=== PATIENT | male | born 1945 | race American Indian/Alaskan Native ===

== ENCOUNTER 2016-10-21 16:57 | Inpatient (IN) | payer MEDICARE, OTHER ==
--- NOTE | 2016-10-21 20:08 | Emergency Department Report ---
ED Psych HPI - General Chief Complaint: Medical Clearance Stated Complaint: AGITATION/PSYCHOSIS Time Seen by Provider: 10/21/16 20:06 Source: patient, EMS, RN notes reviewed Mode of arrival: Stretcher - History of Present Illness Initial Comments: pt sent from [place] pt acting psychotic. walking around naked. harrassing staff. verbally abusive. pt now calm cooperative. denies any co MD Complaint: other -: Gradual Associated Psychiatric Symptoms: none History of same: No Quality: constant Improves With: none Worsens With: none Associated Symptoms: denies other symptoms Treatments Prior to Arrival: none - Related Data Home Medications Medication Instructions Recorded Confirmed Last Taken Acyclovir [Zovirax Tab] 800 mg PO DAILY 10/21/16 10/21/16 Unknown Cephalexin [Keflex] 500 mg PO DAILY 10/21/16 10/21/16 Unknown Sertraline [Zoloft] 25 mg PO DAILY 10/21/16 10/21/16 Unknown oxyCODONE [Roxicodone TAB] 5 mg PO DAILY 10/21/16 10/21/16 Unknown Allopurinol [Zyloprim] 100 mg PO QDAY 10/22/16 10/22/16 Unknown Capsaicin 0.075% [Zostrix Hp 0.1 mg TP TID 10/22/16 10/22/16 Unknown 0.075%] Carvedilol [Coreg] 6.25 mg PO BID 10/22/16 10/22/16 Unknown Gabapentin [Neurontin] 600 mg PO BID 10/22/16 10/22/16 Unknown Hydroxyzine HCl 10 mg PO Q6H PRN 10/22/16 10/22/16 Unknown Insulin Regular, Human [HumuLIN R] 10 units SQ AC 10/22/16 10/22/16 Unknown LORazepam [Ativan] 1 mg PO TID 10/22/16 10/22/16 Unknown Quetiapine Fumarate [SEROquel] 50 mg PO QHS 10/22/16 10/22/16 Unknown amLODIPine [Norvasc] 5 mg PO DAILY 10/22/16 10/22/16 Unknown Allergies Allergy/AdvReac Type Severity Reaction Status Date / Time codeine Allergy Anaphylaxis Verified 10/21/16 17:29 lisinopril Allergy Angioedema Verified 10/21/16 17:29 metformin Allergy Unknown Verified 12/12/16 17:29 ED Review of Systems ROS: Stated complaint: AGITATION/PSYCHOSIS Other details as noted in HPI Comment: All other systems reviewed and negative Constitutional: denies: chills, fever Eyes: denies: eye pain, eye discharge, vision change ENT: denies: ear pain, throat pain Respiratory: denies: cough, shortness of breath, wheezing Cardiovascular: denies: chest pain, palpitations Endocrine: no symptoms reported Gastrointestinal: denies: abdominal pain, nausea, diarrhea Genitourinary: denies: urgency, dysuria Musculoskeletal: denies: back pain, joint swelling, arthralgia Skin: denies: rash, lesions Neurological: denies: headache, weakness, paresthesias Psychiatric: as per HPI, other. 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) Hx Headaches / Migraines: Yes Hx Kidney Stones: Yes (Chronic unspecified) Hx Psychiatric Treatment: Yes (Major Depressive Disorder) Hx Tuberculosis: Yes (contact and exposure) Hx Dementia: Yes Additional medical history: adverse effects to antiviral drugs; Hypothyroidism; gout; Muscle weakness; multiple falls - Surgical History Past Surgical History?: No Hx Coronary Stent: (dz listed on hx stent information not provided) - Social History Smoking Status: Unknown if ever smoked Substance Use Type: None - Medications Home Medications: Home Medications Medication Instructions Recorded Confirmed Last Taken Type Acyclovir [Zovirax Tab] 800 mg PO DAILY 10/21/16 10/21/16 Unknown History Cephalexin [Keflex] 500 mg PO DAILY 10/21/16 10/21/16 Unknown History Sertraline [Zoloft] 25 mg PO DAILY 10/21/16 10/21/16 Unknown History oxyCODONE [Roxicodone TAB] 5 mg PO DAILY 10/21/16 10/21/16 Unknown History Allopurinol [Zyloprim] 100 mg PO QDAY 10/22/16 10/22/16 Unknown History Capsaicin 0.075% [Zostrix Hp 0.1 mg TP TID 10/22/16 10/22/16 Unknown History 0.075%] Carvedilol [Coreg] 6.25 mg PO BID 10/22/16 10/22/16 Unknown History Gabapentin [Neurontin] 600 mg PO BID 10/22/16 10/22/16 Unknown History Hydroxyzine HCl 10 mg PO Q6H PRN 10/22/16 10/22/16 Unknown History Insulin Regular, Human [HumuLIN R] 10 units SQ AC 10/22/16 10/22/16 Unknown History LORazepam [Ativan] 1 mg PO TID 10/22/16 10/22/16 Unknown History Quetiapine Fumarate [SEROquel] 50 mg PO QHS 10/22/16 10/22/16 Unknown History amLODIPine [Norvasc] 5 mg PO DAILY 10/22/16 10/22/16 Unknown History ED Physical Exam - General Limitations: Altered Mental Status, Physical Limitation General appearance: alert, in no apparent distress - Head Head exam: Present: atraumatic, normocephalic - Eye Eye exam: Present: normal appearance - ENT ENT exam: Present: mucous membranes moist - Neck Neck exam: Present: normal inspection - Respiratory Respiratory exam: Present: normal lung sounds bilaterally. Absent: respiratory distress - Cardiovascular Cardiovascular Exam: Present: regular rate, normal rhythm. Absent: systolic murmur, diastolic murmur, rubs, gallop - GI/Abdominal GI/Abdominal exam: Present: soft, normal bowel sounds - Rectal Rectal exam: Present: deferred - Extremities Exam Extremities exam: Present: normal inspection - Back Exam Back exam: Present: normal inspection - Neurological Exam Neurological exam: Present: alert, oriented X3 - Psychiatric Psychiatric exam: Present: normal affect, normal mood - Skin Skin exam: Present: warm, dry, intact, normal color. Absent: rash ED Course Vital Signs 10/21/16 10/21/16 10/21/16 17:29 17:38 18:02 Temperature 98.5 F Pulse Rate 92 H Respiratory Rate Blood Pressure 120/52 120/52 Blood Pressure [Left] O2 Sat by Pulse 94 79 L 90 Oximetry 10/21/16 10/21/16 10/21/16 19:00 20:29 20:36 Temperature 98.6 F Pulse Rate 101 H Respiratory 18 18 Rate Blood Pressure 120/52 130/76 Blood Pressure 130/76 [Left] O2 Sat by Pulse 85 100 Oximetry 10/21/16 10/22/16 10/22/16 21:22 01:00 05:00 Temperature Pulse Rate 106 H 101 H Respiratory 18 16 Rate Blood Pressure 130/76 Blood Pressure 132/76 152/82 [Left] O2 Sat by Pulse 100 100 Oximetry 10/22/16 10/22/16 10/22/16 10:27 16:31 17:01 Temperature 98.1 F Pulse Rate 84 Respiratory 16 Rate Blood Pressure Blood Pressure 165/95 [Left] O2 Sat by Pulse 99 100 100 Oximetry 10/22/16 10/22/16 10/22/16 18:00 18:01 19:00 Temperature 98.1 F Pulse Rate 98 H 100 H Respiratory 16 20 Rate Blood Pressure 157/85 Blood Pressure 175/85 157/85 [Left] O2 Sat by Pulse 99 100 98 Oximetry 10/22/16 10/22/16 10/22/16 20:00 21:00 22:00 Temperature Pulse Rate 96 H 112 H 100 H Respiratory 20 18 Rate Blood Pressure 159/76 161/74 150/74 Blood Pressure 159/76 161/74 150/74 [Left] O2 Sat by Pulse 99 100 100 Oximetry 10/22/16 10/23/16 10/23/16 23:00 00:00 01:00 Temperature Pulse Rate 95 H 100 H 106 H Respiratory 20 20 16 Rate Blood Pressure 148/83 152/82 Blood Pressure 148/83 152/82 132/76 [Left] O2 Sat by Pulse 100 100 100 Oximetry 10/23/16 10/23/16 10/23/16 01:01 02:00 02:01 Temperature Pulse Rate 99 H Respiratory 18 Rate Blood Pressure 180/85 136/71 Blood Pressure 150/80 [Left] O2 Sat by Pulse 100 100 100 Oximetry 10/23/16 10/23/16 10/23/16 03:00 04:00 05:00 Temperature Pulse Rate 106 H 109 H 102 H Respiratory 18 16 21 Rate Blood Pressure 150/80 132/76 144/73 Blood Pressure 136/71 180/85 152/82 [Left] O2 Sat by Pulse 100 100 100 Oximetry 10/23/16 10/23/16 10/23/16 05:14 06:00 06:28 Temperature Pulse Rate 100 H 97 H Respiratory 22 16 Rate Blood Pressure 150/75 144/77 Blood Pressure 144/77 [Left] O2 Sat by Pulse 100 100 Oximetry 10/23/16 10/23/16 10/23/16 07:00 07:05 08:01 Temperature 99.2 F Pulse Rate 95 H 115 H 107 H Respiratory 20 20 22 Rate Blood Pressure 142/78 142/78 Blood Pressure 142/78 [Left] O2 Sat by Pulse 100 100 100 Oximetry 10/23/16 10/23/16 10/23/16 08:21 08:41 09:01 Temperature Pulse Rate 97 H 107 H 120 H Respiratory 17 16 19 Rate Blood Pressure 159/78 159/78 159/78 Blood Pressure [Left] O2 Sat by Pulse 99 100 100 Oximetry 10/23/16 10/23/16 10/23/16 09:29 09:30 09:31 Temperature Pulse Rate 103 H 105 H 105 H Respiratory 20 18 Rate Blood Pressure 159/78 159/78 159/78 Blood Pressure [Left] O2 Sat by Pulse 99 Oximetry 10/23/16 10/23/16 10/23/16 10:00 10:31 10:58 Temperature Pulse Rate 112 H Respiratory 18 22 Rate Blood Pressure 156/84 156/84 Blood Pressure [Left] O2 Sat by Pulse 100 Oximetry 10/23/16 10/23/16 10/23/16 11:00 11:01 11:09 Temperature Pulse Rate 108 H 108 H 107 H Respiratory 20 16 34 H Rate Blood Pressure 156/84 156/84 143/116 Blood Pressure [Left] O2 Sat by Pulse 100 Oximetry 10/23/16 10/23/16 12:01 13:00 Temperature Pulse Rate 106 H 92 H Respiratory 17 21 Rate Blood Pressure 143/116 136/71 Blood Pressure [Left] O2 Sat by Pulse 100 Oximetry ED Medical Decision Making - Lab Data Result diagrams: 10/21/16 20:30 10/21/16 20:30 - Medical Decision Making mr balderas arrived in no acute distress. he was medically cleared and placed on 1013. crisis consulted for dispo - Differential Diagnosis psychosis Critical care attestation.: If time is entered above; I have spent that time in minutes in the direct care of this critically ill patient, excluding procedure time. ED Disposition Clinical Impression: Psychosis Qualifiers: Psychosis type: unspecified psychosis type Qualified Code(s): F29 - Unspecified psychosis not due to a substance or known physiological condition Disposition: DC/TX PSY HOSP/PSY UNIT Is pt being admited?: No Does the pt Need Aspirin: No Condition: Stable Time of Disposition: 16:38 ( jose)
[2016-10-21 20:44] LABS: Urine Drugs of Abuse Note Disclamer
[2016-10-21 20:48] LABS: Basophils % (Auto) 1.1 % (0.0-1.8); Eosinophils % (Auto) 2.5 % (0.0-4.3); Hematocrit 29.2 % (35.5-45.6); Hemoglobin 9.6 gm/dl (11.8-15.2); Mean Corpuscular HGB Conc 33 % (32-34); Mean Corpuscular Hemoglobin 29 pg (28-32); Mean Corpuscular Volume 89 fl (84-94); Platelet Count 102 K/mm3 (140-440); Red Blood Count 3.27 M/mm3 (3.65-5.03); Red Cell Distribution Width 17.6 % (13.2-15.2); White Blood Count 6.5 K/mm3 (4.5-11.0)
[2016-10-21 21:07] LABS: Bilirubin,Urine NEG (Negative); Blood,Urine NEG (Negative); Ketones,Urine NEG (Negative); Leukocyte Esterase,Urine NEG (Negative); Mucus,Urine FEW /HPF; Nitrite,Urine NEG (Negative); RBC,Urine < 1.0 /HPF (0.0-6.0)
[2016-10-21 21:08] LABS: Blood Urea Nitrogen 21 mg/dL (9-20); Calcium 8.8 mg/dL (8.4-10.2); Carbon Dioxide 23 mmol/L (22-30); Chloride 105.7 mmol/L (98-107); Glucose 83 mg/dL (75-100); Potassium 4.1 mmol/L (3.6-5.0); Sodium 143 mmol/L (137-145)
[2016-10-21] MEDS ORDERED: BENADRYL ONE (21:17)
[2016-10-21] MEDS ORDERED: ATIVAN ONE (21:17)
[2016-10-21] MEDS ORDERED: BENADRYL IV ONE (21:24)
[2016-10-21] MEDS ORDERED: ATIVAN IV ONE (21:24)
[2016-10-21 21:29] LABS: Anion Gap 18 mmol/L
[2016-10-22] MEDS ORDERED: HYDROCORTISONE CR TP ONE (06:31)
[2016-10-22] MEDS ORDERED: BENADRYL ONE (06:32)
[2016-10-22] MEDS ORDERED: BENADRYL IV ONE (06:40)
[2016-10-22] MEDS ORDERED: ATIVAN ONE (08:43)
[2016-10-22] MEDS ORDERED: HALDOL IM PRN (08:45)
[2016-10-22] MEDS: ATIVAN IM PRN ×2 (09:04→14:59)
[2016-10-22] MEDS: BENADRYL IM PRN ×2 (09:04→14:59)
[2016-10-22] MEDS ORDERED: GEODON IM ONE ×2 (14:44→15:00)
[2016-10-22] MEDS ORDERED: WATER FOR INJ (PF) 10 ML ONE (14:44)
[2016-10-22] MEDS: COREG PO SCH (17:45)
[2016-10-22] MEDS: NEURONTIN PO SCH ×2 (17:45→22:00)
[2016-10-22] MEDS: NORVASC PO SCH (17:45)
[2016-10-22] MEDS: ROXICODONE PO SCH (17:46)
[2016-10-22] MEDS: ZOVIRAX PO SCH (17:46)
[2016-10-22] MEDS: ZYLOPRIM PO SCH (17:46)
[2016-10-22] MEDS: ZOSTRIX HP TP SCH ×2 (17:46→20:00)
[2016-10-22] MEDS: ZOLOFT PO SCH (18:36)
[2016-10-22] MEDS ORDERED: NON-FORMULARY (Gabapentin [Neurontin] 600 MG) PO SCH (22:00)
[2016-10-22] MEDS ORDERED: NON-FORMULARY (Quetiapine Fumarate [Seroquel] 50 MG) PO SCH (22:00)
[2016-10-23] MEDS: COREG PO SCH ×3 (05:14→22:18)
[2016-10-23] MEDS ORDERED: GEODON IM ONE ×2 (07:41→07:50)
[2016-10-23] MEDS: ZOSTRIX HP TP SCH ×3 (08:17→22:18)
[2016-10-23] MEDS ORDERED: ZOLOFT ONE (09:08)
[2016-10-23] MEDS: ROXICODONE PO SCH (09:31)
[2016-10-23] MEDS: NEURONTIN PO SCH ×2 (09:31→22:19)
[2016-10-23] MEDS: NORVASC PO SCH (09:31)
[2016-10-23] MEDS: ZOLOFT PO SCH (09:32)
[2016-10-23] MEDS: ZYLOPRIM PO SCH (09:32)
[2016-10-23] MEDS: ATARAX PO PRN (09:32)
[2016-10-23] MEDS: ZOVIRAX PO SCH (11:14)
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
[2016-10-23 13:37] LABS: Alanine Aminotransferase 18 units/L (7-56); Albumin 3.5 g/dL (3.9-5); Albumin/Globulin Ratio 0.8 %; Bilirubin,Direct < 0.2 mg/dL (0-0.2); Bilirubin,Total 0.8 mg/dL (0.1-1.2); Creatine Kinase 318 units/L (55-170); Total Protein 7.9 g/dL (6.3-8.2)
--- NOTE | 2016-10-23 14:20 | XRay Report ---
Single view chest: History: Cough, M.D. exposure. Findings: Cardiomegaly. Trachea is midline. There is confluence of vessels identified in the right lower lobe. Associated infiltrates if present cannot be excluded. Stable right venous catheter. Impression: Findings as detailed above. Clinical correlation advised.
[2016-10-23 14:45] LABS: INR 1.12 (0.87-1.13)
[2016-10-23 14:46] LABS: Partial Thromboplastin Time 30.6 Sec. (24.2-36.6)
[2016-10-23 15:10] LABS: Cholesterol 143 mg/dL (50-199); HDL Cholesterol 40 mg/dL (40-59); LDL Cholesterol,Direct 64 mg/dL (50-130); Triglycerides 199 mg/dL (2-149)
[2016-10-23 15:56] LABS: Alkaline Phosphatase 153 units/L (35-129)
[2016-10-24] MEDS ORDERED: NORMODYNE PO ONE (03:07)
[2016-10-24] MEDS ORDERED: GEODON IM ONE ×3 (03:16→03:29)
[2016-10-24] MEDS ORDERED: BENADRYL IV ONE ×2 (03:17→03:28)
[2016-10-24] MEDS ORDERED: BENADRYL IM ONE (03:19)
--- NOTE | 2016-10-24 03:24 | Emergency Department Report ---
Blank Doc - Documentation Documentation: Patient's blood pressures trending upward despite current meds. Nurse requested additional medications for elevated BP. I ordered labetalol 100 mg by mouth. However, patient is agitated and spitting it out. Nurse reports that the most of his shift that patient has been cooperative with by mouth intake and just became acutely agitated this evening. I reviewed clinical nurse specialist note from day shift. She recommended addition labs (done), several changes and the medication and head CT. Head CT has not been ordered and therefore was ordered at this time. I discontinued to Zofran, increase Seroquel to 50 mg twice a day, and resumed levothyroxine 75 g daily, MiraLAX daily, and Dulcolax daily as recommended. It is recommended that Geodon be started 10 mg IM every 8 hours and to decrease his Ativan use however, Geodon in combination with Seroquel can increase his QTC and cause arrhythmias therefore I did not write this as a standing order. This needs to be rediscussed with clinical nurse specialist prior to initiation. Standing Ativan when necessary orders will be continued at this time. Geodon and Benadryl IM ordered at this time since patient is acutely agitated, constant scratching his skin causing superficial skin breakdown. Once patient is calm will attempt to obtaining CT head and reassess blood pressure. If elevated we will start IV so that IV medications can administered when patient refuses po intake. Patient remains agitated in the ED requiring restraints. CT head shows no acute findings.
--- NOTE | 2016-10-24 05:34 | Cat Scan Report ---
FINAL REPORT PROCEDURE: CT HEAD WO CONTRAST TECHNIQUE: Computerized tomography of the head was performed without contrast material. HISTORY: PSYCHOSIS COMPARISON: 01/12/2009 FINDINGS: Skull and scalp: Normal. Paranasal sinuses: Normal. Ventricles and subarachnoid spaces: There is advanced central and cortical atrophy. There is no hydrocephalus or asymmetry.. Cerebrum: No evidence of hemorrhage, acute infarction or mass . Cerebellum and brainstem: No evidence of hemorrhage, acute infarction or mass. Vasculature: There is calcified plaque in the cavernous portions of the internal carotid arteries.. Comments: There is chronic deep white matter ischemic gliosis.. IMPRESSION: There are chronic involutional changes. There is no acute abnormality.
[2016-10-24] MEDS: ZOSTRIX HP TP SCH ×3 (08:00→21:00)
[2016-10-24] MEDS: SYNTHROID PO SCH (09:00)
[2016-10-24] MEDS: ZYLOPRIM PO SCH (10:30)
[2016-10-24] MEDS: MIRALAX 3350 PO SCH (10:50)
[2016-10-24] MEDS: ZOVIRAX PO SCH (10:50)
[2016-10-24] MEDS: COLACE PO SCH ×2 (11:25→22:11)
[2016-10-24] MEDS: COREG PO SCH ×2 (11:27→22:11)
[2016-10-24] MEDS: NEURONTIN PO SCH ×2 (11:28→22:12)
[2016-10-24] MEDS: NORVASC PO SCH (11:28)
[2016-10-24] MEDS: ROXICODONE PO SCH (11:28)
[2016-10-25] MEDS: SYNTHROID PO SCH (06:09)
[2016-10-25] MEDS: ZOSTRIX HP TP SCH ×2 (07:52→14:20)
[2016-10-25] MEDS: COREG PO SCH ×2 (10:30→21:55)
[2016-10-25] MEDS: NEURONTIN PO SCH ×2 (10:30→21:55)
[2016-10-25] MEDS: MIRALAX 3350 PO SCH (10:30)
[2016-10-25] MEDS: COLACE PO SCH ×2 (10:30→21:55)
[2016-10-25] MEDS: ZYLOPRIM PO SCH (10:30)
[2016-10-25] MEDS: ZOVIRAX PO SCH (10:30)
[2016-10-25] MEDS: NORVASC PO SCH (10:56)
[2016-10-25] MEDS: ROXICODONE PO SCH (10:59)
[2016-10-26] MEDS: SYNTHROID PO SCH (06:03)
[2016-10-26] MEDS: ZOSTRIX HP TP SCH ×3 (08:31→21:00)
[2016-10-26 10:33] LABS: Hematocrit 37.6 % (35.5-45.6); Mean Corpuscular HGB Conc 32 % (32-34); Mean Corpuscular Hemoglobin 29 pg (28-32); Mean Corpuscular Volume 92 fl (84-94); Platelet Count 168 K/mm3 (140-440); Red Cell Distribution Width 18.1 % (13.2-15.2); White Blood Count 6.4 K/mm3 (4.5-11.0)
[2016-10-26 10:38] LABS: BUN/Creatinine Ratio 25.78; Chloride 112.9 mmol/L (98-107); Potassium 4.5 mmol/L (3.6-5.0)
[2016-10-26] MEDS: COREG PO SCH ×2 (11:21→21:52)
[2016-10-26] MEDS: COLACE PO SCH ×2 (11:21→21:53)
[2016-10-26] MEDS: NORVASC PO SCH (11:23)
[2016-10-26] MEDS: MIRALAX 3350 PO SCH (11:23)
[2016-10-26] MEDS: NEURONTIN PO SCH ×2 (11:23→21:53)
[2016-10-26] MEDS: ROXICODONE PO SCH (11:24)
[2016-10-26] MEDS: ZOVIRAX PO SCH (11:25)
[2016-10-26] MEDS: ZYLOPRIM PO SCH (11:25)
[2016-10-26] MEDS ORDERED: NACL 0.9% 500 ML 500 ML IV ONE (11:35)
--- NOTE | 2016-10-26 11:45 | Progress Note ---
Subjective - Reason for Consult Consult date: 10/26/16 Reason for consult: AMS Requesting physician: MAKAYLA PATEL - Chief Complaint Chief complaint: non verbal Mental Status Exam - Vital signs Last Vital Signs Temp 96.9 F L 10/26/16 08:11 Pulse 92 H 10/26/16 11:23 Resp 26 H 10/26/16 09:56 BP 134/86 10/26/16 11:23 Pulse Ox 96 10/26/16 06:05 - Exam Narrative exam: alert, eyes open, not speaking in restraints not verbally responsive calm, not pulling against restraint Concentration: unable to pay attention Motor activity: lethargic Level of consciousness: sedated Interaction: apathetic Mini mental status exam(if necessary): 0-17 Assessment and Plan ASSESSMENT Delirium Dementia with increased agitation/aggression and possible sexually acting out Opioid Dependence, 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 Hx oxycodone 5mg QID daily for 15+ years (dependence) cancer, relapse hypothyroid DM-uncontrolled tb exposure hx skin irritation/itching-- very agitating to him, lesions from scratching rx keflex for 7 days starting 10/18 Called pharm for home med list Pharmacy [phone] [place] Hx filled 10/18/16: Vit d3 Q WEEK cream for skin lesions isosorbide dinitrate levothyroxine 75mcg seroquel 50 HS remeron 15 HS zoloft 12.5 day lantus 30 BID novolog 10 SQ AC oxycodone 5mg Q8 PRN miralax qday pravastatin hs 40 omeprazole 40 daily hydralazine 10 Q6 Gababpentin 300 (2) TID Acyclovir 400 TID keflex 500 tid x 7 10/18 allopurinol 100 daily carvedilol 6.25 BID amlodipine ativan 1mg q8 PO/IM PRN docusate - Patient Problems (1) Dementia Current Visit: Yes Status: Acute Plan to address problem: RECOMMEND 1. Continue 1013 HOLD-aggression 2. ammonia, thyroid panel, head ct, chest xray (discussed with [place]) 3. D/C Zoloft 4. Increase Seroquel to 50mg po BID 5. Geodon 10mg IM Q8 HRS PRN severe agitation/psychosis 6. Judicious Ativan use only--recommend against it 7. Resume Levothyroxine 75mcg daily 8. Resume miralax and docusate daily--manage constipation 9. Adequate pain management 10. Psych will follow
[2016-10-26] MEDS ORDERED: NACL 0.9% 1000 ML 1,000 ML ONE ×2 (11:47→11:49)
--- NOTE | 2016-10-26 12:28 | History and Physical Report ---
History of Present Illness Date of examination: 10/26/16 Date of admission: 10/26/16 Chief complaint: Acute psychotic behavior, walking around naked harassing and hitting the staff members and the resident's ,inappropriate sexual behavior and verbally abusive at the skilled nursing History of present illness: 70-year-old skilled nursing resident with significant past medical history of hypertension and congestive heart failure chronic kidney disease coronary artery disease status post PCI type 2 diabetes mellitus T-cell lymphoma in remission obstructive sleep apnea hypothyroidism count multiple falls in the past was sent to the emergency room with acute psychotic behavior walking around naked harassing and hitting the staff members and the resident's inappropriate sexual behavior and verbally abusive for the last 3-4 days Patient was sent to the emergency room on 10/21/2016 for psych evaluation and admission to inpatient psych facility, patient was placed on 1013 and was closely observed evaluated by psychiatrist nurse practitioner. Today ER physician noted the patient to be agitated, blood work is consistent with hypernatremia, acute renal failure with creatinine trended up from 1.4-1.9 the last few days, as well as uncontrolled blood sugars And I evaluated the patient patient was sleeping/sedated easily awakens, agitated and loud Past History Past Medical History: CAD, diabetes, heart failure, hypertension, hyperlipidemia , hypothyroidism, renal failure (chronic kidney disease), other (lymphoma/ dementia/depression) Past Surgical History: No surgical history (no known surgical history) Social history: other (next of kin Myesha Núñez [phone]/ resident of skilled nursing). denies: smoking, alcohol abuse, prescription drug abuse Family history: no significant family history (no known family history) Medications and Allergies Allergies Allergy/AdvReac Type Severity Reaction Status Date / Time codeine Allergy Anaphylaxis Verified 10/21/16 17:29 lisinopril Allergy Angioedema Verified 10/21/16 17:29 metformin Allergy Unknown Verified 10/21/16 17:29 Home Medications Medication Instructions Recorded Confirmed Last Taken Type RX: Acyclovir [Zovirax Tab] 800 mg PO DAILY 10/21/16 10/21/16 Unknown History RX: Cephalexin [Keflex] 500 mg PO DAILY 10/21/16 10/21/16 Unknown History RX: Sertraline [Zoloft] 25 mg PO DAILY 10/21/16 10/21/16 Unknown History RX: oxyCODONE [Roxicodone TAB] 5 mg PO DAILY 10/21/16 10/21/16 Unknown History Allopurinol [Zyloprim] 100 mg PO QDAY 10/22/16 10/22/16 Unknown History Carvedilol [Coreg] 6.25 mg PO BID 10/22/16 10/22/16 Unknown History Gabapentin [Neurontin] 600 mg PO BID 10/22/16 10/22/16 Unknown History Insulin Regular, Human [HumuLIN R] 10 units SQ AC 10/22/16 10/22/16 Unknown History LORazepam [Ativan] 1 mg PO TID 10/22/16 10/22/16 Unknown History Quetiapine Fumarate [SEROquel] 50 mg PO QHS 10/22/16 10/22/16 Unknown History RX: Capsaicin 0.075% [Zostrix Hp 0.1 mg TP TID 10/22/16 10/22/16 Unknown History 0.075%] RX: Hydroxyzine HCl 10 mg PO Q6H PRN 10/22/16 10/22/16 Unknown History amLODIPine [Norvasc] 5 mg PO DAILY 10/22/16 10/22/16 Unknown History Active Meds: Active Medications Acyclovir (Zovirax) 800 mg PO DAILY [facility] Last Admin: 10/26/16 11:25 Dose: 800 mg Allopurinol (Zyloprim) 100 mg PO QDAY [facility] Last Admin: 10/26/16 11:25 Dose: 100 mg Amlodipine Besylate (Norvasc) 5 mg PO DAILY [facility] Last Admin: 10/26/16 11:23 Dose: 5 mg Capsaicin (Zostrix Hp) 1 applic TP TID [facility] Last Admin: 10/26/16 08:31 Dose: 1 applic Carvedilol (Coreg) 6.25 mg PO BID [facility] Last Admin: 10/26/16 11:21 Dose: 6.25 mg Diphenhydramine HCl (Benadryl) 50 mg IM Q6H PRN PRN Reason: Agitation Last Admin: 10/22/16 14:59 Dose: 50 mg Docusate Sodium (Colace) 100 mg PO BID [facility] Last Admin: 10/26/16 11:21 Dose: 100 mg Gabapentin (Neurontin) 600 mg PO BID [facility] Last Admin: 10/26/16 11:23 Dose: 600 mg Hydroxyzine HCl (Atarax) 10 mg PO Q6H PRN PRN Reason: Itching Last Admin: 10/23/16 09:32 Dose: 10 mg Insulin Human Regular (Novolin R) 10 units SUB-Q AC [facility] Last Admin: 10/26/16 08:31 Dose: 10 units Levothyroxine Sodium (Synthroid) 75 mcg PO DAILY@0600 [facility] Last Admin: 10/26/16 06:03 Dose: 75 mcg Lorazepam (Ativan) 2 mg IM Q8H PRN PRN Reason: Agitation Last Admin: 10/22/16 14:59 Dose: 2 mg Oxycodone HCl (Roxicodone) 5 mg PO DAILY [facility] Last Admin: 10/26/16 11:24 Dose: Not Given Polyethylene Glycol (Miralax 3350) 17 gm PO QDAY [facility] Last Admin: 10/26/16 11:23 Dose: 17 gm Quetiapine Fumarate (Seroquel) 50 mg PO BID [facility] Last Admin: 10/26/16 11:24 Dose: 50 mg Review of Systems ROS unobtainable: due to mental status Exam - Constitutional Vitals: Temp Pulse Resp BP Pulse Ox 99.5 F 92 H 26 H 134/86 96 10/26/16 12:04 10/26/16 11:23 10/26/16 09:56 10/26/16 11:23 10/26/16 06:05 General appearance: Present: no acute distress, other (sedated/sleeping/easily awakens and irritated) - EENT Eyes: Present: PERRL, EOM intact - Neck Neck: Present: supple, normal ROM - Respiratory Respiratory effort: normal Respiratory: bilateral: diminished, negative: rales, rhonchi, wheezing - Cardiovascular Rhythm: regular Heart Sounds: Present: S1 & S2 - Extremities Extremities: no ischemia, pulses intact, pulses symmetrical - Abdominal General gastrointestinal: Present: soft, non-tender, non-distended, normal bowel sounds - Integumentary Integumentary: Present: clear, warm - Musculoskeletal Musculoskeletal: strength equal bilaterally, generalized weakness - Psychiatric Psychiatric: appropriate mood/affect, cooperative - Neurologic Neurologic: CNII-XII intact, moves all extremities Results - Labs CBC & Chem 7: 10/26/16 09:00 10/27/16 05:30 Labs: Abnormal lab results 10/23/16 10/23/16 10/25/16 Range/Units 22:59 22:59 12:14 RDW (13.2-15.2) % Sodium (137-145) mmol/L Chloride (98-107) mmol/L BUN (9-20) mg/dL Creatinine (0.8-1.5) mg/dL Glucose (75-100) mg/dL POC Glucose 283 H (70-105) T3 (NISHA) 56 L (76-181) ng/dL Free T3 Index 2.0 L (2.3-4.2) pg/mL 10/25/16 10/26/16 10/26/16 Range/Units 16:19 06:25 07:33 RDW (13.2-15.2) % Sodium (137-145) mmol/L Chloride (98-107) mmol/L BUN (9-20) mg/dL Creatinine (0.8-1.5) mg/dL Glucose (75-100) mg/dL POC Glucose 254 H 238 H 289 H (70-105) T3 (NISHA) (76-181) ng/dL Free T3 Index (2.3-4.2) pg/mL 10/26/16 10/26/16 Range/Units 09:00 09:00 RDW 18.1 H (13.2-15.2) % Sodium 152 H D (137-145) mmol/L Chloride 112.9 H (98-107) mmol/L BUN 49 H (9-20) mg/dL Creatinine 1.9 H (0.8-1.5) mg/dL Glucose 364 H (75-100) mg/dL POC Glucose (70-105) T3 (NISHA) (76-181) ng/dL Free T3 Index (2.3-4.2) pg/mL Assessment and Plan --Hypernatremia Probably secondary to poor oral intake secondary to acute psychotic behavior Encourage oral fluid, half-normal saline infusion Closely monitor electrolytes --Acute renal failure probably secondary to ATN IV hydration with half normal saline, closely monitor renal function Avoid nephrotoxic medications, consider nephrology evaluation if no improvement --Type 2 diabetes mellitus Uncontrolled, Accu-Chek sliding scale coverage and ADA diet Long-acting insulin start low-dose and increase as needed Check a hemoglobin A1c --Acute psychosis Psych following, continue current psych medications Patient may ultimately need inpatient psych facility admission and treatment --DVT prophylaxis With heparin renal dose --Full CODE STATUS --DC planning. Case management Possible discharge and transfer to inpatient psych facility when medically stable Plan of care discussed with the patient ,ER physician as well as the psych nurse 1013 status
--- NOTE | 2016-10-26 12:45 | Event Note ---
Date: 10/26/16 The patient is brought to my attention by the nurse for decreased oral intake and generalized weakness. I go to evaluate the patient, he is resting comfortably, will follow some commands. Indicates no pain. Chest x-ray unremarkable. Afebrile rectally. Laboratory studies indicate hypernatremia, acute on chronic renal insufficiency, review of all laboratory studies demonstrate multiple abnormalities, including hypoglycemia, hyperglycemia, elevated ammonia level, elevated troponin level. Patient has been in the ER for a prolonged period of time, and appears to be medically worsening. I don't believe he is suitable medically for psychiatric transfer at this time. Case discussed with the Hospital physician, Dr. Limon, who accepts the patient to her service. Psychiatry to follow. Repeat chest x-ray unremarkable. Vital Signs 10/21/16 10/21/16 10/21/16 17:29 17:38 18:02 Temperature 98.5 F Pulse Rate 92 H Respiratory Rate Blood Pressure 120/52 120/52 Blood Pressure [Left] O2 Sat by Pulse 94 79 L 90 Oximetry 10/21/16 10/21/16 10/21/16 19:00 20:29 20:36 Temperature 98.6 F Pulse Rate 101 H Respiratory 18 18 Rate Blood Pressure 120/52 130/76 Blood Pressure 130/76 [Left] O2 Sat by Pulse 85 100 Oximetry 10/21/16 10/22/16 10/22/16 21:22 01:00 05:00 Temperature Pulse Rate 106 H 101 H Respiratory 18 16 Rate Blood Pressure 130/76 Blood Pressure 132/76 152/82 [Left] O2 Sat by Pulse 100 100 Oximetry 10/22/16 10/22/16 10/22/16 10:27 16:31 17:01 Temperature 98.1 F Pulse Rate 84 Respiratory 16 Rate Blood Pressure Blood Pressure 165/95 [Left] O2 Sat by Pulse 99 100 100 Oximetry 10/22/16 10/22/16 10/22/16 18:00 18:01 19:00 Temperature 98.1 F Pulse Rate 98 H 100 H Respiratory 16 20 Rate Blood Pressure 157/85 Blood Pressure 175/85 157/85 [Left] O2 Sat by Pulse 99 100 98 Oximetry 10/22/16 10/22/16 10/22/16 20:00 21:00 22:00 Temperature Pulse Rate 96 H 112 H 100 H Respiratory 20 18 Rate Blood Pressure 159/76 161/74 150/74 Blood Pressure 159/76 161/74 150/74 [Left] O2 Sat by Pulse 99 100 100 Oximetry 10/22/16 10/23/16 10/23/16 23:00 00:00 01:00 Temperature Pulse Rate 95 H 100 H 106 H Respiratory 20 20 16 Rate Blood Pressure 148/83 152/82 Blood Pressure 148/83 152/82 132/76 [Left] O2 Sat by Pulse 100 100 100 Oximetry 10/23/16 10/23/16 10/23/16 01:01 02:00 02:01 Temperature Pulse Rate 99 H Respiratory 18 Rate Blood Pressure 180/85 136/71 Blood Pressure 150/80 [Left] O2 Sat by Pulse 100 100 100 Oximetry 10/23/16 10/23/16 10/23/16 03:00 04:00 05:00 Temperature Pulse Rate 106 H 109 H 102 H Respiratory 18 16 21 Rate Blood Pressure 150/80 132/76 144/73 Blood Pressure 136/71 180/85 152/82 [Left] O2 Sat by Pulse 100 100 100 Oximetry 10/23/16 10/23/16 10/23/16 05:14 06:00 06:28 Temperature Pulse Rate 100 H 97 H Respiratory 22 16 Rate Blood Pressure 150/75 144/77 Blood Pressure 144/77 [Left] O2 Sat by Pulse 100 100 Oximetry 10/23/16 10/23/16 10/23/16 07:00 07:05 08:01 Temperature 99.2 F Pulse Rate 95 H 115 H 107 H Respiratory 20 20 22 Rate Blood Pressure 142/78 142/78 Blood Pressure 142/78 [Left] O2 Sat by Pulse 100 100 100 Oximetry 10/23/16 10/23/16 10/23/16 08:21 08:41 09:01 Temperature Pulse Rate 97 H 107 H 120 H Respiratory 17 16 19 Rate Blood Pressure 159/78 159/78 159/78 Blood Pressure [Left] O2 Sat by Pulse 99 100 100 Oximetry 10/23/16 10/23/16 10/23/16 09:29 09:30 09:31 Temperature Pulse Rate 103 H 105 H 105 H Respiratory 20 18 Rate Blood Pressure 159/78 159/78 159/78 Blood Pressure [Left] O2 Sat by Pulse 99 Oximetry 10/23/16 10/23/16 10/23/16 10:00 10:31 10:58 Temperature Pulse Rate 112 H Respiratory 18 22 Rate Blood Pressure 156/84 156/84 Blood Pressure [Left] O2 Sat by Pulse 100 Oximetry 10/23/16 10/23/16 10/23/16 11:00 11:01 11:09 Temperature Pulse Rate 108 H 108 H 107 H Respiratory 20 16 34 H Rate Blood Pressure 156/84 156/84 143/116 Blood Pressure [Left] O2 Sat by Pulse 100 Oximetry 10/23/16 10/23/16 10/23/16 12:01 13:00 13:57 Temperature Pulse Rate 106 H 92 H 90 Respiratory 17 21 13 Rate Blood Pressure 143/116 136/71 136/71 Blood Pressure [Left] O2 Sat by Pulse 100 100 Oximetry 10/23/16 10/23/16 10/23/16 14:00 15:00 16:00 Temperature Pulse Rate 89 97 H 103 H Respiratory 18 25 H 12 Rate Blood Pressure 135/73 126/78 138/80 Blood Pressure [Left] O2 Sat by Pulse 100 88 100 Oximetry 10/23/16 10/23/16 10/23/16 17:01 18:01 18:31 Temperature Pulse Rate 100 H 106 H Respiratory 17 16 18 Rate Blood Pressure 157/82 157/82 Blood Pressure [Left] O2 Sat by Pulse 100 99 98 Oximetry 10/23/16 10/24/16 10/24/16 22:18 02:15 03:14 Temperature Pulse Rate 101 H 99 H 99 H Respiratory 22 Rate Blood Pressure 203/92 214/87 Blood Pressure 214/87 [Left] O2 Sat by Pulse 99 Oximetry 10/24/16 10/24/16 10/24/16 04:55 11:27 12:00 Temperature 979 F H Pulse Rate 94 H 100 H 100 H Respiratory 20 20 Rate Blood Pressure 154/79 Blood Pressure 155/70 154/79 [Left] O2 Sat by Pulse 96 Oximetry 10/24/16 10/24/16 10/24/16 19:14 19:55 22:11 Temperature 98.6 F Pulse Rate 96 H 84 88 Respiratory 18 18 Rate Blood Pressure 148/92 Blood Pressure 142/81 146/94 [Left] O2 Sat by Pulse 96 98 Oximetry 10/24/16 10/25/16 10/25/16 23:32 10:30 20:58 Temperature 97.8 F 98.4 F Pulse Rate 101 H 84 Respiratory 18 18 18 Rate Blood Pressure 166/95 Blood Pressure 166/95 157/90 [Left] O2 Sat by Pulse 96 99 Oximetry 10/25/16 10/26/16 10/26/16 21:55 01:35 06:05 Temperature Pulse Rate 86 88 68 Respiratory 20 18 Rate Blood Pressure 162/91 Blood Pressure 159/85 161/90 [Left] O2 Sat by Pulse 98 96 Oximetry 10/26/16 10/26/16 10/26/16 08:11 09:56 11:21 Temperature 96.9 F L Pulse Rate 94 H 92 H Respiratory 20 26 H Rate Blood Pressure 136/86 Blood Pressure 134/86 [Left] O2 Sat by Pulse Oximetry 10/26/16 10/26/16 10/26/16 11:23 12:04 12:05 Temperature 99.5 F 99.5 F Pulse Rate 92 H Respiratory Rate Blood Pressure 134/86 Blood Pressure [Left] O2 Sat by Pulse Oximetry Labs 10/21/16 10/21/16 10/21/16 20:30 20:30 20:30 WBC 6.5 RBC 3.27 L Hgb 9.6 L Hct 29.2 L MCV 89 MCH 29 MCHC 33 RDW 17.6 H Plt Count 102 L Lymph % (Auto) 10.7 L [place] % (Auto) 10.4 H Eos % (Auto) 2.5 Baso % (Auto) 1.1 Lymph # 0.7 L [place] # 0.7 Eos # 0.2 Baso # 0.1 Seg Neutrophils % 75.3 H Seg Neutrophils # 4.9 PT INR APTT Sodium 143 Potassium 4.1 Chloride 105.7 Carbon Dioxide 23 Anion Gap 18 BUN 21 H Creatinine 1.4 Estimated GFR > 60 BUN/Creatinine Ratio 15.00 Glucose 83 POC Glucose Lactic Acid Calcium 8.8 Total Bilirubin Direct Bilirubin AST ALT Alkaline Phosphatase Ammonia Total Creatine Kinase CK-MB (CK-2) CK-MB (CK-2) Rel Index Troponin T NT-Pro-B Natriuret Pep Total Protein Albumin Albumin/Globulin Ratio Triglycerides Cholesterol LDL Cholesterol Direct HDL Cholesterol Cholesterol/HDL Ratio TSH Free T4 Thyroxine (T4) T3 (NISHA) Free T3 Index Urine Color Urine Turbidity Urine pH Ur Specific [place] Urine Protein Urine Glucose (UA) Urine Ketones Urine Blood Urine Nitrite Urine Bilirubin Urine Urobilinogen Ur Leukocyte Esterase Urine WBC (Auto) Urine RBC (Auto) Urine Mucus Urine Opiates Screen Urine Methadone Screen Ur Barbiturates Screen Ur Phencyclidine Scrn Ur Amphetamines Screen U Benzodiazepines Scrn Urine Cocaine Screen U Marijuana (THC) Screen Drugs of Abuse Note Plasma/Serum Alcohol < 0.01 10/21/16 10/21/16 10/22/16 20:36 20:36 10:34 WBC RBC Hgb Hct MCV MCH MCHC RDW Plt Count Lymph % (Auto) [place] % (Auto) Eos % (Auto) Baso % (Auto) Lymph # [place] # Eos # Baso # Seg Neutrophils % Seg Neutrophils # PT INR APTT Sodium Potassium Chloride Carbon Dioxide Anion Gap BUN Creatinine Estimated GFR BUN/Creatinine Ratio Glucose POC Glucose 253 H Lactic Acid Calcium Total Bilirubin Direct Bilirubin AST ALT Alkaline Phosphatase Ammonia Total Creatine Kinase CK-MB (CK-2) CK-MB (CK-2) Rel Index Troponin T NT-Pro-B Natriuret Pep Total Protein Albumin Albumin/Globulin Ratio Triglycerides Cholesterol LDL Cholesterol Direct HDL Cholesterol Cholesterol/HDL Ratio TSH Free T4 Thyroxine (T4) T3 (NISHA) Free T3 Index Urine Color Yellow Urine Turbidity Clear Urine pH 7.0 Ur Specific [place] 1.011 Urine Protein 30 mg/dl Urine Glucose (UA) Neg Urine Ketones Neg Urine Blood Neg Urine Nitrite Neg Urine Bilirubin Neg Urine Urobilinogen 4.0 Ur Leukocyte Esterase Neg Urine WBC (Auto) 0.0 Urine RBC (Auto) < 1.0 Urine Mucus Few Urine Opiates Screen Presumptive negative Urine Methadone Screen Presumptive negative Ur Barbiturates Screen Presumptive negative Ur Phencyclidine Scrn Presumptive negative Ur Amphetamines Screen Presumptive negative U Benzodiazepines Scrn Presumptive negative Urine Cocaine Screen Presumptive negative U Marijuana (THC) Screen Presumptive negative Drugs of Abuse Note Disclamer Plasma/Serum Alcohol 10/23/16 10/23/16 10/23/16 08:05 11:30 12:53 WBC RBC Hgb Hct MCV MCH MCHC RDW Plt Count Lymph % (Auto) [place] % (Auto) Eos % (Auto) Baso % (Auto) Lymph # [place] # Eos # Baso # Seg Neutrophils % Seg Neutrophils # PT INR APTT Sodium Potassium Chloride Carbon Dioxide Anion Gap BUN Creatinine Estimated GFR BUN/Creatinine Ratio Glucose POC Glucose 245 H 253 H Lactic Acid 2.8 H* Calcium Total Bilirubin Direct Bilirubin AST ALT Alkaline Phosphatase Ammonia Total Creatine Kinase CK-MB (CK-2) CK-MB (CK-2) Rel Index Troponin T NT-Pro-B Natriuret Pep Total Protein Albumin Albumin/Globulin Ratio Triglycerides Cholesterol LDL Cholesterol Direct HDL Cholesterol Cholesterol/HDL Ratio TSH Free T4 Thyroxine (T4) T3 (NISHA) Free T3 Index Urine Color Urine Turbidity Urine pH Ur Specific [place] Urine Protein Urine Glucose (UA) Urine Ketones Urine Blood Urine Nitrite Urine Bilirubin Urine Urobilinogen Ur Leukocyte Esterase Urine WBC (Auto) Urine RBC (Auto) Urine Mucus Urine Opiates Screen Urine Methadone Screen Ur Barbiturates Screen Ur Phencyclidine Scrn Ur Amphetamines Screen U Benzodiazepines Scrn Urine Cocaine Screen U Marijuana (THC) Screen Drugs of Abuse Note Plasma/Serum Alcohol 10/23/16 10/23/16 10/23/16 12:53 12:53 12:53 WBC RBC Hgb Hct MCV MCH MCHC RDW Plt Count Lymph % (Auto) [place] % (Auto) Eos % (Auto) Baso % (Auto) Lymph # [place] # Eos # Baso # Seg Neutrophils % Seg Neutrophils # PT 14.3 INR 1.12 APTT 30.6 Sodium Potassium Chloride Carbon Dioxide Anion Gap BUN Creatinine Estimated GFR BUN/Creatinine Ratio Glucose POC Glucose Lactic Acid Calcium Total Bilirubin 0.8 Direct Bilirubin < 0.2 AST 26 ALT 18 Alkaline Phosphatase 153 H Ammonia 51.0 Total Creatine Kinase 318 H CK-MB (CK-2) 3.0 CK-MB (CK-2) Rel Index 0.9 Troponin T 0.032 H NT-Pro-B Natriuret Pep 532.6 Total Protein 7.9 Albumin 3.5 L Albumin/Globulin Ratio 0.8 Triglycerides 199 H Cholesterol 143 LDL Cholesterol Direct 64 HDL Cholesterol 40 Cholesterol/HDL Ratio 3.57 TSH Free T4 Thyroxine (T4) T3 (NISHA) Free T3 Index Urine Color Urine Turbidity Urine pH Ur Specific [place] Urine Protein Urine Glucose (UA) Urine Ketones Urine Blood Urine Nitrite Urine Bilirubin Urine Urobilinogen Ur Leukocyte Esterase Urine WBC (Auto) Urine RBC (Auto) Urine Mucus Urine Opiates Screen Urine Methadone Screen Ur Barbiturates Screen Ur Phencyclidine Scrn Ur Amphetamines Screen U Benzodiazepines Scrn Urine Cocaine Screen U Marijuana (THC) Screen Drugs of Abuse Note Plasma/Serum Alcohol 10/23/16 10/23/16 10/23/16 12:53 18:11 22:59 WBC RBC Hgb Hct MCV MCH MCHC RDW Plt Count Lymph % (Auto) [place] % (Auto) Eos % (Auto) Baso % (Auto) Lymph # [place] # Eos # Baso # Seg Neutrophils % Seg Neutrophils # PT INR APTT Sodium Potassium Chloride Carbon Dioxide Anion Gap BUN Creatinine Estimated GFR BUN/Creatinine Ratio Glucose POC Glucose 67 L Lactic Acid Calcium Total Bilirubin Direct Bilirubin AST ALT Alkaline Phosphatase Ammonia 63.0 H Total Creatine Kinase CK-MB (CK-2) CK-MB (CK-2) Rel Index Troponin T NT-Pro-B Natriuret Pep Total Protein Albumin Albumin/Globulin Ratio Triglycerides Cholesterol LDL Cholesterol Direct HDL Cholesterol Cholesterol/HDL Ratio TSH 1.040 Free T4 1.14 Thyroxine (T4) T3 (NISHA) Free T3 Index Urine Color Urine Turbidity Urine pH Ur Specific [place] Urine Protein Urine Glucose (UA) Urine Ketones Urine Blood Urine Nitrite Urine Bilirubin Urine Urobilinogen Ur Leukocyte Esterase Urine WBC (Auto) Urine RBC (Auto) Urine Mucus Urine Opiates Screen Urine Methadone Screen Ur Barbiturates Screen Ur Phencyclidine Scrn Ur Amphetamines Screen U Benzodiazepines Scrn Urine Cocaine Screen U Marijuana (THC) Screen Drugs of Abuse Note Plasma/Serum Alcohol 10/23/16 10/23/16 10/23/16 22:59 22:59 22:59 WBC RBC Hgb Hct MCV MCH MCHC RDW Plt Count Lymph % (Auto) [place] % (Auto) Eos % (Auto) Baso % (Auto) Lymph # [place] # Eos # Baso # Seg Neutrophils % Seg Neutrophils # PT INR APTT Sodium Potassium Chloride Carbon Dioxide Anion Gap BUN Creatinine Estimated GFR BUN/Creatinine Ratio Glucose POC Glucose Lactic Acid Calcium Total Bilirubin Direct Bilirubin AST ALT Alkaline Phosphatase Ammonia Total Creatine Kinase CK-MB (CK-2) CK-MB (CK-2) Rel Index Troponin T NT-Pro-B Natriuret Pep Total Protein Albumin Albumin/Globulin Ratio Triglycerides Cholesterol LDL Cholesterol Direct HDL Cholesterol Cholesterol/HDL Ratio TSH Free T4 1.13 Thyroxine (T4) 5.2 T3 (NISHA) Free T3 Index 2.0 L Urine Color Urine Turbidity Urine pH Ur Specific [place] Urine Protein Urine Glucose (UA) Urine Ketones Urine Blood Urine Nitrite Urine Bilirubin Urine Urobilinogen Ur Leukocyte Esterase Urine WBC (Auto) Urine RBC (Auto) Urine Mucus Urine Opiates Screen Urine Methadone Screen Ur Barbiturates Screen Ur Phencyclidine Scrn Ur Amphetamines Screen U Benzodiazepines Scrn Urine Cocaine Screen U Marijuana (THC) Screen Drugs of Abuse Note Plasma/Serum Alcohol 12/14/16 12/15/16 12/15/16 22:59 08:27 12:30 WBC RBC Hgb Hct MCV MCH MCHC RDW Plt Count Lymph % (Auto) [place] % (Auto) Eos % (Auto) Baso % (Auto) Lymph # [place] # Eos # Baso # Seg Neutrophils % Seg Neutrophils # PT INR APTT Sodium Potassium Chloride Carbon Dioxide Anion Gap BUN Creatinine Estimated GFR BUN/Creatinine Ratio Glucose POC Glucose 252 H 219 H Lactic Acid Calcium Total Bilirubin Direct Bilirubin AST ALT Alkaline Phosphatase Ammonia Total Creatine Kinase CK-MB (CK-2) CK-MB (CK-2) Rel Index Troponin T NT-Pro-B Natriuret Pep Total Protein Albumin Albumin/Globulin Ratio Triglycerides Cholesterol LDL Cholesterol Direct HDL Cholesterol Cholesterol/HDL Ratio TSH Free T4 Thyroxine (T4) T3 (NISHA) 56 L Free T3 Index Urine Color Urine Turbidity Urine pH Ur Specific [place] Urine Protein Urine Glucose (UA) Urine Ketones Urine Blood Urine Nitrite Urine Bilirubin Urine Urobilinogen Ur Leukocyte Esterase Urine WBC (Auto) Urine RBC (Auto) Urine Mucus Urine Opiates Screen Urine Methadone Screen Ur Barbiturates Screen Ur Phencyclidine Scrn Ur Amphetamines Screen U Benzodiazepines Scrn Urine Cocaine Screen U Marijuana (THC) Screen Drugs of Abuse Note Plasma/Serum Alcohol 10/24/16 10/25/16 10/25/16 16:36 07:42 12:14 WBC RBC Hgb Hct MCV MCH MCHC RDW Plt Count Lymph % (Auto) [place] % (Auto) Eos % (Auto) Baso % (Auto) Lymph # [place] # Eos # Baso # Seg Neutrophils % Seg Neutrophils # PT INR APTT Sodium Potassium Chloride Carbon Dioxide Anion Gap BUN Creatinine Estimated GFR BUN/Creatinine Ratio Glucose POC Glucose 240 H 290 H 283 H Lactic Acid Calcium Total Bilirubin Direct Bilirubin AST ALT Alkaline Phosphatase Ammonia Total Creatine Kinase CK-MB (CK-2) CK-MB (CK-2) Rel Index Troponin T NT-Pro-B Natriuret Pep Total Protein Albumin Albumin/Globulin Ratio Triglycerides Cholesterol LDL Cholesterol Direct HDL Cholesterol Cholesterol/HDL Ratio TSH Free T4 Thyroxine (T4) T3 (NISHA) Free T3 Index Urine Color Urine Turbidity Urine pH Ur Specific [place] Urine Protein Urine Glucose (UA) Urine Ketones Urine Blood Urine Nitrite Urine Bilirubin Urine Urobilinogen Ur Leukocyte Esterase Urine WBC (Auto) Urine RBC (Auto) Urine Mucus Urine Opiates Screen Urine Methadone Screen Ur Barbiturates Screen Ur Phencyclidine Scrn Ur Amphetamines Screen U Benzodiazepines Scrn Urine Cocaine Screen U Marijuana (THC) Screen Drugs of Abuse Note Plasma/Serum Alcohol 10/25/16 10/26/16 10/26/16 16:19 06:25 07:33 WBC RBC Hgb Hct MCV MCH MCHC RDW Plt Count Lymph % (Auto) [place] % (Auto) Eos % (Auto) Baso % (Auto) Lymph # [place] # Eos # Baso # Seg Neutrophils % Seg Neutrophils # PT INR APTT Sodium Potassium Chloride Carbon Dioxide Anion Gap BUN Creatinine Estimated GFR BUN/Creatinine Ratio Glucose POC Glucose 254 H 238 H 289 H Lactic Acid Calcium Total Bilirubin Direct Bilirubin AST ALT Alkaline Phosphatase Ammonia Total Creatine Kinase CK-MB (CK-2) CK-MB (CK-2) Rel Index Troponin T NT-Pro-B Natriuret Pep Total Protein Albumin Albumin/Globulin Ratio Triglycerides Cholesterol LDL Cholesterol Direct HDL Cholesterol Cholesterol/HDL Ratio TSH Free T4 Thyroxine (T4) T3 (NISHA) Free T3 Index Urine Color Urine Turbidity Urine pH Ur Specific [place] Urine Protein Urine Glucose (UA) Urine Ketones Urine Blood Urine Nitrite Urine Bilirubin Urine Urobilinogen Ur Leukocyte Esterase Urine WBC (Auto) Urine RBC (Auto) Urine Mucus Urine Opiates Screen Urine Methadone Screen Ur Barbiturates Screen Ur Phencyclidine Scrn Ur Amphetamines Screen U Benzodiazepines Scrn Urine Cocaine Screen U Marijuana (THC) Screen Drugs of Abuse Note Plasma/Serum Alcohol 10/26/16 10/26/16 10/26/16 09:00 09:00 09:00 WBC 6.4 RBC 4.10 Hgb 12.0 Hct 37.6 MCV 92 MCH 29 MCHC 32 RDW 18.1 H Plt Count 168 Lymph % (Auto) [place] % (Auto) Eos % (Auto) Baso % (Auto) Lymph # [place] # Eos # Baso # Seg Neutrophils % Seg Neutrophils # PT INR APTT Sodium 152 H D Potassium 4.5 Chloride 112.9 H Carbon Dioxide 23 Anion Gap 21 BUN 49 H Creatinine 1.9 H Estimated GFR 43 BUN/Creatinine Ratio 25.78 Glucose 364 H POC Glucose Lactic Acid Calcium 9.0 Total Bilirubin Direct Bilirubin AST ALT Alkaline Phosphatase Ammonia 30.0 Total Creatine Kinase CK-MB (CK-2) CK-MB (CK-2) Rel Index Troponin T NT-Pro-B Natriuret Pep Total Protein Albumin Albumin/Globulin Ratio Triglycerides Cholesterol LDL Cholesterol Direct HDL Cholesterol Cholesterol/HDL Ratio TSH Free T4 Thyroxine (T4) T3 (NISHA) Free T3 Index Urine Color Urine Turbidity Urine pH Ur Specific [place] Urine Protein Urine Glucose (UA) Urine Ketones Urine Blood Urine Nitrite Urine Bilirubin Urine Urobilinogen Ur Leukocyte Esterase Urine WBC (Auto) Urine RBC (Auto) Urine Mucus Urine Opiates Screen Urine Methadone Screen Ur Barbiturates Screen Ur Phencyclidine Scrn Ur Amphetamines Screen U Benzodiazepines Scrn Urine Cocaine Screen U Marijuana (THC) Screen Drugs of Abuse Note Plasma/Serum Alcohol
--- NOTE | 2016-10-26 12:48 | XRay Report ---
AP CHEST: HISTORY: Shortness of breath, evaluate for pneumonia AP view of the chest demonstrates a normal mediastinal and cardiac contour with clear lungs and normal bony and soft tissue structures. The right [id number] is unchanged in position since 10/23/16. IMPRESSION: Unremarkable AP chest.
[2016-10-26] MEDS: NACL 0.45% 1000 ML 1,000 ML IV SCH (19:43)
[2016-10-26] MEDS: BENADRYL IM PRN (21:51)
[2016-10-26] MEDS: HEPARIN SUB-Q SCH (22:06)
[2016-10-26] MEDS: NOVOLOG SUB-Q SCH ×2 (23:00→23:04)
[2016-10-27] MEDS: SYNTHROID PO SCH (05:57)
[2016-10-27 06:24] LABS: Albumin 3.2 g/dL (3.9-5); Albumin/Globulin Ratio 0.8 %; BUN/Creatinine Ratio 22.3; Bilirubin,Direct 0.3 mg/dL (0-0.2); Bilirubin,Indirect 0.6 mg/dL; Bilirubin,Total 0.9 mg/dL (0.1-1.2); Calcium 8.8 mg/dL (8.4-10.2); Chloride 117.6 mmol/L (98-107); Magnesium 2.4 mg/dL (1.7-2.3); Potassium 4.3 mmol/L (3.6-5.0); Total Protein 7.1 g/dL (6.3-8.2)
[2016-10-27] MEDS: NACL 0.45% 1000 ML 1,000 ML IV SCH ×2 (07:24→17:03)
[2016-10-27] MEDS: NOVOLOG SUB-Q SCH ×5 (08:52→23:39)
[2016-10-27] MEDS: ZOSTRIX HP TP SCH ×4 (08:55→21:00)
[2016-10-27] MEDS: MIRALAX 3350 PO SCH (09:00)
[2016-10-27] MEDS: NEURONTIN PO SCH ×2 (09:00→21:00)
[2016-10-27] MEDS: COLACE PO SCH ×2 (09:01→21:23)
[2016-10-27] MEDS: COREG PO SCH ×2 (09:27→20:59)
[2016-10-27] MEDS: HEPARIN SUB-Q SCH ×2 (10:00→21:18)
[2016-10-27] MEDS: NORVASC PO SCH (10:00)
[2016-10-27] MEDS: ZYLOPRIM PO SCH (10:03)
[2016-10-27] MEDS: BENADRYL IM PRN ×2 (10:03→17:02)
[2016-10-27] MEDS: ZOVIRAX PO SCH (10:03)
[2016-10-27] MEDS: ROXICODONE PO SCH (10:04)
--- NOTE | 2016-10-27 16:27 | Progress Note ---
Assessment and Plan Assessment and plan: --Hypernatremia Probably secondary to poor oral intake secondary to acute psychotic behavior Encourage oral fluid, half-normal saline infusion Closely monitor electrolytes --Acute renal failure probably secondary to ATN IV hydration with half normal saline, closely monitor renal function Avoid nephrotoxic medications, consider nephrology evaluation if no improvement --Type 2 diabetes mellitus Uncontrolled, Accu-Chek sliding scale coverage and ADA diet Long-acting insulin start low-dose and increase as needed Check a hemoglobin A1c --Acute psychosis Psych following, continue current psych medications Patient may ultimately need inpatient psych facility admission and treatment --DVT prophylaxis With heparin renal dose --Full CODE STATUS --DC planning. 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 Vital signs reviewed stable Hospitalist Physical - Constitutional Vitals: Temp Pulse Resp BP Pulse Ox 98.0 F 106 H 20 90/46 95 10/27/16 07:30 10/27/16 07:30 10/27/16 10:04 10/27/16 10:00 10/26/16 16:49 General appearance: Present: no acute distress, well-nourished, other (sedated/ sleeping/easily awakens and irritated) - EENT Eyes: Present: PERRL, EOM intact - Neck Neck: Present: supple, normal ROM - Respiratory Respiratory: bilateral: diminished, negative: rales, rhonchi, wheezing - Cardiovascular Rhythm: regular Heart Sounds: Present: S1 & S2 - Extremities Extremities: no ischemia, pulses intact, pulses symmetrical Peripheral Pulses: within normal limits - Abdominal General gastrointestinal: soft, non-tender, non-distended, normal bowel sounds - Integumentary Integumentary: Present: clear, warm - Psychiatric Psychiatric: appropriate mood/affect, cooperative - Neurologic Neurologic: CNII-XII intact, moves all extremities Results - Labs CBC & Chem 7: 10/26/16 09:00 10/27/16 05:30 Labs: Laboratory Last Values WBC 6.4 K/mm3 (4.5-11.0) 10/26/16 09:00 RBC 4.10 M/mm3 (3.65-5.03) 10/26/16 09:00 Hgb 12.0 gm/dl (11.8-15.2) 10/26/16 09:00 Hct 37.6 % (35.5-45.6) 10/26/16 09:00 MCV 92 fl (84-94) 10/26/16 09:00 MCH 29 pg (28-32) 10/26/16 09:00 MCHC 32 % (32-34) 10/26/16 09:00 RDW 18.1 % (13.2-15.2) H 10/26/16 09:00 Plt Count 168 K/mm3 (140-440) 10/26/16 09:00 Lymph % (Auto) 10.7 % (13.4-35.0) L 10/21/16 20:30 [place] % (Auto) 10.4 % (0.0-7.3) H 10/21/16 20:30 Eos % (Auto) 2.5 % (0.0-4.3) 10/21/16 20:30 Baso % (Auto) 1.1 % (0.0-1.8) 10/21/16 20:30 Lymph # 0.7 K/mm3 (1.2-5.4) L 10/21/16 20:30 [place] # 0.7 K/mm3 (0.0-0.8) 10/21/16 20:30 Eos # 0.2 K/mm3 (0.0-0.4) 10/21/16 20:30 Baso # 0.1 K/mm3 (0.0-0.1) 10/21/16 20:30 Seg Neutrophils % 75.3 % (40.0-70.0) H 10/21/16 20:30 Seg Neutrophils # 4.9 K/mm3 (1.8-7.7) 10/21/16 20:30 PT 14.3 Sec. (12.2-14.9) 10/23/16 12:53 INR 1.12 (0.87-1.13) 10/23/16 12:53 APTT 30.6 Sec. (24.2-36.6) 10/23/16 12:53 Sodium 156 mmol/L (137-145) H 10/27/16 05:30 Potassium 4.3 mmol/L (3.6-5.0) 10/27/16 05:30 Chloride 117.6 mmol/L (98-107) H 10/27/16 05:30 Carbon Dioxide 23 mmol/L (22-30) 10/27/16 05:30 Anion Gap 20 mmol/L 10/27/16 05:30 BUN 58 mg/dL (9-20) H 10/27/16 05:30 Creatinine 2.6 mg/dL (0.8-1.5) H 10/27/16 05:30 Estimated GFR 30 ml/min 10/27/16 05:30 BUN/Creatinine Ratio 22.30 % 10/27/16 05:30 Glucose 252 mg/dL (75-100) H 10/27/16 05:30 POC Glucose 153 (70-105) H 10/27/16 11:51 Hemoglobin A1c 7.2 % (4-6) H 10/27/16 05:30 Lactic Acid 2.8 mmol/L (0.7-2.0) H* 10/23/16 12:53 Calcium 8.8 mg/dL (8.4-10.2) 10/27/16 05:30 Magnesium 2.4 mg/dL (1.7-2.3) H 10/27/16 05:30 Total Bilirubin 0.9 mg/dL (0.1-1.2) 10/27/16 05:30 Direct Bilirubin 0.3 mg/dL (0-0.2) H 10/27/16 05:30 Indirect Bilirubin 0.6 mg/dL 10/27/16 05:30 AST 18 units/L (5-40) 10/27/16 05:30 ALT 13 units/L (7-56) 10/27/16 05:30 Alkaline Phosphatase 116 units/L (35-129) 10/27/16 05:30 Ammonia 30.0 umol/L (25-60) 10/26/16 09:00 Total Creatine Kinase 318 units/L (55-170) H 10/23/16 12:53 CK-MB (CK-2) 3.0 ng/mL (0.0-4.0) 10/23/16 12:53 CK-MB (CK-2) Rel Index 0.9 (0-4) 10/23/16 12:53 Troponin T 0.032 ng/mL (0.00-0.029) H 10/23/16 12:53 NT-Pro-B Natriuret Pep 532.6 pg/mL (0-900) 10/23/16 12:53 Total Protein 7.1 g/dL (6.3-8.2) 10/27/16 05:30 Albumin 3.2 g/dL (3.9-5) L 10/27/16 05:30 Albumin/Globulin Ratio 0.8 % 10/27/16 05:30 Triglycerides 199 mg/dL (2-149) H 10/23/16 12:53 Cholesterol 143 mg/dL (50-199) 10/23/16 12:53 LDL Cholesterol Direct 64 mg/dL (50-130) 10/23/16 12:53 HDL Cholesterol 40 mg/dL (40-59) 10/23/16 12:53 Cholesterol/HDL Ratio 3.57 % 10/23/16 12:53 TSH 1.040 mlU/mL (0.270-4.200) 10/23/16 12:53 Free T4 1.13 ng/dL (0.76-1.46) 10/23/16 22:59 Thyroxine (T4) 5.2 ug/dL (4.0-12.0) 10/23/16 22:59 T3 (NISHA) 56 ng/dL (76-181) L 10/23/16 22:59 Free T3 Index 2.0 pg/mL (2.3-4.2) L 10/23/16 22:59 Urine Color Yellow (Yellow) 10/21/16 20:36 Urine Turbidity Clear (Clear) 10/21/16 20:36 Urine pH 7.0 (5.0-7.0) 10/21/16 20:36 Ur Specific [place] 1.011 (1.003-1.030) 10/21/16 20:36 Urine Protein 30 mg/dl mg/dL (Negative) 10/21/16 20:36 Urine Glucose (UA) Neg mg/dL (Negative) 10/21/16 20:36 Urine Ketones Neg mg/dL (Negative) 10/21/16 20:36 Urine Blood Neg (Negative) 10/21/16 20:36 Urine Nitrite Neg (Negative) 10/21/16 20:36 Urine Bilirubin Neg (Negative) 10/21/16 20:36 Urine Urobilinogen 4.0 mg/dL (<2.0) 10/21/16 20:36 Ur Leukocyte Esterase Neg (Negative) 10/21/16 20:36 Urine WBC (Auto) 0.0 /HPF (0.0-6.0) 10/21/16 20:36 Urine RBC (Auto) < 1.0 /HPF (0.0-6.0) 10/21/16 20:36 Urine Mucus Few /HPF 10/21/16 20:36 Urine Opiates Screen Presumptive negative 10/21/16 20:36 Urine Methadone Screen Presumptive negative 10/21/16 20:36 Ur Barbiturates Screen Presumptive negative 10/21/16 20:36 Ur Phencyclidine Scrn Presumptive negative 10/21/16 20:36 Ur Amphetamines Screen Presumptive negative 10/21/16 20:36 U Benzodiazepines Scrn Presumptive negative 10/21/16 20:36 Urine Cocaine Screen Presumptive negative 10/21/16 20:36 U Marijuana (THC) Screen Presumptive negative 10/21/16 20:36 Drugs of Abuse Note Disclamer 10/21/16 20:36 Plasma/Serum Alcohol < 0.01 gm% (0-0.07) 10/21/16 20:30
[2016-10-27] MEDS: ATIVAN IM PRN (21:10)
[2016-10-28] MEDS: BENADRYL IM PRN (04:50)
[2016-10-28] MEDS: SYNTHROID PO SCH (05:01)
[2016-10-28 08:21] LABS: Basophils % (Auto) 1.3 % (0.0-1.8); Eosinophils % (Auto) 4.6 % (0.0-4.3); Hematocrit 31.4 % (35.5-45.6); Hemoglobin 10.1 gm/dl (11.8-15.2); Mean Corpuscular HGB Conc 32 % (32-34); Mean Corpuscular Hemoglobin 29 pg (28-32); Mean Corpuscular Volume 92 fl (84-94); Platelet Count 158 K/mm3 (140-440); Red Blood Count 3.42 M/mm3 (3.65-5.03); White Blood Count 6.5 K/mm3 (4.5-11.0)
[2016-10-28 08:31] LABS: BUN/Creatinine Ratio 20.45; Calcium 8.4 mg/dL (8.4-10.2); Chloride 110.8 mmol/L (98-107); Potassium 4.4 mmol/L (3.6-5.0)
[2016-10-28] MEDS: NOVOLOG SUB-Q SCH ×4 (09:14→22:18)
--- NOTE | 2016-10-28 09:14 | Progress Note ---
Assessment and Plan Assessment and plan: --Metabolic encephalopathy Secondary to acute psychosis, underlying electrolyte imbalance Patient is more alert today, still confused, continue supportive care --Hypernatremia Sodium levels trending down Encourage oral fluid, half-normal saline infusion Thank you for fluids --Acute renal failure probably secondary to ATN IV hydration with half normal saline, creatinine is trending down Avoid nephrotoxic medications, consider nephrology evaluation if no improvement --Type 2 diabetes mellitus Uncontrolled, Accu-Chek sliding scale coverage and ADA diet Long-acting insulin start low-dose and increase as needed Check a hemoglobin A1c --Acute psychosis No new episodes of psychosis Psych following, Seroquel dose adjusted When necessary Haldol added , psych following, Ativan discontinued --Dermatitis, Lac-Hydrin/hydrocortisone cream Supportive skincare --Full CODE STATUS --DC planning. Case management Possible discharge and transfer to inpatient psych facility when medically stable Plan of care discussed with the patient ,ER physician as well as the psych nurse 1013 status I discussed in detail with the at the bedside advised her to encourage increased free water intake in view of his hypernatremia And dehydration History Interval history: Patient seen and evaluated in his room this morning medical records reviewed Patient's is at the bedside, is more alert and awake responding to simple questions Tolerated part of his breakfast, reports that patient is drinking plenty of oral fluids No episodes of acute psychosis 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 Hospitalist Physical - Constitutional Vitals: Temp Pulse Resp BP Pulse Ox 98.1 F 88 18 137/67 96 10/28/16 08:48 10/28/16 08:48 10/28/16 08:48 10/28/16 08:48 10/28/16 08:48 General appearance: Present: no acute distress, well-nourished, other (sedated/ sleeping/easily awakens and irritated) - EENT Eyes: Present: PERRL, EOM intact - Neck Neck: Present: supple, normal ROM - Respiratory Respiratory effort: normal Respiratory: bilateral: diminished, negative: rales, rhonchi, wheezing - Cardiovascular Rhythm: regular Heart Sounds: Present: S1 & S2 - Extremities Extremities: no ischemia, pulses intact, pulses symmetrical - Abdominal General gastrointestinal: soft, non-tender, non-distended, normal bowel sounds - Integumentary Integumentary: Present: clear, warm - Psychiatric Psychiatric: appropriate mood/affect, other (confused at times) - Neurologic Neurologic: moves all extremities Results - Labs CBC & Chem 7: 10/28/16 07:54 10/28/16 07:54 Labs: Laboratory Last Values WBC 6.5 K/mm3 (4.5-11.0) 10/28/16 07:54 RBC 3.42 M/mm3 (3.65-5.03) L 10/28/16 07:54 Hgb 10.1 gm/dl (11.8-15.2) L 10/28/16 07:54 Hct 31.4 % (35.5-45.6) L D 10/28/16 07:54 MCV 92 fl (84-94) 10/28/16 07:54 MCH 29 pg (28-32) 10/28/16 07:54 MCHC 32 % (32-34) 10/28/16 07:54 RDW 18.0 % (13.2-15.2) H 10/28/16 07:54 Plt Count 158 K/mm3 (140-440) 10/28/16 07:54 Lymph % (Auto) 13.5 % (13.4-35.0) 10/28/16 07:54 [place] % (Auto) 9.8 % (0.0-7.3) H 10/28/16 07:54 Eos % (Auto) 4.6 % (0.0-4.3) H 10/28/16 07:54 Baso % (Auto) 1.3 % (0.0-1.8) 10/28/16 07:54 Lymph # 0.9 K/mm3 (1.2-5.4) L 10/28/16 07:54 [place] # 0.6 K/mm3 (0.0-0.8) 10/28/16 07:54 Eos # 0.3 K/mm3 (0.0-0.4) 10/28/16 07:54 Baso # 0.1 K/mm3 (0.0-0.1) 10/28/16 07:54 Seg Neutrophils % 70.8 % (40.0-70.0) H 10/28/16 07:54 Seg Neutrophils # 4.6 K/mm3 (1.8-7.7) 10/28/16 07:54 PT 14.3 Sec. (12.2-14.9) 10/23/16 12:53 INR 1.12 (0.87-1.13) 10/23/16 12:53 APTT 30.6 Sec. (24.2-36.6) 10/23/16 12:53 Sodium 144 mmol/L (137-145) D 10/28/16 07:54 Potassium 4.4 mmol/L (3.6-5.0) 10/28/16 07:54 Chloride 110.8 mmol/L (98-107) H 10/28/16 07:54 Carbon Dioxide 20 mmol/L (22-30) L 10/28/16 07:54 Anion Gap 18 mmol/L 10/28/16 07:54 BUN 45 mg/dL (9-20) H 10/28/16 07:54 Creatinine 2.2 mg/dL (0.8-1.5) H 10/28/16 07:54 Estimated GFR 36 ml/min 10/28/16 07:54 BUN/Creatinine Ratio 20.45 % 10/28/16 07:54 Glucose 135 mg/dL (75-100) H 10/28/16 07:54 POC Glucose 150 (70-105) H 10/28/16 05:19 Hemoglobin A1c 7.2 % (4-6) H 10/27/16 05:30 Lactic Acid 2.8 mmol/L (0.7-2.0) H* 10/23/16 12:53 Calcium 8.4 mg/dL (8.4-10.2) 10/28/16 07:54 Magnesium 2.0 mg/dL (1.7-2.3) 10/28/16 07:54 Total Bilirubin 0.9 mg/dL (0.1-1.2) 10/27/16 05:30 Direct Bilirubin 0.3 mg/dL (0-0.2) H 10/27/16 05:30 Indirect Bilirubin 0.6 mg/dL 10/27/16 05:30 AST 18 units/L (5-40) 10/27/16 05:30 ALT 13 units/L (7-56) 10/27/16 05:30 Alkaline Phosphatase 116 units/L (35-129) 10/27/16 05:30 Ammonia 30.0 umol/L (25-60) 10/26/16 09:00 Total Creatine Kinase 318 units/L (55-170) H 10/23/16 12:53 CK-MB (CK-2) 3.0 ng/mL (0.0-4.0) 10/23/16 12:53 CK-MB (CK-2) Rel Index 0.9 (0-4) 10/23/16 12:53 Troponin T 0.032 ng/mL (0.00-0.029) H 10/23/16 12:53 NT-Pro-B Natriuret Pep 532.6 pg/mL (0-900) 10/23/16 12:53 Total Protein 7.1 g/dL (6.3-8.2) 10/27/16 05:30 Albumin 3.2 g/dL (3.9-5) L 10/27/16 05:30 Albumin/Globulin Ratio 0.8 % 10/27/16 05:30 Triglycerides 199 mg/dL (2-149) H 10/23/16 12:53 Cholesterol 143 mg/dL (50-199) 10/23/16 12:53 LDL Cholesterol Direct 64 mg/dL (50-130) 10/23/16 12:53 HDL Cholesterol 40 mg/dL (40-59) 10/23/16 12:53 Cholesterol/HDL Ratio 3.57 % 10/23/16 12:53 TSH 1.040 mlU/mL (0.270-4.200) 10/23/16 12:53 Free T4 1.13 ng/dL (0.76-1.46) 10/23/16 22:59 Thyroxine (T4) 5.2 ug/dL (4.0-12.0) 10/23/16 22:59 T3 (NISHA) 56 ng/dL (76-181) L 10/23/16 22:59 Free T3 Index 2.0 pg/mL (2.3-4.2) L 10/23/16 22:59 Urine Color Yellow (Yellow) 10/21/16 20:36 Urine Turbidity Clear (Clear) 10/21/16 20:36 Urine pH 7.0 (5.0-7.0) 10/21/16 20:36 Ur Specific [place] 1.011 (1.003-1.030) 10/21/16 20:36 Urine Protein 30 mg/dl mg/dL (Negative) 10/21/16 20:36 Urine Glucose (UA) Neg mg/dL (Negative) 10/21/16 20:36 Urine Ketones Neg mg/dL (Negative) 10/21/16 20:36 Urine Blood Neg (Negative) 10/21/16 20:36 Urine Nitrite Neg (Negative) 10/21/16 20:36 Urine Bilirubin Neg (Negative) 10/21/16 20:36 Urine Urobilinogen 4.0 mg/dL (<2.0) 10/21/16 20:36 Ur Leukocyte Esterase Neg (Negative) 10/21/16 20:36 Urine WBC (Auto) 0.0 /HPF (0.0-6.0) 10/21/16 20:36 Urine RBC (Auto) < 1.0 /HPF (0.0-6.0) 10/21/16 20:36 Urine Mucus Few /HPF 10/21/16 20:36 Urine Opiates Screen Presumptive negative 10/21/16 20:36 Urine Methadone Screen Presumptive negative 10/21/16 20:36 Ur Barbiturates Screen Presumptive negative 10/21/16 20:36 Ur Phencyclidine Scrn Presumptive negative 10/21/16 20:36 Ur Amphetamines Screen Presumptive negative 10/21/16 20:36 U Benzodiazepines Scrn Presumptive negative 10/21/16 20:36 Urine Cocaine Screen Presumptive negative 10/21/16 20:36 U Marijuana (THC) Screen Presumptive negative 10/21/16 20:36 Drugs of Abuse Note Disclamer 10/21/16 20:36 Plasma/Serum Alcohol < 0.01 gm% (0-0.07) 10/21/16 20:30
[2016-10-28] MEDS: ZYLOPRIM PO SCH (09:48)
[2016-10-28] MEDS: NORVASC PO SCH (09:49)
[2016-10-28] MEDS: ROXICODONE PO SCH (09:50)
[2016-10-28] MEDS: NEURONTIN PO SCH ×2 (09:51→21:57)
[2016-10-28] MEDS: COREG PO SCH ×2 (09:51→21:57)
[2016-10-28] MEDS: MIRALAX 3350 PO SCH (09:52)
[2016-10-28] MEDS: COLACE PO SCH ×2 (09:52→21:57)
[2016-10-28] MEDS: ZOSTRIX HP TP SCH ×3 (10:05→22:12)
[2016-10-28] MEDS: HEPARIN SUB-Q SCH ×2 (10:07→21:58)
[2016-10-28] MEDS: ZOVIRAX PO SCH (10:16)
[2016-10-28] MEDS: NACL 0.45% 1000 ML 1,000 ML IV SCH ×2 (12:56→23:00)
--- NOTE | 2016-10-28 12:58 | Progress Note ---
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" in restraints accd to staff present patient was more alert earlier and able to converse with his and eat breakfast calm, not pulling against restraint no overt psychosis--not hallucinating, just confused/disoriented/sleepy impaired attention/focus, memory, insight and judgment Orientation: time (November (no)), place (no), person Mood: calm Thought content: other (disoriented) Thought Process: Disoriented Perceptions: none Speech: minimal response Concentration: unable to pay attention Motor activity: lethargic Level of consciousness: sedated Memory: Recent Impaired, Remote Impaired Sleep Symptoms: None Interaction: apathetic Mini mental status exam(if necessary): 0-17 Assessment and Plan ASSESSMENT Delirium -hypernatremia -dehydration -acute renal failure Dementia with increased agitation/aggression 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 Hx oxycodone 5mg QID daily for 15+ years (dependence) reported to have severe sleep apnea cancer, relapse hypothyroid DM-uncontrolled tb exposure hx skin irritation/itching-- very agitating to him, lesions from scratching was rx keflex for 7 days starting 10/18 - Patient Problems (1) Dementia Current Visit: Yes Status: Acute Plan to address problem: RECOMMEND 1. Reduce Seroquel 25mg po BID 2. Haldol 1-2mg IM Q8HRS PRN severe agitation/psychosis 3. D/C Ativan 4. Adequate pain management--opiate dependent 5. NH Placement 6. Psych will follow
[2016-10-28] MEDS: LAC-HYDRIN TP SCH (22:20)
[2016-10-29] MEDS: HALDOL IM PRN (00:24)
[2016-10-29] MEDS: SYNTHROID PO SCH (05:26)
[2016-10-29] MEDS: NOVOLOG SUB-Q SCH ×4 (07:30→22:14)
[2016-10-29 09:23] LABS: Basophils % (Auto) 1.1 % (0.0-1.8); Eosinophils % (Auto) 3.5 % (0.0-4.3); Hematocrit 31.2 % (35.5-45.6); Hemoglobin 10.1 gm/dl (11.8-15.2); Mean Corpuscular HGB Conc 32 % (32-34); Mean Corpuscular Hemoglobin 30 pg (28-32); Mean Corpuscular Volume 91 fl (84-94); Platelet Count 136 K/mm3 (140-440); Red Blood Count 3.42 M/mm3 (3.65-5.03); White Blood Count 4.8 K/mm3 (4.5-11.0)
[2016-10-29 09:34] LABS: Blood Urea Nitrogen 28 mg/dL (9-20); Calcium 8.5 mg/dL (8.4-10.2); Carbon Dioxide 20 mmol/L (22-30); Chloride 110.9 mmol/L (98-107); Glucose 119 mg/dL (75-100); Potassium 4.2 mmol/L (3.6-5.0); Sodium 144 mmol/L (137-145)
[2016-10-29 09:38] LABS: Anion Gap 17 mmol/L
[2016-10-29] MEDS: MIRALAX 3350 PO SCH (10:34)
[2016-10-29] MEDS: HYDROCORTISONE CR TP PRN (10:35)
[2016-10-29] MEDS: LAC-HYDRIN TP SCH ×2 (10:35→22:02)
[2016-10-29] MEDS: NEURONTIN PO SCH ×2 (10:36→22:01)
[2016-10-29] MEDS: COLACE PO SCH ×2 (10:37→22:01)
[2016-10-29] MEDS: COREG PO SCH ×2 (10:37→22:01)
[2016-10-29] MEDS: ROXICODONE PO SCH (10:38)
[2016-10-29] MEDS: ZYLOPRIM PO SCH (10:38)
[2016-10-29] MEDS: NORVASC PO SCH (10:38)
[2016-10-29] MEDS: ZOSTRIX HP TP SCH ×3 (10:39→20:38)
[2016-10-29] MEDS: HEPARIN SUB-Q SCH ×2 (10:58→22:03)
--- NOTE | 2016-10-29 11:57 | Progress Note ---
Assessment and Plan Assessment and plan: --Acute psychosis Mental health input appreciated, psych meds have been adjusted appropriately, patient will need placement --Hypernatremia Resolved --Acute renal failure probably secondary to ATN Has resolved with IV hydration --Type 2 diabetes mellitus Continue current management, glucose now better controlled --Dermatitis, Lac-Hydrin/hydrocortisone cream Supportive skincare Likely discharged to inpatient psych facility/detention in 1-2 days History Interval history: Patient has still been disoriented, showing acute psychosis. Hospitalist Physical - Physical exam Narrative exam: General: Patient appears well in no distress HEENT: MMM, EOMI cardiac: S1-S2 heard lungs: clear to auscultation, abdomen: soft, nontender, nondistended bowel sounds positive extremities: no edema clubbing or cyanosis Skin: no rash or lesion Neuro: no focal deficit Psych: Patient is obtunded and erratic. - Constitutional Vitals: Temp Pulse Resp BP Pulse Ox 99.1 F 89 20 168/68 100 10/29/16 08:15 10/29/16 10:37 10/29/16 08:15 10/29/16 10:37 10/29/16 08:15 General appearance: Present: no acute distress, well-nourished, other (sedated/ sleeping/easily awakens and irritated) Results - Labs CBC & Chem 7: 10/29/16 08:53 10/29/16 08:53 Labs: Laboratory Last Values WBC 4.8 K/mm3 (4.5-11.0) 10/29/16 08:53 RBC 3.42 M/mm3 (3.65-5.03) L 10/29/16 08:53 Hgb 10.1 gm/dl (11.8-15.2) L 10/29/16 08:53 Hct 31.2 % (35.5-45.6) L 10/29/16 08:53 MCV 91 fl (84-94) 10/29/16 08:53 MCH 30 pg (28-32) 10/29/16 08:53 MCHC 32 % (32-34) 10/29/16 08:53 RDW 18.0 % (13.2-15.2) H 10/29/16 08:53 Plt Count 136 K/mm3 (140-440) L 10/29/16 08:53 Lymph % (Auto) 9.7 % (13.4-35.0) L 10/29/16 08:53 [place] % (Auto) 10.9 % (0.0-7.3) H 10/29/16 08:53 Eos % (Auto) 3.5 % (0.0-4.3) 10/29/16 08:53 Baso % (Auto) 1.1 % (0.0-1.8) 10/29/16 08:53 Lymph # 0.5 K/mm3 (1.2-5.4) L 10/29/16 08:53 [place] # 0.5 K/mm3 (0.0-0.8) 10/29/16 08:53 Eos # 0.2 K/mm3 (0.0-0.4) 10/29/16 08:53 Baso # 0.1 K/mm3 (0.0-0.1) 10/29/16 08:53 Seg Neutrophils % 74.8 % (40.0-70.0) H 10/29/16 08:53 Seg Neutrophils # 3.6 K/mm3 (1.8-7.7) 10/29/16 08:53 PT 14.3 Sec. (12.2-14.9) 10/23/16 12:53 INR 1.12 (0.87-1.13) 10/23/16 12:53 APTT 30.6 Sec. (24.2-36.6) 10/23/16 12:53 Sodium 144 mmol/L (137-145) 10/29/16 08:53 Potassium 4.2 mmol/L (3.6-5.0) 10/29/16 08:53 Chloride 110.9 mmol/L (98-107) H 10/29/16 08:53 Carbon Dioxide 20 mmol/L (22-30) L 10/29/16 08:53 Anion Gap 17 mmol/L 10/29/16 08:53 BUN 28 mg/dL (9-20) H 10/29/16 08:53 Creatinine 1.4 mg/dL (0.8-1.5) 10/29/16 08:53 Estimated GFR > 60 ml/min 10/29/16 08:53 BUN/Creatinine Ratio 20.00 % 10/29/16 08:53 Glucose 119 mg/dL (75-100) H 10/29/16 08:53 POC Glucose 96 (70-105) 10/29/16 06:05 Hemoglobin A1c 7.2 % (4-6) H 10/27/16 05:30 Lactic Acid 2.8 mmol/L (0.7-2.0) H* 10/23/16 12:53 Calcium 8.5 mg/dL (8.4-10.2) 10/29/16 08:53 Magnesium 2.0 mg/dL (1.7-2.3) 10/29/16 08:53 Total Bilirubin 0.9 mg/dL (0.1-1.2) 10/27/16 05:30 Direct Bilirubin 0.3 mg/dL (0-0.2) H 10/27/16 05:30 Indirect Bilirubin 0.6 mg/dL 10/27/16 05:30 AST 18 units/L (5-40) 10/27/16 05:30 ALT 13 units/L (7-56) 10/27/16 05:30 Alkaline Phosphatase 116 units/L (35-129) 10/27/16 05:30 Ammonia 30.0 umol/L (25-60) 10/26/16 09:00 Total Creatine Kinase 318 units/L (55-170) H 10/23/16 12:53 CK-MB (CK-2) 3.0 ng/mL (0.0-4.0) 10/23/16 12:53 CK-MB (CK-2) Rel Index 0.9 (0-4) 10/23/16 12:53 Troponin T 0.032 ng/mL (0.00-0.029) H 10/23/16 12:53 NT-Pro-B Natriuret Pep 532.6 pg/mL (0-900) 10/23/16 12:53 Total Protein 7.1 g/dL (6.3-8.2) 10/27/16 05:30 Albumin 3.2 g/dL (3.9-5) L 10/27/16 05:30 Albumin/Globulin Ratio 0.8 % 10/27/16 05:30 Triglycerides 199 mg/dL (2-149) H 10/23/16 12:53 Cholesterol 143 mg/dL (50-199) 10/23/16 12:53 LDL Cholesterol Direct 64 mg/dL (50-130) 10/23/16 12:53 HDL Cholesterol 40 mg/dL (40-59) 10/23/16 12:53 Cholesterol/HDL Ratio 3.57 % 10/23/16 12:53 TSH 1.040 mlU/mL (0.270-4.200) 10/23/16 12:53 Free T4 1.13 ng/dL (0.76-1.46) 10/23/16 22:59 Thyroxine (T4) 5.2 ug/dL (4.0-12.0) 10/23/16 22:59 T3 (NISHA) 56 ng/dL (76-181) L 10/23/16 22:59 Free T3 Index 2.0 pg/mL (2.3-4.2) L 10/23/16 22:59 T3 Uptake See scanned report 10/23/16 22:59 Urine Color Yellow (Yellow) 10/21/16 20:36 Urine Turbidity Clear (Clear) 10/21/16 20:36 Urine pH 7.0 (5.0-7.0) 10/21/16 20:36 Ur Specific [place] 1.011 (1.003-1.030) 10/21/16 20:36 Urine Protein 30 mg/dl mg/dL (Negative) 10/21/16 20:36 Urine Glucose (UA) Neg mg/dL (Negative) 10/21/16 20:36 Urine Ketones Neg mg/dL (Negative) 10/21/16 20:36 Urine Blood Neg (Negative) 10/21/16 20:36 Urine Nitrite Neg (Negative) 10/21/16 20:36 Urine Bilirubin Neg (Negative) 10/21/16 20:36 Urine Urobilinogen 4.0 mg/dL (<2.0) 10/21/16 20:36 Ur Leukocyte Esterase Neg (Negative) 10/21/16 20:36 Urine WBC (Auto) 0.0 /HPF (0.0-6.0) 10/21/16 20:36 Urine RBC (Auto) < 1.0 /HPF (0.0-6.0) 10/21/16 20:36 Urine Mucus Few /HPF 10/21/16 20:36 Urine Opiates Screen Presumptive negative 10/21/16 20:36 Urine Methadone Screen Presumptive negative 10/21/16 20:36 Ur Barbiturates Screen Presumptive negative 10/21/16 20:36 Ur Phencyclidine Scrn Presumptive negative 10/21/16 20:36 Ur Amphetamines Screen Presumptive negative 10/21/16 20:36 U Benzodiazepines Scrn Presumptive negative 10/21/16 20:36 Urine Cocaine Screen Presumptive negative 10/21/16 20:36 U Marijuana (THC) Screen Presumptive negative 10/21/16 20:36 Drugs of Abuse Note Disclamer 10/21/16 20:36 Plasma/Serum Alcohol < 0.01 gm% (0-0.07) 10/21/16 20:30
[2016-10-29] MEDS: NACL 0.45% 1000 ML 1,000 ML IV SCH (14:34)
[2016-10-29] MEDS: BENADRYL IM PRN (22:03)
[2016-10-30] MEDS: NACL 0.45% 1000 ML 1,000 ML IV SCH ×2 (01:54→18:44)
[2016-10-30] MEDS: SYNTHROID PO SCH (06:20)
[2016-10-30] MEDS: NOVOLOG SUB-Q SCH ×4 (08:32→22:30)
--- NOTE | 2016-10-30 10:31 | Progress Note ---
Assessment and Plan Assessment and plan: --Acute psychosis Mental health input appreciated, psych meds have been adjusted appropriately, patient will need placement --Hypernatremia Resolved --Acute renal failure probably secondary to ATN Has resolved with IV hydration --Type 2 diabetes mellitus Continue current management, glucose now better controlled --Dermatitis, Lac-Hydrin/hydrocortisone cream Supportive skincare Likely discharged to inpatient psych facility/group home when medically ready and out of restraints History Interval history: patient still has bouts of confusion and aggression Hospitalist Physical - Physical exam Narrative exam: General: Patient appears well in no distress HEENT: MMM, EOMI cardiac: S1-S2 heard lungs: clear to auscultation, abdomen: soft, nontender, nondistended bowel sounds positive extremities: no edema clubbing or cyanosis Skin: no rash or lesion Neuro: no focal deficit Psych: Patient is obtunded and erratic. - Constitutional Vitals: Temp Pulse Resp BP Pulse Ox 97.2 F L 91 H 22 166/79 96 10/30/16 08:47 10/30/16 08:47 10/30/16 08:47 10/30/16 08:47 10/30/16 08:47 General appearance: Present: no acute distress, well-nourished, other (sedated/ sleeping/easily awakens and irritated) Results - Labs CBC & Chem 7: 10/31/16 12:35 10/31/16 12:35 Labs: Laboratory Last Values WBC 4.8 K/mm3 (4.5-11.0) 10/29/16 08:53 RBC 3.42 M/mm3 (3.65-5.03) L 10/29/16 08:53 Hgb 10.1 gm/dl (11.8-15.2) L 10/29/16 08:53 Hct 31.2 % (35.5-45.6) L 10/29/16 08:53 MCV 91 fl (84-94) 10/29/16 08:53 MCH 30 pg (28-32) 10/29/16 08:53 MCHC 32 % (32-34) 10/29/16 08:53 RDW 18.0 % (13.2-15.2) H 10/29/16 08:53 Plt Count 136 K/mm3 (140-440) L 10/29/16 08:53 Lymph % (Auto) 9.7 % (13.4-35.0) L 10/29/16 08:53 [place] % (Auto) 10.9 % (0.0-7.3) H 10/29/16 08:53 Eos % (Auto) 3.5 % (0.0-4.3) 10/29/16 08:53 Baso % (Auto) 1.1 % (0.0-1.8) 10/29/16 08:53 Lymph # 0.5 K/mm3 (1.2-5.4) L 10/29/16 08:53 [place] # 0.5 K/mm3 (0.0-0.8) 10/29/16 08:53 Eos # 0.2 K/mm3 (0.0-0.4) 10/29/16 08:53 Baso # 0.1 K/mm3 (0.0-0.1) 10/29/16 08:53 Seg Neutrophils % 74.8 % (40.0-70.0) H 10/29/16 08:53 Seg Neutrophils # 3.6 K/mm3 (1.8-7.7) 10/29/16 08:53 PT 14.3 Sec. (12.2-14.9) 10/23/16 12:53 INR 1.12 (0.87-1.13) 10/23/16 12:53 APTT 30.6 Sec. (24.2-36.6) 10/23/16 12:53 Sodium 144 mmol/L (137-145) 10/29/16 08:53 Potassium 4.2 mmol/L (3.6-5.0) 10/29/16 08:53 Chloride 110.9 mmol/L (98-107) H 10/29/16 08:53 Carbon Dioxide 20 mmol/L (22-30) L 10/29/16 08:53 Anion Gap 17 mmol/L 10/29/16 08:53 BUN 28 mg/dL (9-20) H 10/29/16 08:53 Creatinine 1.4 mg/dL (0.8-1.5) 10/29/16 08:53 Estimated GFR > 60 ml/min 10/29/16 08:53 BUN/Creatinine Ratio 20.00 % 10/29/16 08:53 Glucose 119 mg/dL (75-100) H 10/29/16 08:53 POC Glucose 276 (70-105) H 10/30/16 06:13 Hemoglobin A1c 7.2 % (4-6) H 10/27/16 05:30 Lactic Acid 2.8 mmol/L (0.7-2.0) H* 10/23/16 12:53 Calcium 8.5 mg/dL (8.4-10.2) 10/29/16 08:53 Magnesium 2.0 mg/dL (1.7-2.3) 10/29/16 08:53 Total Bilirubin 0.9 mg/dL (0.1-1.2) 10/27/16 05:30 Direct Bilirubin 0.3 mg/dL (0-0.2) H 10/27/16 05:30 Indirect Bilirubin 0.6 mg/dL 10/27/16 05:30 AST 18 units/L (5-40) 10/27/16 05:30 ALT 13 units/L (7-56) 10/27/16 05:30 Alkaline Phosphatase 116 units/L (35-129) 10/27/16 05:30 Ammonia 30.0 umol/L (25-60) 10/26/16 09:00 Total Creatine Kinase 318 units/L (55-170) H 10/23/16 12:53 CK-MB (CK-2) 3.0 ng/mL (0.0-4.0) 10/23/16 12:53 CK-MB (CK-2) Rel Index 0.9 (0-4) 10/23/16 12:53 Troponin T 0.032 ng/mL (0.00-0.029) H 10/23/16 12:53 NT-Pro-B Natriuret Pep 532.6 pg/mL (0-900) 10/23/16 12:53 Total Protein 7.1 g/dL (6.3-8.2) 10/27/16 05:30 Albumin 3.2 g/dL (3.9-5) L 10/27/16 05:30 Albumin/Globulin Ratio 0.8 % 10/27/16 05:30 Triglycerides 199 mg/dL (2-149) H 10/23/16 12:53 Cholesterol 143 mg/dL (50-199) 10/23/16 12:53 LDL Cholesterol Direct 64 mg/dL (50-130) 10/23/16 12:53 HDL Cholesterol 40 mg/dL (40-59) 10/23/16 12:53 Cholesterol/HDL Ratio 3.57 % 10/23/16 12:53 TSH 1.040 mlU/mL (0.270-4.200) 10/23/16 12:53 Free T4 1.13 ng/dL (0.76-1.46) 10/23/16 22:59 Thyroxine (T4) 5.2 ug/dL (4.0-12.0) 10/23/16 22:59 T3 (NISHA) 56 ng/dL (76-181) L 10/23/16 22:59 Free T3 Index 2.0 pg/mL (2.3-4.2) L 10/23/16 22:59 T3 Uptake See scanned report 10/23/16 22:59 Urine Color Yellow (Yellow) 10/21/16 20:36 Urine Turbidity Clear (Clear) 10/21/16 20:36 Urine pH 7.0 (5.0-7.0) 10/21/16 20:36 Ur Specific [place] 1.011 (1.003-1.030) 10/21/16 20:36 Urine Protein 30 mg/dl mg/dL (Negative) 10/21/16 20:36 Urine Glucose (UA) Neg mg/dL (Negative) 10/21/16 20:36 Urine Ketones Neg mg/dL (Negative) 10/21/16 20:36 Urine Blood Neg (Negative) 10/21/16 20:36 Urine Nitrite Neg (Negative) 10/21/16 20:36 Urine Bilirubin Neg (Negative) 10/21/16 20:36 Urine Urobilinogen 4.0 mg/dL (<2.0) 10/21/16 20:36 Ur Leukocyte Esterase Neg (Negative) 10/21/16 20:36 Urine WBC (Auto) 0.0 /HPF (0.0-6.0) 10/21/16 20:36 Urine RBC (Auto) < 1.0 /HPF (0.0-6.0) 10/21/16 20:36 Urine Mucus Few /HPF 10/21/16 20:36 Urine Opiates Screen Presumptive negative 10/21/16 20:36 Urine Methadone Screen Presumptive negative 10/21/16 20:36 Ur Barbiturates Screen Presumptive negative 10/21/16 20:36 Ur Phencyclidine Scrn Presumptive negative 10/21/16 20:36 Ur Amphetamines Screen Presumptive negative 10/21/16 20:36 U Benzodiazepines Scrn Presumptive negative 10/21/16 20:36 Urine Cocaine Screen Presumptive negative 10/21/16 20:36 U Marijuana (THC) Screen Presumptive negative 10/21/16 20:36 Drugs of Abuse Note Disclamer 10/21/16 20:36 Plasma/Serum Alcohol < 0.01 gm% (0-0.07) 10/21/16 20:30
--- NOTE | 2016-10-30 11:27 | Progress Note ---
Subjective - Reason for Consult Consult date: 10/30/16 Reason for consult: Agitation, combative behavior Requesting physician: YANELI IVY - Chief Complaint Chief complaint: "I want to get them off too (the restraints)." Mental Status Exam - Vital signs Last Vital Signs Temp 97.2 F L 10/30/16 08:47 Pulse 91 H 10/30/16 08:47 Resp 22 10/30/16 08:47 BP 166/79 10/30/16 08:47 Pulse Ox 96 10/30/16 08:47 - Exam Narrative exam: more alert, speaks back for first time this morning. makes some intermittent eye contact. oriented to self, hospital, his at bedside, his . speech is clear. mood is reported as not good, depressed. affect is constricted/pretty flat. raises his voice at times, gets easily irritable. thought process is delayed/blocked. at times he doesn't answer at all. says he wants the restraints off. that he'll follow his care plan. currently calm, not pulling against restraint, but required security and PRN Haldol last night. Poor appetite. Slept after Haldol. no overt psychosis--not hallucinating, just confused/disoriented continues to say it's Juhi impaired attention/focus, memory, insight and judgment Orientation: place (hospital), person Affect: flat Mood: calm (physically, with some irritability) Thought content: other (poverty, says he wants restraints off, otherwise, minimal content) Thought Process: Thought Blocking Perceptions: none Speech: minimal response Concentration: distractible Motor activity: restless (uncomfortable physically, wants to move more than he can with restraints) Level of consciousness: alert Memory: Recent Impaired, Remote Impaired Sleep Symptoms: Difficulty Falling Asleep Interaction: apathetic Mini mental status exam(if necessary): 0-17 Assessment and Plan ASSESSMENT Delirium -hypernatremia -dehydration -acute renal failure Dementia with increased agitation/aggression 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 Hx oxycodone 5mg QID daily for 15+ years (dependence) cancer, relapse hypothyroid DM-uncontrolled tb exposure hx skin irritation/itching-- very agitating to him, lesions from scratching Reported to have severe sleep apnea and supposed to wear BiPap at night 10/29/16 22:14 - Nurse Note by ROBLES OSPINA Acct Num: [id number] : 1945 Patient Age: 70 PATIENT COMBATIVE,SECURITY CALLED TO BEDSIDE,RESTRAINT APPLIED Haldol 2m IM at 00:24 (after Seroquel 25 BID) - Patient Problems (1) Dementia Current Visit: Yes Status: Acute Plan to address problem: RECOMMEND 1. D/C Seroquel, still combative at times 2. Risperdal 0.25mg po TID and titrate up until stable 3. Continue Haldol 2mg IM Q8HRS PRN for severe agitation 4. NH placement (preferred) once patient is out of restraints 5. Psych will follow.
[2016-10-30] MEDS: ZYLOPRIM PO SCH (12:47)
[2016-10-30] MEDS: NEURONTIN PO SCH ×2 (12:48→22:30)
[2016-10-30] MEDS: COREG PO SCH ×2 (12:49→22:30)
[2016-10-30] MEDS: COLACE PO SCH ×2 (12:49→22:30)
[2016-10-30] MEDS: NORVASC PO SCH (12:50)
[2016-10-30] MEDS: ROXICODONE PO SCH (12:51)
[2016-10-30] MEDS: HEPARIN SUB-Q SCH ×2 (12:52→22:30)
[2016-10-30] MEDS: MIRALAX 3350 PO SCH (13:03)
[2016-10-30] MEDS: ZOVIRAX PO SCH (18:41)
[2016-10-30] MEDS: LAC-HYDRIN TP SCH ×2 (18:42→22:30)
[2016-10-30] MEDS: ZOSTRIX HP TP SCH ×2 (18:46→20:30)
[2016-10-30] MEDS: RisperDAL PO SCH (20:30)
[2016-10-30] MEDS: HYDROCORTISONE CR TP PRN (22:30)
[2016-10-31] MEDS: SYNTHROID PO SCH (06:20)
[2016-10-31] MEDS: NACL 0.45% 1000 ML 1,000 ML IV SCH (06:25)
[2016-10-31] MEDS: HALDOL IM PRN ×2 (07:11→22:16)
[2016-10-31] MEDS: NOVOLOG SUB-Q SCH ×4 (08:50→22:18)
[2016-10-31] MEDS: RisperDAL PO SCH ×3 (08:50→20:10)
[2016-10-31] MEDS: HEPARIN SUB-Q SCH ×2 (10:07→22:17)
[2016-10-31] MEDS: NEURONTIN PO SCH ×3 (10:08→22:23)
[2016-10-31] MEDS: COLACE PO SCH ×2 (10:08→22:29)
[2016-10-31] MEDS: NORVASC PO SCH (10:09)
[2016-10-31] MEDS: ROXICODONE PO SCH (10:09)
[2016-10-31] MEDS: ZYLOPRIM PO SCH (10:10)
[2016-10-31] MEDS: COREG PO SCH ×2 (10:10→22:25)
[2016-10-31] MEDS: MIRALAX 3350 PO SCH (10:10)
[2016-10-31] MEDS: LAC-HYDRIN TP SCH ×2 (10:10→22:30)
[2016-10-31] MEDS: ZOSTRIX HP TP SCH ×3 (10:12→22:26)
--- NOTE | 2016-10-31 11:15 | Progress Note ---
Assessment and Plan Assessment and plan: --Acute psychosis Mental health input appreciated, psych meds have been adjusted appropriately, patient will need placement --Hypernatremia Resolved --Acute renal failure probably secondary to ATN Has resolved with IV hydration --Type 2 diabetes mellitus Continue current management, glucose now better controlled --Dermatitis, Lac-Hydrin/hydrocortisone cream Supportive skincare Likely discharged to inpatient psych facility/[facility] in when clinically improved History Interval history: The patient has been more calm, less aggressive, less disoriented. Has been pretty somnolent, his RN will like to try him off restraints today Hospitalist Physical - Physical exam Narrative exam: General: Patient appears well in no distress HEENT: MMM, EOMI cardiac: S1-S2 heard lungs: clear to auscultation, abdomen: soft, nontender, nondistended bowel sounds positive extremities: no edema clubbing or cyanosis Skin: no rash or lesion Neuro: no focal deficit Psych: Patient is obtunded and erratic. - Constitutional Vitals: Temp Pulse Resp BP Pulse Ox 98.5 F 95 H 18 163/88 100 10/31/16 08:22 10/31/16 08:22 10/31/16 10:09 10/31/16 10:10 10/31/16 08:22 General appearance: Present: no acute distress, well-nourished, other (sedated/ sleeping/easily awakens and irritated) Results - Labs CBC & Chem 7: 10/31/16 12:35 10/31/16 12:35 Labs: Laboratory Last Values WBC 4.8 K/mm3 (4.5-11.0) 10/29/16 08:53 RBC 3.42 M/mm3 (3.65-5.03) L 10/29/16 08:53 Hgb 10.1 gm/dl (11.8-15.2) L 10/29/16 08:53 Hct 31.2 % (35.5-45.6) L 10/29/16 08:53 MCV 91 fl (84-94) 10/29/16 08:53 MCH 30 pg (28-32) 10/29/16 08:53 MCHC 32 % (32-34) 10/29/16 08:53 RDW 18.0 % (13.2-15.2) H 10/29/16 08:53 Plt Count 136 K/mm3 (140-440) L 10/29/16 08:53 Lymph % (Auto) 9.7 % (13.4-35.0) L 10/29/16 08:53 [place] % (Auto) 10.9 % (0.0-7.3) H 10/29/16 08:53 Eos % (Auto) 3.5 % (0.0-4.3) 10/29/16 08:53 Baso % (Auto) 1.1 % (0.0-1.8) 10/29/16 08:53 Lymph # 0.5 K/mm3 (1.2-5.4) L 10/29/16 08:53 [place] # 0.5 K/mm3 (0.0-0.8) 10/29/16 08:53 Eos # 0.2 K/mm3 (0.0-0.4) 10/29/16 08:53 Baso # 0.1 K/mm3 (0.0-0.1) 10/29/16 08:53 Seg Neutrophils % 74.8 % (40.0-70.0) H 10/29/16 08:53 Seg Neutrophils # 3.6 K/mm3 (1.8-7.7) 10/29/16 08:53 PT 14.3 Sec. (12.2-14.9) 10/23/16 12:53 INR 1.12 (0.87-1.13) 10/23/16 12:53 APTT 30.6 Sec. (24.2-36.6) 10/23/16 12:53 Sodium 144 mmol/L (137-145) 10/29/16 08:53 Potassium 4.2 mmol/L (3.6-5.0) 10/29/16 08:53 Chloride 110.9 mmol/L (98-107) H 10/29/16 08:53 Carbon Dioxide 20 mmol/L (22-30) L 10/29/16 08:53 Anion Gap 17 mmol/L 10/29/16 08:53 BUN 28 mg/dL (9-20) H 10/29/16 08:53 Creatinine 1.4 mg/dL (0.8-1.5) 10/29/16 08:53 Estimated GFR > 60 ml/min 10/29/16 08:53 BUN/Creatinine Ratio 20.00 % 10/29/16 08:53 Glucose 119 mg/dL (75-100) H 10/29/16 08:53 POC Glucose 258 (70-105) H 10/31/16 06:09 Hemoglobin A1c 7.2 % (4-6) H 10/27/16 05:30 Lactic Acid 2.8 mmol/L (0.7-2.0) H* 10/23/16 12:53 Calcium 8.5 mg/dL (8.4-10.2) 10/29/16 08:53 Magnesium 2.0 mg/dL (1.7-2.3) 10/29/16 08:53 Total Bilirubin 0.9 mg/dL (0.1-1.2) 10/27/16 05:30 Direct Bilirubin 0.3 mg/dL (0-0.2) H 10/27/16 05:30 Indirect Bilirubin 0.6 mg/dL 10/27/16 05:30 AST 18 units/L (5-40) 10/27/16 05:30 ALT 13 units/L (7-56) 10/27/16 05:30 Alkaline Phosphatase 116 units/L (35-129) 10/27/16 05:30 Ammonia 30.0 umol/L (25-60) 10/26/16 09:00 Total Creatine Kinase 318 units/L (55-170) H 10/23/16 12:53 CK-MB (CK-2) 3.0 ng/mL (0.0-4.0) 10/23/16 12:53 CK-MB (CK-2) Rel Index 0.9 (0-4) 10/23/16 12:53 Troponin T 0.032 ng/mL (0.00-0.029) H 10/23/16 12:53 NT-Pro-B Natriuret Pep 532.6 pg/mL (0-900) 10/23/16 12:53 Total Protein 7.1 g/dL (6.3-8.2) 10/27/16 05:30 Albumin 3.2 g/dL (3.9-5) L 10/27/16 05:30 Albumin/Globulin Ratio 0.8 % 10/27/16 05:30 Triglycerides 199 mg/dL (2-149) H 10/23/16 12:53 Cholesterol 143 mg/dL (50-199) 10/23/16 12:53 LDL Cholesterol Direct 64 mg/dL (50-130) 10/23/16 12:53 HDL Cholesterol 40 mg/dL (40-59) 10/23/16 12:53 Cholesterol/HDL Ratio 3.57 % 10/23/16 12:53 TSH 1.040 mlU/mL (0.270-4.200) 10/23/16 12:53 Free T4 1.13 ng/dL (0.76-1.46) 10/23/16 22:59 Thyroxine (T4) 5.2 ug/dL (4.0-12.0) 10/23/16 22:59 T3 (NISHA) 56 ng/dL (76-181) L 10/23/16 22:59 Free T3 Index 2.0 pg/mL (2.3-4.2) L 10/23/16 22:59 T3 Uptake See scanned report 10/23/16 22:59 Urine Color Yellow (Yellow) 10/21/16 20:36 Urine Turbidity Clear (Clear) 10/21/16 20:36 Urine pH 7.0 (5.0-7.0) 10/21/16 20:36 Ur Specific [place] 1.011 (1.003-1.030) 10/21/16 20:36 Urine Protein 30 mg/dl mg/dL (Negative) 10/21/16 20:36 Urine Glucose (UA) Neg mg/dL (Negative) 10/21/16 20:36 Urine Ketones Neg mg/dL (Negative) 10/21/16 20:36 Urine Blood Neg (Negative) 10/21/16 20:36 Urine Nitrite Neg (Negative) 10/21/16 20:36 Urine Bilirubin Neg (Negative) 10/21/16 20:36 Urine Urobilinogen 4.0 mg/dL (<2.0) 10/21/16 20:36 Ur Leukocyte Esterase Neg (Negative) 10/21/16 20:36 Urine WBC (Auto) 0.0 /HPF (0.0-6.0) 10/21/16 20:36 Urine RBC (Auto) < 1.0 /HPF (0.0-6.0) 10/21/16 20:36 Urine Mucus Few /HPF 10/21/16 20:36 Urine Opiates Screen Presumptive negative 10/21/16 20:36 Urine Methadone Screen Presumptive negative 10/21/16 20:36 Ur Barbiturates Screen Presumptive negative 10/21/16 20:36 Ur Phencyclidine Scrn Presumptive negative 10/21/16 20:36 Ur Amphetamines Screen Presumptive negative 10/21/16 20:36 U Benzodiazepines Scrn Presumptive negative 10/21/16 20:36 Urine Cocaine Screen Presumptive negative 10/21/16 20:36 U Marijuana (THC) Screen Presumptive negative 10/21/16 20:36 Drugs of Abuse Note Disclamer 10/21/16 20:36 Plasma/Serum Alcohol < 0.01 gm% (0-0.07) 10/21/16 20:30
[2016-10-31] MEDS: HCTZ PO SCH (12:00)
[2016-10-31 12:48] LABS: Hematocrit 33.5 % (35.5-45.6); Hemoglobin 10.9 gm/dl (11.8-15.2); Mean Corpuscular HGB Conc 33 % (32-34); Mean Corpuscular Hemoglobin 30 pg (28-32); Mean Corpuscular Volume 91 fl (84-94); Platelet Count 127 K/mm3 (140-440); Red Blood Count 3.66 M/mm3 (3.65-5.03); Red Cell Distribution Width 18.6 % (13.2-15.2); White Blood Count 7.8 K/mm3 (4.5-11.0)
--- NOTE | 2016-10-31 13:09 | Progress Note ---
Subjective - Reason for Consult Consult date: 10/31/16 Reason for consult: Dementia/agitation Requesting physician: YANELI IVY - Chief Complaint Chief complaint: "Hospital." Mental Status Exam - Vital signs Last Vital Signs Temp 98.5 F 10/31/16 08:22 Pulse 95 H 10/31/16 08:22 Resp 18 10/31/16 10:09 BP 163/88 10/31/16 10:10 Pulse Ox 100 10/31/16 08:22 - Exam Narrative exam: Sleepy, minimal verbal responses. Tech states he's been awake all morning, makes some verbalizations, asks for water. Tech states he's been itching, constantly, aggressively. When attempted interview patient makes some intermittent eye contact. Remains oriented to self, hospital, and his 's name. Speech is clear. Mood is reported as not good, depressed. Affect is flat/ blunted. Raises his voice at times, gets easily irritable. Thought process is delayed/ blocked. Currently calm, unrestrained, just has mittens to prevent injury from the itching. Poor appetite. 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 Hx oxycodone 5mg QID daily for 15+ years (dependence) cancer, relapse hypothyroid DM-uncontrolled tb exposure hx skin irritation/itching-- very agitating to him, lesions from scratching Reported to have severe sleep apnea and supposed to wear BiPap at night 10/29/16 22:14 - Nurse Note by ROBLES OSPINA Acct Num: [id number] : 1945 Patient Age: 70 PATIENT COMBATIVE,SECURITY CALLED TO BEDSIDE,RESTRAINT APPLIED Haldol 2m IM at 00:24 (after Seroquel 25 BID) - Patient Problems (1) Dementia Current Visit: Yes Status: Acute Plan to address problem: RECOMMEND 1. Continue Risperdal 0.25mg po TID and titrate up until stable 2. Continue Haldol 2mg IM Q8HRS PRN for severe agitation 3. NH placement (preferred) once patient is out of restraints 4. Psych will follow. Started Risperdal last night. Uneventful evening. Was given PRN Hadol 0711 this morning prior to his AM Risperdal dose 8:50A. Would recommend giving the AM Risperdal early if needed, prior to using the PRN as possible.
[2016-10-31 13:16] LABS: BUN/Creatinine Ratio 15.45; Blood Urea Nitrogen 17 mg/dL (9-20); Calcium 8.2 mg/dL (8.4-10.2); Carbon Dioxide 20 mmol/L (22-30); Chloride 107.2 mmol/L (98-107); Glucose 249 mg/dL (75-100); Magnesium 1.9 mg/dL (1.7-2.3); Potassium 4.8 mmol/L (3.6-5.0); Sodium 141 mmol/L (137-145)
[2016-10-31 13:22] LABS: Anion Gap 19 mmol/L
[2016-10-31] MEDS: ZOVIRAX PO SCH (14:44)
[2016-10-31] MEDS: BENADRYL IM PRN (22:16)
[2016-10-31] MEDS: RISPERIDONE PO SCH (22:22)
[2016-10-31] MEDS: HYDROCORTISONE CR TP PRN (22:27)
[2016-11-01] MEDS: HALDOL IM PRN ×2 (06:14→23:12)
[2016-11-01] MEDS: SYNTHROID PO SCH (06:14)
[2016-11-01] MEDS: NOVOLOG SUB-Q SCH ×4 (08:04→23:32)
[2016-11-01] MEDS: RISPERIDONE PO SCH ×3 (08:25→22:56)
[2016-11-01] MEDS: ZOSTRIX HP TP SCH ×3 (08:28→23:36)
--- NOTE | 2016-11-01 10:00 | Progress Note ---
Subjective - Reason for Consult Consult date: 11/01/16 Reason for consult: Agitation/confusion Requesting physician: YANELI IVY - Chief Complaint Chief complaint: "I ate a little bit." Mental Status Exam - Vital signs Last Vital Signs Temp 98.2 F 11/01/16 09:31 Pulse 100 H 11/01/16 09:31 Resp 24 11/01/16 09:31 BP 100/60 11/01/16 09:31 Pulse Ox 100 11/01/16 09:31 - Exam Narrative exam: Alert and oriented to self, place. Can't recall name of hospital or the date. Nurse states he's been awake earlier this morning, makes some verbalizations, asks for water, told her he likes her hair. Speech is fairly clear. Mood is reported as not good, dysphoric. Affect is flat/blunted. Raises his voice at times, gets easily irritable. Thought process is delayed/ blocked. Sleepy, appears to fall asleep periodically during interview. Minimal verbal responses. Currently calm, unrestrained, just has mittens to prevent injury from the itching. Continues to have poor appetite. 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 - Patient Problems (1) Dementia Current Visit: Yes Status: Acute Plan to address problem: RECOMMEND 1. Continue LIQUID Risperdal 0.25mg po TID and titrate up until stable 2. Continue Haldol 2mg IM Q8HRS PRN for severe agitation 3. NH placement (preferred) once patient is out of restraints 4. Psych will follow.
[2016-11-01] MEDS: ZYLOPRIM PO SCH (10:01)
[2016-11-01] MEDS: ROXICODONE PO SCH (10:01)
[2016-11-01] MEDS: COREG PO SCH ×2 (10:01→22:57)
[2016-11-01] MEDS: COLACE PO SCH ×2 (10:02→22:57)
[2016-11-01] MEDS: ZOVIRAX PO SCH ×2 (10:02→10:03)
[2016-11-01] MEDS: HCTZ PO SCH (10:02)
[2016-11-01] MEDS: HEPARIN SUB-Q SCH ×2 (10:03→22:58)
[2016-11-01] MEDS: MIRALAX 3350 PO SCH (10:04)
[2016-11-01] MEDS: LAC-HYDRIN TP SCH ×2 (10:05→23:34)
[2016-11-01] MEDS: NEURONTIN PO SCH ×2 (11:03→22:57)
[2016-11-01] MEDS: PROCARDIA XL PO SCH (13:28)
[2016-11-01] MEDS: BENADRYL IM PRN (23:12)
[2016-11-01] MEDS: NACL 0.45% 1000 ML 1,000 ML IV SCH (23:31)
[2016-11-02] MEDS: SYNTHROID PO SCH (06:47)
[2016-11-02] MEDS: ROXICODONE PO SCH (10:22)
[2016-11-02] MEDS: NOVOLOG SUB-Q SCH ×4 (10:22→22:10)
[2016-11-02] MEDS: NEURONTIN PO SCH ×2 (10:23→21:12)
[2016-11-02] MEDS: PROCARDIA XL PO SCH (10:23)
[2016-11-02] MEDS: ZYLOPRIM PO SCH (10:23)
[2016-11-02] MEDS: COREG PO SCH ×2 (10:24→21:12)
[2016-11-02] MEDS: RISPERIDONE PO SCH ×2 (10:24→14:54)
[2016-11-02] MEDS: HCTZ PO SCH (10:24)
[2016-11-02] MEDS: HEPARIN SUB-Q SCH ×2 (10:26→22:09)
[2016-11-02] MEDS: MIRALAX 3350 PO SCH (11:24)
[2016-11-02] MEDS: ZOVIRAX PO SCH (11:24)
[2016-11-02] MEDS: ZOSTRIX HP TP SCH ×3 (11:24→21:11)
[2016-11-02] MEDS: COLACE PO SCH ×2 (11:24→21:12)
[2016-11-02] MEDS: LAC-HYDRIN TP SCH ×2 (11:25→21:13)
[2016-11-02] MEDS: NACL 0.45% 1000 ML 1,000 ML IV SCH (12:27)
--- NOTE | 2016-11-02 12:29 | Progress Note ---
Assessment and Plan Assessment and plan: --Acute psychosis Mental health input appreciated, psych meds have been adjusted appropriately, patient will need placement --Hypernatremia Resolved --Acute renal failure probably secondary to ATN Has resolved with IV hydration --Type 2 diabetes mellitus Continue current management, glucose now better controlled --Dermatitis, Lac-Hydrin/hydrocortisone cream Supportive skincare Likely discharged to inpatient psych facility/[facility] in when clinically improved History Interval history: The patient has been more calm, less aggressive, less disoriented. Has been pretty somnolent, but aggravated at night Hospitalist Physical - Physical exam Narrative exam: General: Patient appears well in no distress HEENT: MMM, EOMI cardiac: S1-S2 heard lungs: clear to auscultation, abdomen: soft, nontender, nondistended bowel sounds positive extremities: no edema clubbing or cyanosis Skin: no rash or lesion Neuro: no focal deficit Psych: Patient is obtunded and erratic. - Constitutional Vitals: Temp Pulse Resp BP Pulse Ox 100.2 F H 99 H 18 112/66 98 11/02/16 07:35 11/02/16 07:35 11/02/16 07:35 11/02/16 10:24 11/02/16 07:35 General appearance: Present: no acute distress, well-nourished, other (sedated/ sleeping/easily awakens and irritated) Results - Labs CBC & Chem 7: 10/31/16 12:35 10/31/16 12:35 Labs: Laboratory Last Values WBC 7.8 K/mm3 (4.5-11.0) 10/31/16 12:35 RBC 3.66 M/mm3 (3.65-5.03) 10/31/16 12:35 Hgb 10.9 gm/dl (11.8-15.2) L 10/31/16 12:35 Hct 33.5 % (35.5-45.6) L 10/31/16 12:35 MCV 91 fl (84-94) 10/31/16 12:35 MCH 30 pg (28-32) 10/31/16 12:35 MCHC 33 % (32-34) 10/31/16 12:35 RDW 18.6 % (13.2-15.2) H 10/31/16 12:35 Plt Count 127 K/mm3 (140-440) L 10/31/16 12:35 Lymph % (Auto) 9.7 % (13.4-35.0) L 10/29/16 08:53 [place] % (Auto) 10.9 % (0.0-7.3) H 10/29/16 08:53 Eos % (Auto) 3.5 % (0.0-4.3) 10/29/16 08:53 Baso % (Auto) 1.1 % (0.0-1.8) 10/29/16 08:53 Lymph # 0.5 K/mm3 (1.2-5.4) L 10/29/16 08:53 [place] # 0.5 K/mm3 (0.0-0.8) 10/29/16 08:53 Eos # 0.2 K/mm3 (0.0-0.4) 10/29/16 08:53 Baso # 0.1 K/mm3 (0.0-0.1) 10/29/16 08:53 Seg Neutrophils % 74.8 % (40.0-70.0) H 10/29/16 08:53 Seg Neutrophils # 3.6 K/mm3 (1.8-7.7) 10/29/16 08:53 PT 14.3 Sec. (12.2-14.9) 10/23/16 12:53 INR 1.12 (0.87-1.13) 10/23/16 12:53 APTT 30.6 Sec. (24.2-36.6) 10/23/16 12:53 Sodium 141 mmol/L (137-145) 10/31/16 12:35 Potassium 4.8 mmol/L (3.6-5.0) 10/31/16 12:35 Chloride 107.2 mmol/L (98-107) H 10/31/16 12:35 Carbon Dioxide 20 mmol/L (22-30) L 10/31/16 12:35 Anion Gap 19 mmol/L 10/31/16 12:35 BUN 17 mg/dL (9-20) 10/31/16 12:35 Creatinine 1.1 mg/dL (0.8-1.5) 10/31/16 12:35 Estimated GFR > 60 ml/min 10/31/16 12:35 BUN/Creatinine Ratio 15.45 % 10/31/16 12:35 Glucose 249 mg/dL (75-100) H 10/31/16 12:35 POC Glucose 267 (70-105) H 11/02/16 11:57 Hemoglobin A1c 7.2 % (4-6) H 10/27/16 05:30 Lactic Acid 2.8 mmol/L (0.7-2.0) H* 10/23/16 12:53 Calcium 8.2 mg/dL (8.4-10.2) L 10/31/16 12:35 Magnesium 1.9 mg/dL (1.7-2.3) 10/31/16 12:35 Total Bilirubin 0.9 mg/dL (0.1-1.2) 10/27/16 05:30 Direct Bilirubin 0.3 mg/dL (0-0.2) H 10/27/16 05:30 Indirect Bilirubin 0.6 mg/dL 10/27/16 05:30 AST 18 units/L (5-40) 10/27/16 05:30 ALT 13 units/L (7-56) 10/27/16 05:30 Alkaline Phosphatase 116 units/L (35-129) 10/27/16 05:30 Ammonia 30.0 umol/L (25-60) 10/26/16 09:00 Total Creatine Kinase 318 units/L (55-170) H 10/23/16 12:53 CK-MB (CK-2) 3.0 ng/mL (0.0-4.0) 10/23/16 12:53 CK-MB (CK-2) Rel Index 0.9 (0-4) 10/23/16 12:53 Troponin T 0.032 ng/mL (0.00-0.029) H 10/23/16 12:53 NT-Pro-B Natriuret Pep 532.6 pg/mL (0-900) 10/23/16 12:53 Total Protein 7.1 g/dL (6.3-8.2) 10/27/16 05:30 Albumin 3.2 g/dL (3.9-5) L 10/27/16 05:30 Albumin/Globulin Ratio 0.8 % 10/27/16 05:30 Triglycerides 199 mg/dL (2-149) H 10/23/16 12:53 Cholesterol 143 mg/dL (50-199) 10/23/16 12:53 LDL Cholesterol Direct 64 mg/dL (50-130) 10/23/16 12:53 HDL Cholesterol 40 mg/dL (40-59) 10/23/16 12:53 Cholesterol/HDL Ratio 3.57 % 10/23/16 12:53 TSH 1.040 mlU/mL (0.270-4.200) 10/23/16 12:53 Free T4 1.13 ng/dL (0.76-1.46) 10/23/16 22:59 Thyroxine (T4) 5.2 ug/dL (4.0-12.0) 10/23/16 22:59 T3 (NISHA) 56 ng/dL (76-181) L 10/23/16 22:59 Free T3 Index 2.0 pg/mL (2.3-4.2) L 10/23/16 22:59 T3 Uptake See scanned report 10/23/16 22:59 Urine Color Yellow (Yellow) 10/21/16 20:36 Urine Turbidity Clear (Clear) 10/21/16 20:36 Urine pH 7.0 (5.0-7.0) 10/21/16 20:36 Ur Specific [place] 1.011 (1.003-1.030) 10/21/16 20:36 Urine Protein 30 mg/dl mg/dL (Negative) 10/21/16 20:36 Urine Glucose (UA) Neg mg/dL (Negative) 10/21/16 20:36 Urine Ketones Neg mg/dL (Negative) 10/21/16 20:36 Urine Blood Neg (Negative) 10/21/16 20:36 Urine Nitrite Neg (Negative) 10/21/16 20:36 Urine Bilirubin Neg (Negative) 10/21/16 20:36 Urine Urobilinogen 4.0 mg/dL (<2.0) 10/21/16 20:36 Ur Leukocyte Esterase Neg (Negative) 10/21/16 20:36 Urine WBC (Auto) 0.0 /HPF (0.0-6.0) 10/21/16 20:36 Urine RBC (Auto) < 1.0 /HPF (0.0-6.0) 10/21/16 20:36 Urine Mucus Few /HPF 10/21/16 20:36 Urine Opiates Screen Presumptive negative 10/21/16 20:36 Urine Methadone Screen Presumptive negative 10/21/16 20:36 Ur Barbiturates Screen Presumptive negative 10/21/16 20:36 Ur Phencyclidine Scrn Presumptive negative 10/21/16 20:36 Ur Amphetamines Screen Presumptive negative 10/21/16 20:36 U Benzodiazepines Scrn Presumptive negative 10/21/16 20:36 Urine Cocaine Screen Presumptive negative 10/21/16 20:36 U Marijuana (THC) Screen Presumptive negative 10/21/16 20:36 Drugs of Abuse Note Disclamer 10/21/16 20:36 Plasma/Serum Alcohol < 0.01 gm% (0-0.07) 10/21/16 20:30
[2016-11-02] MEDS: TYLENOL PO PRN (16:49)
--- NOTE | 2016-11-02 17:00 | Event Note ---
Date: 11/02/16 Code med called 1559 because unresponsive. vss stable, bg over 200. received risperdal 1454, then lethargy started. He is more sleep than anything. pulse ox , vs reviewed, febrile. i ordered tylenol pr. stat labs ordered gen: sleeping, occassion nonproductive cough, responded when i pressed on his belly pupils small but reactive rrr lungs good air entry without retractions. skin: diffuse plaques arms, thorax, inner thighs, bilateral shins: board ddx including, lichen planus, psorasis, vasculitis, lupus, auto-immune, IBD skin manifestions, hep. c skin manifestion a/p: acute encephalopathy, drug induced, hold around the clock risperdal, cover with prn haldol. hold benadryl. also consider fever. CCT 31
[2016-11-02 17:29] LABS: Hemoglobin 9.3 gm/dl (11.8-15.2); Mean Corpuscular HGB Conc 32 % (32-34); Mean Corpuscular Hemoglobin 30 pg (28-32); Mean Corpuscular Volume 92 fl (84-94); Platelet Count 131 K/mm3 (140-440); Red Blood Count 3.17 M/mm3 (3.65-5.03); White Blood Count 6.7 K/mm3 (4.5-11.0)
[2016-11-02 17:51] LABS: BUN/Creatinine Ratio 13.12; Calcium 7.8 mg/dL (8.4-10.2); Chloride 103.1 mmol/L (98-107); Potassium 4.4 mmol/L (3.6-5.0)
--- NOTE | 2016-11-02 18:07 | XRay Report ---
FINAL REPORT EXAM: XR CHEST 1V AP HISTORY: fever TECHNIQUE: One view examination of the chest PRIORS: None FINDINGS: Oblique patient position limits the examination. Limited examination due to prominent soft tissue attenuation. A right venous catheter is in place with distal tip near the cavoatrial junction region. No pneumothorax or pleural effusion. Normal cardiac silhouette size. Prominent vascular and/or interstitial markings may reflect mild vascular congestion or interstitial pneumonitis. Nonspecific opacity appears slightly consolidated in the left retrocardiac region. This may be a small infiltrate IMPRESSION: Left retrocardiac opacity may be a small infiltrate or atelectasis Prominent interstitial and/or vascular markings may reflect interstitial pneumonitis and/or vascular congestion
--- NOTE | 2016-11-02 18:11 | Progress Note ---
Subjective - Reason for Consult Consult date: 11/02/16 Reason for consult: Agitation/AMS Requesting physician: ROBBY COPELAND - Chief Complaint Chief complaint: sedated Mental Status Exam - Vital signs Last Vital Signs Temp 101.6 F H 11/02/16 15:48 Pulse 94 H 11/02/16 15:48 Resp 24 11/02/16 15:48 BP 128/59 11/02/16 15:48 Pulse Ox 98 11/02/16 07:35 - Exam Narrative exam: Patient receiving Risperdal 0.25mg for several doses without incident. (Prior to this he also received Geodon IM in the ED and Seroquel 50 BID for a few days when he initially got to the floor, and additional daily Haldol injections for breakthrough agitation. He tolerated all these without excessive somnolence). Today after his Risperdal 0.25mg 2pm dose he was lethargic. Also developing fever 101.6. 6pm, still lethargic. Unable to interview. Risperdal has been discontinued. Thought content: other ( tells him to say thank you and he says 'thank you') Concentration: unable to pay attention Motor activity: lethargic Level of consciousness: sedated Sleep Symptoms: Hypersomnia Interaction: apathetic Mini mental status exam(if necessary): 0-17 Assessment and Plan ASSESSMENT R/O NMS Delirium Dementia with increased agitation/aggression Opioid Dependence, retirement use - Patient Problems (1) Dementia Current Visit: Yes Status: Acute Plan to address problem: RECOMMEND 1. Continue Haldol 2mg IM Q8HRS PRN--- BUT for severe agitation only 2. CPK 3. NH placement (preferred) once patient is out of restraints 4. Psych will follow. staffed with Dr. Shaffer, supervising psychiatrist
[2016-11-02] MEDS: TYLENOL PR PRN (18:22)
[2016-11-03] MEDS: SYNTHROID PO SCH (05:52)
[2016-11-03 08:15] LABS: Bacteria,Urine 2+ /HPF (Negative); Bilirubin,Urine NEG (Negative); Blood,Urine NEG (Negative); Ketones,Urine NEG (Negative); Leukocyte Esterase,Urine TR (Negative); Mucus,Urine FEW /HPF; Nitrite,Urine POS (Negative); Protein,Urine <15 mg/dL mg/dL (Negative)
[2016-11-03] MEDS: NOVOLOG SUB-Q SCH ×4 (08:38→23:01)
[2016-11-03] MEDS: ZOSTRIX HP TP SCH ×3 (08:42→23:03)
[2016-11-03] MEDS: BENADRYL IM PRN (12:08)
[2016-11-03] MEDS: ZYLOPRIM PO SCH (12:12)
[2016-11-03] MEDS: ROXICODONE PO SCH ×2 (12:12→17:10)
[2016-11-03] MEDS: COREG PO SCH ×3 (12:12→23:00)
[2016-11-03] MEDS: HCTZ PO SCH ×2 (12:12→17:11)
[2016-11-03] MEDS: HEPARIN SUB-Q SCH ×2 (12:13→22:59)
[2016-11-03] MEDS: NEURONTIN PO SCH ×2 (12:13→23:00)
--- NOTE | 2016-11-03 12:31 | Progress Note ---
Assessment and Plan Assessment and plan: Labs reviewed UA negative for pyuria Blood cx negative till date --Acute psychosis Mental health input appreciated, psych meds have been adjusted appropriately, patient will need placement -Fever UA neg, fup blood cx, CPK wnl, CXR shows pNA -PNA- hospital acquired/sepsis begin levaquin x 7 days --Hypernatremia Resolved --Acute renal failure probably to vasomotor nephropathy from poor PO intake restart IV fluids --Type 2 diabetes mellitus Continue current management, glucose now better controlled --Dermatitis, Lac-Hydrin/hydrocortisone cream Supportive skincare Likely discharged to inpatient psych facility/skilled nursing in when clinically improved History Interval history: He was somnolent yesterday and spiked a fever, since stopping risperdal, he has been more arousable Hospitalist Physical - Physical exam Narrative exam: General: Patient appears well in no distress HEENT: MMM, EOMI cardiac: S1-S2 heard lungs: clear to auscultation, abdomen: soft, nontender, nondistended bowel sounds positive extremities: no edema clubbing or cyanosis Skin: no rash or lesion Neuro: no focal deficit Psych: Patient is obtunded and erratic. - Constitutional Vitals: Temp Pulse Resp BP Pulse Ox 98.4 F 90 14 130/62 99 11/03/16 08:20 11/03/16 08:20 11/03/16 08:20 11/03/16 12:12 11/03/16 08:20 General appearance: Present: no acute distress, well-nourished, other (sedated/ sleeping/easily awakens and irritated) Results - Labs CBC & Chem 7: 11/02/16 17:15 11/02/16 17:15 Labs: Laboratory Last Values WBC 6.7 K/mm3 (4.5-11.0) 11/02/16 17:15 RBC 3.17 M/mm3 (3.65-5.03) L 11/02/16 17:15 Hgb 9.3 gm/dl (11.8-15.2) L 11/02/16 17:15 Hct 29.0 % (35.5-45.6) L 11/02/16 17:15 MCV 92 fl (84-94) 11/02/16 17:15 MCH 30 pg (28-32) 11/02/16 17:15 MCHC 32 % (32-34) 11/02/16 17:15 RDW 19.0 % (13.2-15.2) H 11/02/16 17:15 Plt Count 131 K/mm3 (140-440) L 11/02/16 17:15 Lymph % (Auto) 9.7 % (13.4-35.0) L 10/29/16 08:53 [place] % (Auto) 10.9 % (0.0-7.3) H 10/29/16 08:53 Eos % (Auto) 3.5 % (0.0-4.3) 10/29/16 08:53 Baso % (Auto) 1.1 % (0.0-1.8) 10/29/16 08:53 Lymph # 0.5 K/mm3 (1.2-5.4) L 10/29/16 08:53 [place] # 0.5 K/mm3 (0.0-0.8) 10/29/16 08:53 Eos # 0.2 K/mm3 (0.0-0.4) 10/29/16 08:53 Baso # 0.1 K/mm3 (0.0-0.1) 10/29/16 08:53 Seg Neutrophils % 74.8 % (40.0-70.0) H 10/29/16 08:53 Seg Neutrophils # 3.6 K/mm3 (1.8-7.7) 10/29/16 08:53 PT 14.3 Sec. (12.2-14.9) 10/23/16 12:53 INR 1.12 (0.87-1.13) 10/23/16 12:53 APTT 30.6 Sec. (24.2-36.6) 10/23/16 12:53 Sodium 138 mmol/L (137-145) 11/02/16 17:15 Potassium 4.4 mmol/L (3.6-5.0) 11/02/16 17:15 Chloride 103.1 mmol/L (98-107) 11/02/16 17:15 Carbon Dioxide 21 mmol/L (22-30) L 11/02/16 17:15 Anion Gap 18 mmol/L 11/02/16 17:15 BUN 21 mg/dL (9-20) H 11/02/16 17:15 Creatinine 1.6 mg/dL (0.8-1.5) H 11/02/16 17:15 Estimated GFR 52 ml/min 11/02/16 17:15 BUN/Creatinine Ratio 13.12 % 11/02/16 17:15 Glucose 297 mg/dL (75-100) H 11/02/16 17:15 POC Glucose 227 (70-105) H 11/03/16 12:05 Hemoglobin A1c 7.2 % (4-6) H 10/27/16 05:30 Lactic Acid 2.8 mmol/L (0.7-2.0) H* 10/23/16 12:53 Calcium 7.8 mg/dL (8.4-10.2) L 11/02/16 17:15 Magnesium 1.9 mg/dL (1.7-2.3) 10/31/16 12:35 Total Bilirubin 0.9 mg/dL (0.1-1.2) 10/27/16 05:30 Direct Bilirubin 0.3 mg/dL (0-0.2) H 10/27/16 05:30 Indirect Bilirubin 0.6 mg/dL 10/27/16 05:30 AST 18 units/L (5-40) 10/27/16 05:30 ALT 13 units/L (7-56) 10/27/16 05:30 Alkaline Phosphatase 116 units/L (35-129) 10/27/16 05:30 Ammonia 30.0 umol/L (25-60) 10/26/16 09:00 Total Creatine Kinase 72 units/L (55-170) 11/02/16 18:37 CK-MB (CK-2) 3.0 ng/mL (0.0-4.0) 10/23/16 12:53 CK-MB (CK-2) Rel Index 0.9 (0-4) 10/23/16 12:53 Troponin T 0.032 ng/mL (0.00-0.029) H 10/23/16 12:53 NT-Pro-B Natriuret Pep 532.6 pg/mL (0-900) 10/23/16 12:53 Total Protein 7.1 g/dL (6.3-8.2) 10/27/16 05:30 Albumin 3.2 g/dL (3.9-5) L 10/27/16 05:30 Albumin/Globulin Ratio 0.8 % 10/27/16 05:30 Triglycerides 199 mg/dL (2-149) H 10/23/16 12:53 Cholesterol 143 mg/dL (50-199) 10/23/16 12:53 LDL Cholesterol Direct 64 mg/dL (50-130) 10/23/16 12:53 HDL Cholesterol 40 mg/dL (40-59) 10/23/16 12:53 Cholesterol/HDL Ratio 3.57 % 10/23/16 12:53 TSH 1.040 mlU/mL (0.270-4.200) 10/23/16 12:53 Free T4 1.13 ng/dL (0.76-1.46) 10/23/16 22:59 Thyroxine (T4) 5.2 ug/dL (4.0-12.0) 10/23/16 22:59 T3 (NISHA) 56 ng/dL (76-181) L 10/23/16 22:59 Free T3 Index 2.0 pg/mL (2.3-4.2) L 10/23/16 22:59 T3 Uptake See scanned report 10/23/16 22:59 Urine Color Yellow (Yellow) 11/03/16 07:47 Urine Turbidity Clear (Clear) 11/03/16 07:47 Urine pH 5.0 (5.0-7.0) 11/03/16 07:47 Ur Specific [place] 1.012 (1.003-1.030) 11/03/16 07:47 Urine Protein <15 mg/dl mg/dL (Negative) 11/03/16 07:47 Urine Glucose (UA) Neg mg/dL (Negative) 11/03/16 07:47 Urine Ketones Neg mg/dL (Negative) 11/03/16 07:47 Urine Blood Neg (Negative) 11/03/16 07:47 Urine Nitrite Pos (Negative) 11/03/16 07:47 Urine Bilirubin Neg (Negative) 11/03/16 07:47 Urine Urobilinogen 4.0 mg/dL (<2.0) 11/03/16 07:47 Ur Leukocyte Esterase Tr (Negative) 11/03/16 07:47 Urine WBC (Auto) 1.0 /HPF (0.0-6.0) 11/03/16 07:47 Urine RBC (Auto) 5.0 /HPF (0.0-6.0) 11/03/16 07:47 U Epithel Cells (Auto) < 1.0 /HPF (0-13.0) 11/03/16 07:47 Urine Bacteria (Auto) 2+ /HPF (Negative) 11/03/16 07:47 Urine Mucus Few /HPF 11/03/16 07:47 Urine Opiates Screen Presumptive negative 10/21/16 20:36 Urine Methadone Screen Presumptive negative 10/21/16 20:36 Ur Barbiturates Screen Presumptive negative 10/21/16 20:36 Ur Phencyclidine Scrn Presumptive negative 10/21/16 20:36 Ur Amphetamines Screen Presumptive negative 10/21/16 20:36 U Benzodiazepines Scrn Presumptive negative 10/21/16 20:36 Urine Cocaine Screen Presumptive negative 10/21/16 20:36 U Marijuana (THC) Screen Presumptive negative 10/21/16 20:36 Drugs of Abuse Note Disclamer 10/21/16 20:36 Plasma/Serum Alcohol < 0.01 gm% (0-0.07) 10/21/16 20:30 - Imaging and Cardiology Chest x-ray: image reviewed (left retrocardiac infiltrate)
[2016-11-03] MEDS: COLACE PO SCH ×2 (12:59→23:00)
[2016-11-03] MEDS: ZOVIRAX PO SCH (12:59)
[2016-11-03] MEDS: MIRALAX 3350 PO SCH (12:59)
[2016-11-03] MEDS: PROCARDIA XL PO SCH (12:59)
[2016-11-03] MEDS: LAC-HYDRIN TP SCH ×2 (13:00→23:04)
[2016-11-03] MEDS ORDERED: LEVAQUIN 750MG/150ML 150 ML IV SCH (14:00)
[2016-11-03] MEDS: NACL 0.45% 1000 ML 1,000 ML IV SCH (14:17)
[2016-11-03 15:48] LABS: Anion Gap 18 mmol/L; BUN/Creatinine Ratio 16.42; Blood Urea Nitrogen 23 mg/dL (9-20); Calcium 7.7 mg/dL (8.4-10.2); Carbon Dioxide 22 mmol/L (22-30); Chloride 101.4 mmol/L (98-107); Glucose 235 mg/dL (75-100); Sodium 137 mmol/L (137-145)
--- NOTE | 2016-11-03 16:40 | Progress Note ---
Subjective - Reason for Consult Consult date: 11/03/16 Reason for consult: AMS/agitation - Chief Complaint Chief complaint: sedated Mental Status Exam - Vital signs Last Vital Signs Temp 98.4 F 11/03/16 08:20 Pulse 94 H 11/03/16 10:00 Resp 20 11/03/16 10:00 BP 130/62 11/03/16 12:12 Pulse Ox 94 11/03/16 10:00 Assessment and Plan ASSESSMENT Delirium Dementia with increased agitation/aggression Opioid Dependence, buttermaker use - Patient Problems (1) Dementia Current Visit: Yes Status: Acute Plan to address problem: RECOMMEND 1. Continue Haldol 2mg IM Q8HRS PRN--- BUT for severe agitation only 2. NH placement (preferred) once patient is out of restraints This is the last allotted Psych visit for this patient. If any further input is required from out team, please call the office at [phone]. Our Psych Team has completed the allotted 8 visits for this patient. If any further input is required please contact our office at [phone].
--- NOTE | 2016-11-03 16:49 | Progress Note ---
Subjective - Reason for Consult Consult date: 11/03/16 Reason for consult: AMS/agitation Requesting physician: YANELI VIY - Chief Complaint Chief complaint: sleepy Mental Status Exam - Vital signs Last Vital Signs Temp 101.0 F H 11/03/16 16:41 Pulse 92 H 11/03/16 16:41 Resp 18 11/03/16 16:41 BP 138/70 11/03/16 16:41 Pulse Ox 98 11/03/16 16:41 - Exam Narrative exam: Patient resting calmly since 12:08pm dose of Benadryl for severe itching. Sleepy and unable to participate in interview. at bedside and RN report patient has been alert today. He was able to state today is [place]. He was able to tell time on the clock in his room. He spoke briefly to his sister and daughter on the phone. Otherwise, he's been pretty irritable, a lot of scratching. Still requiring mittens and restraint to keep him from opening his skin scratching. Slept well through the night. No Haldol required. Appetite is still very poor. Orientation: time ([place]), place, person Mood: calm (currently calm, not agitated, not itching) Thought content: other (asks for water then doesn't drink it) Thought Process: Intact (sleepy, unable to interview) Perceptions: none Speech: minimal response Concentration: distractible Motor activity: other (sleepy) Level of consciousness: other (sleepy) Sleep Symptoms: None Interaction: apathetic Assessment and Plan ASSESSMENT Delirium Dementia with increased agitation/aggression Opioid Dependence, half-way use CPK 72-WNL - Patient Problems (1) Dementia Current Visit: Yes Status: Acute Plan to address problem: RECOMMEND 1. Continue Haldol 2mg IM Q8HRS PRN--- BUT for severe agitation only 2. NH placement Our Psych team has completed the allotted 8 visits for this patient. If any further input is required from our team, please call the office at .
[2016-11-04] MEDS: BENADRYL IM PRN (04:40)
[2016-11-04] MEDS: NACL 0.45% 1000 ML 1,000 ML IV SCH ×3 (04:42→18:28)
[2016-11-04] MEDS: SYNTHROID PO SCH (05:48)
[2016-11-04] MEDS: COLACE PO SCH ×2 (10:31→23:39)
[2016-11-04] MEDS: HCTZ PO SCH (10:31)
[2016-11-04] MEDS: ZOSTRIX HP TP SCH ×3 (10:32→23:46)
[2016-11-04] MEDS: NOVOLOG SUB-Q SCH ×3 (10:32→17:53)
[2016-11-04] MEDS: COREG PO SCH ×2 (10:33→23:44)
[2016-11-04] MEDS: ROXICODONE PO SCH (10:33)
[2016-11-04] MEDS: ZYLOPRIM PO SCH (10:35)
[2016-11-04] MEDS: NEURONTIN PO SCH (10:35)
[2016-11-04] MEDS: MIRALAX 3350 PO SCH (10:36)
[2016-11-04] MEDS: LAC-HYDRIN TP SCH ×2 (10:37→23:45)
[2016-11-04] MEDS: HEPARIN SUB-Q SCH ×2 (10:38→23:40)
--- NOTE | 2016-11-04 10:57 | Progress Note ---
Assessment and Plan Assessment and plan: --Acute psychosis Mental health input appreciated, psych meds have been adjusted appropriately, patient will need placement -Fever UA neg, fup blood cx, CPK wnl, CXR shows PNA -PNA- hospital acquired/sepsis begin levaquin x 7 days --Hypernatremia Resolved --Acute renal failure probably to vasomotor nephropathy from poor PO intake cw IVF --Type 2 diabetes mellitus Continue current management, glucose now better controlled --Dermatitis, continue Lac-Hydrin/hydrocortisone cream continue atarax prn Supportive skincare Likely discharged to inpatient psych facility/correction in when clinically improved, will have to optimize his meds and have him off restraints History Interval history: He is now more arousable, but has swung at nursing staff when he was off restraints, fever has resolved Hospitalist Physical - Physical exam Narrative exam: General: Patient appears well in no distress HEENT: MMM, EOMI cardiac: S1-S2 heard lungs: clear to auscultation, abdomen: soft, nontender, nondistended bowel sounds positive extremities: no edema clubbing or cyanosis Skin: no rash or lesion Neuro: no focal deficit Psych: Patient is awake, confused and erratic. - Constitutional Vitals: Temp Pulse Resp BP Pulse Ox 100.0 F H 93 H 22 141/67 96 11/04/16 00:00 11/04/16 10:33 11/04/16 00:00 11/04/16 10:33 11/04/16 00:00 General appearance: Present: no acute distress, well-nourished, other (sedated/ sleeping/easily awakens and irritated) Results - Labs CBC & Chem 7: 11/02/16 17:15 11/03/16 14:44 Labs: Laboratory Last Values WBC 6.7 K/mm3 (4.5-11.0) 11/02/16 17:15 RBC 3.17 M/mm3 (3.65-5.03) L 11/02/16 17:15 Hgb 9.3 gm/dl (11.8-15.2) L 11/02/16 17:15 Hct 29.0 % (35.5-45.6) L 11/02/16 17:15 MCV 92 fl (84-94) 11/02/16 17:15 MCH 30 pg (28-32) 11/02/16 17:15 MCHC 32 % (32-34) 11/02/16 17:15 RDW 19.0 % (13.2-15.2) H 11/02/16 17:15 Plt Count 131 K/mm3 (140-440) L 11/02/16 17:15 Lymph % (Auto) 9.7 % (13.4-35.0) L 10/29/16 08:53 [place] % (Auto) 10.9 % (0.0-7.3) H 10/29/16 08:53 Eos % (Auto) 3.5 % (0.0-4.3) 10/29/16 08:53 Baso % (Auto) 1.1 % (0.0-1.8) 10/29/16 08:53 Lymph # 0.5 K/mm3 (1.2-5.4) L 10/29/16 08:53 [place] # 0.5 K/mm3 (0.0-0.8) 10/29/16 08:53 Eos # 0.2 K/mm3 (0.0-0.4) 10/29/16 08:53 Baso # 0.1 K/mm3 (0.0-0.1) 10/29/16 08:53 Seg Neutrophils % 74.8 % (40.0-70.0) H 10/29/16 08:53 Seg Neutrophils # 3.6 K/mm3 (1.8-7.7) 10/29/16 08:53 PT 14.3 Sec. (12.2-14.9) 10/23/16 12:53 INR 1.12 (0.87-1.13) 10/23/16 12:53 APTT 30.6 Sec. (24.2-36.6) 10/23/16 12:53 Sodium 137 mmol/L (137-145) 11/03/16 14:44 Potassium 4.0 mmol/L (3.6-5.0) 11/03/16 14:44 Chloride 101.4 mmol/L (98-107) 11/03/16 14:44 Carbon Dioxide 22 mmol/L (22-30) 11/03/16 14:44 Anion Gap 18 mmol/L 11/03/16 14:44 BUN 23 mg/dL (9-20) H 11/03/16 14:44 Creatinine 1.4 mg/dL (0.8-1.5) 11/03/16 14:44 Estimated GFR > 60 ml/min 11/03/16 14:44 BUN/Creatinine Ratio 16.42 % 11/03/16 14:44 Glucose 235 mg/dL (75-100) H 11/03/16 14:44 POC Glucose 117 (70-105) H 11/04/16 06:46 Hemoglobin A1c 7.2 % (4-6) H 10/27/16 05:30 Lactic Acid 2.8 mmol/L (0.7-2.0) H* 10/23/16 12:53 Calcium 7.7 mg/dL (8.4-10.2) L 11/03/16 14:44 Magnesium 1.9 mg/dL (1.7-2.3) 10/31/16 12:35 Total Bilirubin 0.9 mg/dL (0.1-1.2) 10/27/16 05:30 Direct Bilirubin 0.3 mg/dL (0-0.2) H 10/27/16 05:30 Indirect Bilirubin 0.6 mg/dL 10/27/16 05:30 AST 18 units/L (5-40) 10/27/16 05:30 ALT 13 units/L (7-56) 10/27/16 05:30 Alkaline Phosphatase 116 units/L (35-129) 10/27/16 05:30 Ammonia 30.0 umol/L (25-60) 10/26/16 09:00 Total Creatine Kinase 72 units/L (55-170) 11/02/16 18:37 CK-MB (CK-2) 3.0 ng/mL (0.0-4.0) 10/23/16 12:53 CK-MB (CK-2) Rel Index 0.9 (0-4) 10/23/16 12:53 Troponin T 0.032 ng/mL (0.00-0.029) H 10/23/16 12:53 NT-Pro-B Natriuret Pep 532.6 pg/mL (0-900) 10/23/16 12:53 Total Protein 7.1 g/dL (6.3-8.2) 10/27/16 05:30 Albumin 3.2 g/dL (3.9-5) L 10/27/16 05:30 Albumin/Globulin Ratio 0.8 % 10/27/16 05:30 Triglycerides 199 mg/dL (2-149) H 10/23/16 12:53 Cholesterol 143 mg/dL (50-199) 10/23/16 12:53 LDL Cholesterol Direct 64 mg/dL (50-130) 10/23/16 12:53 HDL Cholesterol 40 mg/dL (40-59) 10/23/16 12:53 Cholesterol/HDL Ratio 3.57 % 10/23/16 12:53 TSH 1.040 mlU/mL (0.270-4.200) 10/23/16 12:53 Free T4 1.13 ng/dL (0.76-1.46) 10/23/16 22:59 Thyroxine (T4) 5.2 ug/dL (4.0-12.0) 10/23/16 22:59 T3 (NISHA) 56 ng/dL (76-181) L 10/23/16 22:59 Free T3 Index 2.0 pg/mL (2.3-4.2) L 10/23/16 22:59 T3 Uptake See scanned report 10/23/16 22:59 Urine Color Yellow (Yellow) 11/03/16 07:47 Urine Turbidity Clear (Clear) 11/03/16 07:47 Urine pH 5.0 (5.0-7.0) 11/03/16 07:47 Ur Specific [place] 1.012 (1.003-1.030) 11/03/16 07:47 Urine Protein <15 mg/dl mg/dL (Negative) 11/03/16 07:47 Urine Glucose (UA) Neg mg/dL (Negative) 11/03/16 07:47 Urine Ketones Neg mg/dL (Negative) 11/03/16 07:47 Urine Blood Neg (Negative) 11/03/16 07:47 Urine Nitrite Pos (Negative) 11/03/16 07:47 Urine Bilirubin Neg (Negative) 11/03/16 07:47 Urine Urobilinogen 4.0 mg/dL (<2.0) 11/03/16 07:47 Ur Leukocyte Esterase Tr (Negative) 11/03/16 07:47 Urine WBC (Auto) 1.0 /HPF (0.0-6.0) 11/03/16 07:47 Urine RBC (Auto) 5.0 /HPF (0.0-6.0) 11/03/16 07:47 U Epithel Cells (Auto) < 1.0 /HPF (0-13.0) 11/03/16 07:47 Urine Bacteria (Auto) 2+ /HPF (Negative) 11/03/16 07:47 Urine Mucus Few /HPF 11/03/16 07:47 Urine Opiates Screen Presumptive negative 10/21/16 20:36 Urine Methadone Screen Presumptive negative 10/21/16 20:36 Ur Barbiturates Screen Presumptive negative 10/21/16 20:36 Ur Phencyclidine Scrn Presumptive negative 10/21/16 20:36 Ur Amphetamines Screen Presumptive negative 10/21/16 20:36 U Benzodiazepines Scrn Presumptive negative 10/21/16 20:36 Urine Cocaine Screen Presumptive negative 10/21/16 20:36 U Marijuana (THC) Screen Presumptive negative 10/21/16 20:36 Drugs of Abuse Note Disclamer 10/21/16 20:36 Plasma/Serum Alcohol < 0.01 gm% (0-0.07) 10/21/16 20:30
[2016-11-04] MEDS: PROCARDIA XL PO SCH (11:01)
[2016-11-04] MEDS: ZOVIRAX PO SCH (12:55)
[2016-11-04] MEDS: HALDOL PO SCH ×2 (16:27→23:39)
[2016-11-04] MEDS: HYDROCORTISONE CR TP PRN (23:47)
[2016-11-05] MEDS: ATARAX PO PRN (00:13)
[2016-11-05] MEDS: NEURONTIN PO SCH ×3 (01:09→23:24)
[2016-11-05] MEDS: NOVOLOG SUB-Q SCH ×5 (01:16→23:24)
[2016-11-05] MEDS: NACL 0.45% 1000 ML 1,000 ML IV SCH ×2 (01:16→08:17)
[2016-11-05] MEDS: HALDOL IM PRN ×4 (03:06→14:42)
[2016-11-05] MEDS: SYNTHROID PO SCH (06:27)
--- NOTE | 2016-11-05 10:22 | Progress Note ---
Assessment and Plan Assessment and plan: --Acute psychosis Mental health input appreciated, psych meds have been adjusted appropriately, patient will need placement -PNA- hospital acquired/sepsis Continue levaquin x 7 days --Hypernatremia Resolved with IV hydration --Acute renal failure probably to vasomotor nephropathy from poor PO intake cw IVF --Type 2 diabetes mellitus Continue current management, glucose now better controlled --Dermatitis, continue Lac-Hydrin/hydrocortisone cream continue atarax prn Supportive skincare Likely discharged to inpatient psych facility/shelter in when clinically improved, will have to optimize his meds and have him off restraints History Interval history: He is now more arousable, he has been calm during the day, however he was agitated at night Hospitalist Physical - Physical exam Narrative exam: General: Patient appears well in no distress HEENT: MMM, EOMI cardiac: S1-S2 heard lungs: clear to auscultation, abdomen: soft, nontender, nondistended bowel sounds positive extremities: no edema clubbing or cyanosis Skin: no rash or lesion Neuro: no focal deficit Psych: Patient is awake, confused and erratic. - Constitutional Vitals: Temp Pulse Resp BP Pulse Ox 98.5 F 81 18 141/69 93 11/05/16 07:37 11/05/16 07:37 11/05/16 07:37 11/05/16 07:37 11/05/16 07:37 General appearance: Present: no acute distress, well-nourished, other (sedated/ sleeping/easily awakens and irritated) Results - Labs CBC & Chem 7: 11/02/16 17:15 11/03/16 14:44 Labs: Laboratory Last Values WBC 6.7 K/mm3 (4.5-11.0) 11/02/16 17:15 RBC 3.17 M/mm3 (3.65-5.03) L 11/02/16 17:15 Hgb 9.3 gm/dl (11.8-15.2) L 11/02/16 17:15 Hct 29.0 % (35.5-45.6) L 11/02/16 17:15 MCV 92 fl (84-94) 11/02/16 17:15 MCH 30 pg (28-32) 11/02/16 17:15 MCHC 32 % (32-34) 11/02/16 17:15 RDW 19.0 % (13.2-15.2) H 11/02/16 17:15 Plt Count 131 K/mm3 (140-440) L 11/02/16 17:15 Lymph % (Auto) 9.7 % (13.4-35.0) L 10/29/16 08:53 [place] % (Auto) 10.9 % (0.0-7.3) H 10/29/16 08:53 Eos % (Auto) 3.5 % (0.0-4.3) 10/29/16 08:53 Baso % (Auto) 1.1 % (0.0-1.8) 10/29/16 08:53 Lymph # 0.5 K/mm3 (1.2-5.4) L 10/29/16 08:53 [place] # 0.5 K/mm3 (0.0-0.8) 10/29/16 08:53 Eos # 0.2 K/mm3 (0.0-0.4) 10/29/16 08:53 Baso # 0.1 K/mm3 (0.0-0.1) 10/29/16 08:53 Seg Neutrophils % 74.8 % (40.0-70.0) H 10/29/16 08:53 Seg Neutrophils # 3.6 K/mm3 (1.8-7.7) 10/29/16 08:53 PT 14.3 Sec. (12.2-14.9) 10/23/16 12:53 INR 1.12 (0.87-1.13) 10/23/16 12:53 APTT 30.6 Sec. (24.2-36.6) 10/23/16 12:53 Sodium 137 mmol/L (137-145) 11/03/16 14:44 Potassium 4.0 mmol/L (3.6-5.0) 11/03/16 14:44 Chloride 101.4 mmol/L (98-107) 11/03/16 14:44 Carbon Dioxide 22 mmol/L (22-30) 11/03/16 14:44 Anion Gap 18 mmol/L 11/03/16 14:44 BUN 23 mg/dL (9-20) H 11/03/16 14:44 Creatinine 1.4 mg/dL (0.8-1.5) 11/03/16 14:44 Estimated GFR > 60 ml/min 11/03/16 14:44 BUN/Creatinine Ratio 16.42 % 11/03/16 14:44 Glucose 235 mg/dL (75-100) H 11/03/16 14:44 POC Glucose 103 (70-105) 11/05/16 06:01 Hemoglobin A1c 7.2 % (4-6) H 10/27/16 05:30 Lactic Acid 2.8 mmol/L (0.7-2.0) H* 10/23/16 12:53 Calcium 7.7 mg/dL (8.4-10.2) L 11/03/16 14:44 Magnesium 1.9 mg/dL (1.7-2.3) 10/31/16 12:35 Total Bilirubin 0.9 mg/dL (0.1-1.2) 10/27/16 05:30 Direct Bilirubin 0.3 mg/dL (0-0.2) H 10/27/16 05:30 Indirect Bilirubin 0.6 mg/dL 10/27/16 05:30 AST 18 units/L (5-40) 10/27/16 05:30 ALT 13 units/L (7-56) 10/27/16 05:30 Alkaline Phosphatase 116 units/L (35-129) 10/27/16 05:30 Ammonia 30.0 umol/L (25-60) 10/26/16 09:00 Total Creatine Kinase 72 units/L (55-170) 11/02/16 18:37 CK-MB (CK-2) 3.0 ng/mL (0.0-4.0) 10/23/16 12:53 CK-MB (CK-2) Rel Index 0.9 (0-4) 10/23/16 12:53 Troponin T 0.032 ng/mL (0.00-0.029) H 10/23/16 12:53 NT-Pro-B Natriuret Pep 532.6 pg/mL (0-900) 10/23/16 12:53 Total Protein 7.1 g/dL (6.3-8.2) 10/27/16 05:30 Albumin 3.2 g/dL (3.9-5) L 10/27/16 05:30 Albumin/Globulin Ratio 0.8 % 10/27/16 05:30 Triglycerides 199 mg/dL (2-149) H 10/23/16 12:53 Cholesterol 143 mg/dL (50-199) 10/23/16 12:53 LDL Cholesterol Direct 64 mg/dL (50-130) 10/23/16 12:53 HDL Cholesterol 40 mg/dL (40-59) 10/23/16 12:53 Cholesterol/HDL Ratio 3.57 % 10/23/16 12:53 TSH 1.040 mlU/mL (0.270-4.200) 10/23/16 12:53 Free T4 1.13 ng/dL (0.76-1.46) 10/23/16 22:59 Thyroxine (T4) 5.2 ug/dL (4.0-12.0) 10/23/16 22:59 T3 (NISHA) 56 ng/dL (76-181) L 10/23/16 22:59 Free T3 Index 2.0 pg/mL (2.3-4.2) L 10/23/16 22:59 T3 Uptake See scanned report 10/23/16 22:59 Urine Color Yellow (Yellow) 11/03/16 07:47 Urine Turbidity Clear (Clear) 11/03/16 07:47 Urine pH 5.0 (5.0-7.0) 11/03/16 07:47 Ur Specific [place] 1.012 (1.003-1.030) 11/03/16 07:47 Urine Protein <15 mg/dl mg/dL (Negative) 11/03/16 07:47 Urine Glucose (UA) Neg mg/dL (Negative) 11/03/16 07:47 Urine Ketones Neg mg/dL (Negative) 11/03/16 07:47 Urine Blood Neg (Negative) 11/03/16 07:47 Urine Nitrite Pos (Negative) 11/03/16 07:47 Urine Bilirubin Neg (Negative) 11/03/16 07:47 Urine Urobilinogen 4.0 mg/dL (<2.0) 11/03/16 07:47 Ur Leukocyte Esterase Tr (Negative) 11/03/16 07:47 Urine WBC (Auto) 1.0 /HPF (0.0-6.0) 11/03/16 07:47 Urine RBC (Auto) 5.0 /HPF (0.0-6.0) 11/03/16 07:47 U Epithel Cells (Auto) < 1.0 /HPF (0-13.0) 11/03/16 07:47 Urine Bacteria (Auto) 2+ /HPF (Negative) 11/03/16 07:47 Urine Mucus Few /HPF 11/03/16 07:47 Urine Opiates Screen Presumptive negative 10/21/16 20:36 Urine Methadone Screen Presumptive negative 10/21/16 20:36 Ur Barbiturates Screen Presumptive negative 10/21/16 20:36 Ur Phencyclidine Scrn Presumptive negative 10/21/16 20:36 Ur Amphetamines Screen Presumptive negative 10/21/16 20:36 U Benzodiazepines Scrn Presumptive negative 10/21/16 20:36 Urine Cocaine Screen Presumptive negative 10/21/16 20:36 U Marijuana (THC) Screen Presumptive negative 10/21/16 20:36 Drugs of Abuse Note Disclamer 10/21/16 20:36 Plasma/Serum Alcohol < 0.01 gm% (0-0.07) 10/21/16 20:30
[2016-11-05] MEDS: MIRALAX 3350 PO SCH (12:16)
[2016-11-05] MEDS: HCTZ PO SCH (12:17)
[2016-11-05] MEDS: ROXICODONE PO SCH (12:17)
[2016-11-05] MEDS: COLACE PO SCH ×2 (12:17→23:18)
[2016-11-05] MEDS: COREG PO SCH ×2 (12:17→23:18)
[2016-11-05] MEDS: PROCARDIA XL PO SCH (12:17)
[2016-11-05] MEDS: ZYLOPRIM PO SCH (12:18)
[2016-11-05] MEDS: LEVAQUIN 750MG/150ML 150 ML IV SCH (12:19)
[2016-11-05] MEDS: HEPARIN SUB-Q SCH ×2 (12:20→23:17)
[2016-11-05] MEDS: ZOSTRIX HP TP SCH ×3 (12:24→23:24)
[2016-11-05] MEDS: LAC-HYDRIN TP SCH ×2 (14:47→23:23)
[2016-11-05] MEDS: ZOVIRAX PO SCH (15:52)
[2016-11-05] MEDS: HALDOL PO SCH ×2 (15:54→23:19)
[2016-11-05] MEDS: TYLENOL PO PRN (23:16)
[2016-11-05] MEDS: HYDROCORTISONE CR TP PRN (23:19)
[2016-11-05] MEDS: TYLENOL PR PRN (23:33)
[2016-11-06] MEDS: HALDOL PO SCH ×2 (00:01→21:23)
[2016-11-06] MEDS: NACL 0.45% 1000 ML 1,000 ML IV SCH (06:36)
[2016-11-06] MEDS: SYNTHROID PO SCH (06:36)
--- NOTE | 2016-11-06 08:35 | Progress Note ---
Assessment and Plan Assessment and plan: --Acute psychosis Mental health input appreciated, psych meds are being adjusted, patient will need placement -PNA- hospital acquired/sepsis Continue levaquin x 7 days --Hypernatremia Resolved with IV hydration --Acute renal failure probably to vasomotor nephropathy from poor PO intake cw IVF --Type 2 diabetes mellitus Continue current management, glucose now better controlled --Dermatitis continue Lac-Hydrin/hydrocortisone cream continue atarax prn Supportive skincare Likely discharged to inpatient psych facility/usp in when clinically improved, will have to optimize his meds and have him off restraints History Interval history: He is now more arousable, he has been calm during the day, less agitated per Nursing staff Hospitalist Physical - Physical exam Narrative exam: General: Patient appears well in no distress HEENT: MMM, EOMI cardiac: S1-S2 heard lungs: clear to auscultation, abdomen: soft, nontender, nondistended bowel sounds positive extremities: no edema clubbing or cyanosis Skin: no rash or lesion Neuro: no focal deficit Psych: Patient is awake, confused - Constitutional Vitals: Temp Pulse Resp BP Pulse Ox 97.5 F L 58 L 18 150/70 97 11/06/16 07:30 11/06/16 07:30 11/06/16 07:30 11/06/16 07:30 11/06/16 07:30 General appearance: Present: no acute distress, well-nourished, other (sedated/ sleeping/easily awakens and irritated) Results - Labs CBC & Chem 7: 11/02/16 17:15 11/03/16 14:44 Labs: Laboratory Last Values WBC 6.7 K/mm3 (4.5-11.0) 11/02/16 17:15 RBC 3.17 M/mm3 (3.65-5.03) L 11/02/16 17:15 Hgb 9.3 gm/dl (11.8-15.2) L 11/02/16 17:15 Hct 29.0 % (35.5-45.6) L 11/02/16 17:15 MCV 92 fl (84-94) 11/02/16 17:15 MCH 30 pg (28-32) 11/02/16 17:15 MCHC 32 % (32-34) 11/02/16 17:15 RDW 19.0 % (13.2-15.2) H 11/02/16 17:15 Plt Count 131 K/mm3 (140-440) L 11/02/16 17:15 Lymph % (Auto) 9.7 % (13.4-35.0) L 10/29/16 08:53 [place] % (Auto) 10.9 % (0.0-7.3) H 10/29/16 08:53 Eos % (Auto) 3.5 % (0.0-4.3) 10/29/16 08:53 Baso % (Auto) 1.1 % (0.0-1.8) 10/29/16 08:53 Lymph # 0.5 K/mm3 (1.2-5.4) L 10/29/16 08:53 [place] # 0.5 K/mm3 (0.0-0.8) 10/29/16 08:53 Eos # 0.2 K/mm3 (0.0-0.4) 10/29/16 08:53 Baso # 0.1 K/mm3 (0.0-0.1) 10/29/16 08:53 Seg Neutrophils % 74.8 % (40.0-70.0) H 10/29/16 08:53 Seg Neutrophils # 3.6 K/mm3 (1.8-7.7) 10/29/16 08:53 PT 14.3 Sec. (12.2-14.9) 10/23/16 12:53 INR 1.12 (0.87-1.13) 10/23/16 12:53 APTT 30.6 Sec. (24.2-36.6) 10/23/16 12:53 Sodium 137 mmol/L (137-145) 11/03/16 14:44 Potassium 4.0 mmol/L (3.6-5.0) 11/03/16 14:44 Chloride 101.4 mmol/L (98-107) 11/03/16 14:44 Carbon Dioxide 22 mmol/L (22-30) 11/03/16 14:44 Anion Gap 18 mmol/L 11/03/16 14:44 BUN 23 mg/dL (9-20) H 11/03/16 14:44 Creatinine 1.4 mg/dL (0.8-1.5) 11/03/16 14:44 Estimated GFR > 60 ml/min 11/03/16 14:44 BUN/Creatinine Ratio 16.42 % 11/03/16 14:44 Glucose 235 mg/dL (75-100) H 11/03/16 14:44 POC Glucose 124 (70-105) H 11/06/16 06:43 Hemoglobin A1c 7.2 % (4-6) H 10/27/16 05:30 Lactic Acid 2.8 mmol/L (0.7-2.0) H* 10/23/16 12:53 Calcium 7.7 mg/dL (8.4-10.2) L 11/03/16 14:44 Magnesium 1.9 mg/dL (1.7-2.3) 10/31/16 12:35 Total Bilirubin 0.9 mg/dL (0.1-1.2) 10/27/16 05:30 Direct Bilirubin 0.3 mg/dL (0-0.2) H 10/27/16 05:30 Indirect Bilirubin 0.6 mg/dL 10/27/16 05:30 AST 18 units/L (5-40) 10/27/16 05:30 ALT 13 units/L (7-56) 10/27/16 05:30 Alkaline Phosphatase 116 units/L (35-129) 10/27/16 05:30 Ammonia 30.0 umol/L (25-60) 10/26/16 09:00 Total Creatine Kinase 72 units/L (55-170) 11/02/16 18:37 CK-MB (CK-2) 3.0 ng/mL (0.0-4.0) 10/23/16 12:53 CK-MB (CK-2) Rel Index 0.9 (0-4) 10/23/16 12:53 Troponin T 0.032 ng/mL (0.00-0.029) H 10/23/16 12:53 NT-Pro-B Natriuret Pep 532.6 pg/mL (0-900) 10/23/16 12:53 Total Protein 7.1 g/dL (6.3-8.2) 10/27/16 05:30 Albumin 3.2 g/dL (3.9-5) L 10/27/16 05:30 Albumin/Globulin Ratio 0.8 % 10/27/16 05:30 Triglycerides 199 mg/dL (2-149) H 10/23/16 12:53 Cholesterol 143 mg/dL (50-199) 10/23/16 12:53 LDL Cholesterol Direct 64 mg/dL (50-130) 10/23/16 12:53 HDL Cholesterol 40 mg/dL (40-59) 10/23/16 12:53 Cholesterol/HDL Ratio 3.57 % 10/23/16 12:53 TSH 1.040 mlU/mL (0.270-4.200) 10/23/16 12:53 Free T4 1.13 ng/dL (0.76-1.46) 10/23/16 22:59 Thyroxine (T4) 5.2 ug/dL (4.0-12.0) 10/23/16 22:59 T3 (NISHA) 56 ng/dL (76-181) L 10/23/16 22:59 Free T3 Index 2.0 pg/mL (2.3-4.2) L 10/23/16 22:59 T3 Uptake See scanned report 10/23/16 22:59 Urine Color Yellow (Yellow) 11/03/16 07:47 Urine Turbidity Clear (Clear) 11/03/16 07:47 Urine pH 5.0 (5.0-7.0) 11/03/16 07:47 Ur Specific [place] 1.012 (1.003-1.030) 11/03/16 07:47 Urine Protein <15 mg/dl mg/dL (Negative) 11/03/16 07:47 Urine Glucose (UA) Neg mg/dL (Negative) 11/03/16 07:47 Urine Ketones Neg mg/dL (Negative) 11/03/16 07:47 Urine Blood Neg (Negative) 11/03/16 07:47 Urine Nitrite Pos (Negative) 11/03/16 07:47 Urine Bilirubin Neg (Negative) 11/03/16 07:47 Urine Urobilinogen 4.0 mg/dL (<2.0) 11/03/16 07:47 Ur Leukocyte Esterase Tr (Negative) 11/03/16 07:47 Urine WBC (Auto) 1.0 /HPF (0.0-6.0) 11/03/16 07:47 Urine RBC (Auto) 5.0 /HPF (0.0-6.0) 11/03/16 07:47 U Epithel Cells (Auto) < 1.0 /HPF (0-13.0) 11/03/16 07:47 Urine Bacteria (Auto) 2+ /HPF (Negative) 11/03/16 07:47 Urine Mucus Few /HPF 11/03/16 07:47 Urine Opiates Screen Presumptive negative 10/21/16 20:36 Urine Methadone Screen Presumptive negative 10/21/16 20:36 Ur Barbiturates Screen Presumptive negative 10/21/16 20:36 Ur Phencyclidine Scrn Presumptive negative 10/21/16 20:36 Ur Amphetamines Screen Presumptive negative 10/21/16 20:36 U Benzodiazepines Scrn Presumptive negative 10/21/16 20:36 Urine Cocaine Screen Presumptive negative 10/21/16 20:36 U Marijuana (THC) Screen Presumptive negative 10/21/16 20:36 Drugs of Abuse Note Disclamer 10/21/16 20:36 Plasma/Serum Alcohol < 0.01 gm% (0-0.07) 10/21/16 20:30
[2016-11-06] MEDS: NOVOLOG SUB-Q SCH ×4 (09:18→22:16)
[2016-11-06] MEDS ORDERED: HALDOL PO SCH ×2 (10:00→22:00)
[2016-11-06] MEDS: LEVAQUIN 750MG/150ML 150 ML IV SCH (11:26)
[2016-11-06] MEDS: HCTZ PO SCH (11:27)
[2016-11-06] MEDS: ZYLOPRIM PO SCH (11:27)
[2016-11-06] MEDS: MIRALAX 3350 PO SCH (11:28)
[2016-11-06] MEDS: COLACE PO SCH ×2 (11:28→21:23)
[2016-11-06] MEDS: ROXICODONE PO SCH (11:28)
[2016-11-06] MEDS: PROCARDIA XL PO SCH (11:28)
[2016-11-06] MEDS: COREG PO SCH ×2 (11:28→21:23)
[2016-11-06] MEDS: NEURONTIN PO SCH ×2 (11:29→21:24)
[2016-11-06] MEDS: ZOSTRIX HP TP SCH ×3 (11:29→21:00)
[2016-11-06] MEDS: LAC-HYDRIN TP SCH ×2 (11:29→22:30)
[2016-11-06] MEDS: BENADRYL IM PRN (11:39)
[2016-11-06] MEDS: HALDOL IM PRN (13:23)
[2016-11-06] MEDS ORDERED: HALDOL PO ONE (15:00)
[2016-11-06] MEDS: ZOVIRAX PO SCH (16:28)
[2016-11-06] MEDS: HEPARIN SUB-Q SCH ×2 (18:40→21:28)
[2016-11-07] MEDS: SYNTHROID PO SCH (06:53)
[2016-11-07] MEDS: NOVOLOG SUB-Q SCH ×4 (08:44→22:01)
[2016-11-07] MEDS: MIRALAX 3350 PO SCH (10:58)
[2016-11-07] MEDS: LEVAQUIN 750MG/150ML 150 ML IV SCH (10:58)
[2016-11-07] MEDS: COREG PO SCH ×2 (10:59→21:51)
[2016-11-07] MEDS: NEURONTIN PO SCH ×2 (10:59→21:51)
[2016-11-07] MEDS: HCTZ PO SCH (11:10)
[2016-11-07] MEDS: COLACE PO SCH ×2 (11:10→21:51)
[2016-11-07] MEDS: ROXICODONE PO SCH (11:11)
[2016-11-07] MEDS: PROCARDIA XL PO SCH (11:11)
[2016-11-07] MEDS: ZYLOPRIM PO SCH (11:11)
[2016-11-07] MEDS: ATARAX PO PRN (11:15)
[2016-11-07] MEDS: HEPARIN SUB-Q SCH ×2 (11:16→21:53)
[2016-11-07] MEDS: ZOSTRIX HP TP SCH ×3 (11:22→21:00)
[2016-11-07] MEDS: LAC-HYDRIN TP SCH ×2 (11:23→22:02)
[2016-11-07] MEDS: HALDOL PO SCH ×2 (11:39→21:51)
--- NOTE | 2016-11-07 11:48 | Progress Note ---
Assessment and Plan Assessment and plan: --Acute psychosis Mental health input appreciated, psych meds are being adjusted, patient will need placement -PNA- hospital acquired/sepsis Continue levaquin x 7 days --Hypernatremia Resolved with IV hydration --Acute renal failure probably to vasomotor nephropathy from poor PO intake cw IVF --Type 2 diabetes mellitus Continue current management, glucose now better controlled --Dermatitis continue Lac-Hydrin/hydrocortisone cream continue atarax prn Supportive skincare Right second finger paronychia/Abscess continue levaquin, already draining, continue wound care -orthopedics consult Likely discharged to inpatient psych facility/jail in when clinically improved, will have to optimize his meds and have him off restraints History Interval history: He is now more arousable, he has been calm during the day, less agitated per Nursing staff Hospitalist Physical - Physical exam Narrative exam: General: Patient appears well in no distress HEENT: MMM, EOMI cardiac: S1-S2 heard lungs: clear to auscultation, abdomen: soft, nontender, nondistended bowel sounds positive extremities: right 2nd finger swelling, paronychia, tenderness, purulent drainage around nail bed Skin: no rash or lesion Neuro: no focal deficit Psych: Patient is awake, confused - Constitutional Vitals: Temp Pulse Resp BP Pulse Ox 98.4 F 84 16 124/54 100 11/07/16 08:01 11/07/16 08:01 11/07/16 08:01 11/07/16 08:01 11/07/16 10:25 General appearance: Present: no acute distress, well-nourished, other (sedated/ sleeping/easily awakens and irritated) Results - Labs CBC & Chem 7: 11/02/16 17:15 11/03/16 14:44 Labs: Laboratory Last Values WBC 6.7 K/mm3 (4.5-11.0) 11/02/16 17:15 RBC 3.17 M/mm3 (3.65-5.03) L 11/02/16 17:15 Hgb 9.3 gm/dl (11.8-15.2) L 11/02/16 17:15 Hct 29.0 % (35.5-45.6) L 11/02/16 17:15 MCV 92 fl (84-94) 11/02/16 17:15 MCH 30 pg (28-32) 11/02/16 17:15 MCHC 32 % (32-34) 11/02/16 17:15 RDW 19.0 % (13.2-15.2) H 11/02/16 17:15 Plt Count 131 K/mm3 (140-440) L 11/02/16 17:15 Lymph % (Auto) 9.7 % (13.4-35.0) L 10/29/16 08:53 [place] % (Auto) 10.9 % (0.0-7.3) H 10/29/16 08:53 Eos % (Auto) 3.5 % (0.0-4.3) 10/29/16 08:53 Baso % (Auto) 1.1 % (0.0-1.8) 10/29/16 08:53 Lymph # 0.5 K/mm3 (1.2-5.4) L 10/29/16 08:53 [place] # 0.5 K/mm3 (0.0-0.8) 10/29/16 08:53 Eos # 0.2 K/mm3 (0.0-0.4) 10/29/16 08:53 Baso # 0.1 K/mm3 (0.0-0.1) 10/29/16 08:53 Seg Neutrophils % 74.8 % (40.0-70.0) H 10/29/16 08:53 Seg Neutrophils # 3.6 K/mm3 (1.8-7.7) 10/29/16 08:53 PT 14.3 Sec. (12.2-14.9) 10/23/16 12:53 INR 1.12 (0.87-1.13) 10/23/16 12:53 APTT 30.6 Sec. (24.2-36.6) 10/23/16 12:53 Sodium 137 mmol/L (137-145) 11/03/16 14:44 Potassium 4.0 mmol/L (3.6-5.0) 11/03/16 14:44 Chloride 101.4 mmol/L (98-107) 11/03/16 14:44 Carbon Dioxide 22 mmol/L (22-30) 11/03/16 14:44 Anion Gap 18 mmol/L 11/03/16 14:44 BUN 23 mg/dL (9-20) H 11/03/16 14:44 Creatinine 1.4 mg/dL (0.8-1.5) 11/03/16 14:44 Estimated GFR > 60 ml/min 11/03/16 14:44 BUN/Creatinine Ratio 16.42 % 11/03/16 14:44 Glucose 235 mg/dL (75-100) H 11/03/16 14:44 POC Glucose 80 (70-105) 11/07/16 06:15 Hemoglobin A1c 7.2 % (4-6) H 10/27/16 05:30 Lactic Acid 2.8 mmol/L (0.7-2.0) H* 10/23/16 12:53 Calcium 7.7 mg/dL (8.4-10.2) L 11/03/16 14:44 Magnesium 1.9 mg/dL (1.7-2.3) 10/31/16 12:35 Total Bilirubin 0.9 mg/dL (0.1-1.2) 10/27/16 05:30 Direct Bilirubin 0.3 mg/dL (0-0.2) H 10/27/16 05:30 Indirect Bilirubin 0.6 mg/dL 10/27/16 05:30 AST 18 units/L (5-40) 10/27/16 05:30 ALT 13 units/L (7-56) 10/27/16 05:30 Alkaline Phosphatase 116 units/L (35-129) 10/27/16 05:30 Ammonia 30.0 umol/L (25-60) 10/26/16 09:00 Total Creatine Kinase 72 units/L (55-170) 11/02/16 18:37 CK-MB (CK-2) 3.0 ng/mL (0.0-4.0) 10/23/16 12:53 CK-MB (CK-2) Rel Index 0.9 (0-4) 10/23/16 12:53 Troponin T 0.032 ng/mL (0.00-0.029) H 10/23/16 12:53 NT-Pro-B Natriuret Pep 532.6 pg/mL (0-900) 10/23/16 12:53 Total Protein 7.1 g/dL (6.3-8.2) 10/27/16 05:30 Albumin 3.2 g/dL (3.9-5) L 10/27/16 05:30 Albumin/Globulin Ratio 0.8 % 10/27/16 05:30 Triglycerides 199 mg/dL (2-149) H 10/23/16 12:53 Cholesterol 143 mg/dL (50-199) 10/23/16 12:53 LDL Cholesterol Direct 64 mg/dL (50-130) 10/23/16 12:53 HDL Cholesterol 40 mg/dL (40-59) 10/23/16 12:53 Cholesterol/HDL Ratio 3.57 % 10/23/16 12:53 TSH 1.040 mlU/mL (0.270-4.200) 10/23/16 12:53 Free T4 1.13 ng/dL (0.76-1.46) 10/23/16 22:59 Thyroxine (T4) 5.2 ug/dL (4.0-12.0) 10/23/16 22:59 T3 (NISHA) 56 ng/dL (76-181) L 10/23/16 22:59 Free T3 Index 2.0 pg/mL (2.3-4.2) L 10/23/16 22:59 T3 Uptake See scanned report 10/23/16 22:59 Urine Color Yellow (Yellow) 11/03/16 07:47 Urine Turbidity Clear (Clear) 11/03/16 07:47 Urine pH 5.0 (5.0-7.0) 11/03/16 07:47 Ur Specific [place] 1.012 (1.003-1.030) 11/03/16 07:47 Urine Protein <15 mg/dl mg/dL (Negative) 11/03/16 07:47 Urine Glucose (UA) Neg mg/dL (Negative) 11/03/16 07:47 Urine Ketones Neg mg/dL (Negative) 11/03/16 07:47 Urine Blood Neg (Negative) 11/03/16 07:47 Urine Nitrite Pos (Negative) 11/03/16 07:47 Urine Bilirubin Neg (Negative) 11/03/16 07:47 Urine Urobilinogen 4.0 mg/dL (<2.0) 11/03/16 07:47 Ur Leukocyte Esterase Tr (Negative) 11/03/16 07:47 Urine WBC (Auto) 1.0 /HPF (0.0-6.0) 11/03/16 07:47 Urine RBC (Auto) 5.0 /HPF (0.0-6.0) 11/03/16 07:47 U Epithel Cells (Auto) < 1.0 /HPF (0-13.0) 11/03/16 07:47 Urine Bacteria (Auto) 2+ /HPF (Negative) 11/03/16 07:47 Urine Mucus Few /HPF 11/03/16 07:47 Urine Opiates Screen Presumptive negative 10/21/16 20:36 Urine Methadone Screen Presumptive negative 10/21/16 20:36 Ur Barbiturates Screen Presumptive negative 10/21/16 20:36 Ur Phencyclidine Scrn Presumptive negative 10/21/16 20:36 Ur Amphetamines Screen Presumptive negative 10/21/16 20:36 U Benzodiazepines Scrn Presumptive negative 10/21/16 20:36 Urine Cocaine Screen Presumptive negative 10/21/16 20:36 U Marijuana (THC) Screen Presumptive negative 10/21/16 20:36 Drugs of Abuse Note Disclamer 10/21/16 20:36 Plasma/Serum Alcohol < 0.01 gm% (0-0.07) 10/21/16 20:30
[2016-11-07] MEDS: ZOVIRAX PO SCH (17:33)
[2016-11-07] MEDS: DESYREL PO SCH (21:50)
[2016-11-08] MEDS: SYNTHROID PO SCH (05:56)
[2016-11-08] MEDS: NOVOLOG SUB-Q SCH ×4 (09:00→22:14)
[2016-11-08] MEDS: ZOSTRIX HP TP SCH ×3 (09:06→22:04)
--- NOTE | 2016-11-08 10:20 | Progress Note ---
Assessment and Plan Assessment and plan: --Acute psychosis Mental health input appreciated, psych meds are being adjusted, patient will need placement -PNA- hospital acquired/sepsis Continue levaquin x 7 days --Hypernatremia Resolved with IV hydration --Acute renal failure probably to vasomotor nephropathy from poor PO intake cw IVF --Type 2 diabetes mellitus Continue current management, glucose now better controlled --Dermatitis continue Lac-Hydrin/hydrocortisone cream continue atarax prn Supportive skincare Right second finger paronychia/Abscess continue levaquin, already draining, continue wound care -orthopedics consult Likely discharged to inpatient psych facility/group home in when clinically improved, will have to optimize his meds and have him off restraints History Interval history: He is now more arousable, he has been calm during the day, less agitated per Nursing staff Hospitalist Physical - Physical exam Narrative exam: General: Patient appears well in no distress HEENT: MMM, EOMI cardiac: S1-S2 heard lungs: clear to auscultation, abdomen: soft, nontender, nondistended bowel sounds positive extremities: right 2nd finger swelling, paronychia, tenderness, purulent drainage around nail bed Skin: no rash or lesion Neuro: no focal deficit Psych: Patient is awake, confused - Constitutional Vitals: Temp Pulse Resp BP Pulse Ox 98.6 F 73 16 141/74 99 11/08/16 07:29 11/08/16 07:29 11/08/16 07:29 11/08/16 07:29 11/08/16 07:29 General appearance: Present: no acute distress, well-nourished, other (sedated/ sleeping/easily awakens and irritated) Results - Labs CBC & Chem 7: 11/02/16 17:15 11/03/16 14:44 Labs: Laboratory Last Values WBC 6.7 K/mm3 (4.5-11.0) 11/02/16 17:15 RBC 3.17 M/mm3 (3.65-5.03) L 11/02/16 17:15 Hgb 9.3 gm/dl (11.8-15.2) L 11/02/16 17:15 Hct 29.0 % (35.5-45.6) L 11/02/16 17:15 MCV 92 fl (84-94) 11/02/16 17:15 MCH 30 pg (28-32) 11/02/16 17:15 MCHC 32 % (32-34) 11/02/16 17:15 RDW 19.0 % (13.2-15.2) H 11/02/16 17:15 Plt Count 131 K/mm3 (140-440) L 11/02/16 17:15 Lymph % (Auto) 9.7 % (13.4-35.0) L 10/29/16 08:53 [place] % (Auto) 10.9 % (0.0-7.3) H 10/29/16 08:53 Eos % (Auto) 3.5 % (0.0-4.3) 10/29/16 08:53 Baso % (Auto) 1.1 % (0.0-1.8) 10/29/16 08:53 Lymph # 0.5 K/mm3 (1.2-5.4) L 10/29/16 08:53 [place] # 0.5 K/mm3 (0.0-0.8) 10/29/16 08:53 Eos # 0.2 K/mm3 (0.0-0.4) 10/29/16 08:53 Baso # 0.1 K/mm3 (0.0-0.1) 10/29/16 08:53 Seg Neutrophils % 74.8 % (40.0-70.0) H 10/29/16 08:53 Seg Neutrophils # 3.6 K/mm3 (1.8-7.7) 10/29/16 08:53 PT 14.3 Sec. (12.2-14.9) 10/23/16 12:53 INR 1.12 (0.87-1.13) 10/23/16 12:53 APTT 30.6 Sec. (24.2-36.6) 10/23/16 12:53 Sodium 137 mmol/L (137-145) 11/03/16 14:44 Potassium 4.0 mmol/L (3.6-5.0) 11/03/16 14:44 Chloride 101.4 mmol/L (98-107) 11/03/16 14:44 Carbon Dioxide 22 mmol/L (22-30) 11/03/16 14:44 Anion Gap 18 mmol/L 11/03/16 14:44 BUN 23 mg/dL (9-20) H 11/03/16 14:44 Creatinine 1.4 mg/dL (0.8-1.5) 11/03/16 14:44 Estimated GFR > 60 ml/min 11/03/16 14:44 BUN/Creatinine Ratio 16.42 % 11/03/16 14:44 Glucose 235 mg/dL (75-100) H 11/03/16 14:44 POC Glucose 327 (70-105) H 11/07/16 20:44 Hemoglobin A1c 7.2 % (4-6) H 10/27/16 05:30 Lactic Acid 2.8 mmol/L (0.7-2.0) H* 10/23/16 12:53 Calcium 7.7 mg/dL (8.4-10.2) L 11/03/16 14:44 Magnesium 1.9 mg/dL (1.7-2.3) 10/31/16 12:35 Total Bilirubin 0.9 mg/dL (0.1-1.2) 10/27/16 05:30 Direct Bilirubin 0.3 mg/dL (0-0.2) H 10/27/16 05:30 Indirect Bilirubin 0.6 mg/dL 10/27/16 05:30 AST 18 units/L (5-40) 10/27/16 05:30 ALT 13 units/L (7-56) 10/27/16 05:30 Alkaline Phosphatase 116 units/L (35-129) 10/27/16 05:30 Ammonia 30.0 umol/L (25-60) 10/26/16 09:00 Total Creatine Kinase 72 units/L (55-170) 11/02/16 18:37 CK-MB (CK-2) 3.0 ng/mL (0.0-4.0) 10/23/16 12:53 CK-MB (CK-2) Rel Index 0.9 (0-4) 10/23/16 12:53 Troponin T 0.032 ng/mL (0.00-0.029) H 10/23/16 12:53 NT-Pro-B Natriuret Pep 532.6 pg/mL (0-900) 10/23/16 12:53 Total Protein 7.1 g/dL (6.3-8.2) 10/27/16 05:30 Albumin 3.2 g/dL (3.9-5) L 10/27/16 05:30 Albumin/Globulin Ratio 0.8 % 10/27/16 05:30 Triglycerides 199 mg/dL (2-149) H 10/23/16 12:53 Cholesterol 143 mg/dL (50-199) 10/23/16 12:53 LDL Cholesterol Direct 64 mg/dL (50-130) 10/23/16 12:53 HDL Cholesterol 40 mg/dL (40-59) 10/23/16 12:53 Cholesterol/HDL Ratio 3.57 % 10/23/16 12:53 TSH 1.040 mlU/mL (0.270-4.200) 10/23/16 12:53 Free T4 1.13 ng/dL (0.76-1.46) 10/23/16 22:59 Thyroxine (T4) 5.2 ug/dL (4.0-12.0) 10/23/16 22:59 T3 (NISHA) 56 ng/dL (76-181) L 10/23/16 22:59 Free T3 Index 2.0 pg/mL (2.3-4.2) L 10/23/16 22:59 T3 Uptake See scanned report 10/23/16 22:59 Urine Color Yellow (Yellow) 11/03/16 07:47 Urine Turbidity Clear (Clear) 11/03/16 07:47 Urine pH 5.0 (5.0-7.0) 11/03/16 07:47 Ur Specific [place] 1.012 (1.003-1.030) 11/03/16 07:47 Urine Protein <15 mg/dl mg/dL (Negative) 11/03/16 07:47 Urine Glucose (UA) Neg mg/dL (Negative) 11/03/16 07:47 Urine Ketones Neg mg/dL (Negative) 11/03/16 07:47 Urine Blood Neg (Negative) 11/03/16 07:47 Urine Nitrite Pos (Negative) 11/03/16 07:47 Urine Bilirubin Neg (Negative) 11/03/16 07:47 Urine Urobilinogen 4.0 mg/dL (<2.0) 11/03/16 07:47 Ur Leukocyte Esterase Tr (Negative) 11/03/16 07:47 Urine WBC (Auto) 1.0 /HPF (0.0-6.0) 11/03/16 07:47 Urine RBC (Auto) 5.0 /HPF (0.0-6.0) 11/03/16 07:47 U Epithel Cells (Auto) < 1.0 /HPF (0-13.0) 11/03/16 07:47 Urine Bacteria (Auto) 2+ /HPF (Negative) 11/03/16 07:47 Urine Mucus Few /HPF 11/03/16 07:47 Urine Opiates Screen Presumptive negative 10/21/16 20:36 Urine Methadone Screen Presumptive negative 10/21/16 20:36 Ur Barbiturates Screen Presumptive negative 10/21/16 20:36 Ur Phencyclidine Scrn Presumptive negative 10/21/16 20:36 Ur Amphetamines Screen Presumptive negative 10/21/16 20:36 U Benzodiazepines Scrn Presumptive negative 10/21/16 20:36 Urine Cocaine Screen Presumptive negative 10/21/16 20:36 U Marijuana (THC) Screen Presumptive negative 10/21/16 20:36 Drugs of Abuse Note Disclamer 10/21/16 20:36 Plasma/Serum Alcohol < 0.01 gm% (0-0.07) 10/21/16 20:30
[2016-11-08] MEDS: MIRALAX 3350 PO SCH (11:24)
[2016-11-08] MEDS: LEVAQUIN 750MG/150ML 150 ML IV SCH (11:24)
[2016-11-08] MEDS: HCTZ PO SCH (11:25)
[2016-11-08] MEDS: NEURONTIN PO SCH ×2 (11:25→23:15)
[2016-11-08] MEDS: COLACE PO SCH ×2 (11:26→22:02)
[2016-11-08] MEDS: ROXICODONE PO SCH (11:26)
[2016-11-08] MEDS: HALDOL PO SCH ×2 (11:26→22:05)
[2016-11-08] MEDS: PROCARDIA XL PO SCH (11:27)
[2016-11-08] MEDS: LAC-HYDRIN TP SCH ×2 (11:27→22:15)
[2016-11-08] MEDS: COREG PO SCH ×2 (11:29→23:15)
[2016-11-08] MEDS: ZYLOPRIM PO SCH (11:29)
[2016-11-08] MEDS: HEPARIN SUB-Q SCH ×2 (11:32→22:04)
[2016-11-08] MEDS ORDERED: XYLOCAINE 1% MPF 5 mL INFILTRATI ONE (14:12)
[2016-11-08] MEDS ORDERED: XYLOCAINE 1% 20 mL INFILTRATI ONE (14:15)
--- NOTE | 2016-11-08 14:45 | Event Note ---
[id number]. There is swelling involving the middle, distal phalanx, patient expresses pain on movement. Under local anesthesia using 1% Xylocaine plain digital block the distal phalanx of the index was opened, the pulp tissue appears necrotic. Wound open and packed, cultures were made. Prognosis guarded due to the fingertip necrosis. Continue with antibiotics pending cultures, suggest a vascular surgery consultation for evaluation.
[2016-11-08] MEDS: ZOVIRAX PO SCH (17:10)
[2016-11-08] MEDS: DESYREL PO SCH (22:01)
[2016-11-08] MEDS: BACTRIM DS PO SCH (22:01)
[2016-11-09] MEDS: SYNTHROID PO SCH (06:55)
[2016-11-09] MEDS: NEURONTIN PO SCH ×2 (11:20→21:32)
[2016-11-09] MEDS: BACTRIM DS PO SCH (11:21)
[2016-11-09] MEDS: HCTZ PO SCH (11:21)
[2016-11-09] MEDS: PROCARDIA XL PO SCH (11:22)
[2016-11-09] MEDS: ZYLOPRIM PO SCH (11:22)
[2016-11-09] MEDS: ROXICODONE PO SCH (11:22)
[2016-11-09] MEDS: HALDOL PO SCH ×2 (11:23→21:32)
[2016-11-09] MEDS: MIRALAX 3350 PO SCH (11:23)
[2016-11-09] MEDS: COREG PO SCH ×2 (11:24→21:33)
[2016-11-09] MEDS: COLACE PO SCH ×3 (11:24→21:35)
[2016-11-09] MEDS: TYLENOL PO PRN (11:25)
[2016-11-09] MEDS: ZOSTRIX HP TP SCH ×3 (11:27→21:34)
--- NOTE | 2016-11-09 11:33 | Progress Note ---
Assessment and Plan Assessment and plan: --Acute psychosis Mental health input appreciated, psych meds are being adjusted, patient will need placement -PNA- hospital acquired/sepsis has completed abx for this --Hypernatremia Resolved with IV hydration --Acute renal failure probably to vasomotor nephropathy from poor PO intake cw IVF --Type 2 diabetes mellitus Continue current management, glucose now better controlled --Dermatitis continue Lac-Hydrin/hydrocortisone cream continue atarax prn Supportive skincare Right second finger paronychia/Abscess/sepsis Orthopedic input appreciated, status post I&D. There is no necrosis to hold tissue. Therefore prognosis is guarded for this finger. We'll obtain a CT of right upper extremity with contrast, we'll also involve infectious disease. Expand antibiotics to Zosyn, follow Intra-Op cultures Likely discharged to inpatient psych facility/custodial in when clinically improved, will have to optimize his meds and have him off restraints History Interval history: He is now more arousable, he has been calm during the day, less agitated per Nursing staff, patient spiked fever overnight. Hospitalist Physical - Physical exam Narrative exam: General: Patient appears well in no distress HEENT: MMM, EOMI cardiac: S1-S2 heard lungs: clear to auscultation, abdomen: soft, nontender, nondistended bowel sounds positive extremities: right index finger post surgical changes, packed and dressed, finger is still swollen and tender Skin: no rash or lesion Neuro: no focal deficit Psych: Patient is awake, confused - Constitutional Vitals: Temp Pulse Resp BP Pulse Ox 101.1 F H 84 17 124/62 97 11/09/16 08:00 11/09/16 11:24 11/09/16 11:25 11/09/16 11:24 11/09/16 08:00 General appearance: Present: no acute distress, well-nourished, other (sedated/ sleeping/easily awakens and irritated) Results - Labs CBC & Chem 7: 11/02/16 17:15 11/03/16 14:44 Labs: Laboratory Last Values WBC 6.7 K/mm3 (4.5-11.0) 11/02/16 17:15 RBC 3.17 M/mm3 (3.65-5.03) L 11/02/16 17:15 Hgb 9.3 gm/dl (11.8-15.2) L 11/02/16 17:15 Hct 29.0 % (35.5-45.6) L 11/02/16 17:15 MCV 92 fl (84-94) 11/02/16 17:15 MCH 30 pg (28-32) 11/02/16 17:15 MCHC 32 % (32-34) 11/02/16 17:15 RDW 19.0 % (13.2-15.2) H 11/02/16 17:15 Plt Count 131 K/mm3 (140-440) L 11/02/16 17:15 Lymph % (Auto) 9.7 % (13.4-35.0) L 10/29/16 08:53 [place] % (Auto) 10.9 % (0.0-7.3) H 10/29/16 08:53 Eos % (Auto) 3.5 % (0.0-4.3) 10/29/16 08:53 Baso % (Auto) 1.1 % (0.0-1.8) 10/29/16 08:53 Lymph # 0.5 K/mm3 (1.2-5.4) L 10/29/16 08:53 [place] # 0.5 K/mm3 (0.0-0.8) 10/29/16 08:53 Eos # 0.2 K/mm3 (0.0-0.4) 10/29/16 08:53 Baso # 0.1 K/mm3 (0.0-0.1) 10/29/16 08:53 Seg Neutrophils % 74.8 % (40.0-70.0) H 10/29/16 08:53 Seg Neutrophils # 3.6 K/mm3 (1.8-7.7) 10/29/16 08:53 PT 14.3 Sec. (12.2-14.9) 10/23/16 12:53 INR 1.12 (0.87-1.13) 10/23/16 12:53 APTT 30.6 Sec. (24.2-36.6) 10/23/16 12:53 Sodium 137 mmol/L (137-145) 11/03/16 14:44 Potassium 4.0 mmol/L (3.6-5.0) 11/03/16 14:44 Chloride 101.4 mmol/L (98-107) 11/03/16 14:44 Carbon Dioxide 22 mmol/L (22-30) 11/03/16 14:44 Anion Gap 18 mmol/L 11/03/16 14:44 BUN 23 mg/dL (9-20) H 11/03/16 14:44 Creatinine 1.4 mg/dL (0.8-1.5) 11/03/16 14:44 Estimated GFR > 60 ml/min 11/03/16 14:44 BUN/Creatinine Ratio 16.42 % 11/03/16 14:44 Glucose 235 mg/dL (75-100) H 11/03/16 14:44 POC Glucose 133 (70-105) H 11/08/16 21:37 Hemoglobin A1c 7.2 % (4-6) H 10/27/16 05:30 Lactic Acid 2.8 mmol/L (0.7-2.0) H* 10/23/16 12:53 Calcium 7.7 mg/dL (8.4-10.2) L 11/03/16 14:44 Magnesium 1.9 mg/dL (1.7-2.3) 10/31/16 12:35 Total Bilirubin 0.9 mg/dL (0.1-1.2) 10/27/16 05:30 Direct Bilirubin 0.3 mg/dL (0-0.2) H 10/27/16 05:30 Indirect Bilirubin 0.6 mg/dL 10/27/16 05:30 AST 18 units/L (5-40) 10/27/16 05:30 ALT 13 units/L (7-56) 10/27/16 05:30 Alkaline Phosphatase 116 units/L (35-129) 10/27/16 05:30 Ammonia 30.0 umol/L (25-60) 10/26/16 09:00 Total Creatine Kinase 72 units/L (55-170) 11/02/16 18:37 CK-MB (CK-2) 3.0 ng/mL (0.0-4.0) 10/23/16 12:53 CK-MB (CK-2) Rel Index 0.9 (0-4) 10/23/16 12:53 Troponin T 0.032 ng/mL (0.00-0.029) H 10/23/16 12:53 NT-Pro-B Natriuret Pep 532.6 pg/mL (0-900) 10/23/16 12:53 Total Protein 7.1 g/dL (6.3-8.2) 10/27/16 05:30 Albumin 3.2 g/dL (3.9-5) L 10/27/16 05:30 Albumin/Globulin Ratio 0.8 % 10/27/16 05:30 Triglycerides 199 mg/dL (2-149) H 10/23/16 12:53 Cholesterol 143 mg/dL (50-199) 10/23/16 12:53 LDL Cholesterol Direct 64 mg/dL (50-130) 10/23/16 12:53 HDL Cholesterol 40 mg/dL (40-59) 10/23/16 12:53 Cholesterol/HDL Ratio 3.57 % 10/23/16 12:53 TSH 1.040 mlU/mL (0.270-4.200) 10/23/16 12:53 Free T4 1.13 ng/dL (0.76-1.46) 10/23/16 22:59 Thyroxine (T4) 5.2 ug/dL (4.0-12.0) 10/23/16 22:59 T3 (NISHA) 56 ng/dL (76-181) L 10/23/16 22:59 Free T3 Index 2.0 pg/mL (2.3-4.2) L 10/23/16 22:59 T3 Uptake See scanned report 10/23/16 22:59 Urine Color Yellow (Yellow) 11/03/16 07:47 Urine Turbidity Clear (Clear) 11/03/16 07:47 Urine pH 5.0 (5.0-7.0) 11/03/16 07:47 Ur Specific [place] 1.012 (1.003-1.030) 11/03/16 07:47 Urine Protein <15 mg/dl mg/dL (Negative) 11/03/16 07:47 Urine Glucose (UA) Neg mg/dL (Negative) 11/03/16 07:47 Urine Ketones Neg mg/dL (Negative) 11/03/16 07:47 Urine Blood Neg (Negative) 11/03/16 07:47 Urine Nitrite Pos (Negative) 11/03/16 07:47 Urine Bilirubin Neg (Negative) 11/03/16 07:47 Urine Urobilinogen 4.0 mg/dL (<2.0) 11/03/16 07:47 Ur Leukocyte Esterase Tr (Negative) 11/03/16 07:47 Urine WBC (Auto) 1.0 /HPF (0.0-6.0) 11/03/16 07:47 Urine RBC (Auto) 5.0 /HPF (0.0-6.0) 11/03/16 07:47 U Epithel Cells (Auto) < 1.0 /HPF (0-13.0) 11/03/16 07:47 Urine Bacteria (Auto) 2+ /HPF (Negative) 11/03/16 07:47 Urine Mucus Few /HPF 11/03/16 07:47 Urine Opiates Screen Presumptive negative 10/21/16 20:36 Urine Methadone Screen Presumptive negative 10/21/16 20:36 Ur Barbiturates Screen Presumptive negative 10/21/16 20:36 Ur Phencyclidine Scrn Presumptive negative 10/21/16 20:36 Ur Amphetamines Screen Presumptive negative 10/21/16 20:36 U Benzodiazepines Scrn Presumptive negative 10/21/16 20:36 Urine Cocaine Screen Presumptive negative 10/21/16 20:36 U Marijuana (THC) Screen Presumptive negative 10/21/16 20:36 Drugs of Abuse Note Disclamer 10/21/16 20:36 Plasma/Serum Alcohol < 0.01 gm% (0-0.07) 10/21/16 20:30
[2016-11-09] MEDS: NOVOLOG SUB-Q SCH ×3 (12:30→23:23)
[2016-11-09] MEDS: LAC-HYDRIN TP SCH ×2 (13:08→21:35)
[2016-11-09] MEDS ORDERED: NACL ONE (13:31)
[2016-11-09] MEDS: ZOVIRAX PO SCH (14:00)
[2016-11-09] MEDS: ZOSYN/NS 4.5GM/100ML 100 ML IV SCH ×2 (14:01→21:31)
--- NOTE | 2016-11-09 14:55 | Consultation ---
History of Present Illness - Reason for Consult Consult date: 11/09/16 right index finger infection - History of Present Illness Mr Núñez is a 70 y/o AA male with a known history of dementia, T-cell lymphoma, CKD, DM2, CESIA, hypothyroidism, CAD, anemia, and gout. [facility] with "acting out behavior" where by he was belligerent to staff and residents. The patient was to be admitted to [facility] but is now hospitalized at for medical clearance. He is seen now for a infection of his distal right index finger. Causation is unknown. Orthopedic intervention by Dr. Marks reveals a necrotic distal fingertip with cultures pending. History is only available as per chart notes. The patient has been given Haldol and is now barely responsive. Details concerning the etiology of his finger infection is unknown. He has been on acyclovir 800 mg daily so the question is raised about possible herpetic je. The patient has been maintained now on recent IV Zosyn and oral Bactrim. He is as well status post 3 days of Levaquin 750 mg daily. Review of available notes otherwise indicates that this patient was "treated for TB" in the past. No other details were given. He is now seen for further ID follow. Past History Past Medical History: CAD, diabetes, heart failure, hypertension, hyperlipidemia , hypothyroidism, renal failure (chronic kidney disease), other (lymphoma/ dementia/depression) Past Surgical History: No surgical history (no known surgical history) Social history: other (next of kin Myesha Núñez [phone]/ resident of [facility]). denies: smoking, alcohol abuse, prescription drug abuse Family history: no significant family history (no known family history) Medications and Allergies Allergies Allergy/AdvReac Type Severity Reaction Status Date / Time codeine Allergy Anaphylaxis Verified 10/21/16 17:29 lisinopril Allergy Angioedema Verified 10/21/16 17:29 metformin Allergy Unknown Verified 10/21/16 17:29 Home Medications Medication Instructions Recorded Confirmed Last Taken Type Acyclovir [Zovirax Tab] 800 mg PO DAILY 10/21/16 10/21/16 Unknown History Cephalexin [Keflex] 500 mg PO DAILY 10/21/16 10/21/16 Unknown History Sertraline [Zoloft] 25 mg PO DAILY 10/21/16 10/21/16 Unknown History oxyCODONE [Roxicodone TAB] 5 mg PO DAILY 10/21/16 10/21/16 Unknown History Allopurinol [Zyloprim] 100 mg PO QDAY 10/22/16 10/22/16 Unknown History Capsaicin 0.075% [Zostrix Hp 0.1 mg TP TID 10/22/16 10/22/16 Unknown History 0.075%] Carvedilol [Coreg] 6.25 mg PO BID 10/22/16 10/22/16 Unknown History Gabapentin [Neurontin] 600 mg PO BID 10/22/16 10/22/16 Unknown History Hydroxyzine HCl 10 mg PO Q6H PRN 10/22/16 10/22/16 Unknown History Insulin Regular, Human [HumuLIN R] 10 units SQ AC 10/22/16 10/22/16 Unknown History LORazepam [Ativan] 1 mg PO TID 10/22/16 10/22/16 Unknown History Quetiapine Fumarate [SEROquel] 50 mg PO QHS 10/22/16 10/22/16 Unknown History amLODIPine [Norvasc] 5 mg PO DAILY 10/22/16 10/22/16 Unknown History Active Meds: Active Medications Acetaminophen (Tylenol) 650 mg PO Q4H PRN PRN Reason: Pain, Mild (1-3) Last Admin: 11/09/16 11:25 Dose: 650 mg Acetaminophen (Tylenol) 650 mg RI Q6H PRN PRN Reason: Pain, Mild (1-3) Last Admin: 11/05/16 23:33 Dose: 650 mg Acyclovir (Zovirax) 800 mg PO DAILY [facility] Allopurinol (Zyloprim) 100 mg PO QDAY [facility] Last Admin: 11/09/16 11:22 Dose: 100 mg Capsaicin (Zostrix Hp) 1 applic TP TID [facility] Last Admin: 11/09/16 11:27 Dose: 1 applic Carvedilol (Coreg) 6.25 mg PO BID [facility] Last Admin: 11/09/16 11:24 Dose: 6.25 mg Diphenhydramine HCl (Benadryl) 50 mg IM Q6H PRN PRN Reason: Agitation Last Admin: 11/06/16 11:39 Dose: 50 mg Docusate Sodium (Colace) 100 mg PO BID [facility] Last Admin: 11/09/16 11:24 Dose: 100 mg Gabapentin (Neurontin) 600 mg PO BID [facility] Last Admin: 11/09/16 11:20 Dose: 600 mg Haloperidol (Haldol) 2 mg PO DAILY [facility] Last Admin: 11/09/16 11:23 Dose: 2 mg Haloperidol (Haldol) 4 mg PO HS [facility] Last Admin: 11/08/16 22:05 Dose: 4 mg Haloperidol Lactate (Haldol) 2 mg IM Q8H PRN PRN Reason: Agitation Last Admin: 11/06/16 13:23 Dose: 2 mg Heparin Sodium (Porcine) (Heparin) 5,000 unit SUB-Q Q12HR [facility] Last Admin: 11/08/16 22:04 Dose: 5,000 unit Hydrochlorothiazide (Hctz) 25 mg PO QDAY [facility] Last Admin: 11/09/16 11:21 Dose: 25 mg Hydrocortisone Acetate (Hydrocortisone Cr) 1 applic TP Q8H PRN PRN Reason: Skin Irritation Last Admin: 11/05/16 23:19 Dose: 1 applic Hydroxyzine HCl (Atarax) 10 mg PO Q6H PRN PRN Reason: Itching Last Admin: 11/07/16 11:15 Dose: 10 mg Piperacillin Sod/Tazobactam Sod (Zosyn/Ns 4.5gm/100ml) 100 mls @ 200 mls/hr IV Q8HR [facility] PRN Reason: Protocol Last Admin: 11/09/16 14:01 Dose: 200 mls/hr Insulin Aspart (Novolog) 0 units SUB-Q ACHS [facility] PRN Reason: Protocol Last Admin: 11/09/16 12:30 Dose: 4 units Insulin Human Isoph/Insulin Regular (Novolin 70/30) 10 unit SUB-Q BIDDIAB [facility] Last Admin: 11/09/16 11:20 Dose: 10 unit Lactic Acid (Lac-Hydrin) 2 applic TP BID [facility] Last Admin: 11/09/16 13:08 Dose: 2 applic Levothyroxine Sodium (Synthroid) 75 mcg PO DAILY@0600 [facility] Last Admin: 11/09/16 06:55 Dose: Not Given Nifedipine (Procardia Xl) 60 mg PO QDAY [facility] Last Admin: 11/09/16 11:22 Dose: 60 mg Oxycodone HCl (Roxicodone) 5 mg PO DAILY [facility] Last Admin: 11/09/16 11:22 Dose: 5 mg Polyethylene Glycol (Miralax 3350) 17 gm PO QDAY [facility] Last Admin: 11/09/16 11:23 Dose: 17 gm Trazodone HCl (Desyrel) 25 mg PO QHS [facility] Last Admin: 11/08/16 22:01 Dose: 25 mg Trimethoprim/Sulfamethoxazole (Bactrim Ds) 1 each PO Q12HR [facility] Last Admin: 11/09/16 11:21 Dose: 1 each Review of Systems ROS unobtainable: due to mental status Physical Examination - Physical Exam Narrative exam: Sedated. HEENT: Pupils are equal reactive to light and accommodation. Conjunctiva clear. Oropharynx is not well seen. NECK: Supple. No enlargement of the thyroid gland. No significant cervical lymphadenopathy. No jugular venous distention at 30. LUNGS: Grossly clear. HEART: Regular rate. S1 and S2 are normal. There are no murmurs, gallops, clicks or rubs heard. ABDOMEN: Soft and nontender. Liver and spleen are not palpably enlarged or tender. No palpable masses. Bowel sounds are normoactive. EXTREMITIES: Patches of dry scaly rash over lower extremities greater than upper extremities. Surgical wraps over right index fingernot removed. SKIN: As per extremity findings. NEUROLOGIC: Minimally arousable status post Haldol Rx. - Constitutional Vitals: Vital Signs Temp Pulse Resp BP Pulse Ox 101.1 F H 84 17 124/62 97 11/09/16 08:00 11/09/16 11:24 11/09/16 11:25 11/09/16 11:24 11/09/16 08:00 Temperature -Last 24 Hours Temperature 101.1 F Temperature 98.3 F Results - Labs CBC & Chem 7: 11/02/16 17:15 11/03/16 14:44 Labs: Abnormal lab results 11/08/16 11/08/16 11/08/16 Range/Units 08:39 11:42 16:11 POC Glucose 213 H 206 H 195 H (70-105) 11/08/16 11/09/16 11/09/16 Range/Units 21:37 11:13 12:20 POC Glucose 133 H 293 H 298 H (70-105) Assessment and Plan Assessment: Mr Núñez is a 70 y/o AA male with a known history of dementia, T-cell lymphoma, CKD, DM2, CESIA, hypothyroidism, CAD, anemia, and gout. [facility] with "[facility] out behavior" whereby he was belligerent to staff and residents. The patient was to be admitted to [facility] but is now hospitalized at for medical clearance. He is seen now for a infection of his distal right index finger. Causation is unknown. Orthopedic intervention by Dr. Marks reveals a necrotic distal fingertip with cultures pending. Antibiotics/ anti-viral: Zosyn 4.5 g IV every 8 hour (11/09 Bactrim one DS by mouth twice a day (11/08 Levaquin 750 mg daily (11/05 - 11/08) Acyclovir 800 mg by mouth daily Outpatient Anti-infectives: Keflex by mouth Acyclovir 800 mg daily Conclusions: 1. Right index finger abscess/R/O underlying osteomyelitis - Unclear etiology ( ? Trauma vs herpes vs possible lymphoma) - s/p orthopedic I&D 11/09 ( cultures pending) 2. History of TB - ? Details 3. Dementia/ ? Psychosis 4. Hx of ? Herpes - Acyclovir therapy ( suppressive dosing) 5. Hx of T-cell lymphoma 6. [place]/ R/O CKD 7. DM2 8. Hx of gout 9. CAD, hypothyroidism, CESIA, Anemia Recommendations: - Await surgical cultures performed today - Continue IV Zosyn. Bactrim is stopped. - Will try to find out further details regarding "TB diagnosis" - Patient continues otherwise on chronic suppressive acyclovir therapy - Medical therapies as per Hospitalist Thank you for this consult. Further recommendations to follow.
[2016-11-09] MEDS: DESYREL PO SCH ×2 (21:33→22:00)
[2016-11-09] MEDS: HEPARIN SUB-Q SCH (21:35)
[2016-11-10] MEDS: ZOSYN/NS 4.5GM/100ML 100 ML IV SCH ×2 (06:15→14:33)
[2016-11-10] MEDS: SYNTHROID PO SCH (06:15)
[2016-11-10] MEDS: NOVOLOG SUB-Q SCH ×6 (08:30→23:19)
--- NOTE | 2016-11-10 10:05 | Progress Note ---
Assessment and Plan Assessment and plan: --Acute psychosis Mental health input appreciated, psych meds are being adjusted, patient will need placement -PNA- hospital acquired/sepsis Patient has completed abx --Hypernatremia Resolved with IV hydration --Acute renal failure probably to vasomotor nephropathy from poor PO intake cw IVF --Type 2 diabetes mellitus Continue current management, glucose now better controlled --Dermatitis continue Lac-Hydrin/hydrocortisone cream continue atarax prn Supportive skincare --Right second finger paronychia/Abscess/sepsis Orthopedic input appreciated, status post I&D. Await surgical cultures. Continue IV Zosyn. Bactrim was stopped. CT scan of the right upper extremity pending. ID following. --? History TB Follow-up Old records. --Disposition Likely discharge to inpatient psych facility/half-way when clinically improved. We will have to optimize his meds and have him off restraints History Interval history: No new issues overnight. Hospitalist Physical - Constitutional Vitals: Temp Pulse Resp BP Pulse Ox 98.6 F 76 16 126/64 97 11/10/16 07:52 11/10/16 07:52 11/10/16 07:52 11/10/16 07:52 11/10/16 07:52 General appearance: Present: no acute distress, well-nourished, other (sedated/ sleeping/easily awakens and irritated) - EENT Eyes: Present: PERRL, EOM intact ENT: hearing intact, clear oral mucosa, dentition normal - Neck Neck: Present: supple, normal ROM - Respiratory Respiratory effort: normal Respiratory: bilateral: CTA - Cardiovascular Rhythm: regular Heart Sounds: Present: S1 & S2. Absent: gallop, rub - Extremities Extremities: no ischemia Extremity abnormal: other (Patches of dry scaly rash over lower extremities greater than upper extremities. Surgical wraps over right index fingernot removed.) - Abdominal General gastrointestinal: soft, non-tender, non-distended, normal bowel sounds - Integumentary Integumentary: Present: clear, warm, dry - Neurologic Neurologic: CNII-XII intact, moves all extremities Results - Labs CBC & Chem 7: 11/02/16 17:15 11/03/16 14:44 Labs: Laboratory Last Values WBC 6.7 K/mm3 (4.5-11.0) 11/02/16 17:15 RBC 3.17 M/mm3 (3.65-5.03) L 11/02/16 17:15 Hgb 9.3 gm/dl (11.8-15.2) L 11/02/16 17:15 Hct 29.0 % (35.5-45.6) L 11/02/16 17:15 MCV 92 fl (84-94) 11/02/16 17:15 MCH 30 pg (28-32) 11/02/16 17:15 MCHC 32 % (32-34) 11/02/16 17:15 RDW 19.0 % (13.2-15.2) H 11/02/16 17:15 Plt Count 131 K/mm3 (140-440) L 11/02/16 17:15 Lymph % (Auto) 9.7 % (13.4-35.0) L 10/29/16 08:53 [place] % (Auto) 10.9 % (0.0-7.3) H 10/29/16 08:53 Eos % (Auto) 3.5 % (0.0-4.3) 10/29/16 08:53 Baso % (Auto) 1.1 % (0.0-1.8) 10/29/16 08:53 Lymph # 0.5 K/mm3 (1.2-5.4) L 10/29/16 08:53 [place] # 0.5 K/mm3 (0.0-0.8) 10/29/16 08:53 Eos # 0.2 K/mm3 (0.0-0.4) 10/29/16 08:53 Baso # 0.1 K/mm3 (0.0-0.1) 10/29/16 08:53 Seg Neutrophils % 74.8 % (40.0-70.0) H 10/29/16 08:53 Seg Neutrophils # 3.6 K/mm3 (1.8-7.7) 10/29/16 08:53 PT 14.3 Sec. (12.2-14.9) 10/23/16 12:53 INR 1.12 (0.87-1.13) 10/23/16 12:53 APTT 30.6 Sec. (24.2-36.6) 10/23/16 12:53 Sodium 137 mmol/L (137-145) 11/03/16 14:44 Potassium 4.0 mmol/L (3.6-5.0) 11/03/16 14:44 Chloride 101.4 mmol/L (98-107) 11/03/16 14:44 Carbon Dioxide 22 mmol/L (22-30) 11/03/16 14:44 Anion Gap 18 mmol/L 11/03/16 14:44 BUN 23 mg/dL (9-20) H 11/03/16 14:44 Creatinine 1.4 mg/dL (0.8-1.5) 11/03/16 14:44 Estimated GFR > 60 ml/min 11/03/16 14:44 BUN/Creatinine Ratio 16.42 % 11/03/16 14:44 Glucose 235 mg/dL (75-100) H 11/03/16 14:44 POC Glucose 241 (70-105) H 11/10/16 05:20 Hemoglobin A1c 7.2 % (4-6) H 10/27/16 05:30 Lactic Acid 2.8 mmol/L (0.7-2.0) H* 10/23/16 12:53 Calcium 7.7 mg/dL (8.4-10.2) L 11/03/16 14:44 Magnesium 1.9 mg/dL (1.7-2.3) 10/31/16 12:35 Total Bilirubin 0.9 mg/dL (0.1-1.2) 10/27/16 05:30 Direct Bilirubin 0.3 mg/dL (0-0.2) H 10/27/16 05:30 Indirect Bilirubin 0.6 mg/dL 10/27/16 05:30 AST 18 units/L (5-40) 10/27/16 05:30 ALT 13 units/L (7-56) 10/27/16 05:30 Alkaline Phosphatase 116 units/L (35-129) 10/27/16 05:30 Ammonia 30.0 umol/L (25-60) 10/26/16 09:00 Total Creatine Kinase 72 units/L (55-170) 11/02/16 18:37 CK-MB (CK-2) 3.0 ng/mL (0.0-4.0) 10/23/16 12:53 CK-MB (CK-2) Rel Index 0.9 (0-4) 10/23/16 12:53 Troponin T 0.032 ng/mL (0.00-0.029) H 10/23/16 12:53 NT-Pro-B Natriuret Pep 532.6 pg/mL (0-900) 10/23/16 12:53 Total Protein 7.1 g/dL (6.3-8.2) 10/27/16 05:30 Albumin 3.2 g/dL (3.9-5) L 10/27/16 05:30 Albumin/Globulin Ratio 0.8 % 10/27/16 05:30 Triglycerides 199 mg/dL (2-149) H 10/23/16 12:53 Cholesterol 143 mg/dL (50-199) 10/23/16 12:53 LDL Cholesterol Direct 64 mg/dL (50-130) 10/23/16 12:53 HDL Cholesterol 40 mg/dL (40-59) 10/23/16 12:53 Cholesterol/HDL Ratio 3.57 % 10/23/16 12:53 TSH 1.040 mlU/mL (0.270-4.200) 10/23/16 12:53 Free T4 1.13 ng/dL (0.76-1.46) 10/23/16 22:59 Thyroxine (T4) 5.2 ug/dL (4.0-12.0) 10/23/16 22:59 T3 (NISHA) 56 ng/dL (76-181) L 10/23/16 22:59 Free T3 Index 2.0 pg/mL (2.3-4.2) L 10/23/16 22:59 T3 Uptake See scanned report 10/23/16 22:59 Urine Color Yellow (Yellow) 11/03/16 07:47 Urine Turbidity Clear (Clear) 11/03/16 07:47 Urine pH 5.0 (5.0-7.0) 11/03/16 07:47 Ur Specific [place] 1.012 (1.003-1.030) 11/03/16 07:47 Urine Protein <15 mg/dl mg/dL (Negative) 11/03/16 07:47 Urine Glucose (UA) Neg mg/dL (Negative) 11/03/16 07:47 Urine Ketones Neg mg/dL (Negative) 11/03/16 07:47 Urine Blood Neg (Negative) 11/03/16 07:47 Urine Nitrite Pos (Negative) 11/03/16 07:47 Urine Bilirubin Neg (Negative) 11/03/16 07:47 Urine Urobilinogen 4.0 mg/dL (<2.0) 11/03/16 07:47 Ur Leukocyte Esterase Tr (Negative) 11/03/16 07:47 Urine WBC (Auto) 1.0 /HPF (0.0-6.0) 11/03/16 07:47 Urine RBC (Auto) 5.0 /HPF (0.0-6.0) 11/03/16 07:47 U Epithel Cells (Auto) < 1.0 /HPF (0-13.0) 11/03/16 07:47 Urine Bacteria (Auto) 2+ /HPF (Negative) 11/03/16 07:47 Urine Mucus Few /HPF 11/03/16 07:47 Urine Opiates Screen Presumptive negative 10/21/16 20:36 Urine Methadone Screen Presumptive negative 10/21/16 20:36 Ur Barbiturates Screen Presumptive negative 10/21/16 20:36 Ur Phencyclidine Scrn Presumptive negative 10/21/16 20:36 Ur Amphetamines Screen Presumptive negative 10/21/16 20:36 U Benzodiazepines Scrn Presumptive negative 10/21/16 20:36 Urine Cocaine Screen Presumptive negative 10/21/16 20:36 U Marijuana (THC) Screen Presumptive negative 10/21/16 20:36 Drugs of Abuse Note Disclamer 10/21/16 20:36 Plasma/Serum Alcohol < 0.01 gm% (0-0.07) 10/21/16 20:30
[2016-11-10] MEDS: HEPARIN SUB-Q SCH ×3 (11:30→23:21)
[2016-11-10] MEDS: NEURONTIN PO SCH ×4 (12:00→23:17)
[2016-11-10] MEDS: COREG PO SCH ×3 (12:03→23:17)
[2016-11-10] MEDS: COLACE PO SCH ×2 (12:03→23:16)
[2016-11-10] MEDS: ZOVIRAX PO SCH (12:11)
[2016-11-10] MEDS: HALDOL PO SCH ×3 (12:20→23:17)
[2016-11-10] MEDS: ROXICODONE PO SCH (12:21)
[2016-11-10] MEDS: HCTZ PO SCH (12:21)
[2016-11-10] MEDS: ZYLOPRIM PO SCH (12:22)
[2016-11-10] MEDS: ZOSTRIX HP TP SCH ×3 (12:40→20:00)
[2016-11-10] MEDS: LAC-HYDRIN TP SCH ×2 (12:45→22:00)
[2016-11-10] MEDS: MIRALAX 3350 PO SCH (12:45)
--- NOTE | 2016-11-10 12:51 | Cat Scan Report ---
CT RIGHT HAND WITH CONTRAST: 11/09/16 11:29:00 CLINICAL: Right index finger infection. TECHNIQUE: Volumetric acquisition and 1.25 mm axial scan reconstructions after the uneventful and venous injection of 100 cc Omnipaque-300. FINDINGS: Soft tissue laceration or ulceration at the tip of the index finger with deformity and erosion of the distal phalanx and terminal tuft of the index finger. The rest of the bones are normal. There is soft tissue air associated with the distal index finger. No abscess and no foreign body identified. IMPRESSION: Changes in the distal phalanx of the index finger are suggestive of but not specific for osteomyelitis. For instance, this could be a posttraumatic fracture deformity of the bone and soft tissues rather than osteomyelitis if there has been recent trauma.
[2016-11-10] MEDS: PROCARDIA XL PO SCH (13:20)
--- NOTE | 2016-11-10 14:26 | Progress Note ---
Assessment and Plan Assessment: Mr Núñez is a 70 y/o AA male with a known history of dementia, T-cell lymphoma, CKD, DM2, CESIA, hypothyroidism, CAD, anemia, and gout. [facility] the [facility] with "acting out behavior" whereby he was belligerent to staff and residents. The patient was to be admitted to [facility] but is now hospitalized at for medical clearance. He is seen now for a infection of his distal right index finger. Causation is unknown. Orthopedic intervention by Dr. Marks reveals a necrotic distal fingertip with cultures pending. Antibiotics/ anti-viral: Zosyn 4.5 g IV every 8 hour (11/09 Bactrim one DS by mouth twice a day (11/08 Levaquin 750 mg daily (11/05 - 11/08) Acyclovir 800 mg by mouth daily Outpatient Anti-infectives: Keflex by mouth Acyclovir 800 mg daily Conclusions: 1. Right index finger abscess/R/O underlying osteomyelitis - Unclear etiology ( ? Trauma vs herpes vs possible lymphoma) - s/p orthopedic I&D 11/09 - Culture with group G strep. 2. History of TB - ? Details 3. Dementia/ ? Psychosis 4. Hx of ? Herpes - Acyclovir therapy ( suppressive dosing) 5. Hx of T-cell lymphoma 6. HARSHA/ R/O CKD 7. DM2 8. Hx of gout 9. CAD, hypothyroidism, CESIA, Anemia Recommendations: - Suggest antibiotic change now to IV Rocephin 2 g daily - Quantiferon TB assay ordered. - Await further surgical opinion of infected distal right index finger. - Medical therapies as per Hospitalist Subjective Date of service: 11/10/16 Interval history: Patient is awake and calm. Discussed situation with the patient's . She is unaware of Mr. Núñez ever being in a psychiatric facility. She also is unaware of any history of tuberculosis. Apparently he has had infections of his fingertips in the past. He is also on chemotherapy for lymphoma with his last course approximately 2-3 weeks ago. Objective - Exam Narrative Exam: Sedated. HEENT: Pupils are equal reactive to light and accommodation. Conjunctiva clear. Oropharynx is not well seen. NECK: Supple. No enlargement of the thyroid gland. No significant cervical lymphadenopathy. No jugular venous distention at 30. LUNGS: Grossly clear. HEART: Regular rate. S1 and S2 are normal. There are no murmurs, gallops, clicks or rubs heard. ABDOMEN: Soft and nontender. Liver and spleen are not palpably enlarged or tender. No palpable masses. Bowel sounds are normoactive. EXTREMITIES: Patches of dry scaly rash over lower extremities greater than upper extremities. Surgical wraps over right index fingernot removed. SKIN: As per extremity findings. NEUROLOGIC: Awake and alert. Responds to questions somewhat slowly. - Constitutional Vitals: Vital Signs Temp Pulse Resp BP Pulse Ox 98.6 F 78 16 126/70 97 11/10/16 07:52 11/10/16 12:03 11/10/16 07:52 11/10/16 12:46 11/10/16 07:52 Temperature -Last 24 Hours Temperature 98.6 F Temperature 99.6 F Temperature 100.4 F Temperature 100.5 F Temperature 99.2 F - Labs CBC & Chem 7: 11/02/16 17:15 11/03/16 14:44 Labs: Abnormal lab results 11/09/16 11/09/16 11/10/16 Range/Units 16:13 22:31 05:20 POC Glucose 295 H 318 H 241 H (70-105)
[2016-11-10] MEDS: ROCEPHIN/NS 2 GM/100 ML 100 ML IV SCH (18:12)
[2016-11-10] MEDS: DESYREL PO SCH (23:17)
[2016-11-11] MEDS: TYLENOL PR PRN (01:31)
[2016-11-11] MEDS: SYNTHROID PO SCH (06:00)
[2016-11-11] MEDS: NOVOLOG SUB-Q SCH ×3 (07:29→17:34)
[2016-11-11] MEDS: ROCEPHIN/NS 2 GM/100 ML 100 ML IV SCH (10:05)
[2016-11-11] MEDS: HEPARIN SUB-Q SCH ×3 (10:14→21:32)
[2016-11-11] MEDS: ZOSTRIX HP TP SCH ×3 (10:18→21:28)
[2016-11-11] MEDS: COLACE PO SCH ×3 (10:19→21:29)
[2016-11-11] MEDS: COREG PO SCH ×3 (10:19→21:30)
[2016-11-11] MEDS: HALDOL PO SCH ×3 (10:19→21:30)
[2016-11-11] MEDS: HCTZ PO SCH ×2 (10:19→11:00)
[2016-11-11] MEDS: ROXICODONE PO SCH ×2 (10:21→11:00)
[2016-11-11] MEDS: NEURONTIN PO SCH ×3 (10:21→21:29)
[2016-11-11] MEDS: MIRALAX 3350 PO SCH (10:21)
[2016-11-11] MEDS: LAC-HYDRIN TP SCH (10:21)
[2016-11-11] MEDS: PROCARDIA XL PO SCH ×2 (10:21→11:00)
[2016-11-11] MEDS: ZOVIRAX PO SCH ×2 (10:22→11:00)
[2016-11-11] MEDS: ZYLOPRIM PO SCH (10:22)
--- NOTE | 2016-11-11 12:41 | Progress Note ---
Assessment and Plan Assessment and plan: --Acute psychosis Mental health input appreciated, psych meds are being adjusted, patient will need placement -PNA- hospital acquired/sepsis Patient has completed abx --Hypernatremia Resolved with IV hydration --Acute renal failure probably to vasomotor nephropathy from poor PO intake cw IVF. Follow-up BMP --Type 2 diabetes mellitus Continue current management, glucose now better controlled --Dermatitis continue Lac-Hydrin/hydrocortisone cream continue atarax prn Supportive skincare --Right second finger paronychia/Abscess/sepsis Orthopedic input appreciated, status post I&D. Await final surgical cultures. Culture with group G strep. Antibiotics have been changed to Rocephin per ID ID following. --? History TB Follow-up Old records. Quantiferon TB assay ordered. --Hx of T-cell lymphoma --Hx of ? Herpes Acyclovir therapy ( suppressive dosing) --hypothyroidism TSH normal -- Hx of gout --Disposition Likely discharge to inpatient psych facility/[facility] when clinically improved. We will have to optimize his meds and have him off restraints History Interval history: No new issues overnight. Hospitalist Physical - Constitutional Vitals: Temp Pulse Resp BP Pulse Ox 99.3 F 100 H 18 138/66 97 11/11/16 08:00 11/11/16 08:00 11/11/16 08:00 11/11/16 04:50 11/11/16 08:00 General appearance: Present: no acute distress, well-nourished, other (sedated/ sleeping/easily awakens and irritated) - EENT Eyes: Present: PERRL, EOM intact ENT: hearing intact, clear oral mucosa, dentition normal - Neck Neck: Present: supple, normal ROM - Respiratory Respiratory effort: normal Respiratory: bilateral: CTA - Cardiovascular Rhythm: regular Heart Sounds: Present: S1 & S2. Absent: gallop, rub - Extremities Extremities: no ischemia, No edema, Full ROM - Abdominal General gastrointestinal: soft, non-tender, non-distended, normal bowel sounds - Integumentary Integumentary: Present: clear, warm, dry - Neurologic Neurologic: CNII-XII intact, moves all extremities Results - Labs CBC & Chem 7: 11/02/16 17:15 11/03/16 14:44 Labs: Laboratory Last Values WBC 6.7 K/mm3 (4.5-11.0) 11/02/16 17:15 RBC 3.17 M/mm3 (3.65-5.03) L 11/02/16 17:15 Hgb 9.3 gm/dl (11.8-15.2) L 11/02/16 17:15 Hct 29.0 % (35.5-45.6) L 11/02/16 17:15 MCV 92 fl (84-94) 11/02/16 17:15 MCH 30 pg (28-32) 11/02/16 17:15 MCHC 32 % (32-34) 11/02/16 17:15 RDW 19.0 % (13.2-15.2) H 11/02/16 17:15 Plt Count 131 K/mm3 (140-440) L 11/02/16 17:15 Lymph % (Auto) 9.7 % (13.4-35.0) L 10/29/16 08:53 [place] % (Auto) 10.9 % (0.0-7.3) H 10/29/16 08:53 Eos % (Auto) 3.5 % (0.0-4.3) 10/29/16 08:53 Baso % (Auto) 1.1 % (0.0-1.8) 10/29/16 08:53 Lymph # 0.5 K/mm3 (1.2-5.4) L 10/29/16 08:53 [place] # 0.5 K/mm3 (0.0-0.8) 10/29/16 08:53 Eos # 0.2 K/mm3 (0.0-0.4) 10/29/16 08:53 Baso # 0.1 K/mm3 (0.0-0.1) 10/29/16 08:53 Seg Neutrophils % 74.8 % (40.0-70.0) H 10/29/16 08:53 Seg Neutrophils # 3.6 K/mm3 (1.8-7.7) 10/29/16 08:53 PT 14.3 Sec. (12.2-14.9) 10/23/16 12:53 INR 1.12 (0.87-1.13) 10/23/16 12:53 APTT 30.6 Sec. (24.2-36.6) 10/23/16 12:53 Sodium 137 mmol/L (137-145) 11/03/16 14:44 Potassium 4.0 mmol/L (3.6-5.0) 11/03/16 14:44 Chloride 101.4 mmol/L (98-107) 11/03/16 14:44 Carbon Dioxide 22 mmol/L (22-30) 11/03/16 14:44 Anion Gap 18 mmol/L 11/03/16 14:44 BUN 23 mg/dL (9-20) H 11/03/16 14:44 Creatinine 1.4 mg/dL (0.8-1.5) 11/03/16 14:44 Estimated GFR > 60 ml/min 11/03/16 14:44 BUN/Creatinine Ratio 16.42 % 11/03/16 14:44 Glucose 235 mg/dL (75-100) H 11/03/16 14:44 POC Glucose 260 (70-105) H 11/11/16 11:11 Hemoglobin A1c 7.2 % (4-6) H 10/27/16 05:30 Lactic Acid 2.8 mmol/L (0.7-2.0) H* 10/23/16 12:53 Calcium 7.7 mg/dL (8.4-10.2) L 11/03/16 14:44 Magnesium 1.9 mg/dL (1.7-2.3) 10/31/16 12:35 Total Bilirubin 0.9 mg/dL (0.1-1.2) 10/27/16 05:30 Direct Bilirubin 0.3 mg/dL (0-0.2) H 10/27/16 05:30 Indirect Bilirubin 0.6 mg/dL 10/27/16 05:30 AST 18 units/L (5-40) 10/27/16 05:30 ALT 13 units/L (7-56) 10/27/16 05:30 Alkaline Phosphatase 116 units/L (35-129) 10/27/16 05:30 Ammonia 30.0 umol/L (25-60) 10/26/16 09:00 Total Creatine Kinase 72 units/L (55-170) 11/02/16 18:37 CK-MB (CK-2) 3.0 ng/mL (0.0-4.0) 10/23/16 12:53 CK-MB (CK-2) Rel Index 0.9 (0-4) 10/23/16 12:53 Troponin T 0.032 ng/mL (0.00-0.029) H 10/23/16 12:53 NT-Pro-B Natriuret Pep 532.6 pg/mL (0-900) 10/23/16 12:53 Total Protein 7.1 g/dL (6.3-8.2) 10/27/16 05:30 Albumin 3.2 g/dL (3.9-5) L 10/27/16 05:30 Albumin/Globulin Ratio 0.8 % 10/27/16 05:30 Triglycerides 199 mg/dL (2-149) H 10/23/16 12:53 Cholesterol 143 mg/dL (50-199) 10/23/16 12:53 LDL Cholesterol Direct 64 mg/dL (50-130) 10/23/16 12:53 HDL Cholesterol 40 mg/dL (40-59) 10/23/16 12:53 Cholesterol/HDL Ratio 3.57 % 10/23/16 12:53 TSH 1.040 mlU/mL (0.270-4.200) 10/23/16 12:53 Free T4 1.13 ng/dL (0.76-1.46) 10/23/16 22:59 Thyroxine (T4) 5.2 ug/dL (4.0-12.0) 10/23/16 22:59 T3 (NISHA) 56 ng/dL (76-181) L 10/23/16 22:59 Free T3 Index 2.0 pg/mL (2.3-4.2) L 10/23/16 22:59 T3 Uptake See scanned report 10/23/16 22:59 Urine Color Yellow (Yellow) 11/03/16 07:47 Urine Turbidity Clear (Clear) 11/03/16 07:47 Urine pH 5.0 (5.0-7.0) 11/03/16 07:47 Ur Specific [place] 1.012 (1.003-1.030) 11/03/16 07:47 Urine Protein <15 mg/dl mg/dL (Negative) 11/03/16 07:47 Urine Glucose (UA) Neg mg/dL (Negative) 11/03/16 07:47 Urine Ketones Neg mg/dL (Negative) 11/03/16 07:47 Urine Blood Neg (Negative) 11/03/16 07:47 Urine Nitrite Pos (Negative) 11/03/16 07:47 Urine Bilirubin Neg (Negative) 11/03/16 07:47 Urine Urobilinogen 4.0 mg/dL (<2.0) 11/03/16 07:47 Ur Leukocyte Esterase Tr (Negative) 11/03/16 07:47 Urine WBC (Auto) 1.0 /HPF (0.0-6.0) 11/03/16 07:47 Urine RBC (Auto) 5.0 /HPF (0.0-6.0) 11/03/16 07:47 U Epithel Cells (Auto) < 1.0 /HPF (0-13.0) 11/03/16 07:47 Urine Bacteria (Auto) 2+ /HPF (Negative) 11/03/16 07:47 Urine Mucus Few /HPF 11/03/16 07:47 Urine Opiates Screen Presumptive negative 10/21/16 20:36 Urine Methadone Screen Presumptive negative 10/21/16 20:36 Ur Barbiturates Screen Presumptive negative 10/21/16 20:36 Ur Phencyclidine Scrn Presumptive negative 10/21/16 20:36 Ur Amphetamines Screen Presumptive negative 10/21/16 20:36 U Benzodiazepines Scrn Presumptive negative 10/21/16 20:36 Urine Cocaine Screen Presumptive negative 10/21/16 20:36 U Marijuana (THC) Screen Presumptive negative 10/21/16 20:36 Drugs of Abuse Note Disclamer 10/21/16 20:36 Plasma/Serum Alcohol < 0.01 gm% (0-0.07) 10/21/16 20:30
--- NOTE | 2016-11-11 12:52 | Progress Note ---
Assessment and Plan Assessment: Mr Núñez is a 70 y/o AA male with a known history of dementia, T-cell lymphoma, CKD, DM2, CESIA, hypothyroidism, CAD, anemia, and gout. [facility] with "[facility] out behavior" whereby he was belligerent to staff and residents. The patient was to be admitted to [facility] [facility] facility but is now hospitalized at for medical clearance. He is seen now for a infection of his distal right index finger. Causation is unknown. Orthopedic intervention by Dr. Marks reveals a necrotic distal fingertip with cultures pending. Antibiotics/ anti-viral: Ceftriaxone 2gm iv Q24H (11/10/16 Acyclovir 800 mg by mouth daily Previous Antibiotics Zosyn 4.5 g IV every 8 hour (11/09-11/10 Bactrim one DS by mouth twice a day (11/08-11/10 Levaquin 750 mg daily (11/05 - 11/08) Outpatient Anti-infectives: Keflex by mouth Acyclovir 800 mg daily Conclusions: 1. Right index finger abscess/R/O underlying osteomyelitis - Unclear etiology ( ? Trauma vs herpes vs possible lymphoma) - s/p orthopedic I&D 11/09 - Culture with group G strep. 2. History of TB - ? Details 3. Dementia/ ? Psychosis -patient would not wake up for me 4. Hx of ? Herpes - Acyclovir therapy ( suppressive dosing) 5. Hx of T-cell lymphoma 6. HARSHA/ R/O CKD 7. DM2 8. Hx of gout 9. CAD, hypothyroidism, CESIA, Anemia Recommendations: - continue Ceftriaxone 2 g daily - Quantiferon TB assay ordered. - Await further surgical suggestions - Medical therapies as per Hospitalist Subjective Date of service: 11/11/16 Principal diagnosis: right index finger infection Interval history: Patient seen in bed resting comfortable, he did not wake up and his in the room reports that he has been sleeping most of the morning Objective - Constitutional Vitals: Selected Entries 11/11/16 11/11/16 04:50 08:00 Temperature 99.3 F Pulse Rate [ 100 H Right Radial] Respiratory 18 Rate O2 Sat by Pulse 97 Oximetry Blood Pressure 138/66 [Right Arm] Blood Pressure 90 Mean [Right Arm ] General appearance: Present: no acute distress, well-nourished - Breasts Breasts: deferred - Cardiovascular Rhythm: regular Heart Sounds: Present: S1 & S2 Extremities: abnormal (right hand index finger wound dressings in place) - Labs CBC & Chem 7: 11/02/16 17:15 11/03/16 14:44 Labs: Microbiology 11/08/16 Unknown Finger - Right Index Wound Culture - Final Beta Hemoltyic Strep Group G 11/11/16 05:32 Peripheral/Venous Blood Culture - Preliminary Culture in Progress 11/11/16 05:32 Peripheral/Venous Blood Culture - Preliminary Culture in Progress Laboratory Tests 11/02/16 11/02/16 11/03/16 17:15 17:15 14:44 WBC 6.7 Plt Count 131 L Creatinine 1.6 H 1.4
--- NOTE | 2016-11-11 15:49 | Progress Note ---
Assessment and Plan continue with local wound care, antibiotics, open wound management. Prognosis is guarded due to fingertip necrosis. Subjective Date of service: 11/11/16 Principal diagnosis: right index finger infection Interval history: finger tip necrosis, and cultures are reviewed. Objective Vital signs: Vital Signs - 12hr 11/11/16 11/11/16 04:50 08:00 Temperature 99.0 F 99.3 F Pulse Rate [ 91 H 100 H Right Radial] Respiratory 20 18 Rate Blood Pressure 138/66 [Right Arm] O2 Sat by Pulse 95 97 Oximetry - Labs CBC & BMP: 11/02/16 17:15 11/03/16 14:44 Labs: Abnormal lab results 11/10/16 11/10/16 11/10/16 Range/Units 12:09 16:53 22:21 POC Glucose 274 H 280 H 293 H (70-105) 11/11/16 11/11/16 11/11/16 Range/Units 02:35 06:17 11:11 POC Glucose 232 H 180 H 260 H (70-105)
[2016-11-11] MEDS: DESYREL PO SCH (21:29)
[2016-11-12] MEDS: NOVOLOG SUB-Q SCH ×4 (02:32→18:44)
[2016-11-12] MEDS: LAC-HYDRIN TP SCH ×3 (02:34→22:33)
[2016-11-12] MEDS ORDERED: D50W (25GM) IV ONE ×2 (06:05→07:01)
[2016-11-12] MEDS: SYNTHROID PO SCH (06:25)
[2016-11-12 08:06] LABS: Basophils % (Auto) 0.6 % (0.0-1.8); Eosinophils % (Auto) 1.7 % (0.0-4.3); Hematocrit 28.6 % (35.5-45.6); Hemoglobin 9.1 gm/dl (11.8-15.2); Mean Corpuscular HGB Conc 32 % (32-34); Mean Corpuscular Hemoglobin 28 pg (28-32); Mean Corpuscular Volume 89 fl (84-94); Platelet Count 259 K/mm3 (140-440); Red Blood Count 3.22 M/mm3 (3.65-5.03); Red Cell Distribution Width 18.4 % (13.2-15.2); White Blood Count 12.3 K/mm3 (4.5-11.0)
[2016-11-12 08:16] LABS: Anion Gap 18 mmol/L; Blood Urea Nitrogen 21 mg/dL (9-20); Calcium 8.6 mg/dL (8.4-10.2); Carbon Dioxide 26 mmol/L (22-30); Chloride 101.8 mmol/L (98-107); Glucose 99 mg/dL (75-100); Potassium 3.5 mmol/L (3.6-5.0); Sodium 142 mmol/L (137-145)
[2016-11-12] MEDS: ROCEPHIN/NS 2 GM/100 ML 100 ML IV SCH (09:59)
[2016-11-12] MEDS: ZOVIRAX PO SCH (10:01)
[2016-11-12] MEDS: HCTZ PO SCH (10:04)
[2016-11-12] MEDS: MIRALAX 3350 PO SCH (10:05)
[2016-11-12] MEDS: COLACE PO SCH ×2 (10:05→22:33)
[2016-11-12] MEDS: HALDOL PO SCH ×2 (10:07→22:34)
[2016-11-12] MEDS: ROXICODONE PO SCH (10:07)
[2016-11-12] MEDS: ZYLOPRIM PO SCH (10:08)
[2016-11-12] MEDS: COREG PO SCH ×2 (10:09→22:34)
[2016-11-12] MEDS: PROCARDIA XL PO SCH (10:09)
[2016-11-12] MEDS: HEPARIN SUB-Q SCH ×2 (10:11→22:34)
[2016-11-12] MEDS: ZOSTRIX HP TP SCH ×3 (10:19→22:50)
--- NOTE | 2016-11-12 10:54 | Progress Note ---
Assessment and Plan Assessment and plan: 1.Right index finger paronychia/necrosis causing sepsis - increased white count today, continue current antibiotics with IV ceftriaxone, follow-up with orthopedics appreciated. Continue wound care. Follow-up with ID. 2. Acute psychosis- due to dementia, continue current medications, try to remove restraints as tolerated patient will need placement 3. Type 2 diabetes mellitus- Continue current management, glucose now better controlled 4.-Dermatitis-continue Lac-Hydrin/hydrocortisone cream; continue atarax prn; Supportive skincare 5. ? History TB- Follow-up Old records. Quantiferon TB assay ordered. F/U ID 6. Hx of T-cell lymphoma- no acute issues 7. Hx of ? Herpes- cotn Acyclovir therapy ( suppressive dosing) 8. hypothyroidism TSH normal; continue Synthroid 9. gout-able, no acute issues Patient will need placement however will have to get him off restraints. We'll reconsult psych for follow-up History Interval history: f/u right finger abscess, psychosis, acute renal failure Patient seen on the bedside, he remains in restraints. No family is present Hospitalist Physical - Constitutional Vitals: Temp Pulse Resp BP Pulse Ox 98.9 F 98 H 20 130/60 96 11/12/16 07:30 11/12/16 10:09 11/12/16 07:30 11/12/16 10:09 11/12/16 07:30 General appearance: Present: no acute distress, well-nourished, other ( restraints) - EENT Eyes: Present: PERRL, EOM intact. Absent: scleral icterus, conjunctival injection ENT: hearing intact - Neck Neck: Present: supple, normal ROM. Absent: enlarged thyroid, masses or JVD - Respiratory Respiratory effort: normal Respiratory: bilateral: diminished (bases), negative: rales, rhonchi, wheezing - Cardiovascular Rhythm: regular Heart Sounds: Present: S1 & S2. Absent: gallop - Extremities Extremities: no ischemia, pulses intact, abnormal (dressing to the right finger) Peripheral Pulses: within normal limits - Abdominal General gastrointestinal: soft, non-tender, non-distended - Integumentary Integumentary: Absent: clear (extensive hyperpigmentation and lichenification of the skin from chronic dermatitis) - Psychiatric Psychiatric: other (strains) - Neurologic Neurologic: moves all extremities Results - Labs CBC & Chem 7: 11/12/16 07:44 11/12/16 07:44 Labs: Laboratory Last Values WBC 12.3 K/mm3 (4.5-11.0) H 11/12/16 07:44 RBC 3.22 M/mm3 (3.65-5.03) L 11/12/16 07:44 Hgb 9.1 gm/dl (11.8-15.2) L 11/12/16 07:44 Hct 28.6 % (35.5-45.6) L 11/12/16 07:44 MCV 89 fl (84-94) 11/12/16 07:44 MCH 28 pg (28-32) 11/12/16 07:44 MCHC 32 % (32-34) 11/12/16 07:44 RDW 18.4 % (13.2-15.2) H 11/12/16 07:44 Plt Count 259 K/mm3 (140-440) 11/12/16 07:44 Lymph % (Auto) 4.2 % (13.4-35.0) L 11/12/16 07:44 [place] % (Auto) 4.3 % (0.0-7.3) 11/12/16 07:44 Eos % (Auto) 1.7 % (0.0-4.3) 11/12/16 07:44 Baso % (Auto) 0.6 % (0.0-1.8) 11/12/16 07:44 Lymph # 0.5 K/mm3 (1.2-5.4) L 11/12/16 07:44 [place] # 0.5 K/mm3 (0.0-0.8) 11/12/16 07:44 Eos # 0.2 K/mm3 (0.0-0.4) 11/12/16 07:44 Baso # 0.1 K/mm3 (0.0-0.1) 11/12/16 07:44 Seg Neutrophils % 89.2 % (40.0-70.0) H 11/12/16 07:44 Seg Neutrophils # 11.0 K/mm3 (1.8-7.7) H 11/12/16 07:44 PT 14.3 Sec. (12.2-14.9) 10/23/16 12:53 INR 1.12 (0.87-1.13) 10/23/16 12:53 APTT 30.6 Sec. (24.2-36.6) 10/23/16 12:53 Sodium 137 mmol/L (137-145) 11/03/16 14:44 Potassium 4.0 mmol/L (3.6-5.0) 11/03/16 14:44 Chloride 101.4 mmol/L (98-107) 11/03/16 14:44 Carbon Dioxide 26 mmol/L (22-30) 11/12/16 07:44 Anion Gap 18 mmol/L 11/03/16 14:44 BUN 21 mg/dL (9-20) H 11/12/16 07:44 Creatinine 1.4 mg/dL (0.8-1.5) 11/12/16 07:44 Estimated GFR > 60 ml/min 11/12/16 07:44 BUN/Creatinine Ratio 15.00 % 11/12/16 07:44 Glucose 99 mg/dL (75-100) 11/12/16 07:44 POC Glucose 68 (70-105) L 11/12/16 05:55 Hemoglobin A1c 7.2 % (4-6) H 10/27/16 05:30 Lactic Acid 2.8 mmol/L (0.7-2.0) H* 10/23/16 12:53 Calcium 8.6 mg/dL (8.4-10.2) 11/12/16 07:44 Magnesium 1.9 mg/dL (1.7-2.3) 10/31/16 12:35 Total Bilirubin 0.9 mg/dL (0.1-1.2) 10/27/16 05:30 Direct Bilirubin 0.3 mg/dL (0-0.2) H 10/27/16 05:30 Indirect Bilirubin 0.6 mg/dL 10/27/16 05:30 AST 18 units/L (5-40) 10/27/16 05:30 ALT 13 units/L (7-56) 10/27/16 05:30 Alkaline Phosphatase 116 units/L (35-129) 10/27/16 05:30 Ammonia 30.0 umol/L (25-60) 10/26/16 09:00 Total Creatine Kinase 72 units/L (55-170) 11/02/16 18:37 CK-MB (CK-2) 3.0 ng/mL (0.0-4.0) 10/23/16 12:53 CK-MB (CK-2) Rel Index 0.9 (0-4) 10/23/16 12:53 Troponin T 0.032 ng/mL (0.00-0.029) H 10/23/16 12:53 NT-Pro-B Natriuret Pep 532.6 pg/mL (0-900) 10/23/16 12:53 Total Protein 7.1 g/dL (6.3-8.2) 10/27/16 05:30 Albumin 3.2 g/dL (3.9-5) L 10/27/16 05:30 Albumin/Globulin Ratio 0.8 % 10/27/16 05:30 Triglycerides 199 mg/dL (2-149) H 10/23/16 12:53 Cholesterol 143 mg/dL (50-199) 10/23/16 12:53 LDL Cholesterol Direct 64 mg/dL (50-130) 10/23/16 12:53 HDL Cholesterol 40 mg/dL (40-59) 10/23/16 12:53 Cholesterol/HDL Ratio 3.57 % 10/23/16 12:53 TSH 1.040 mlU/mL (0.270-4.200) 10/23/16 12:53 Free T4 1.13 ng/dL (0.76-1.46) 10/23/16 22:59 Thyroxine (T4) 5.2 ug/dL (4.0-12.0) 10/23/16 22:59 T3 (NISHA) 56 ng/dL (76-181) L 10/23/16 22:59 Free T3 Index 2.0 pg/mL (2.3-4.2) L 10/23/16 22:59 T3 Uptake See scanned report 10/23/16 22:59 Urine Color Yellow (Yellow) 11/03/16 07:47 Urine Turbidity Clear (Clear) 11/03/16 07:47 Urine pH 5.0 (5.0-7.0) 11/03/16 07:47 Ur Specific [place] 1.012 (1.003-1.030) 11/03/16 07:47 Urine Protein <15 mg/dl mg/dL (Negative) 11/03/16 07:47 Urine Glucose (UA) Neg mg/dL (Negative) 11/03/16 07:47 Urine Ketones Neg mg/dL (Negative) 11/03/16 07:47 Urine Blood Neg (Negative) 11/03/16 07:47 Urine Nitrite Pos (Negative) 11/03/16 07:47 Urine Bilirubin Neg (Negative) 11/03/16 07:47 Urine Urobilinogen 4.0 mg/dL (<2.0) 11/03/16 07:47 Ur Leukocyte Esterase Tr (Negative) 11/03/16 07:47 Urine WBC (Auto) 1.0 /HPF (0.0-6.0) 11/03/16 07:47 Urine RBC (Auto) 5.0 /HPF (0.0-6.0) 11/03/16 07:47 U Epithel Cells (Auto) < 1.0 /HPF (0-13.0) 11/03/16 07:47 Urine Bacteria (Auto) 2+ /HPF (Negative) 11/03/16 07:47 Urine Mucus Few /HPF 11/03/16 07:47 Urine Opiates Screen Presumptive negative 10/21/16 20:36 Urine Methadone Screen Presumptive negative 10/21/16 20:36 Ur Barbiturates Screen Presumptive negative 10/21/16 20:36 Ur Phencyclidine Scrn Presumptive negative 10/21/16 20:36 Ur Amphetamines Screen Presumptive negative 10/21/16 20:36 U Benzodiazepines Scrn Presumptive negative 10/21/16 20:36 Urine Cocaine Screen Presumptive negative 10/21/16 20:36 U Marijuana (THC) Screen Presumptive negative 10/21/16 20:36 Drugs of Abuse Note Disclamer 10/21/16 20:36 Plasma/Serum Alcohol < 0.01 gm% (0-0.07) 10/21/16 20:30 Microbiology 11/08/16 15:35 Drainage Anaerobic Culture - Final 11/11/16 05:32 Peripheral/Venous Blood Culture - Preliminary 11/11/16 05:32 Peripheral/Venous Blood Culture - Preliminary NO GROWTH AFTER 24 HOURS 11/08/16 Unknown Finger - Right Index Wound Culture - Final Beta Hemoltyic Strep Group G 11/02/16 17:15 Peripheral/Venous Blood Culture - Final NO GROWTH AFTER 5 DAYS 11/02/16 17:15 Peripheral/Venous Blood Culture - Final NO GROWTH AFTER 5 DAYS 11/02/16 Unknown Urine,Clean Catch Urine Culture - Final CT scan of the right index finger-tissue laceration or ulceration of the tip with deformity and erosion of the distal phalanx and terminal tuft of the index finger. Soft tissue air associated to the distal index finger. No abscess and no foreign body identified
--- NOTE | 2016-11-12 12:18 | Progress Note ---
Assessment and Plan Current antibiotics: Ceftriaxone 2gm IV q24h 11/10 --> Acyclovir 800 mg po daily Previous Antibiotics: Zosyn 4.5 g IV every 8 hours 11/09-11/10 Bactrim one DS by mouth twice a day 11/08-11/10 Levaquin 750 mg daily 11/05-11/08 Outpatient antibiotics: po Keflex Acyclovir 800 mg daily ASSESSMENT: Mahesh úNñez is a 70 y/o male with dementia, T-cell lymphoma, CKD, DM2, CESIA, hypothyroidism, CAD, anemia, and gout who was admitted to [facility] after being [facility] from his [facility] for [facility] for admission to [place] to the [facility] ED on 10/26/16 with "acting out behavior" whereby he was belligerent to staff and residents. He is seen now for a infection of his distal right index finger. Problem list: 1. Right index finger abscess/R/O underlying osteomyelitis - Unclear etiology ( ? Trauma vs herpes vs possible lymphoma) - s/p orthopedic I&D 11/09 - Culture with group G strep. 2. History of TB - ? Details 3. Dementia/ ? Psychosis -Lethargic but not agitated today 4. Hx of ? HSV infection - On chronic, suppressive acyclovir therapy 5. Hx of T-cell lymphoma -Details unclear 6. HARSHA -Improving 7. Type 2 DM 8. Hx of gouty arthritis 9. CAD 10. Hypothyroidism 11. Anemia PLAN: 1. Continue Ceftriaxone 2 g daily 2. Quantiferon TB assay pending. 3. Local wound care and continued observation 4. Glycemic control as per Hospitalist team Bharat Fields MD [facility] Office: [phone] Subjective Date of service: 11/12/16 Principal diagnosis: Right index finger infection Objective - Exam Narrative Exam: GENERAL: Well-developed, chronically ill-appearing male who is somewhat lethargic but in no acute distress. HEENT: Pupils are equal reactive to light and accommodation. Conjunctiva clear. Oropharynx is not well seen. Bilateral arcus senilis. NECK: Supple. No enlargement of the thyroid gland. No significant cervical lymphadenopathy. No jugular venous distention at 30 LUNGS: Clear with no audible adventitious sounds. HEART: Regular rate. S1 and S2 are normal. There are no murmurs, gallops, clicks or rubs heard. ABDOMEN: Soft and nontender. Liver and spleen are not palpably enlarged or tender. No palpable masses. Bowel sounds are normoactive. EXTREMITIES: Patches of dry scaly rash over lower extremities greater than upper extremities. Surgical wraps over right index finger not removed. No evidence of ascending infection or ischemia. SKIN: As per extremity findings. No other rash seen. NEUROLOGIC: Awake and alert. Responds to questions somewhat slowly. No focal findings. - Constitutional Vitals: Vital Signs Temp Pulse Resp BP Pulse Ox 98.9 F 98 H 20 130/60 96 11/12/16 07:30 11/12/16 10:09 11/12/16 07:30 11/12/16 10:09 11/12/16 07:30 Temperature -Last 24 Hours Temperature 98.9 F Temperature 98.2 F Temperature 99.1 F - Labs CBC & Chem 7: 11/12/16 07:44 11/12/16 07:44 Labs: Abnormal lab results Microbiology 11/11/16 05:32 Peripheral/Venous Blood Culture - Preliminary 11/11/16 05:32 Peripheral/Venous Blood Culture - Preliminary NO GROWTH AFTER 24 HOURS 11/08/16 Unknown Finger - Right Index Wound Culture - Final Beta Hemoltyic Strep Group G 11/08/16 15:35 Drainage Anaerobic Culture - No anaerobic growth 11/02/16 17:15 Peripheral/Venous Blood Culture - Final NO GROWTH AFTER 5 DAYS 11/02/16 17:15 Peripheral/Venous Blood Culture - Final NO GROWTH AFTER 5 DAYS
[2016-11-12] MEDS: NEURONTIN PO SCH ×2 (14:14→22:35)
[2016-11-12 22:13] LABS: Hemoglobin 8.3 gm/dl (11.8-15.2); Mean Corpuscular HGB Conc 32 % (32-34); Mean Corpuscular Hemoglobin 29 pg (28-32); Mean Corpuscular Volume 89 fl (84-94); Platelet Count 248 K/mm3 (140-440); Red Blood Count 2.91 M/mm3 (3.65-5.03); Red Cell Distribution Width 18.8 % (13.2-15.2); White Blood Count 13.2 K/mm3 (4.5-11.0)
[2016-11-12 22:22] LABS: Blood Urea Nitrogen 21 mg/dL (9-20); Calcium 8.1 mg/dL (8.4-10.2); Carbon Dioxide 26 mmol/L (22-30); Chloride 99.4 mmol/L (98-107); Glucose 288 mg/dL (75-100); Potassium 3.7 mmol/L (3.6-5.0); Sodium 137 mmol/L (137-145)
[2016-11-12 22:26] LABS: Anion Gap 15 mmol/L
[2016-11-12] MEDS: DESYREL PO SCH (22:34)
[2016-11-12 22:47] LABS: ISTAT Base Excess 3; ISTAT PCO2 32.8 (35-45); ISTAT PH 7.507 (7.35-7.45); ISTAT PO2 78 (80-105); ISTAT SO2 97; ISTAT TCO2 27
[2016-11-13] MEDS: TYLENOL PO PRN (00:13)
[2016-11-13] MEDS: NOVOLOG SUB-Q SCH ×5 (00:53→22:46)
[2016-11-13] MEDS: SYNTHROID PO SCH (07:25)
[2016-11-13 07:49] LABS: Basophils % (Auto) 0.6 % (0.0-1.8); Eosinophils % (Auto) 1.9 % (0.0-4.3); Hematocrit 26.7 % (35.5-45.6); Hemoglobin 8.5 gm/dl (11.8-15.2); Mean Corpuscular HGB Conc 32 % (32-34); Mean Corpuscular Hemoglobin 29 pg (28-32); Mean Corpuscular Volume 90 fl (84-94); Platelet Count 248 K/mm3 (140-440); Red Blood Count 2.96 M/mm3 (3.65-5.03); White Blood Count 11.5 K/mm3 (4.5-11.0)
[2016-11-13] MEDS: ZOSTRIX HP TP SCH ×3 (08:00→22:40)
[2016-11-13] MEDS: LAC-HYDRIN TP SCH ×2 (10:00→22:40)
--- NOTE | 2016-11-13 10:45 | Progress Note ---
Assessment and Plan Current antibiotics: Ceftriaxone 2gm IV q24h 11/10 --> Acyclovir 800 mg po daily Previous Antibiotics: Zosyn 4.5 g IV every 8 hours 11/09-11/10 Bactrim one DS by mouth twice a day 11/08-11/10 Levaquin 750 mg daily 11/05-11/08 Outpatient antibiotics: po Keflex Acyclovir 800 mg daily ASSESSMENT: Mahesh Núñez is a 70 y/o male with dementia, T-cell lymphoma, CKD, DM2, CESIA, hypothyroidism, CAD, anemia, and gout who was admitted to [facility] after being sent from his shelter for medical clearance for admission to [place] to the [facility] ED on 10/26/16 with "acting out behavior" whereby he was belligerent to staff and residents. He is seen now for a infection of his distal right index finger. Problem list: 1. Right index finger abscess/R/O underlying osteomyelitis - Unclear etiology ( ? Trauma vs herpes vs possible lymphoma) - s/p orthopedic I&D 11/09 - Culture with group G strep. 2. Positive blood culture -11/11/16: 1/2 sets with coag-negative Staphylococcus. Very likely represents contaminated bottles. 3. History of TB - ? Details 4. Dementia/ ? Psychosis -Lethargic but not agitated today 5. Hx of ? HSV infection - On chronic, suppressive acyclovir therapy 6. Hx of T-cell lymphoma -Details unclear 7. HARSHA -Improving 8. Type 2 DM 9. Hx of gouty arthritis 10. CAD 11. Hypothyroidism 12. Anemia PLAN: 1. Continue Ceftriaxone 2 g daily 2. Quantiferon TB assay pending. 3. Local wound care and continued observation 4. Ortho follow up to see if further amputation will be necessary 4. Glycemic control as per Hospitalist team Bharat Fields MD [facility] Office: [phone] Subjective Date of service: 11/13/16 Principal diagnosis: Right index finger infection Interval history: No specific complaints. Not very verbal. Objective - Exam Narrative Exam: GENERAL: Well-developed, chronically ill-appearing male who is somewhat lethargic but in no acute distress. HEENT: Pupils are equal reactive to light and accommodation. Conjunctiva clear. Oropharynx is not well seen. Bilateral arcus senilis. NECK: Supple. No enlargement of the thyroid gland. No significant cervical lymphadenopathy. No jugular venous distention at 30 LUNGS: Clear with no audible adventitious sounds. HEART: Regular rate. S1 and S2 are normal. There are no murmurs, gallops, clicks or rubs heard. ABDOMEN: Soft and nontender. Liver and spleen are not palpably enlarged or tender. No palpable masses. Bowel sounds are normoactive. EXTREMITIES: Patches of dry scaly rash over lower extremities greater than upper extremities. Surgical wraps over right index finger not removed. No evidence of ascending infection or ischemia. SKIN: As per extremity findings. No other rash seen. NEUROLOGIC: Awake and alert. Responds to questions somewhat slowly. No focal findings. - Constitutional Vitals: Vital Signs Temp Pulse Resp BP Pulse Ox 98.4 F 84 22 155/70 98 11/13/16 07:50 11/13/16 07:50 11/13/16 07:50 11/13/16 07:50 11/13/16 01:15 Temperature -Last 24 Hours Temperature 98.4 F Temperature 98.8 F Temperature 101.6 F Temperature 98.5 F - Labs CBC & Chem 7: 11/13/16 07:29 11/12/16 22:04 Labs: Abnormal lab results Microbiology 11/11/16 05:32 Peripheral/Venous Blood Culture - Preliminary Coag Negative Staphylococcus in both bottles 11/11/16 05:32 Peripheral/Venous Blood Culture - Preliminary NO GROWTH AFTER 48 HOURS 11/08/16 15:35 Drainage Anaerobic Culture - Final 11/08/16 Unknown Finger - Right Index Wound Culture - Final Beta Hemoltyic Strep Group G 11/02/16 17:15 Peripheral/Venous Blood Culture - Final NO GROWTH AFTER 5 DAYS 11/02/16 17:15 Peripheral/Venous Blood Culture - Final NO GROWTH AFTER 5 DAYS 11/02/16 Unknown Urine,Clean Catch Urine Culture - Final
--- NOTE | 2016-11-13 10:54 | Cat Scan Report ---
FINAL REPORT EXAM: CT HEAD/BRAIN WO CON HISTORY: r/o stroke TECHNIQUE: Standard unenhanced CT of the head at 5.0 millimeter axial increments PRIORS: CT head 10/24/2016 FINDINGS: The ventricular system is normal in size and configuration. There is moderate cerebral atrophy. Mild cerebellar atrophy is noted. There is no evidence for mass lesion, mass effect, midline shift, acute intracranial hemorrhage, or acute ischemia/ infarction. Visualized paranasal sinuses are clear. IMPRESSION: No acute intracranial process noted. No change.
[2016-11-13] MEDS: MIRALAX 3350 PO SCH (11:26)
[2016-11-13] MEDS: HALDOL PO SCH ×2 (11:26→22:41)
[2016-11-13] MEDS: PROCARDIA XL PO SCH (11:26)
[2016-11-13] MEDS: ROXICODONE PO SCH (11:26)
[2016-11-13] MEDS: HCTZ PO SCH (11:27)
[2016-11-13] MEDS: ZOVIRAX PO SCH (11:27)
[2016-11-13] MEDS: COREG PO SCH ×2 (11:28→22:42)
[2016-11-13] MEDS: COLACE PO SCH ×2 (11:28→22:41)
[2016-11-13] MEDS: ZYLOPRIM PO SCH (11:28)
[2016-11-13] MEDS: HEPARIN SUB-Q SCH ×2 (11:29→22:41)
[2016-11-13] MEDS: ROCEPHIN/NS 2 GM/100 ML 100 ML IV SCH (13:01)
--- NOTE | 2016-11-13 13:21 | Progress Note ---
Assessment and Plan Assessment and plan: 1.Right index finger paronychia/necrosis causing sepsis - temp spike; wbc decreasing; continue current antibiotics with IV ceftriaxone, follow-up with orthopedics for further recommendations; Continue wound care. Follow-up with ID. 2. Acute psychosis- due to dementia, continue current medications, try to remove restraints as tolerated patient will need placement 3. Type 2 diabetes mellitus- Continue current management, glucose now better controlled 4.-Dermatitis-continue Lac-Hydrin/hydrocortisone cream; continue atarax prn; Supportive skincare 5. ? History TB- Follow-up Old records. Quantiferon TB assay ordered. F/U ID 6. Hx of T-cell lymphoma- no acute issues 7. Hx of ? Herpes- cotn Acyclovir therapy ( suppressive dosing) 8. hypothyroidism TSH normal; continue Synthroid 9. gout-able, no acute issues Patient will need placement however will have to get him off restraints. We'll reconsult psych for follow-up History Interval history: f/u right finger abscess, psychosis, acute renal failure Patient seen on the bedside, no family present Hospitalist Physical - Constitutional Vitals: Temp Pulse Resp BP Pulse Ox 98.4 F 84 22 155/70 98 11/13/16 07:50 11/13/16 07:50 11/13/16 07:50 11/13/16 07:50 11/13/16 01:15 General appearance: Present: no acute distress, well-nourished, other ( restraints) - EENT Eyes: Present: PERRL, EOM intact. Absent: scleral icterus, conjunctival injection ENT: hearing intact, clear oral mucosa, no oropharyngeal erythema, no poor dentition - Neck Neck: Present: supple - Respiratory Respiratory: bilateral: diminished, negative: rales, rhonchi, wheezing - Cardiovascular Rhythm: regular Heart Sounds: Present: S1 & S2. Absent: gallop - Extremities Extremities: no ischemia, pulses intact, pulses symmetrical, No edema, abnormal (LT hand- thumb- necrotic distal phalanx with redness and swelling extending over the thenar eminence ) Peripheral Pulses: within normal limits - Abdominal General gastrointestinal: soft, non-tender, non-distended - Integumentary Integumentary: Present: clear - Psychiatric Psychiatric: appropriate mood/affect, intact judgment & insight - Neurologic Neurologic: CNII-XII intact, moves all extremities Results - Labs CBC & Chem 7: 11/13/16 07:29 11/12/16 22:04 Labs: Laboratory Last Values WBC 11.5 K/mm3 (4.5-11.0) H 11/13/16 07: RBC 2.96 M/mm3 (3.65-5.03) L 11/13/16 07:29 Hgb 8.5 gm/dl (11.8-15.2) L 11/13/16 07: Hct 26.7 % (35.5-45.6) L 11/13/16 07: MCV 90 fl (84-94) 11/13/16 07: MCH 29 pg (28-32) 11/13/16 07: MCHC 32 % (32-34) 11/13/16 07: RDW 19.0 % (13.2-15.2) H 11/13/16 07: Plt Count 248 K/mm3 (140-440) 11/13/16 07:29 Lymph % (Auto) 5.7 % (13.4-35.0) L 11/13/16 07: [place] % (Auto) 5.0 % (0.0-7.3) 11/13/16 07: Eos % (Auto) 1.9 % (0.0-4.3) 11/13/16 07: Baso % (Auto) 0.6 % (0.0-1.8) 11/13/16 07: Lymph # 0.7 K/mm3 (1.2-5.4) L 11/13/16 07: [place] # 0.6 K/mm3 (0.0-0.8) 11/13/16 07: Eos # 0.2 K/mm3 (0.0-0.4) 11/13/16 07: Baso # 0.1 K/mm3 (0.0-0.1) 11/13/16 07: Seg Neutrophils % 86.8 % (40.0-70.0) H 11/13/16 07: Seg Neutrophils # 10.0 K/mm3 (1.8-7.7) H 11/13/16 07: PT 14.3 Sec. (12.2-14.9) 10/23/16 12:53 INR 1.12 (0.87-1.13) 10/23/16 12:53 APTT 30.6 Sec. (24.2-36.6) 10/23/16 12:53 POC ABG pH 7.507 (7.35-7.45) H 11/12/16 21:51 POC ABG pCO2 32.8 (35-45) L 11/12/16 21:51 POC ABG pO2 78 (80-105) L 11/12/16 21:51 POC ABG HCO3 26.0 11/12/16 21:51 POC ABG Total CO2 27 11/12/16 21:51 POC ABG O2 Sat 97 11/12/16 21:51 POC ABG Base Excess 3 11/12/16 21:51 FiO2 28 % 11/12/16 21:51 Sodium 137 mmol/L (137-145) 11/12/16 22:04 Potassium 3.7 mmol/L (3.6-5.0) 11/12/16 22:04 Chloride 99.4 mmol/L (98-107) 11/12/16 22:04 Carbon Dioxide 26 mmol/L (22-30) 11/12/16 22:04 Anion Gap 15 mmol/L 11/12/16 22:04 BUN 21 mg/dL (9-20) H 11/12/16 22:04 Creatinine 1.2 mg/dL (0.8-1.5) 11/12/16 22:04 Estimated GFR > 60 ml/min 11/12/16 22:04 BUN/Creatinine Ratio 17.50 % 11/12/16 22:04 Glucose 288 mg/dL (75-100) H 11/12/16 22:04 POC Glucose 179 (70-105) H 11/13/16 11:40 Hemoglobin A1c 7.2 % (4-6) H 10/27/16 05:30 Lactic Acid 2.8 mmol/L (0.7-2.0) H* 10/23/16 12:53 Calcium 8.1 mg/dL (8.4-10.2) L 11/12/16 22:04 Magnesium 1.9 mg/dL (1.7-2.3) 10/31/16 12:35 Total Bilirubin 0.9 mg/dL (0.1-1.2) 10/27/16 05:30 Direct Bilirubin 0.3 mg/dL (0-0.2) H 10/27/16 05:30 Indirect Bilirubin 0.6 mg/dL 10/27/16 05:30 AST 18 units/L (5-40) 10/27/16 05:30 ALT 13 units/L (7-56) 10/27/16 05:30 Alkaline Phosphatase 116 units/L (35-129) 10/27/16 05:30 Ammonia 30.0 umol/L (25-60) 10/26/16 09:00 Total Creatine Kinase 72 units/L (55-170) 11/02/16 18:37 CK-MB (CK-2) 3.0 ng/mL (0.0-4.0) 10/23/16 12:53 CK-MB (CK-2) Rel Index 0.9 (0-4) 10/23/16 12:53 Troponin T 0.032 ng/mL (0.00-0.029) H 10/23/16 12:53 NT-Pro-B Natriuret Pep 532.6 pg/mL (0-900) 10/23/16 12:53 Total Protein 7.1 g/dL (6.3-8.2) 10/27/16 05:30 Albumin 3.2 g/dL (3.9-5) L 10/27/16 05:30 Albumin/Globulin Ratio 0.8 % 10/27/16 05:30 Triglycerides 199 mg/dL (2-149) H 10/23/16 12:53 Cholesterol 143 mg/dL (50-199) 10/23/16 12:53 LDL Cholesterol Direct 64 mg/dL (50-130) 10/23/16 12:53 HDL Cholesterol 40 mg/dL (40-59) 10/23/16 12:53 Cholesterol/HDL Ratio 3.57 % 10/23/16 12:53 TSH 1.040 mlU/mL (0.270-4.200) 10/23/16 12:53 Free T4 1.13 ng/dL (0.76-1.46) 10/23/16 22:59 Thyroxine (T4) 5.2 ug/dL (4.0-12.0) 10/23/16 22:59 T3 (NISHA) 56 ng/dL (76-181) L 10/23/16 22:59 Free T3 Index 2.0 pg/mL (2.3-4.2) L 10/23/16 22:59 T3 Uptake See scanned report 10/23/16 22:59 Urine Color Yellow (Yellow) 11/03/16 07:47 Urine Turbidity Clear (Clear) 11/03/16 07:47 Urine pH 5.0 (5.0-7.0) 11/03/16 07:47 Ur Specific [place] 1.012 (1.003-1.030) 11/03/16 07:47 Urine Protein <15 mg/dl mg/dL (Negative) 11/03/16 07:47 Urine Glucose (UA) Neg mg/dL (Negative) 11/03/16 07:47 Urine Ketones Neg mg/dL (Negative) 11/03/16 07:47 Urine Blood Neg (Negative) 11/03/16 07:47 Urine Nitrite Pos (Negative) 11/03/16 07:47 Urine Bilirubin Neg (Negative) 11/03/16 07:47 Urine Urobilinogen 4.0 mg/dL (<2.0) 11/03/16 07:47 Ur Leukocyte Esterase Tr (Negative) 11/03/16 07:47 Urine WBC (Auto) 1.0 /HPF (0.0-6.0) 11/03/16 07:47 Urine RBC (Auto) 5.0 /HPF (0.0-6.0) 11/03/16 07:47 U Epithel Cells (Auto) < 1.0 /HPF (0-13.0) 11/03/16 07:47 Urine Bacteria (Auto) 2+ /HPF (Negative) 11/03/16 07:47 Urine Mucus Few /HPF 11/03/16 07:47 Urine Opiates Screen Presumptive negative 10/21/16 20:36 Urine Methadone Screen Presumptive negative 10/21/16 20:36 Ur Barbiturates Screen Presumptive negative 10/21/16 20:36 Ur Phencyclidine Scrn Presumptive negative 10/21/16 20:36 Ur Amphetamines Screen Presumptive negative 10/21/16 20:36 U Benzodiazepines Scrn Presumptive negative 10/21/16 20:36 Urine Cocaine Screen Presumptive negative 10/21/16 20:36 U Marijuana (THC) Screen Presumptive negative 10/21/16 20:36 Drugs of Abuse Note Disclamer 10/21/16 20:36 Plasma/Serum Alcohol < 0.01 gm% (0-0.07) 10/21/16 20:30 Microbiology 11/11/16 05:32 Peripheral/Venous Blood Culture - Preliminary Coag Negative Staphylococcus 11/11/16 05:32 Peripheral/Venous Blood Culture - Preliminary NO GROWTH AFTER 48 HOURS 11/08/16 15:35 Drainage Anaerobic Culture - Final 11/08/16 Unknown Finger - Right Index Wound Culture - Final Beta Hemoltyic Strep Group G 11/02/16 17:15 Peripheral/Venous Blood Culture - Final NO GROWTH AFTER 5 DAYS 11/02/16 17:15 Peripheral/Venous Blood Culture - Final NO GROWTH AFTER 5 DAYS 11/02/16 Unknown Urine,Clean Catch Urine Culture - Final
[2016-11-13] MEDS: BENADRYL IM PRN (15:03)
[2016-11-13] MEDS: HALDOL IM PRN (15:23)
[2016-11-13] MEDS ORDERED: NACL 0.9% 1000 ML 1,000 ML IV ONE (17:00)
[2016-11-13] MEDS: NEURONTIN PO SCH ×2 (17:56→22:40)
[2016-11-13] MEDS: DESYREL PO SCH (22:43)
[2016-11-14] MEDS: BENADRYL IM PRN ×2 (01:16→21:05)
[2016-11-14] MEDS: SYNTHROID PO SCH (06:04)
[2016-11-14 07:40] LABS: Basophils % (Auto) 0.5 % (0.0-1.8); Eosinophils % (Auto) 2.1 % (0.0-4.3); Hematocrit 26.3 % (35.5-45.6); Hemoglobin 8.5 gm/dl (11.8-15.2); Mean Corpuscular HGB Conc 32 % (32-34); Mean Corpuscular Hemoglobin 29 pg (28-32); Mean Corpuscular Volume 90 fl (84-94); Platelet Count 263 K/mm3 (140-440); Red Blood Count 2.91 M/mm3 (3.65-5.03); Red Cell Distribution Width 18.7 % (13.2-15.2); White Blood Count 11.2 K/mm3 (4.5-11.0)
[2016-11-14 07:55] LABS: Blood Urea Nitrogen 18 mg/dL (9-20); Calcium 8.4 mg/dL (8.4-10.2); Carbon Dioxide 26 mmol/L (22-30); Chloride 101.6 mmol/L (98-107); Glucose 288 mg/dL (75-100); Potassium 3.9 mmol/L (3.6-5.0); Sodium 140 mmol/L (137-145)
[2016-11-14 07:59] LABS: Anion Gap 16 mmol/L
[2016-11-14] MEDS: NOVOLOG SUB-Q SCH ×4 (09:19→21:19)
[2016-11-14] MEDS: TYLENOL PO PRN ×2 (09:23→21:03)
--- NOTE | 2016-11-14 10:48 | Progress Note ---
Assessment and Plan Assessment and plan: 1.Right index finger paronychia/necrosis causing sepsis with staph epidermidis bacteremia -will defer antibiotic recommendations to ID- sensitive to vancomycin and resistant to ceftriaxone; /fri case with Dr. Marks this morning via phone- the options are amputation or allow demarcation to occur and cont wound care which he reported that he has discussed with the family and o definitive decision has been made; I called contact number in the patient's EMR and message left on voicemail for family to contact us 2. Acute psychosis- due to dementia, continue current medications, try to remove restraints as tolerated patient will need placement 3. Type 2 diabetes mellitus- Continue current management, glucose now better controlled 4.-Dermatitis-continue Lac-Hydrin/hydrocortisone cream; continue atarax prn; Supportive skincare 5. ? History TB- Follow-up Old records. Quantiferon TB assay ordered. F/U ID 6. Hx of T-cell lymphoma- no acute issues 7. Hx of ? Herpes- cotn Acyclovir therapy ( suppressive dosing) 8. hypothyroidism TSH normal; continue Synthroid 9. gout-able, no acute issues History Interval history: f/u right finger abscess, psychosis, acute renal failure Patient seen on the bedside, no family present; patient remains in restraints and confused Hospitalist Physical - Constitutional Vitals: Temp Pulse Resp BP Pulse Ox 97.6 F 89 18 134/67 98 11/14/16 08:55 11/14/16 08:55 11/14/16 08:55 11/14/16 08:55 11/14/16 08:55 General appearance: Present: no acute distress, well-nourished, other ( restraints) - EENT Eyes: Present: PERRL, EOM intact. Absent: scleral icterus, conjunctival injection ENT: hearing intact, clear oral mucosa - Neck Neck: Present: supple, normal ROM. Absent: enlarged thyroid, masses or JVD - Respiratory Respiratory effort: normal Respiratory: bilateral: diminished, negative: rales, rhonchi, wheezing - Cardiovascular Rhythm: regular Heart Sounds: Present: S1 & S2. Absent: gallop - Extremities Extremities: abnormal (RT index finger gangene with swelling and redness of the thenar eminence ) Peripheral Pulses: within normal limits - Abdominal General gastrointestinal: soft, non-tender, non-distended - Integumentary Integumentary: Absent: clear (dry lichenified hyperpigmented patches generally) - Psychiatric Psychiatric: other (in restraints; confused) - Neurologic Neurologic: moves all extremities Results - Labs CBC & Chem 7: 11/14/16 06:44 11/14/16 06:44 Labs: Laboratory Last Values WBC 11.2 K/mm3 (4.5-11.0) H 11/14/16 06:44 RBC 2.91 M/mm3 (3.65-5.03) L 11/14/16 06:44 Hgb 8.5 gm/dl (11.8-15.2) L 11/14/16 06:44 Hct 26.3 % (35.5-45.6) L 11/14/16 06:44 MCV 90 fl (84-94) 11/14/16 06:44 MCH 29 pg (28-32) 11/14/16 06:44 MCHC 32 % (32-34) 11/14/16 06:44 RDW 18.7 % (13.2-15.2) H 11/14/16 06:44 Plt Count 263 K/mm3 (140-440) 11/14/16 06:44 Lymph % (Auto) 3.4 % (13.4-35.0) L 11/14/16 06:44 [place] % (Auto) 5.1 % (0.0-7.3) 11/14/16 06:44 Eos % (Auto) 2.1 % (0.0-4.3) 11/14/16 06:44 Baso % (Auto) 0.5 % (0.0-1.8) 11/14/16 06:44 Lymph # 0.4 K/mm3 (1.2-5.4) L 11/14/16 06:44 [place] # 0.6 K/mm3 (0.0-0.8) 11/14/16 06:44 Eos # 0.2 K/mm3 (0.0-0.4) 11/14/16 06:44 Baso # 0.1 K/mm3 (0.0-0.1) 11/14/16 06:44 Seg Neutrophils % 88.9 % (40.0-70.0) H 11/14/16 06:44 Seg Neutrophils # 9.9 K/mm3 (1.8-7.7) H 11/14/16 06:44 PT 14.3 Sec. (12.2-14.9) 10/23/16 12:53 INR 1.12 (0.87-1.13) 10/23/16 12:53 APTT 30.6 Sec. (24.2-36.6) 10/23/16 12:53 POC ABG pH 7.507 (7.35-7.45) H 11/12/16 21:51 POC ABG pCO2 32.8 (35-45) L 11/12/16 21:51 POC ABG pO2 78 (80-105) L 11/12/16 21:51 POC ABG HCO3 26.0 11/12/16 21:51 POC ABG Total CO2 27 11/12/16 21:51 POC ABG O2 Sat 97 11/12/16 21:51 POC ABG Base Excess 3 11/12/16 21:51 FiO2 28 % 11/12/16 21:51 Sodium 140 mmol/L (137-145) 11/14/16 06:44 Potassium 3.9 mmol/L (3.6-5.0) 11/14/16 06:44 Chloride 101.6 mmol/L (98-107) 11/14/16 06:44 Carbon Dioxide 26 mmol/L (22-30) 11/14/16 06:44 Anion Gap 16 mmol/L 11/14/16 06:44 BUN 18 mg/dL (9-20) 11/14/16 06:44 Creatinine 1.0 mg/dL (0.8-1.5) 11/14/16 06:44 Estimated GFR > 60 ml/min 11/14/16 06:44 BUN/Creatinine Ratio 18.00 % 11/14/16 06:44 Glucose 288 mg/dL (75-100) H 11/14/16 06:44 POC Glucose 246 (70-105) H 11/14/16 05:59 Hemoglobin A1c 7.2 % (4-6) H 10/27/16 05:30 Lactic Acid 2.8 mmol/L (0.7-2.0) H* 10/23/16 12:53 Calcium 8.4 mg/dL (8.4-10.2) 11/14/16 06:44 Magnesium 1.9 mg/dL (1.7-2.3) 10/31/16 12:35 Total Bilirubin 0.9 mg/dL (0.1-1.2) 10/27/16 05:30 Direct Bilirubin 0.3 mg/dL (0-0.2) H 10/27/16 05:30 Indirect Bilirubin 0.6 mg/dL 10/27/16 05:30 AST 18 units/L (5-40) 10/27/16 05:30 ALT 13 units/L (7-56) 10/27/16 05:30 Alkaline Phosphatase 116 units/L (35-129) 10/27/16 05:30 Ammonia 30.0 umol/L (25-60) 10/26/16 09:00 Total Creatine Kinase 72 units/L (55-170) 11/02/16 18:37 CK-MB (CK-2) 3.0 ng/mL (0.0-4.0) 10/23/16 12:53 CK-MB (CK-2) Rel Index 0.9 (0-4) 10/23/16 12:53 Troponin T 0.032 ng/mL (0.00-0.029) H 10/23/16 12:53 NT-Pro-B Natriuret Pep 532.6 pg/mL (0-900) 10/23/16 12:53 Total Protein 7.1 g/dL (6.3-8.2) 10/27/16 05:30 Albumin 3.2 g/dL (3.9-5) L 10/27/16 05:30 Albumin/Globulin Ratio 0.8 % 10/27/16 05:30 Triglycerides 199 mg/dL (2-149) H 10/23/16 12:53 Cholesterol 143 mg/dL (50-199) 10/23/16 12:53 LDL Cholesterol Direct 64 mg/dL (50-130) 10/23/16 12:53 HDL Cholesterol 40 mg/dL (40-59) 10/23/16 12:53 Cholesterol/HDL Ratio 3.57 % 10/23/16 12:53 TSH 1.040 mlU/mL (0.270-4.200) 10/23/16 12:53 Free T4 1.13 ng/dL (0.76-1.46) 10/23/16 22:59 Thyroxine (T4) 5.2 ug/dL (4.0-12.0) 10/23/16 22:59 T3 (NISHA) 56 ng/dL (76-181) L 10/23/16 22:59 Free T3 Index 2.0 pg/mL (2.3-4.2) L 10/23/16 22:59 T3 Uptake See scanned report 10/23/16 22:59 Urine Color Yellow (Yellow) 11/03/16 07:47 Urine Turbidity Clear (Clear) 11/03/16 07:47 Urine pH 5.0 (5.0-7.0) 11/03/16 07:47 Ur Specific [place] 1.012 (1.003-1.030) 11/03/16 07:47 Urine Protein <15 mg/dl mg/dL (Negative) 11/03/16 07:47 Urine Glucose (UA) Neg mg/dL (Negative) 11/03/16 07:47 Urine Ketones Neg mg/dL (Negative) 11/03/16 07:47 Urine Blood Neg (Negative) 11/03/16 07:47 Urine Nitrite Pos (Negative) 11/03/16 07:47 Urine Bilirubin Neg (Negative) 11/03/16 07:47 Urine Urobilinogen 4.0 mg/dL (<2.0) 11/03/16 07:47 Ur Leukocyte Esterase Tr (Negative) 11/03/16 07:47 Urine WBC (Auto) 1.0 /HPF (0.0-6.0) 11/03/16 07:47 Urine RBC (Auto) 5.0 /HPF (0.0-6.0) 11/03/16 07:47 U Epithel Cells (Auto) < 1.0 /HPF (0-13.0) 11/03/16 07:47 Urine Bacteria (Auto) 2+ /HPF (Negative) 11/03/16 07:47 Urine Mucus Few /HPF 11/03/16 07:47 Urine Opiates Screen Presumptive negative 10/21/16 20:36 Urine Methadone Screen Presumptive negative 10/21/16 20:36 Ur Barbiturates Screen Presumptive negative 10/21/16 20:36 Ur Phencyclidine Scrn Presumptive negative 10/21/16 20:36 Ur Amphetamines Screen Presumptive negative 10/21/16 20:36 U Benzodiazepines Scrn Presumptive negative 10/21/16 20:36 Urine Cocaine Screen Presumptive negative 10/21/16 20:36 U Marijuana (THC) Screen Presumptive negative 10/21/16 20:36 Drugs of Abuse Note Disclamer 10/21/16 20:36 Plasma/Serum Alcohol < 0.01 gm% (0-0.07) 10/21/16 20:30 Microbiology 11/11/16 05:32 Peripheral/Venous Blood Culture - Final Staphylococcus Epidermidis 11/11/16 05:32 Peripheral/Venous Blood Culture - Preliminary NO GROWTH AFTER 72 HOURS 11/08/16 15:35 Drainage Anaerobic Culture - Final 11/08/16 Unknown Finger - Right Index Wound Culture - Final Beta Hemoltyic Strep Group G 11/02/16 17:15 Peripheral/Venous Blood Culture - Final NO GROWTH AFTER 5 DAYS 11/02/16 17:15 Peripheral/Venous Blood Culture - Final NO GROWTH AFTER 5 DAYS 11/02/16 Unknown Urine,Clean Catch Urine Culture - Final
--- NOTE | 2016-11-14 11:15 | Progress Note ---
Assessment and Plan Current antibiotics: Ceftriaxone 2gm IV q24h 11/10 --> Acyclovir 800 mg po daily Previous Antibiotics: Zosyn 4.5 g IV every 8 hours 11/09-11/10 Bactrim one DS by mouth twice a day 11/08-11/10 Levaquin 750 mg daily 11/05-11/08 Outpatient antibiotics: po Keflex Acyclovir 800 mg daily ASSESSMENT: Mahesh Núñez is a 70 y/o male with dementia, T-cell lymphoma, CKD, DM2, CESIA, hypothyroidism, CAD, anemia, and gout who was admitted to [facility] after being sent from his long-term for medical clearance for admission to [facility] to the [facility] ED on 10/26/16 with "acting out behavior" whereby he was belligerent to staff and residents. He is seen now for a infection of his distal right index finger. Problem list: 1. Right index finger abscess/R/O underlying osteomyelitis - Unclear etiology ( ? Trauma vs herpes vs possible lymphoma) - s/p orthopedic I&D 11/09 - Culture with group G strep. 2. Positive blood culture -11/11/16: 1/2 sets with coag-negative Staphylococcus. Very likely represents contaminated bottles. 3. History of TB - ? Details 4. Dementia/ ? Psychosis -Lethargic but not agitated today 5. Hx of ? HSV infection - On chronic, suppressive acyclovir therapy 6. Hx of T-cell lymphoma -Details unclear 7. HARSHA -Improving 8. Type 2 DM 9. Hx of gouty arthritis 10. CAD 11. Hypothyroidism 12. Anemia PLAN: 1. Continue Ceftriaxone 2 g daily 2. Quantiferon TB assay still pending. 3. Local wound care and continued observation 4. Ortho follow up to see if further amputation will be necessary 4. Glycemic control as per Hospitalist team Bharat Fields MD [facility] Office: [phone] Subjective Date of service: 11/14/16 Principal diagnosis: Right index finger infection Interval history: No specific complaints. Not very verbal. Objective - Exam Narrative Exam: GENERAL: Well-developed, chronically ill-appearing male who is somewhat lethargic but in no acute distress. HEENT: Pupils are equal reactive to light and accommodation. Conjunctiva clear. Oropharynx is not well seen. Bilateral arcus senilis. NECK: Supple. No enlargement of the thyroid gland. No significant cervical lymphadenopathy. No jugular venous distention at 30 LUNGS: Clear with no audible adventitious sounds. HEART: Regular rate. S1 and S2 are normal. There are no murmurs, gallops, clicks or rubs heard. ABDOMEN: Soft and nontender. Liver and spleen are not palpably enlarged or tender. No palpable masses. Bowel sounds are normoactive. EXTREMITIES: Patches of dry scaly rash over lower extremities greater than upper extremities. Surgical wraps over right index finger not removed. No evidence of ascending infection or ischemia. SKIN: As per extremity findings. No other rash seen. NEUROLOGIC: Awake and alert. Responds to questions somewhat slowly. No focal findings. - Constitutional Vitals: Vital Signs Temp Pulse Resp BP Pulse Ox 97.6 F 89 18 134/67 98 11/14/16 08:55 11/14/16 08:55 11/14/16 08:55 11/14/16 08:55 11/14/16 08:55 Temperature -Last 24 Hours Temperature 97.6 F Temperature 99.0 F Temperature 98.4 F Temperature 98.4 F - Labs CBC & Chem 7: 11/14/16 06:44 11/14/16 06:44 Labs: Abnormal lab results Microbiology 11/11/16 05:32 Peripheral/Venous Blood Culture - Preliminary Coag Negative Staphylococcus in both bottles 11/11/16 05:32 Peripheral/Venous Blood Culture - Preliminary NO GROWTH AFTER 48 HOURS 11/08/16 15:35 Drainage Anaerobic Culture - Final 11/08/16 Unknown Finger - Right Index Wound Culture - Final Beta Hemoltyic Strep Group G 11/02/16 17:15 Peripheral/Venous Blood Culture - Final NO GROWTH AFTER 5 DAYS 11/02/16 17:15 Peripheral/Venous Blood Culture - Final NO GROWTH AFTER 5 DAYS 11/02/16 Unknown Urine,Clean Catch Urine Culture - Final
[2016-11-14] MEDS: ZOVIRAX PO SCH (12:17)
[2016-11-14] MEDS: ROCEPHIN/NS 2 GM/100 ML 100 ML IV SCH (12:17)
[2016-11-14] MEDS: MIRALAX 3350 PO SCH (12:17)
[2016-11-14] MEDS: HEPARIN SUB-Q SCH ×2 (12:18→21:05)
[2016-11-14] MEDS: NEURONTIN PO SCH (12:18)
[2016-11-14] MEDS: HALDOL PO SCH ×2 (12:19→22:00)
[2016-11-14] MEDS: COLACE PO SCH ×2 (12:20→21:05)
[2016-11-14] MEDS: COREG PO SCH ×2 (12:20→21:16)
[2016-11-14] MEDS: ZOSTRIX HP TP SCH ×2 (12:20→13:44)
[2016-11-14] MEDS: ZYLOPRIM PO SCH (12:21)
[2016-11-14] MEDS: ROXICODONE PO SCH (12:21)
[2016-11-14] MEDS: PROCARDIA XL PO SCH (12:21)
[2016-11-14] MEDS: LAC-HYDRIN TP SCH ×2 (12:22→22:00)
[2016-11-14] MEDS: HCTZ PO SCH (12:31)
--- NOTE | 2016-11-14 13:15 | Progress Note ---
Assessment and Plan 70 year old with multiple medical issues. There is dry gangrene of the right finger tip to PIP joint Discussed with family will require amputation Subjective Date of service: 11/14/16 Principal diagnosis: Right index finger infection Objective Vital signs: Vital Signs - 12hr 11/14/16 11/14/16 11/14/16 08:55 10:00 12:20 Temperature 97.6 F Pulse Rate 89 Pulse Rate [ 89 Right Radial] Respiratory 18 Rate Blood Pressure 134/67 Blood Pressure 134/67 [Right Arm] O2 Sat by Pulse 98 100 Oximetry - Labs CBC & BMP: 11/14/16 06:44 11/14/16 06:44 Labs: Abnormal lab results 11/13/16 11/13/16 11/14/16 Range/Units 16:55 21:55 05:59 WBC (4.5-11.0) K/mm3 RBC (3.65-5.03) M/mm3 Hgb (11.8-15.2) gm/dl Hct (35.5-45.6) % RDW (13.2-15.2) % Lymph % (Auto) (13.4-35.0) % Lymph # (1.2-5.4) K/mm3 Seg Neutrophils % (40.0-70.0) % Seg Neutrophils # (1.8-7.7) K/mm3 Glucose (75-100) mg/dL POC Glucose 225 H 342 H 246 H (70-105) 11/14/16 11/14/16 11/14/16 Range/Units 06:44 06:44 12:30 WBC 11.2 H (4.5-11.0) K/mm3 RBC 2.91 L (3.65-5.03) M/mm3 Hgb 8.5 L (11.8-15.2) gm/dl Hct 26.3 L (35.5-45.6) % RDW 18.7 H (13.2-15.2) % Lymph % (Auto) 3.4 L (13.4-35.0) % Lymph # 0.4 L (1.2-5.4) K/mm3 Seg Neutrophils % 88.9 H (40.0-70.0) % Seg Neutrophils # 9.9 H (1.8-7.7) K/mm3 Glucose 288 H (75-100) mg/dL POC Glucose 293 H (70-105)
[2016-11-14] MEDS: DESYREL PO SCH (21:04)
[2016-11-15] MEDS: ZOSTRIX HP TP SCH ×4 (00:23→23:38)
[2016-11-15] MEDS: NEURONTIN PO SCH ×3 (01:22→23:36)
[2016-11-15] MEDS: SYNTHROID PO SCH (06:15)
[2016-11-15] MEDS ORDERED: CATHFLO IV ONE (06:19)
[2016-11-15 06:59] LABS: Hematocrit 29.8 % (35.5-45.6); Hemoglobin 9.5 gm/dl (11.8-15.2); Mean Corpuscular HGB Conc 32 % (32-34); Mean Corpuscular Hemoglobin 29 pg (28-32); Mean Corpuscular Volume 90 fl (84-94); Platelet Count 243 K/mm3 (140-440); Red Blood Count 3.31 M/mm3 (3.65-5.03); Red Cell Distribution Width 18.5 % (13.2-15.2); White Blood Count 9.4 K/mm3 (4.5-11.0)
[2016-11-15] MEDS ORDERED: WATER FOR INJ (PF) IV ONE (08:00)
[2016-11-15] MEDS: NOVOLOG SUB-Q SCH ×4 (08:32→23:38)
[2016-11-15] MEDS: COLACE PO SCH ×2 (10:33→23:26)
[2016-11-15] MEDS: HEPARIN SUB-Q SCH ×2 (10:34→23:26)
[2016-11-15] MEDS: HALDOL PO SCH ×2 (10:34→23:37)
[2016-11-15] MEDS: MIRALAX 3350 PO SCH (10:34)
[2016-11-15] MEDS: ROCEPHIN/NS 2 GM/100 ML 100 ML IV SCH (10:35)
[2016-11-15] MEDS: D5/0.45NS 1,000 ML IV SCH (10:36)
--- NOTE | 2016-11-15 11:13 | Progress Note ---
Assessment and Plan Current antibiotics: Ceftriaxone 2gm IV q24h 11/10 --> Acyclovir 800 mg po daily Previous Antibiotics: Zosyn 4.5 g IV every 8 hours 11/09-11/10 Bactrim one DS by mouth twice a day 11/08-11/10 Levaquin 750 mg daily 11/05-11/08 Outpatient antibiotics: po Keflex Acyclovir 800 mg daily ASSESSMENT: Mahesh Núñez is a 70 y/o male with dementia, T-cell lymphoma, CKD, DM2, CESIA, hypothyroidism, CAD, anemia, and gout who was admitted to [facility] after being sent from his senior living for medical clearance for admission to [place] to the [facility] ED on 10/26/16 with "acting out behavior" whereby he was belligerent to staff and residents. He is seen now for a infection of his distal right index finger. Problem list: 1. Right index finger abscess/R/O underlying osteomyelitis - Unclear etiology ( ? Trauma vs herpes vs possible lymphoma) - s/p orthopedic I&D 11/09 - Culture with group G strep. 2. Positive blood culture -11/11/16: 1/2 sets with coag-negative Staphylococcus. Very likely represents contaminated bottles. 3. History of TB ? - QuantiFERON TB assay negative 4. Dementia/ ? Psychosis 5. Hx of ? HSV infection - On acyclovir therapy 6. Hx of T-cell lymphoma -Details unclear 7. HARSHA -Improving 8. Type 2 DM 9. Hx of gouty arthritis 10. CAD 11. Hypothyroidism 12. Anemia PLAN: 1. Continue Ceftriaxone 2 g daily 2. Can stop acyclovir at this point. 3. Awaits right index finger amputation. Will need to determine necessary duration of antibiotics thereafter. 4. Glycemic control as per Hospitalist team Subjective Date of service: 11/15/16 Principal diagnosis: Right index finger infection Interval history: Patient awakes easily. No new problems overnight. Now to go for surgery for digital amputation. Objective - Exam Narrative Exam: HEENT: Pupils are equal reactive to light and accommodation. Conjunctiva clear. Oropharynx is not well seen. NECK: Supple. No enlargement of the thyroid gland. No significant cervical lymphadenopathy. No jugular venous distention at 30. LUNGS: Grossly clear. HEART: Regular rate. S1 and S2 are normal. There are no murmurs, gallops, clicks or rubs heard. ABDOMEN: Soft and nontender. Liver and spleen are not palpably enlarged or tender. No palpable masses. Bowel sounds are normoactive. EXTREMITIES: Patches of dry scaly rash over lower extremities greater than upper extremities. Surgical wraps over right index finger not removed. SKIN: As per extremity findings. NEUROLOGIC: Awake and alert. - Constitutional Vitals: Vital Signs Temp Pulse Resp BP Pulse Ox 97.3 F L 82 20 127/63 95 11/15/16 08:11 11/15/16 08:11 11/15/16 08:11 11/15/16 08:11 11/15/16 08:11 Temperature -Last 24 Hours Temperature 97.3 F Temperature 98.6 F Temperature 99.0 F Temperature 99.3 F Temperature 97.4 F Temperature 98.2 F - Labs CBC & Chem 7: 11/15/16 06:47 11/14/16 06:44 Labs: Abnormal lab results 11/14/16 11/14/16 11/14/16 Range/Units 12:30 15:59 21:18 RBC (3.65-5.03) M/mm3 Hgb (11.8-15.2) gm/dl Hct (35.5-45.6) % RDW (13.2-15.2) % POC Glucose 293 H 286 H 131 H (70-105) 11/15/16 Range/Units 06:47 RBC 3.31 L (3.65-5.03) M/mm3 Hgb 9.5 L (11.8-15.2) gm/dl Hct 29.8 L (35.5-45.6) % RDW 18.5 H (13.2-15.2) % POC Glucose (70-105)
[2016-11-15] MEDS: HCTZ PO SCH (13:18)
[2016-11-15] MEDS: COREG PO SCH ×2 (13:18→23:36)
[2016-11-15] MEDS: PROCARDIA XL PO SCH (13:19)
[2016-11-15] MEDS: ZOVIRAX PO SCH (13:19)
[2016-11-15] MEDS: ROXICODONE PO SCH ×2 (13:19→17:11)
[2016-11-15] MEDS ORDERED: DIPRIVAN 10 MG/ML IV ONE (13:20)
[2016-11-15] MEDS ORDERED: SUBLIMAZE ONE (13:20)
[2016-11-15] MEDS: ZYLOPRIM PO SCH (13:20)
[2016-11-15] MEDS ORDERED: XYLOCAINE MPF 2% ONE (13:20)
[2016-11-15] MEDS: LAC-HYDRIN TP SCH ×2 (13:24→23:37)
--- NOTE | 2016-11-15 13:40 | Anesthesia Consultation ---
Anesthesia Consult and Med Hx Date of service: 11/15/16 - Airway Anesthetic Teeth Evaluation: Dentures ROM Head & Neck: Adequate Mental/Hyoid Distance: Adequate Mallampati Class: Class III Intubation Access Assessment: Probably Good - Pulmonary Exam CTA: Yes - Cardiac Exam Cardiac Exam: RRR - Pre-Operative Health Status ASA Pre-Surgery Classification: ASA3 Proposed Anesthetic Plan: General - Cardiovascular System Hx Hypertension: Yes - Central Nervous System Hx Psychiatric Problems: Yes - Endocrine Hx Renal Disease: Yes Hx Hypothyroidism: Yes - Additional Comments Anesthesia Medical History Comments: CAD. DM. HTN. Hyperlipidemia. Hypothyroidism. Chronic Kidney Disease. ARF. Lymphoma. CHF. Half-Way Resident. Psychotic Behavior. (11/15) H/H 9.5/29.8. (11/14) K 3.9, Na 140, Bun 18 /Cre 1.0
--- NOTE | 2016-11-15 13:46 | Anesthesia Day of Surgery ---
Anesthesia Day of Surgery - Day of Surgery Patient Examined: Yes Patient H&P Reviewed: Yes Patient is NPO: Yes Beta Blockers: No (BP 123/64 Preop)
[2016-11-15] MEDS ORDERED: NACL 0.9% 1000 ML 1,000 ML ONE (13:52)
--- NOTE | 2016-11-15 14:27 | Progress Note ---
Assessment and Plan Assessment and plan: 1.Right index finger paronychia/necrosis causing sepsis with staph epidermidis bacteremia -cotn antibiotics; for amputation today 2. Acute psychosis- due to dementia, continue current medications, try to remove restraints as tolerated patient will need placement 3. Type 2 diabetes mellitus- Continue current management, glucose now better controlled 4.-Dermatitis-continue Lac-Hydrin/hydrocortisone cream; continue atarax prn; Supportive skincare 5. ? History TB- Follow-up Old records. Quantiferon TB assay ordered. F/U ID 6. Hx of T-cell lymphoma- no acute issues 7. Hx of ? Herpes- cotn Acyclovir therapy ( suppressive dosing) 8. hypothyroidism TSH normal; continue Synthroid 9. gout-able, no acute issues History Interval history: f/u right finger abscess, psychosis, acute renal failure Patient seen on the bedside, no family present; for amputation today Hospitalist Physical - Constitutional Vitals: Temp Pulse Resp BP Pulse Ox 98.2 F 102 H 20 123/64 94 11/15/16 13:45 11/15/16 13:45 11/15/16 13:45 11/15/16 13:45 11/15/16 13:45 General appearance: Present: no acute distress, well-nourished, other ( restraints) - EENT Eyes: Present: PERRL, EOM intact. Absent: scleral icterus, conjunctival injection ENT: hearing intact, clear oral mucosa, no oropharyngeal erythema, no poor dentition - Neck Neck: Present: supple, normal ROM. Absent: enlarged thyroid, masses or JVD - Respiratory Respiratory effort: normal Respiratory: negative: diminished, rales, rhonchi, wheezing - Cardiovascular Rhythm: regular Heart Sounds: Present: S1 & S2. Absent: gallop - Extremities Extremities: no ischemia, pulses intact, pulses symmetrical, No edema Peripheral Pulses: within normal limits - Abdominal General gastrointestinal: soft, non-tender, non-distended - Integumentary Integumentary: Present: clear - Psychiatric Psychiatric: appropriate mood/affect, intact judgment & insight - Neurologic Neurologic: CNII-XII intact, moves all extremities Results - Labs CBC & Chem 7: 11/15/16 06:47 11/14/16 06:44 Labs: Laboratory Last Values WBC 9.4 K/mm3 (4.5-11.0) 11/15/16 06:47 RBC 3.31 M/mm3 (3.65-5.03) L 11/15/16 06:47 Hgb 9.5 gm/dl (11.8-15.2) L 11/15/16 06:47 Hct 29.8 % (35.5-45.6) L 11/15/16 06:47 MCV 90 fl (84-94) 11/15/16 06:47 MCH 29 pg (28-32) 11/15/16 06:47 MCHC 32 % (32-34) 11/15/16 06:47 RDW 18.5 % (13.2-15.2) H 11/15/16 06:47 Plt Count 243 K/mm3 (140-440) 11/15/16 06:47 Lymph % (Auto) 3.4 % (13.4-35.0) L 11/14/16 06:44 [place] % (Auto) 5.1 % (0.0-7.3) 11/14/16 06:44 Eos % (Auto) 2.1 % (0.0-4.3) 11/14/16 06:44 Baso % (Auto) 0.5 % (0.0-1.8) 11/14/16 06:44 Lymph # 0.4 K/mm3 (1.2-5.4) L 11/14/16 06:44 Major # 0.6 K/mm3 (0.0-0.8) 11/14/16 06:44 Eos # 0.2 K/mm3 (0.0-0.4) 11/14/16 06:44 Baso # 0.1 K/mm3 (0.0-0.1) 11/14/16 06:44 Seg Neutrophils % 88.9 % (40.0-70.0) H 11/14/16 06:44 Seg Neutrophils # 9.9 K/mm3 (1.8-7.7) H 11/14/16 06:44 PT 14.3 Sec. (12.2-14.9) 10/23/16 12:53 INR 1.12 (0.87-1.13) 10/23/16 12:53 APTT 30.6 Sec. (24.2-36.6) 10/23/16 12:53 POC ABG pH 7.507 (7.35-7.45) H 11/12/16 21:51 POC ABG pCO2 32.8 (35-45) L 11/12/16 21:51 POC ABG pO2 78 (80-105) L 11/12/16 21:51 POC ABG HCO3 26.0 11/12/16 21:51 POC ABG Total CO2 27 11/12/16 21:51 POC ABG O2 Sat 97 11/12/16 21:51 POC ABG Base Excess 3 11/12/16 21:51 FiO2 28 % 11/12/16 21:51 Sodium 140 mmol/L (137-145) 11/14/16 06:44 Potassium 3.9 mmol/L (3.6-5.0) 11/14/16 06:44 Chloride 101.6 mmol/L (98-107) 11/14/16 06:44 Carbon Dioxide 26 mmol/L (22-30) 11/14/16 06:44 Anion Gap 16 mmol/L 11/14/16 06:44 BUN 18 mg/dL (9-20) 11/14/16 06:44 Creatinine 1.0 mg/dL (0.8-1.5) 11/14/16 06:44 Estimated GFR > 60 ml/min 11/14/16 06:44 BUN/Creatinine Ratio 18.00 % 11/14/16 06:44 Glucose 288 mg/dL (75-100) H 11/14/16 06:44 POC Glucose 155 (70-105) H 11/15/16 12:35 Hemoglobin A1c 7.2 % (4-6) H 10/27/16 05:30 Lactic Acid 2.8 mmol/L (0.7-2.0) H* 10/23/16 12:53 Calcium 8.4 mg/dL (8.4-10.2) 11/14/16 06:44 Magnesium 1.9 mg/dL (1.7-2.3) 10/31/16 12:35 Total Bilirubin 0.9 mg/dL (0.1-1.2) 10/27/16 05:30 Direct Bilirubin 0.3 mg/dL (0-0.2) H 10/27/16 05:30 Indirect Bilirubin 0.6 mg/dL 10/27/16 05:30 AST 18 units/L (5-40) 10/27/16 05:30 ALT 13 units/L (7-56) 10/27/16 05:30 Alkaline Phosphatase 116 units/L (35-129) 10/27/16 05:30 Ammonia 30.0 umol/L (25-60) 10/26/16 09:00 Total Creatine Kinase 72 units/L (55-170) 11/02/16 18:37 CK-MB (CK-2) 3.0 ng/mL (0.0-4.0) 10/23/16 12:53 CK-MB (CK-2) Rel Index 0.9 (0-4) 10/23/16 12:53 Troponin T 0.032 ng/mL (0.00-0.029) H 10/23/16 12:53 NT-Pro-B Natriuret Pep 532.6 pg/mL (0-900) 10/23/16 12:53 Total Protein 7.1 g/dL (6.3-8.2) 10/27/16 05:30 Albumin 3.2 g/dL (3.9-5) L 10/27/16 05:30 Albumin/Globulin Ratio 0.8 % 10/27/16 05:30 Triglycerides 199 mg/dL (2-149) H 10/23/16 12:53 Cholesterol 143 mg/dL (50-199) 10/23/16 12:53 LDL Cholesterol Direct 64 mg/dL (50-130) 10/23/16 12:53 HDL Cholesterol 40 mg/dL (40-59) 10/23/16 12:53 Cholesterol/HDL Ratio 3.57 % 10/23/16 12:53 TSH 1.040 mlU/mL (0.270-4.200) 10/23/16 12:53 Free T4 1.13 ng/dL (0.76-1.46) 10/23/16 22:59 Thyroxine (T4) 5.2 ug/dL (4.0-12.0) 10/23/16 22:59 T3 (NISHA) 56 ng/dL (76-181) L 10/23/16 22:59 Free T3 Index 2.0 pg/mL (2.3-4.2) L 10/23/16 22:59 T3 Uptake See scanned report 10/23/16 22:59 Urine Color Yellow (Yellow) 11/03/16 07:47 Urine Turbidity Clear (Clear) 11/03/16 07:47 Urine pH 5.0 (5.0-7.0) 11/03/16 07:47 Ur Specific [place] 1.012 (1.003-1.030) 11/03/16 07:47 Urine Protein <15 mg/dl mg/dL (Negative) 11/03/16 07:47 Urine Glucose (UA) Neg mg/dL (Negative) 11/03/16 07:47 Urine Ketones Neg mg/dL (Negative) 11/03/16 07:47 Urine Blood Neg (Negative) 11/03/16 07:47 Urine Nitrite Pos (Negative) 11/03/16 07:47 Urine Bilirubin Neg (Negative) 11/03/16 07:47 Urine Urobilinogen 4.0 mg/dL (<2.0) 11/03/16 07:47 Ur Leukocyte Esterase Tr (Negative) 11/03/16 07:47 Urine WBC (Auto) 1.0 /HPF (0.0-6.0) 11/03/16 07:47 Urine RBC (Auto) 5.0 /HPF (0.0-6.0) 11/03/16 07:47 U Epithel Cells (Auto) < 1.0 /HPF (0-13.0) 11/03/16 07:47 Urine Bacteria (Auto) 2+ /HPF (Negative) 11/03/16 07:47 Urine Mucus Few /HPF 11/03/16 07:47 Urine Opiates Screen Presumptive negative 10/21/16 20:36 Urine Methadone Screen Presumptive negative 10/21/16 20:36 Ur Barbiturates Screen Presumptive negative 10/21/16 20:36 Ur Phencyclidine Scrn Presumptive negative 10/21/16 20:36 Ur Amphetamines Screen Presumptive negative 10/21/16 20:36 U Benzodiazepines Scrn Presumptive negative 10/21/16 20:36 Urine Cocaine Screen Presumptive negative 10/21/16 20:36 U Marijuana (THC) Screen Presumptive negative 10/21/16 20:36 Drugs of Abuse Note Disclamer 10/21/16 20:36 Plasma/Serum Alcohol < 0.01 gm% (0-0.07) 10/21/16 20:30 TB (QFT) Gold In Tube Negative (Negative) 11/10/16 00:08 TB Test (QFT) Nil 0.00 IU/mL (()) 11/10/16 00:08 TB Test Mitogen - Nil 1.22 IU/mL (()) 11/10/16 00:08 TB Test Antigen - Nil 0.01 IU/mL (()) 11/10/16 00:08 Microbiology 11/11/16 05:32 Peripheral/Venous Blood Culture - Preliminary NO GROWTH AFTER 4 DAYS 11/11/16 05:32 Peripheral/Venous Blood Culture - Final Staphylococcus Epidermidis 11/08/16 15:35 Drainage Anaerobic Culture - Final 11/08/16 Unknown Finger - Right Index Wound Culture - Final Beta Hemoltyic Strep Group G 11/02/16 17:15 Peripheral/Venous Blood Culture - Final NO GROWTH AFTER 5 DAYS 11/02/16 17:15 Peripheral/Venous Blood Culture - Final NO GROWTH AFTER 5 DAYS 11/02/16 Unknown Urine,Clean Catch Urine Culture - Final
[2016-11-15] MEDS ORDERED: ZOFRAN ONE (14:42)
[2016-11-15] MEDS ORDERED: NACL 0.9% IR ONE (14:46)
--- NOTE | 2016-11-15 15:11 | Procedure Note ---
Date of procedure: 11/15/16 Pre-op diagnosis: gangrene right index/ abscess Post-op diagnosis: same Procedure: Amputation right index through MCP joint Anesthesia: ELIA Surgeon: JACKSON MACDONALD Estimated blood loss: minimal Pathology: list (cultures ( two sets), tissue biopsy) Specimen disposition: to lab Condition: stable Disposition: PACU
--- NOTE | 2016-11-15 16:17 | Post Anesthesia Evaluation ---
- Post Anesthesia Evaluation Patient Participated: Yes Airway Patent: Yes Stable Respiratory Function: Yes Temp > 96.8F: Yes Pain Manageable: Yes Adequeate Hydration: Yes Anesthesia Complications: No Block Receding Appropriately: Not Applicable
[2016-11-15] MEDS: DILAUDID IV PRN (20:38)
[2016-11-15] MEDS: DESYREL PO SCH (23:36)
[2016-11-15] MEDS: BENADRYL IM PRN (23:48)
[2016-11-16] MEDS: NACL 0.9% 1000 ML 1,000 ML IV SCH ×2 (02:24→13:43)
[2016-11-16] MEDS: DILAUDID IV PRN ×3 (02:24→23:00)
[2016-11-16] MEDS: SYNTHROID PO SCH (06:20)
[2016-11-16] MEDS: NOVOLOG SUB-Q SCH ×4 (09:10→22:56)
[2016-11-16] MEDS: HCTZ PO SCH (09:56)
[2016-11-16] MEDS: ZOVIRAX PO SCH (09:56)
[2016-11-16] MEDS: PROCARDIA XL PO SCH (09:56)
[2016-11-16] MEDS: ZYLOPRIM PO SCH (09:57)
[2016-11-16] MEDS: COLACE PO SCH ×2 (09:57→23:20)
[2016-11-16] MEDS: HALDOL PO SCH ×3 (09:58→23:22)
[2016-11-16] MEDS: COREG PO SCH ×2 (09:58→23:23)
[2016-11-16] MEDS: HEPARIN SUB-Q SCH ×2 (10:01→22:02)
[2016-11-16] MEDS: NEURONTIN PO SCH ×3 (10:01→23:20)
[2016-11-16] MEDS: ROXICODONE PO SCH ×2 (10:01→11:57)
[2016-11-16] MEDS: ROCEPHIN/NS 2 GM/100 ML 100 ML IV SCH (10:06)
[2016-11-16] MEDS: MIRALAX 3350 PO SCH (10:06)
[2016-11-16 10:37] LABS: Basophils % (Auto) 1.1 % (0.0-1.8); Eosinophils % (Auto) 3.7 % (0.0-4.3); Hematocrit 23.7 % (35.5-45.6); Hemoglobin 7.6 gm/dl (11.8-15.2); Mean Corpuscular HGB Conc 32 % (32-34); Mean Corpuscular Hemoglobin 29 pg (28-32); Mean Corpuscular Volume 91 fl (84-94); Platelet Count 230 K/mm3 (140-440); Red Blood Count 2.61 M/mm3 (3.65-5.03); White Blood Count 6.4 K/mm3 (4.5-11.0)
[2016-11-16 11:02] LABS: Anion Gap 15 mmol/L; Blood Urea Nitrogen 15 mg/dL (9-20); Calcium 7.7 mg/dL (8.4-10.2); Carbon Dioxide 27 mmol/L (22-30); Chloride 104.2 mmol/L (98-107); Glucose 240 mg/dL (75-100); Potassium 4.1 mmol/L (3.6-5.0); Sodium 142 mmol/L (137-145)
[2016-11-16] MEDS: BENADRYL IM PRN ×2 (12:06→23:00)
--- NOTE | 2016-11-16 12:28 | Progress Note ---
Assessment and Plan Assessment and plan: 1.Right index finger paronychia/necrosis causing sepsis with staph epidermidis bacteremia -cotn antibiotics; post amputation of digit 11/15/16; f/u ortho for further recommendation 2. Acute psychosis- due to dementia, continue current medications, try to remove restraints as tolerated patient will need placement 3. Type 2 diabetes mellitus- Continue current management, glucose now better controlled 4.-Dermatitis-continue Lac-Hydrin/hydrocortisone cream; continue atarax prn; Supportive skincare 5. ? History TB- Follow-up Old records. Quantiferon TB assay ordered. F/U ID 6. Hx of T-cell lymphoma- no acute issues 7. Hx of ? Herpes- cotn Acyclovir therapy ( suppressive dosing) 8. hypothyroidism TSH normal; continue Synthroid 9. gout-able, no acute issues History Interval history: f/u right finger abscess, psychosis, acute renal failure Patient seen on the bedside, no family present; had amputation of finger yesterday Hospitalist Physical - Constitutional Vitals: Temp Pulse Resp BP Pulse Ox 98.5 F 78 14 133/63 98 11/16/16 07:58 11/16/16 09:58 11/16/16 07:58 11/16/16 09:58 11/16/16 07:58 General appearance: Present: no acute distress, well-nourished, other ( restraints) - EENT Eyes: Present: PERRL, EOM intact. Absent: scleral icterus, conjunctival injection, exopthalmos ENT: hearing intact, clear oral mucosa, no oropharyngeal erythema, no poor dentition - Neck Neck: Present: supple, normal ROM. Absent: enlarged thyroid, masses or JVD - Respiratory Respiratory effort: normal Respiratory: negative: diminished, rales, rhonchi, wheezing - Cardiovascular Rhythm: regular Heart Sounds: Present: S1 & S2 - Extremities Extremities: no ischemia, pulses intact, pulses symmetrical, No edema Extremity abnormal: other (dressing to RT hand ) Peripheral Pulses: within normal limits - Abdominal General gastrointestinal: soft, non-tender, non-distended - Integumentary Integumentary: Present: clear - Psychiatric Psychiatric: other (drowsy but arousable) - Neurologic Neurologic: CNII-XII intact, moves all extremities Results - Labs CBC & Chem 7: 11/16/16 10:32 11/16/16 10:32 Labs: Laboratory Last Values WBC 6.4 K/mm3 (4.5-11.0) 11/16/16 10:32 RBC 2.61 M/mm3 (3.65-5.03) L 11/16/16 10:32 Hgb 7.6 gm/dl (11.8-15.2) L 11/16/16 10:32 Hct 23.7 % (35.5-45.6) L D 11/16/16 10:32 MCV 91 fl (84-94) 11/16/16 10:32 MCH 29 pg (28-32) 11/16/16 10:32 MCHC 32 % (32-34) 11/16/16 10:32 RDW 19.0 % (13.2-15.2) H 11/16/16 10:32 Plt Count 230 K/mm3 (140-440) 11/16/16 10:32 Lymph % (Auto) 8.1 % (13.4-35.0) L 11/16/16 10:32 [place] % (Auto) 5.6 % (0.0-7.3) 11/16/16 10:32 Eos % (Auto) 3.7 % (0.0-4.3) 11/16/16 10:32 Baso % (Auto) 1.1 % (0.0-1.8) 11/16/16 10:32 Lymph # 0.5 K/mm3 (1.2-5.4) L 11/16/16 10:32 [place] # 0.4 K/mm3 (0.0-0.8) 11/16/16 10:32 Eos # 0.2 K/mm3 (0.0-0.4) 11/16/16 10:32 Baso # 0.1 K/mm3 (0.0-0.1) 11/16/16 10:32 Seg Neutrophils % 81.5 % (40.0-70.0) H 11/16/16 10:32 Seg Neutrophils # 5.2 K/mm3 (1.8-7.7) 11/16/16 10:32 PT 14.3 Sec. (12.2-14.9) 10/23/16 12:53 INR 1.12 (0.87-1.13) 10/23/16 12:53 APTT 30.6 Sec. (24.2-36.6) 10/23/16 12:53 POC ABG pH 7.507 (7.35-7.45) H 11/12/16 21:51 POC ABG pCO2 32.8 (35-45) L 11/12/16 21:51 POC ABG pO2 78 (80-105) L 11/12/16 21:51 POC ABG HCO3 26.0 11/12/16 21:51 POC ABG Total CO2 27 11/12/16 21:51 POC ABG O2 Sat 97 11/12/16 21:51 POC ABG Base Excess 3 11/12/16 21:51 FiO2 28 % 11/12/16 21:51 Sodium 142 mmol/L (137-145) 11/16/16 10:32 Potassium 4.1 mmol/L (3.6-5.0) 11/16/16 10:32 Chloride 104.2 mmol/L (98-107) 11/16/16 10:32 Carbon Dioxide 27 mmol/L (22-30) 11/16/16 10:32 Anion Gap 15 mmol/L 11/16/16 10:32 BUN 15 mg/dL (9-20) 11/16/16 10:32 Creatinine 1.0 mg/dL (0.8-1.5) 11/16/16 10:32 Estimated GFR > 60 ml/min 11/16/16 10:32 BUN/Creatinine Ratio 15.00 % 11/16/16 10:32 Glucose 240 mg/dL (75-100) H 11/16/16 10:32 POC Glucose 260 (70-105) H 11/16/16 11:34 Hemoglobin A1c 7.2 % (4-6) H 10/27/16 05:30 Lactic Acid 2.8 mmol/L (0.7-2.0) H* 10/23/16 12:53 Calcium 7.7 mg/dL (8.4-10.2) L 11/16/16 10:32 Magnesium 1.9 mg/dL (1.7-2.3) 10/31/16 12:35 Total Bilirubin 0.9 mg/dL (0.1-1.2) 10/27/16 05:30 Direct Bilirubin 0.3 mg/dL (0-0.2) H 10/27/16 05:30 Indirect Bilirubin 0.6 mg/dL 10/27/16 05:30 AST 18 units/L (5-40) 10/27/16 05:30 ALT 13 units/L (7-56) 10/27/16 05:30 Alkaline Phosphatase 116 units/L (35-129) 10/27/16 05:30 Ammonia 30.0 umol/L (25-60) 10/26/16 09:00 Total Creatine Kinase 72 units/L (55-170) 11/02/16 18:37 CK-MB (CK-2) 3.0 ng/mL (0.0-4.0) 10/23/16 12:53 CK-MB (CK-2) Rel Index 0.9 (0-4) 10/23/16 12:53 Troponin T 0.032 ng/mL (0.00-0.029) H 10/23/16 12:53 NT-Pro-B Natriuret Pep 532.6 pg/mL (0-900) 10/23/16 12:53 Total Protein 7.1 g/dL (6.3-8.2) 10/27/16 05:30 Albumin 3.2 g/dL (3.9-5) L 10/27/16 05:30 Albumin/Globulin Ratio 0.8 % 10/27/16 05:30 Triglycerides 199 mg/dL (2-149) H 10/23/16 12:53 Cholesterol 143 mg/dL (50-199) 10/23/16 12:53 LDL Cholesterol Direct 64 mg/dL (50-130) 10/23/16 12:53 HDL Cholesterol 40 mg/dL (40-59) 10/23/16 12:53 Cholesterol/HDL Ratio 3.57 % 10/23/16 12:53 TSH 1.040 mlU/mL (0.270-4.200) 10/23/16 12:53 Free T4 1.13 ng/dL (0.76-1.46) 10/23/16 22:59 Thyroxine (T4) 5.2 ug/dL (4.0-12.0) 10/23/16 22:59 T3 (NISHA) 56 ng/dL (76-181) L 10/23/16 22:59 Free T3 Index 2.0 pg/mL (2.3-4.2) L 10/23/16 22:59 T3 Uptake See scanned report 10/23/16 22:59 Urine Color Yellow (Yellow) 11/03/16 07:47 Urine Turbidity Clear (Clear) 11/03/16 07:47 Urine pH 5.0 (5.0-7.0) 11/03/16 07:47 Ur Specific [place] 1.012 (1.003-1.030) 11/03/16 07:47 Urine Protein <15 mg/dl mg/dL (Negative) 11/03/16 07:47 Urine Glucose (UA) Neg mg/dL (Negative) 11/03/16 07:47 Urine Ketones Neg mg/dL (Negative) 11/03/16 07:47 Urine Blood Neg (Negative) 11/03/16 07:47 Urine Nitrite Pos (Negative) 11/03/16 07:47 Urine Bilirubin Neg (Negative) 11/03/16 07:47 Urine Urobilinogen 4.0 mg/dL (<2.0) 11/03/16 07:47 Ur Leukocyte Esterase Tr (Negative) 11/03/16 07:47 Urine WBC (Auto) 1.0 /HPF (0.0-6.0) 11/03/16 07:47 Urine RBC (Auto) 5.0 /HPF (0.0-6.0) 11/03/16 07:47 U Epithel Cells (Auto) < 1.0 /HPF (0-13.0) 11/03/16 07:47 Urine Bacteria (Auto) 2+ /HPF (Negative) 11/03/16 07:47 Urine Mucus Few /HPF 11/03/16 07:47 Urine Opiates Screen Presumptive negative 10/21/16 20:36 Urine Methadone Screen Presumptive negative 10/21/16 20:36 Ur Barbiturates Screen Presumptive negative 10/21/16 20:36 Ur Phencyclidine Scrn Presumptive negative 10/21/16 20:36 Ur Amphetamines Screen Presumptive negative 10/21/16 20:36 U Benzodiazepines Scrn Presumptive negative 10/21/16 20:36 Urine Cocaine Screen Presumptive negative 10/21/16 20:36 U Marijuana (THC) Screen Presumptive negative 10/21/16 20:36 Drugs of Abuse Note Disclamer 10/21/16 20:36 Plasma/Serum Alcohol < 0.01 gm% (0-0.07) 10/21/16 20:30 TB (QFT) Gold In Tube Negative (Negative) 11/10/16 00:08 TB Test (QFT) Nil 0.00 IU/mL (()) 11/10/16 00:08 TB Test Mitogen - Nil 1.22 IU/mL (()) 11/10/16 00:08 TB Test Antigen - Nil 0.01 IU/mL (()) 11/10/16 00:08 Microbiology 11/11/16 05:32 Peripheral/Venous Blood Culture - Final NO GROWTH AFTER 5 DAYS 11/15/16 Unknown Finger - Right Index Surgical Culture - Preliminary 11/15/16 Unknown Finger - Right Index Surgical Culture - Preliminary 11/11/16 05:32 Peripheral/Venous Blood Culture - Final Staphylococcus Epidermidis 11/08/16 15:35 Drainage Anaerobic Culture - Final 11/08/16 Unknown Finger - Right Index Wound Culture - Final Beta Hemoltyic Strep Group G 11/02/16 17:15 Peripheral/Venous Blood Culture - Final NO GROWTH AFTER 5 DAYS 11/02/16 17:15 Peripheral/Venous Blood Culture - Final NO GROWTH AFTER 5 DAYS 11/02/16 Unknown Urine,Clean Catch Urine Culture - Final
[2016-11-16] MEDS: LAC-HYDRIN TP SCH ×2 (13:15→23:21)
--- NOTE | 2016-11-16 13:17 | Progress Note ---
Assessment and Plan Current antibiotics: Ceftriaxone 2gm IV q24h 11/10 --> Previous Antibiotics: Acyclovir 800 mg po daily Zosyn 4.5 g IV every 8 hours 11/09-11/10 Bactrim one DS by mouth twice a day 11/08-11/10 Levaquin 750 mg daily 11/05-11/08 Outpatient antibiotics: po Keflex Acyclovir 800 mg daily ASSESSMENT: Mahesh Núñez is a 70 y/o male with dementia, T-cell lymphoma, CKD, DM2, CESIA, hypothyroidism, CAD, anemia, and gout who was [facility] after being sent from his [place] [facility] for medical clearance for admission to [place] to the [facility] ED on 10/26/16 with "acting out behavior" whereby he was belligerent to staff and residents. He is seen now for a infection of his distal right index finger. Problem list: 1. Right index finger abscess/R/O underlying osteomyelitis - Unclear etiology ( ? Trauma vs herpes vs possible lymphoma) - s/p orthopedic I&D 11/09 - Culture with group G strep. 2. Positive blood culture -11/11/16: 1/2 sets with coag-negative Staphylococcus. Very likely represents contaminated bottles. 3. History of TB - ? Details 4. Dementia/ ? Psychosis -Lethargic but not agitated today 5. Hx of ? HSV infection - On chronic, suppressive acyclovir therapy 6. Hx of T-cell lymphoma -Details unclear 7. HARSHA -Improving 8. Type 2 DM 9. Hx of gouty arthritis 10. CAD 11. Hypothyroidism 12. Anemia PLAN: 1. Continue Ceftriaxone 2 g daily 2. Quantiferon TB assay negative 3. Local wound care and continued observation 4. Ortho follow up to see if further amputation will be necessary. Will need to determine necessary duration of antibiotics thereafter. 5. Glycemic control as per Hospitalist team Bharat Fields MD [facility] Office: [phone] Subjective Date of service: 11/16/16 Principal diagnosis: Right index finger infection Interval history: Patient's is at the bedside. Patient is very disheveled and looking about. Patient with multiple lesions noted of the lower extremities. is concerned about "black heels" patient is nonverbal Review of systems: Patient is nonverbal but looking about Objective - Exam Narrative Exam: GENERAL: Well-developed, chronically ill-appearing male who is somewhat active at times but falls asleep easily but is in no acute distress. HEENT: Pupils are equal reactive to light and accommodation. Conjunctiva clear. Oropharynx is not well seen. Bilateral arcus senilis. NECK: Supple. No enlargement of the thyroid gland. No significant cervical lymphadenopathy. No jugular venous distention at 30 LUNGS: Clear with no audible adventitious sounds. HEART: Regular rate. S1 and S2 are normal. There are no murmurs, gallops, clicks or rubs heard. ABDOMEN: Soft and nontender. Liver and spleen are not palpably enlarged or tender. No palpable masses. Bowel sounds are normoactive. EXTREMITIES: Patches of dry scaly rash over lower extremities greater than upper extremities. Surgical wraps over right index finger not removed. These are however bloody. No evidence of ascending infection or ischemia. Multiple areas of local abrasions noted to the bilateral hips area around the diaper. There is bleeding and blood noted on the bed linen. Patient's heels are noted to have discolored areas noted the pressure areas. Restraints are noted to the extremities. SKIN: As per extremity findings. No other rash seen. Please refer to nurse's notes for accurate description of all patients skin changes NEUROLOGIC: Awake . Not answering questions this morning. - Constitutional Vitals: Vital Signs Temp Pulse Resp BP Pulse Ox 98.5 F 78 14 133/63 98 11/16/16 07:58 11/16/16 09:58 11/16/16 07:58 11/16/16 09:58 11/16/16 07:58 Temperature -Last 24 Hours Temperature 98.5 F Temperature 99.6 F Temperature 97.7 F Temperature 97.8 F Temperature 98.2 F - Labs CBC & Chem 7: 11/16/16 10:32 11/16/16 10:32 Labs: Abnormal lab results
[2016-11-16] MEDS: DESYREL PO SCH (23:20)
[2016-11-17] MEDS: SYNTHROID PO SCH (06:09)
[2016-11-17] MEDS: DILAUDID IV PRN ×2 (06:10→23:09)
[2016-11-17] MEDS: NOVOLOG SUB-Q SCH ×4 (07:30→22:25)
[2016-11-17] MEDS: PROCARDIA XL PO SCH (11:00)
[2016-11-17] MEDS: COREG PO SCH ×2 (11:00→21:25)
[2016-11-17] MEDS: ROXICODONE PO SCH (11:00)
[2016-11-17] MEDS: HCTZ PO SCH (11:00)
[2016-11-17] MEDS: COLACE PO SCH ×2 (11:00→21:21)
[2016-11-17] MEDS: ZOVIRAX PO SCH (11:00)
[2016-11-17] MEDS: ZYLOPRIM PO SCH (11:00)
[2016-11-17] MEDS: LAC-HYDRIN TP SCH ×2 (11:00→21:24)
[2016-11-17] MEDS: ROCEPHIN/NS 2 GM/100 ML 100 ML IV SCH (11:00)
--- NOTE | 2016-11-17 11:08 | Progress Note ---
Assessment and Plan - Patient Problems (1) Finger amputation, no complication Current Visit: Yes Status: Acute Qualifiers: Encounter type: initial encounter Qualified Code(s): S68.119A - Complete traumatic metacarpophalangeal amputation of unspecified finger, initial encounter Plan to address problem: The Aung drain is removed today, the wound need to be kept covered with sterile dressings,. Discussed with nursing personnel.Continue with antibiotics , local wound care. Subjective Date of service: 11/17/16 Principal diagnosis: Right index finger infection Interval history: Post index amputation right hand, cultures reviewed. Patient is a restrained, the hand dressings are missing, theTLC drain(which is secured with sutures) are also missing. The Aung drain in place, mild swelling, wound is dry, flaps are viable. Objective Vital signs: Vital Signs - 12hr 11/16/16 11/17/16 11/17/16 23:23 00:00 08:11 Temperature 98.4 F 98.0 F Pulse Rate 78 Pulse Rate [ 80 76 Right Radial] Respiratory 20 20 Rate Blood Pressure 134/66 Blood Pressure 130/81 146/73 [Right Arm] O2 Sat by Pulse 97 100 Oximetry 11/17/16 10:00 Temperature Pulse Rate Pulse Rate [ Right Radial] Respiratory Rate Blood Pressure Blood Pressure [Right Arm] O2 Sat by Pulse 98 Oximetry - Labs CBC & BMP: 11/16/16 10:32 11/16/16 10:32 Labs: Abnormal lab results 11/16/16 11/16/16 11/16/16 Range/Units 09:45 11:34 17:17 POC Glucose 219 H 260 H 213 H (70-105) 11/16/16 11/17/16 Range/Units 21:26 06:03 POC Glucose 116 H 125 H (70-105)
[2016-11-17] MEDS: HEPARIN SUB-Q SCH ×2 (11:45→21:22)
--- NOTE | 2016-11-17 14:25 | Progress Note ---
Assessment and Plan Assessment and plan: 1.Right index finger paronychia/necrosis causing sepsis with staph epidermidis bacteremia -cotn antibiotics; post amputation of digit 11/15/16; f/u ortho for further recommendation 2. Acute psychosis- due to dementia, continue current medications, try to remove restraints as tolerated patient will need placement 3. Type 2 diabetes mellitus- Continue current management, glucose now better controlled 4.-Dermatitis-continue Lac-Hydrin/hydrocortisone cream; continue atarax prn; Supportive skincare 5. ? History TB- Follow-up Old records. Quantiferon TB assay ordered. F/U ID 6. Hx of T-cell lymphoma- no acute issues 7. Hx of ? Herpes- cotn Acyclovir therapy ( suppressive dosing) 8. hypothyroidism TSH normal; continue Synthroid 9. gout-able, no acute issues History Interval history: f/u right finger abscess-Complete traumatic metacarpophalangeal amputation , psychosis, acute renal failure; Patient seen on the bedside, no family present; Hospitalist Physical - Constitutional Vitals: Temp Pulse Resp BP Pulse Ox 98.0 F 76 20 146/73 98 11/17/16 08:11 11/17/16 08:11 11/17/16 08:11 11/17/16 08:11 11/17/16 10:00 General appearance: Present: no acute distress, well-nourished, other ( restraints) - EENT Eyes: Present: PERRL, EOM intact. Absent: scleral icterus, conjunctival injection ENT: hearing intact, clear oral mucosa, no oropharyngeal erythema, no poor dentition - Neck Neck: Present: supple, normal ROM. Absent: enlarged thyroid - Respiratory Respiratory effort: normal Respiratory: negative: diminished, rales, rhonchi, wheezing - Cardiovascular Rhythm: regular Heart Sounds: Present: S1 & S2. Absent: gallop - Extremities Extremities: no ischemia, pulses intact, pulses symmetrical, No edema, abnormal (dressing in place rt hand ) Peripheral Pulses: within normal limits - Abdominal General gastrointestinal: soft, non-tender, non-distended, normal bowel sounds - Integumentary Integumentary: Present: clear - Psychiatric Psychiatric: appropriate mood/affect, intact judgment & insight, cooperative - Neurologic Neurologic: CNII-XII intact Results - Labs CBC & Chem 7: 11/16/16 10:32 11/16/16 10:32 Labs: Laboratory Last Values WBC 6.4 K/mm3 (4.5-11.0) 11/16/16 10:32 RBC 2.61 M/mm3 (3.65-5.03) L 11/16/16 10:32 Hgb 7.6 gm/dl (11.8-15.2) L 11/16/16 10:32 Hct 23.7 % (35.5-45.6) L D 11/16/16 10:32 MCV 91 fl (84-94) 11/16/16 10:32 MCH 29 pg (28-32) 11/16/16 10:32 MCHC 32 % (32-34) 11/16/16 10:32 RDW 19.0 % (13.2-15.2) H 11/16/16 10:32 Plt Count 230 K/mm3 (140-440) 11/16/16 10:32 Lymph % (Auto) 8.1 % (13.4-35.0) L 11/16/16 10:32 [place] % (Auto) 5.6 % (0.0-7.3) 11/16/16 10:32 Eos % (Auto) 3.7 % (0.0-4.3) 11/16/16 10:32 Baso % (Auto) 1.1 % (0.0-1.8) 11/16/16 10:32 Lymph # 0.5 K/mm3 (1.2-5.4) L 11/16/16 10:32 [place] # 0.4 K/mm3 (0.0-0.8) 11/16/16 10:32 Eos # 0.2 K/mm3 (0.0-0.4) 11/16/16 10:32 Baso # 0.1 K/mm3 (0.0-0.1) 11/16/16 10:32 Seg Neutrophils % 81.5 % (40.0-70.0) H 11/16/16 10:32 Seg Neutrophils # 5.2 K/mm3 (1.8-7.7) 11/16/16 10:32 PT 14.3 Sec. (12.2-14.9) 10/23/16 12:53 INR 1.12 (0.87-1.13) 10/23/16 12:53 APTT 30.6 Sec. (24.2-36.6) 10/23/16 12:53 POC ABG pH 7.507 (7.35-7.45) H 11/12/16 21:51 POC ABG pCO2 32.8 (35-45) L 11/12/16 21:51 POC ABG pO2 78 (80-105) L 11/12/16 21:51 POC ABG HCO3 26.0 11/12/16 21:51 POC ABG Total CO2 27 11/12/16 21:51 POC ABG O2 Sat 97 11/12/16 21:51 POC ABG Base Excess 3 11/12/16 21:51 FiO2 28 % 11/12/16 21:51 Sodium 142 mmol/L (137-145) 11/16/16 10:32 Potassium 4.1 mmol/L (3.6-5.0) 11/16/16 10:32 Chloride 104.2 mmol/L (98-107) 11/16/16 10:32 Carbon Dioxide 27 mmol/L (22-30) 11/16/16 10:32 Anion Gap 15 mmol/L 11/16/16 10:32 BUN 15 mg/dL (9-20) 11/16/16 10:32 Creatinine 1.0 mg/dL (0.8-1.5) 11/16/16 10:32 Estimated GFR > 60 ml/min 11/16/16 10:32 BUN/Creatinine Ratio 15.00 % 11/16/16 10:32 Glucose 240 mg/dL (75-100) H 11/16/16 10:32 POC Glucose 125 (70-105) H 11/17/16 06:03 Hemoglobin A1c 7.2 % (4-6) H 10/27/16 05:30 Lactic Acid 2.8 mmol/L (0.7-2.0) H* 10/23/16 12:53 Calcium 7.7 mg/dL (8.4-10.2) L 11/16/16 10:32 Magnesium 1.9 mg/dL (1.7-2.3) 10/31/16 12:35 Total Bilirubin 0.9 mg/dL (0.1-1.2) 10/27/16 05:30 Direct Bilirubin 0.3 mg/dL (0-0.2) H 10/27/16 05:30 Indirect Bilirubin 0.6 mg/dL 10/27/16 05:30 AST 18 units/L (5-40) 10/27/16 05:30 ALT 13 units/L (7-56) 10/27/16 05:30 Alkaline Phosphatase 116 units/L (35-129) 10/27/16 05:30 Ammonia 30.0 umol/L (25-60) 10/26/16 09:00 Total Creatine Kinase 72 units/L (55-170) 11/02/16 18:37 CK-MB (CK-2) 3.0 ng/mL (0.0-4.0) 10/23/16 12:53 CK-MB (CK-2) Rel Index 0.9 (0-4) 10/23/16 12:53 Troponin T 0.032 ng/mL (0.00-0.029) H 10/23/16 12:53 NT-Pro-B Natriuret Pep 532.6 pg/mL (0-900) 10/23/16 12:53 Total Protein 7.1 g/dL (6.3-8.2) 10/27/16 05:30 Albumin 3.2 g/dL (3.9-5) L 10/27/16 05:30 Albumin/Globulin Ratio 0.8 % 10/27/16 05:30 Triglycerides 199 mg/dL (2-149) H 10/23/16 12:53 Cholesterol 143 mg/dL (50-199) 10/23/16 12:53 LDL Cholesterol Direct 64 mg/dL (50-130) 10/23/16 12:53 HDL Cholesterol 40 mg/dL (40-59) 10/23/16 12:53 Cholesterol/HDL Ratio 3.57 % 10/23/16 12:53 TSH 1.040 mlU/mL (0.270-4.200) 10/23/16 12:53 Free T4 1.13 ng/dL (0.76-1.46) 10/23/16 22:59 Thyroxine (T4) 5.2 ug/dL (4.0-12.0) 10/23/16 22:59 T3 (NISHA) 56 ng/dL (76-181) L 10/23/16 22:59 Free T3 Index 2.0 pg/mL (2.3-4.2) L 10/23/16 22:59 T3 Uptake See scanned report 10/23/16 22:59 Urine Color Yellow (Yellow) 11/03/16 07:47 Urine Turbidity Clear (Clear) 11/03/16 07:47 Urine pH 5.0 (5.0-7.0) 11/03/16 07:47 Ur Specific [place] 1.012 (1.003-1.030) 11/03/16 07:47 Urine Protein <15 mg/dl mg/dL (Negative) 11/03/16 07:47 Urine Glucose (UA) Neg mg/dL (Negative) 11/03/16 07:47 Urine Ketones Neg mg/dL (Negative) 11/03/16 07:47 Urine Blood Neg (Negative) 11/03/16 07:47 Urine Nitrite Pos (Negative) 11/03/16 07:47 Urine Bilirubin Neg (Negative) 11/03/16 07:47 Urine Urobilinogen 4.0 mg/dL (<2.0) 11/03/16 07:47 Ur Leukocyte Esterase Tr (Negative) 11/03/16 07:47 Urine WBC (Auto) 1.0 /HPF (0.0-6.0) 11/03/16 07:47 Urine RBC (Auto) 5.0 /HPF (0.0-6.0) 11/03/16 07:47 U Epithel Cells (Auto) < 1.0 /HPF (0-13.0) 11/03/16 07:47 Urine Bacteria (Auto) 2+ /HPF (Negative) 11/03/16 07:47 Urine Mucus Few /HPF 11/03/16 07:47 Urine Opiates Screen Presumptive negative 10/21/16 20:36 Urine Methadone Screen Presumptive negative 10/21/16 20:36 Ur Barbiturates Screen Presumptive negative 10/21/16 20:36 Ur Phencyclidine Scrn Presumptive negative 10/21/16 20:36 Ur Amphetamines Screen Presumptive negative 10/21/16 20:36 U Benzodiazepines Scrn Presumptive negative 10/21/16 20:36 Urine Cocaine Screen Presumptive negative 10/21/16 20:36 U Marijuana (THC) Screen Presumptive negative 10/21/16 20:36 Drugs of Abuse Note Disclamer 10/21/16 20:36 Plasma/Serum Alcohol < 0.01 gm% (0-0.07) 10/21/16 20:30 TB (QFT) Gold In Tube Negative (Negative) 11/10/16 00:08 TB Test (QFT) Nil 0.00 IU/mL (()) 11/10/16 00:08 TB Test Mitogen - Nil 1.22 IU/mL (()) 11/10/16 00:08 TB Test Antigen - Nil 0.01 IU/mL (()) 11/10/16 00:08
[2016-11-17] MEDS: HALDOL PO SCH ×2 (14:32→21:21)
[2016-11-17] MEDS: NEURONTIN PO SCH ×2 (14:34→21:20)
[2016-11-17] MEDS: MIRALAX 3350 PO SCH (14:34)
[2016-11-17] MEDS: BENADRYL IM PRN (17:00)
--- NOTE | 2016-11-17 17:41 | Progress Note ---
Assessment and Plan Current antibiotics: Ceftriaxone 2gm IV q24h 11/10 --> Previous Antibiotics: Acyclovir 800 mg po daily Zosyn 4.5 g IV every 8 hours 11/09-11/10 Bactrim one DS by mouth twice a day 11/08-11/10 Levaquin 750 mg daily 11/05-11/08 Outpatient antibiotics: po Keflex Acyclovir 800 mg daily ASSESSMENT: Mahesh Núñez is a 70 y/o male with dementia, T-cell lymphoma, CKD, DM2, CESIA, hypothyroidism, CAD, anemia, and gout who was admitted to [facility] after being sent from his correction for medical clearance for admission to [place] to the [facility] ED on 10/26/16 with "acting out behavior" whereby he was belligerent to staff and residents. He is seen now for a infection of his distal right index finger. Problem list: 1. Right index finger abscess/R/O underlying osteomyelitis - Unclear etiology ( ? Trauma vs herpes vs possible lymphoma) - s/p orthopedic I&D 11/09 - Culture with group G strep. -Status post amputation 11/15 2. Positive blood culture -11/11/16: 1/2 sets with coag-negative Staphylococcus. Very likely represents contaminated bottles. 3. History of TB - ? Details 4. Dementia/ ? Psychosis -Lethargic but not agitated today 5. Hx of ? HSV infection - On chronic, suppressive acyclovir therapy 6. Hx of T-cell lymphoma -Details unclear 7. HARSHA -Improving 8. Type 2 DM 9. Hx of gouty arthritis 10. CAD 11. Hypothyroidism 12. Anemia PLAN: 1. Continue Ceftriaxone 2 g daily 2. Quantiferon TB assay negative 3. Local wound care and continued observation 4. Await surgical cultures & pathology 5. Most likely all infection has been excised and long-term antibiotics will not be necessary. 6. Glycemic control as per Hospitalist team Bharat Fields MD [facility] Office: [phone] Subjective Date of service: 11/17/16 Principal diagnosis: Right index finger infection Interval history: Patient remains confused. No family present in room today. Objective - Exam Narrative Exam: GENERAL: Well-developed, chronically ill-appearing male who is alert but confused and in restraints. HEENT: Pupils are equal reactive to light and accommodation. Conjunctiva clear. Oropharynx is not well seen. Bilateral arcus senilis. NECK: Supple. No enlargement of the thyroid gland. No significant cervical lymphadenopathy. No jugular venous distention at 30 LUNGS: Clear with no audible adventitious sounds. HEART: Regular rate. S1 and S2 are normal. There are no murmurs, gallops, clicks or rubs heard. ABDOMEN: Soft and nontender. Liver and spleen are not palpably enlarged or tender. No palpable masses. Bowel sounds are normoactive. EXTREMITIES: Patches of dry scaly rash over lower extremities greater than upper extremities. Surgical wraps over right index finger not removed. Drain removed earlier today by Dr. Marks. No evidence of ascending infection or ischemia. SKIN: As per extremity findings. NEUROLOGIC: Awake. Confused but no focal findings. - Constitutional Vitals: Vital Signs Temp Pulse Resp BP Pulse Ox 98.0 F 76 20 146/73 98 11/17/16 08:11 11/17/16 08:11 11/17/16 08:11 11/17/16 08:11 11/17/16 10:00 Temperature -Last 24 Hours Temperature 98.0 F Temperature 98.4 F - Labs CBC & Chem 7: 11/16/16 10:32 11/16/16 10:32 Labs: Abnormal lab results Microbiology 11/15/16 Unknown Finger - Right Index Anaerobic Culture - pending 11/15/16 Unknown Finger - Right Index Anaerobic Culture - pending 11/15/16 Unknown Finger - Right Index Surgical Culture - NGTD. Gram stain with rare PMNs and no organisms seen 11/15/16 Unknown Finger - Right Index Surgical Culture - NGTD. Gram stain with few PMNs, rare gram-positive cocci in pairs and rare gram-negative rods 11/11/16 05:32 Peripheral/Venous Blood Culture - Final NO GROWTH AFTER 5 DAYS 11/11/16 05:32 Peripheral/Venous Blood Culture - Final Staphylococcus Epidermidis 2/2 bottles 11/08/16 15:35 Drainage Anaerobic Culture - no growth 11/08/16 Unknown Finger - Right Index Wound Culture - Final Beta Hemoltyic Strep Group G 11/02/16 17:15 Peripheral/Venous Blood Culture - Final NO GROWTH AFTER 5 DAYS 11/02/16 17:15 Peripheral/Venous Blood Culture - Final NO GROWTH AFTER 5 DAYS 11/02/16 Unknown Urine,Clean Catch Urine Culture - Final
[2016-11-17] MEDS: DESYREL PO SCH (21:20)
[2016-11-17] MEDS: D5/0.45NS 1,000 ML IV SCH (23:18)
--- NOTE | 2016-11-18 01:32 | Operative Report ---
PREOPERATIVE DIAGNOSIS: Gangrene, distal right index with abscess formation. POSTOPERATIVE DIAGNOSIS: Gangrene, distal right index with abscess formation. OPERATIVE PROCEDURE: Amputation/disarticulation of right index through the metacarpophalangeal joint. SURGEON: Allie Marks MD INDUSTRIAL RELATIONS MANAGER: Marti Dumont CSA. ANESTHESIA: General. BLOOD LOSS: Minimal. DESCRIPTION OF PROCEDURE: The patient was taken to surgery suite, satisfactory analgesia obtained with general anesthetics. The right upper limb prepped with Betadine and satisfactorily draped. The gangrenous tissue appeared extending the entire distal phalanx; however, induration and swelling was noticed over the proximal middle phalanx extending into the proximal phalanx. Incision was made over the dorsal aspect of the base of the proximal phalanx in an elliptical fashion connecting the mid axial point laterally to medial with equidistant dorsal and volar flap. Upon entering the volar aspect of the fibrofatty layer of the proximal phalanx, purulent material was extruding from the distal portion. Cultures were made for aerobic and anaerobic cultures and Gram stain, labeled to set #1. Dissection was continued proximally into the metacarpophalangeal joint and the joint was disarticulated thereby extracting the distal infected finger. The skin flaps were viable and no obvious infection appeared extending into the palm. Following irrigation of the wound, a TLC drain was inserted into the flexor sheath, which was brought out through the radial part of the incision and secured in place with 4-0 nylon sutures. The skin flaps were then loosely approximated with 4-0 nylon, and the wound was then again drained with a small [place] drain, which was secured in place. Sterile dressings were applied. The patient was transferred to recovery room in satisfactory condition. At the completion of procedure, counts were accurate and he tolerated the procedure well. Prior to wound closure, deep cultures were again made from the flexor sheath for aerobic and anaerobic cultures, Gram stain, labeled to set #2. JOB# [id number] ANGELY/HORACE
[2016-11-18] MEDS: BENADRYL IM PRN ×3 (05:54→22:01)
[2016-11-18] MEDS: SYNTHROID PO SCH (06:00)
[2016-11-18 07:33] LABS: Basophils % (Auto) 1.3 % (0.0-1.8); Eosinophils % (Auto) 2.9 % (0.0-4.3); Hemoglobin 7.8 gm/dl (11.8-15.2); Mean Corpuscular HGB Conc 33 % (32-34); Mean Corpuscular Hemoglobin 29 pg (28-32); Mean Corpuscular Volume 91 fl (84-94); Platelet Count 253 K/mm3 (140-440); Red Blood Count 2.65 M/mm3 (3.65-5.03); White Blood Count 5.8 K/mm3 (4.5-11.0)
[2016-11-18] MEDS: NOVOLOG SUB-Q SCH ×4 (08:26→22:05)
[2016-11-18 09:07] LABS: Hematocrit 25.5 % (35.5-45.6); Hemoglobin 8.4 gm/dl (11.8-15.2); Mean Corpuscular HGB Conc 33 % (32-34); Mean Corpuscular Hemoglobin 30 pg (28-32); Mean Corpuscular Volume 91 fl (84-94); Platelet Count 352 K/mm3 (140-440); Red Blood Count 2.81 M/mm3 (3.65-5.03); Red Cell Distribution Width 18.6 % (13.2-15.2)
[2016-11-18] MEDS: D5/0.45NS 1,000 ML IV SCH ×2 (09:49→19:58)
--- NOTE | 2016-11-18 10:02 | Progress Note ---
Assessment and Plan Current antibiotics: Ceftriaxone 2gm IV q24h 11/10 --> Previous Antibiotics: Acyclovir 800 mg po daily Zosyn 4.5 g IV every 8 hours 11/09-11/10 Bactrim one DS by mouth twice a day 11/08-11/10 Levaquin 750 mg daily 11/05-11/08 Outpatient antibiotics: po Keflex Acyclovir 800 mg daily ASSESSMENT: Mahesh Núñez is a 70 y/o male with dementia, T-cell lymphoma, CKD, DM2, CESIA, hypothyroidism, CAD, anemia, and gout who was admitted to [facility] after being sent from his [facility] for medical clearance for admission to [place] to the [facility] ED on 10/26/16 with "acting out behavior" whereby he was belligerent to staff and residents. He is seen now for a infection of his distal right index finger. Problem list: 1. Right index finger abscess/R/O underlying osteomyelitis - Unclear etiology ( ? Trauma vs herpes vs possible lymphoma) - s/p orthopedic I&D 11/09 - Culture with group G strep. -Status post amputation 11/15 at [facility]. 2. Positive blood culture -11/11/16: 1/2 sets with coag-negative Staphylococcus. Very likely represents contaminated bottles. 3. History of TB - ? Details 4. Dementia/ ? Psychosis -Lethargic but not agitated today 5. Hx of ? HSV infection - On chronic, suppressive acyclovir therapy 6. Hx of T-cell lymphoma -Details unclear 7. HARSHA -Improving 8. Type 2 DM 9. Hx of gouty arthritis 10. CAD 11. Hypothyroidism 12. Anemia PLAN: 1. No further need for antibiotic coverage. Suggest stop Ceftriaxone. 2. Continue local wound care and continued observation 3. Glycemic control as per Hospitalist team Subjective Date of service: 11/18/16 Principal diagnosis: Right index finger infection Interval history: c/o right hand pain. Objective - Exam Narrative Exam: HEENT: Pupils are equal reactive to light and accommodation. Conjunctiva clear. Oropharynx is not well seen. NECK: Supple. No enlargement of the thyroid gland. No significant cervical lymphadenopathy. No jugular venous distention at 30. LUNGS: Grossly clear. HEART: Regular rate. S1 and S2 are normal. There are no murmurs, gallops, clicks or rubs heard. ABDOMEN: Soft and nontender. Liver and spleen are not palpably enlarged or tender. No palpable masses. Bowel sounds are normoactive. EXTREMITIES: Patches of dry scaly rash over lower extremities greater than upper extremities. Surgical wraps over right index finger amputation site. SKIN: As per extremity findings. NEUROLOGIC: Awake and alert. - Constitutional Vitals: Vital Signs Temp Pulse Resp BP Pulse Ox 97.1 F L 72 20 145/67 100 11/18/16 08:55 11/18/16 08:55 11/18/16 08:55 11/18/16 08:55 11/18/16 08:55 Temperature -Last 24 Hours Temperature 97.1 F Temperature 97.9 F Temperature 97.8 F Temperature 98.1 F Temperature 98.0 F - Labs CBC & Chem 7: 11/18/16 08:50 11/16/16 10:32 Labs: Abnormal lab results 11/17/16 11/17/16 11/18/16 Range/Units 11:57 21:39 05:33 RBC (3.65-5.03) M/mm3 Hgb (11.8-15.2) gm/dl Hct (35.5-45.6) % RDW (13.2-15.2) % Lymph % (Auto) (13.4-35.0) % Lymph # (1.2-5.4) K/mm3 Seg Neutrophils % (40.0-70.0) % POC Glucose 234 H 199 H 152 H (70-105) 11/18/16 11/18/16 Range/Units 06:40 08:50 RBC 2.65 L 2.81 L (3.65-5.03) M/mm3 Hgb 7.8 L 8.4 L (11.8-15.2) gm/dl Hct 24.0 L 25.5 L (35.5-45.6) % RDW 19.0 H 18.6 H (13.2-15.2) % Lymph % (Auto) 9.9 L (13.4-35.0) % Lymph # 0.6 L (1.2-5.4) K/mm3 Seg Neutrophils % 79.8 H (40.0-70.0) % POC Glucose (70-105)
[2016-11-18] MEDS: ZOVIRAX PO SCH (11:20)
[2016-11-18] MEDS: HEPARIN SUB-Q SCH ×2 (11:20→21:57)
[2016-11-18] MEDS: MIRALAX 3350 PO SCH (11:21)
[2016-11-18] MEDS: HALDOL PO SCH ×2 (11:21→21:56)
[2016-11-18] MEDS: ROXICODONE PO SCH (11:22)
[2016-11-18] MEDS: PROCARDIA XL PO SCH (11:22)
[2016-11-18] MEDS: COLACE PO SCH ×2 (11:22→22:00)
[2016-11-18] MEDS: COREG PO SCH ×2 (11:23→21:58)
[2016-11-18] MEDS: HCTZ PO SCH (11:23)
[2016-11-18] MEDS: LAC-HYDRIN TP SCH ×2 (11:24→22:04)
[2016-11-18] MEDS: ZYLOPRIM PO SCH (11:24)
[2016-11-18] MEDS: NEURONTIN PO SCH ×2 (11:32→22:03)
--- NOTE | 2016-11-18 12:40 | Progress Note ---
Assessment and Plan Assessment and plan: 1.Right index finger paronychia/necrosis causing sepsis with staph epidermidis bacteremia -agree with d/c antibiotics; post amputation of digit 11/15/16; f/u ortho for further recommendation- cotn wound care 2. Dementia, continue current medications, suppotive care 3. Type 2 diabetes mellitus- Continue current management, glucose now better controlled 4.-Dermatitis-continue Lac-Hydrin/hydrocortisone cream; continue atarax prn; Supportive skincare 5. ? History TB- Follow-up Old records. Quantiferon TB assay ordered. F/U ID 6. Hx of T-cell lymphoma- no acute issues 7. Hx of ? Herpes- cotn Acyclovir therapy ( suppressive dosing) 8. hypothyroidism TSH normal; continue Synthroid 9. gout-able, no acute issues For d/c SNF when male bed becomes available History Interval history: f/u right finger abscess-Complete traumatic metacarpophalangeal amputation , psychosis, acute renal failure; Patient seen on the bedside, no family present; feels much better Hospitalist Physical - Constitutional Vitals: Temp Pulse Resp BP Pulse Ox 97.1 F L 72 20 145/67 100 11/18/16 08:55 11/18/16 11:23 11/18/16 08:55 11/18/16 11:23 11/18/16 08:55 General appearance: Present: no acute distress, well-nourished, other ( restraints) - EENT Eyes: Present: PERRL, EOM intact. Absent: scleral icterus, conjunctival injection ENT: hearing intact, clear oral mucosa, no oropharyngeal erythema, no poor dentition - Neck Neck: Present: supple, normal ROM. Absent: enlarged thyroid, masses or JVD - Respiratory Respiratory effort: normal Respiratory: negative: diminished, rales, rhonchi, wheezing - Cardiovascular Rhythm: regular Heart Sounds: Present: S1 & S2. Absent: gallop - Extremities Extremities: no ischemia, pulses intact, pulses symmetrical, abnormal (dressing to Rt flo ) Peripheral Pulses: within normal limits - Abdominal General gastrointestinal: soft, non-tender, non-distended, normal bowel sounds - Integumentary Integumentary: Present: clear - Psychiatric Psychiatric: cooperative - Neurologic Neurologic: CNII-XII intact, moves all extremities Results - Labs CBC & Chem 7: 11/18/16 08:50 11/16/16 10:32 Labs: Laboratory Last Values WBC 7.0 K/mm3 (4.5-11.0) 11/18/16 08:50 RBC 2.81 M/mm3 (3.65-5.03) L 11/18/16 08:50 Hgb 8.4 gm/dl (11.8-15.2) L 11/18/16 08:50 Hct 25.5 % (35.5-45.6) L 11/18/16 08:50 MCV 91 fl (84-94) 11/18/16 08:50 MCH 30 pg (28-32) 11/18/16 08:50 MCHC 33 % (32-34) 11/18/16 08:50 RDW 18.6 % (13.2-15.2) H 11/18/16 08:50 Plt Count 352 K/mm3 (140-440) 11/18/16 08:50 Lymph % (Auto) 9.9 % (13.4-35.0) L 11/18/16 06:40 [place] % (Auto) 6.1 % (0.0-7.3) 11/18/16 06:40 Eos % (Auto) 2.9 % (0.0-4.3) 11/18/16 06:40 Baso % (Auto) 1.3 % (0.0-1.8) 11/18/16 06:40 Lymph # 0.6 K/mm3 (1.2-5.4) L 11/18/16 06:40 [place] # 0.4 K/mm3 (0.0-0.8) 11/18/16 06:40 Eos # 0.2 K/mm3 (0.0-0.4) 11/18/16 06:40 Baso # 0.1 K/mm3 (0.0-0.1) 11/18/16 06:40 Seg Neutrophils % 79.8 % (40.0-70.0) H 11/18/16 06:40 Seg Neutrophils # 4.7 K/mm3 (1.8-7.7) 11/18/16 06:40 PT 14.3 Sec. (12.2-14.9) 10/23/16 12:53 INR 1.12 (0.87-1.13) 10/23/16 12:53 APTT 30.6 Sec. (24.2-36.6) 10/23/16 12:53 POC ABG pH 7.507 (7.35-7.45) H 11/12/16 21:51 POC ABG pCO2 32.8 (35-45) L 11/12/16 21:51 POC ABG pO2 78 (80-105) L 11/12/16 21:51 POC ABG HCO3 26.0 11/12/16 21:51 POC ABG Total CO2 27 11/12/16 21:51 POC ABG O2 Sat 97 11/12/16 21:51 POC ABG Base Excess 3 11/12/16 21:51 FiO2 28 % 11/12/16 21:51 Sodium 142 mmol/L (137-145) 11/16/16 10:32 Potassium 4.1 mmol/L (3.6-5.0) 11/16/16 10:32 Chloride 104.2 mmol/L (98-107) 11/16/16 10:32 Carbon Dioxide 27 mmol/L (22-30) 11/16/16 10:32 Anion Gap 15 mmol/L 11/16/16 10:32 BUN 15 mg/dL (9-20) 11/16/16 10:32 Creatinine 1.0 mg/dL (0.8-1.5) 11/16/16 10:32 Estimated GFR > 60 ml/min 11/16/16 10:32 BUN/Creatinine Ratio 15.00 % 11/16/16 10:32 Glucose 240 mg/dL (75-100) H 11/16/16 10:32 POC Glucose 155 (70-105) H 11/18/16 11:56 Hemoglobin A1c 7.2 % (4-6) H 10/27/16 05:30 Lactic Acid 2.8 mmol/L (0.7-2.0) H* 10/23/16 12:53 Calcium 7.7 mg/dL (8.4-10.2) L 11/16/16 10:32 Magnesium 1.9 mg/dL (1.7-2.3) 10/31/16 12:35 Total Bilirubin 0.9 mg/dL (0.1-1.2) 10/27/16 05:30 Direct Bilirubin 0.3 mg/dL (0-0.2) H 10/27/16 05:30 Indirect Bilirubin 0.6 mg/dL 10/27/16 05:30 AST 18 units/L (5-40) 10/27/16 05:30 ALT 13 units/L (7-56) 10/27/16 05:30 Alkaline Phosphatase 116 units/L (35-129) 10/27/16 05:30 Ammonia 30.0 umol/L (25-60) 10/26/16 09:00 Total Creatine Kinase 72 units/L (55-170) 11/02/16 18:37 CK-MB (CK-2) 3.0 ng/mL (0.0-4.0) 10/23/16 12:53 CK-MB (CK-2) Rel Index 0.9 (0-4) 10/23/16 12:53 Troponin T 0.032 ng/mL (0.00-0.029) H 10/23/16 12:53 NT-Pro-B Natriuret Pep 532.6 pg/mL (0-900) 10/23/16 12:53 Total Protein 7.1 g/dL (6.3-8.2) 10/27/16 05:30 Albumin 3.2 g/dL (3.9-5) L 10/27/16 05:30 Albumin/Globulin Ratio 0.8 % 10/27/16 05:30 Triglycerides 199 mg/dL (2-149) H 10/23/16 12:53 Cholesterol 143 mg/dL (50-199) 10/23/16 12:53 LDL Cholesterol Direct 64 mg/dL (50-130) 10/23/16 12:53 HDL Cholesterol 40 mg/dL (40-59) 10/23/16 12:53 Cholesterol/HDL Ratio 3.57 % 10/23/16 12:53 TSH 1.040 mlU/mL (0.270-4.200) 10/23/16 12:53 Free T4 1.13 ng/dL (0.76-1.46) 10/23/16 22:59 Thyroxine (T4) 5.2 ug/dL (4.0-12.0) 10/23/16 22:59 T3 (NISHA) 56 ng/dL (76-181) L 10/23/16 22:59 Free T3 Index 2.0 pg/mL (2.3-4.2) L 10/23/16 22:59 T3 Uptake See scanned report 10/23/16 22:59 Urine Color Yellow (Yellow) 11/03/16 07:47 Urine Turbidity Clear (Clear) 11/03/16 07:47 Urine pH 5.0 (5.0-7.0) 11/03/16 07:47 Ur Specific [place] 1.012 (1.003-1.030) 11/03/16 07:47 Urine Protein <15 mg/dl mg/dL (Negative) 11/03/16 07:47 Urine Glucose (UA) Neg mg/dL (Negative) 11/03/16 07:47 Urine Ketones Neg mg/dL (Negative) 11/03/16 07:47 Urine Blood Neg (Negative) 11/03/16 07:47 Urine Nitrite Pos (Negative) 11/03/16 07:47 Urine Bilirubin Neg (Negative) 11/03/16 07:47 Urine Urobilinogen 4.0 mg/dL (<2.0) 11/03/16 07:47 Ur Leukocyte Esterase Tr (Negative) 11/03/16 07:47 Urine WBC (Auto) 1.0 /HPF (0.0-6.0) 11/03/16 07:47 Urine RBC (Auto) 5.0 /HPF (0.0-6.0) 11/03/16 07:47 U Epithel Cells (Auto) < 1.0 /HPF (0-13.0) 11/03/16 07:47 Urine Bacteria (Auto) 2+ /HPF (Negative) 11/03/16 07:47 Urine Mucus Few /HPF 11/03/16 07:47 Urine Opiates Screen Presumptive negative 10/21/16 20:36 Urine Methadone Screen Presumptive negative 10/21/16 20:36 Ur Barbiturates Screen Presumptive negative 10/21/16 20:36 Ur Phencyclidine Scrn Presumptive negative 10/21/16 20:36 Ur Amphetamines Screen Presumptive negative 10/21/16 20:36 U Benzodiazepines Scrn Presumptive negative 10/21/16 20:36 Urine Cocaine Screen Presumptive negative 10/21/16 20:36 U Marijuana (THC) Screen Presumptive negative 10/21/16 20:36 Drugs of Abuse Note Disclamer 10/21/16 20:36 Plasma/Serum Alcohol < 0.01 gm% (0-0.07) 10/21/16 20:30 TB (QFT) Gold In Tube Negative (Negative) 11/10/16 00:08 TB Test (QFT) Nil 0.00 IU/mL (()) 11/10/16 00:08 TB Test Mitogen - Nil 1.22 IU/mL (()) 11/10/16 00:08 TB Test Antigen - Nil 0.01 IU/mL (()) 11/10/16 00:08 Microbiology 11/15/16 Unknown Finger - Right Index Surgical Culture - Preliminary 11/15/16 Unknown Finger - Right Index Surgical Culture - Preliminary 11/15/16 Unknown Finger - Right Index Anaerobic Culture - Preliminary 11/15/16 Unknown Finger - Right Index Anaerobic Culture - Preliminary 11/11/16 05:32 Peripheral/Venous Blood Culture - Final NO GROWTH AFTER 5 DAYS 11/11/16 05:32 Peripheral/Venous Blood Culture - Final Staphylococcus Epidermidis 11/08/16 15:35 Drainage Anaerobic Culture - Final 11/08/16 Unknown Finger - Right Index Wound Culture - Final Beta Hemoltyic Strep Group G 11/02/16 17:15 Peripheral/Venous Blood Culture - Final NO GROWTH AFTER 5 DAYS 11/02/16 17:15 Peripheral/Venous Blood Culture - Final NO GROWTH AFTER 5 DAYS 11/02/16 Unknown Urine,Clean Catch Urine Culture - Final
--- NOTE | 2016-11-18 13:40 | Progress Note ---
Assessment and Plan - Patient Problems (1) Finger amputation, no complication Current Visit: Yes Status: Acute Qualifiers: Encounter type: initial encounter Qualified Code(s): S68.119A - Complete traumatic metacarpophalangeal amputation of unspecified finger, initial encounter Plan to address problem: Hand dressings intact, no obvious drainage. Continued elevation, antibiotic therapy. Discharge plan as per internal medicine, followup in our office upon discharge. Subjective Date of service: 11/18/16 Principal diagnosis: Right index finger infection Interval history: Post index amputation right hand, cultures reviewed. Patient is a restrained, the hand dressings are missing, theTLC drain(which is secured with sutures) are also missing. The [place] drain in place, mild swelling, wound is dry, flaps are viable. Objective Vital signs: Vital Signs - 12hr 11/18/16 11/18/16 11/18/16 04:00 08:55 11:23 Temperature 97.9 F 97.1 F L Pulse Rate 72 Pulse Rate [ 98 H 72 Right Radial] Respiratory 18 20 Rate Blood Pressure 145/67 Blood Pressure 131/63 145/67 [Right Arm] O2 Sat by Pulse 100 Oximetry 11/18/16 13:25 Temperature 98.4 F Pulse Rate Pulse Rate [ 88 Right Radial] Respiratory 20 Rate Blood Pressure Blood Pressure 128/60 [Right Arm] O2 Sat by Pulse Oximetry - Labs CBC & BMP: 11/18/16 08:50 11/16/16 10:32 Labs: Abnormal lab results 11/17/16 11/17/16 11/18/16 Range/Units 11:57 21:39 05:33 RBC (3.65-5.03) M/mm3 Hgb (11.8-15.2) gm/dl Hct (35.5-45.6) % RDW (13.2-15.2) % Lymph % (Auto) (13.4-35.0) % Lymph # (1.2-5.4) K/mm3 Seg Neutrophils % (40.0-70.0) % POC Glucose 234 H 199 H 152 H (70-105) 11/18/16 11/18/16 11/18/16 Range/Units 06:40 08:50 11:56 RBC 2.65 L 2.81 L (3.65-5.03) M/mm3 Hgb 7.8 L 8.4 L (11.8-15.2) gm/dl Hct 24.0 L 25.5 L (35.5-45.6) % RDW 19.0 H 18.6 H (13.2-15.2) % Lymph % (Auto) 9.9 L (13.4-35.0) % Lymph # 0.6 L (1.2-5.4) K/mm3 Seg Neutrophils % 79.8 H (40.0-70.0) % POC Glucose 155 H (70-105)
[2016-11-18] MEDS: TYLENOL PO PRN (16:56)
[2016-11-18 17:03] LABS: Blood Urea Nitrogen 9 mg/dL (9-20); Calcium 7.7 mg/dL (8.4-10.2); Carbon Dioxide 26 mmol/L (22-30); Glucose 205 mg/dL (75-100); Potassium 3.9 mmol/L (3.6-5.0); Sodium 139 mmol/L (137-145)
[2016-11-18 17:10] LABS: Anion Gap 14 mmol/L
[2016-11-18] MEDS: DESYREL PO SCH (22:00)
[2016-11-18] MEDS: DILAUDID IV PRN (22:02)
[2016-11-19] MEDS: D5/0.45NS 1,000 ML IV SCH ×2 (06:46→22:12)
[2016-11-19] MEDS: SYNTHROID PO SCH (06:47)
[2016-11-19] MEDS: NOVOLOG SUB-Q SCH ×3 (09:20→17:52)
[2016-11-19] MEDS: NEURONTIN PO SCH ×2 (09:36→23:00)
[2016-11-19] MEDS: ZYLOPRIM PO SCH (09:36)
[2016-11-19] MEDS: HALDOL PO SCH ×2 (09:37→22:56)
[2016-11-19] MEDS: HCTZ PO SCH (09:37)
[2016-11-19] MEDS: COLACE PO SCH ×2 (09:37→22:55)
[2016-11-19] MEDS: ZOVIRAX PO SCH (09:37)
[2016-11-19] MEDS: MIRALAX 3350 PO SCH (09:37)
[2016-11-19] MEDS: ROXICODONE PO SCH (09:38)
[2016-11-19] MEDS: COREG PO SCH ×2 (09:38→23:07)
[2016-11-19] MEDS: BENADRYL IM PRN ×2 (10:19→22:56)
--- NOTE | 2016-11-19 10:25 | Progress Note ---
Assessment and Plan Current antibiotics: None Previous Antibiotics: Ceftriaxone 2 g IV daily (11/10 - 11/18) Acyclovir 800 mg po daily Zosyn 4.5 g IV every 8 hours 11/09-11/10 Bactrim one DS by mouth twice a day 11/08-11/10 Levaquin 750 mg daily 11/05-11/08 Outpatient antibiotics: po Keflex Acyclovir 800 mg daily ASSESSMENT: Mahesh Núñez is a 70 y/o male with dementia, T-cell lymphoma, CKD, DM2, CESIA, hypothyroidism, CAD, anemia, and gout who was admitted to [facility] after being sent from his residential for medical clearance for admission to [place] to the [facility] ED on 10/26/16 with "acting out behavior" whereby he was belligerent to staff and residents. He is seen now for a infection of his distal right index finger. Problem list: 1. Right index finger abscess/R/O underlying osteomyelitis - Unclear etiology ( ? Trauma vs herpes vs possible lymphoma) - s/p orthopedic I&D 11/09 - Culture with group G strep. -Status post amputation 11/15 at [facility]. 2. Positive blood culture -11/11/16: 1/2 sets with coag-negative Staphylococcus. Very likely represents contaminated bottles. 3. History of TB - ? Details 4. Dementia/ ? Psychosis -Lethargic but not agitated today 5. Hx of ? HSV infection - On chronic, suppressive acyclovir therapy 6. Hx of T-cell lymphoma -Details unclear 7. HARSHA -Improving 8. Type 2 DM 9. Hx of gouty arthritis 10. CAD 11. Hypothyroidism 12. Anemia PLAN: 1. Continue follow off antibiotics. 2. Continue local wound care and continued observation 3. Glycemic control as per Hospitalist team 4. We will sign off. Call again if needed. Thank you Subjective Date of service: 11/19/16 Principal diagnosis: Right index finger infection Interval history: Sleeping. No distress. Objective - Exam Narrative Exam: HEENT: Pupils are equal reactive to light and accommodation. Conjunctiva clear. Oropharynx is not well seen. NECK: Supple. No enlargement of the thyroid gland. No significant cervical lymphadenopathy. No jugular venous distention at 30. LUNGS: Grossly clear. HEART: Regular rate. S1 and S2 are normal. There are no murmurs, gallops, clicks or rubs heard. ABDOMEN: Soft and nontender. Liver and spleen are not palpably enlarged or tender. No palpable masses. Bowel sounds are normoactive. EXTREMITIES: Patches of dry scaly rash over lower extremities greater than upper extremities. Surgical wraps over right index finger amputation site. SKIN: As per extremity findings. NEUROLOGIC: Asleep on rounds. - Constitutional Vitals: Vital Signs Temp Pulse Resp BP Pulse Ox 98.1 F 72 18 125/69 96 11/19/16 08:00 11/19/16 09:38 11/19/16 08:00 11/19/16 09:38 11/19/16 08:00 Temperature -Last 24 Hours Temperature 98.1 F Temperature 98.5 F Temperature 98.1 F Temperature 97.9 F Temperature 99.0 F Temperature 98.4 F - Labs CBC & Chem 7: 11/18/16 08:50 11/18/16 16:30 Labs: Abnormal lab results 11/17/16 11/18/16 11/18/16 Range/Units 16:38 11:56 16:30 Glucose 205 H (75-100) mg/dL POC Glucose 270 H 155 H (70-105) Calcium 7.7 L (8.4-10.2) mg/dL 11/18/16 11/18/16 11/19/16 Range/Units 16:47 21:45 06:14 Glucose (75-100) mg/dL POC Glucose 206 H 134 H 130 H (70-105) Calcium (8.4-10.2) mg/dL
--- NOTE | 2016-11-19 10:33 | Discharge Summary ---
Providers - Providers Date of Admission: 10/26/16 12:28 Date of discharge: 11/19/16 Attending physician: ARMEN LAZO 11/14/16 09:30 Consult to Wound/ET Nurse [CONS] Urgent Reason For Exam: wound eval 11/18/16 09:22 Physical Therapy Evaluation and Treat [CONS] Routine Comment: Reason For Exam: debility 10/28/16 16:31 Physical Therapy Evaluation and Treat [CONS] Routine Comment: Reason For Exam: altered level of consciousness/psychosis 11/02/16 12:37 Consult to Dietitian/Nutrition [CONS] Routine Physician Instructions: Reason For Exam: Reason for Consult: Malnutrition 11/07/16 14:05 Consult to Wound/ET Nurse [CONS] Urgent Reason For Exam: wound eval (R) index finger 11/07/16 15:38 Consult to Physician [CONS] Routine Consulting Provider: JACKSON MACDONALD V Reason For Exam: Right hand infection Place consult to:: [place] Notified[place] [facility] [place] called:: [phone] Was contact made?: Yes If yes, spoke with:: reese Time called:: 12:50 11/09/16 11:33 Consult to Physician [CONS] Routine Consulting Provider: TY CUADRA Reason For Exam: right index finger abscess Place consult to:: DR. Cuadra Notified:: Dr. Cuadra Phone number called:: [phone] Was contact made?: Yes Time called:: 12:30 Comment:: COMPLETED Primary care physician: [facility] Hospitalization Reason for admission: agitation Condition: Stable Hospital course: Mahesh Núñez is a 70 y/o male with dementia, T-cell lymphoma, CKD, DM2, CESIA, hypothyroidism, CAD, anemia, and gout who was admitted to [facility] after being sent from his detention for medical clearance for admission to [place] to the [facility] ED on 10/26/16 with "acting out behavior" whereby he was belligerent to staff and residents. During his workup and hospitalization, patient was found to have an infection of his distal right index finger. Patient had abscess in possible underlying osteomyelitis. Etiology was unclear. Questionable trauma versus herpes versus possible lymphoma. Patient underwent I&D on 11/09/16. Cultures grew group G strep. The patient also had positive blood cultures on 11/11/16 with 1/2 sets with coag-negative Staphylococcus which was felt to be likely contaminated. Patient received appropriate IV antibiotics. Patient underwent amputation with dressings intact and drain in place. Patient is to follow-up with orthopedics as an outpatient. With regards to the HSV infection patient was on chronic suppressive acyclovir therapy. Other complications none hospital stay included acute kidney injury which resolved. Patient also had a history of hypothyroidism, coronary artery disease, gouty arthritis and type 2 diabetes mellitus. These problems were also managed during the hospitalization and stabilized. Patient was felt to have received maximal hospital benefit for discharge. Patient will be discharged to [facility]. Dedicated discharge time 35 minutes. Disposition: DC/TX SNF W [facility] CERT Time spent for discharge: 35 Core Measure Documentation - Palliative Care Palliative Care/ Comfort Measures: Not Applicable - Core Measures Any of the following diagnoses?: none Exam - Constitutional Vitals: Temp Pulse Resp BP Pulse Ox 98.1 F 72 18 125/69 96 11/19/16 08:00 11/19/16 09:38 11/19/16 08:00 11/19/16 09:38 11/19/16 08:00 General appearance: Present: no acute distress, well-nourished - EENT Eyes: Present: PERRL ENT: hearing intact, clear oral mucosa - Neck Neck: Present: supple, normal ROM - Respiratory Respiratory effort: normal Respiratory: bilateral: CTA - Cardiovascular Heart Sounds: Present: S1 & S2. Absent: rub, click - Extremities Extremities: pulses symmetrical, No edema Peripheral Pulses: within normal limits - Abdominal General gastrointestinal: Present: soft, non-tender, non-distended, normal bowel sounds Male genitourinary: Present: normal - Integumentary Integumentary: Present: clear, warm, dry - Musculoskeletal Musculoskeletal: gait normal, strength equal bilaterally - Psychiatric Psychiatric: appropriate mood/affect, intact judgment & insight - Neurologic Neurologic: CNII-XII intact, moves all extremities Plan Activity: no restrictions Weight Bearing Status: Full Weight Bearing Diet: regular Wound: keep clean and dry, change dressing, per your surgeon's advice, per wound nurse instructions, drain care as instructed Follow up with: DEMETRI WITT MD [Primary Care Provider] - 3-5 Days JACKSON MACDONALD MD [Staff Physician] - 7 Days TY CUADRA MD [Staff Physician] - 7 Days Prescriptions: oxyCODONE [Roxicodone TAB] 5 mg PO DAILY #30 tablet traZODone [Desyrel] 25 mg PO QHS #30 tablet
[2016-11-19] MEDS: DILAUDID IV PRN ×2 (12:05→22:54)
[2016-11-19] MEDS: LAC-HYDRIN TP SCH (12:15)
[2016-11-19] MEDS: PROCARDIA XL PO SCH (12:16)
[2016-11-19] MEDS: HEPARIN SUB-Q SCH ×2 (12:26→23:11)
[2016-11-19] MEDS: HALDOL IM PRN (16:36)
[2016-11-19] MEDS: ATARAX PO PRN (17:47)
[2016-11-19] MEDS: DESYREL PO SCH (23:20)
[2016-11-20] MEDS: NOVOLOG SUB-Q SCH ×5 (00:16→22:23)
[2016-11-20] MEDS: SYNTHROID PO SCH (06:56)
[2016-11-20] MEDS: DILAUDID IV PRN ×3 (07:47→21:58)
[2016-11-20] MEDS: BENADRYL IM PRN ×3 (08:45→21:59)
--- NOTE | 2016-11-20 10:28 | Progress Note ---
Assessment and Plan Assessment and plan: --Acute psychosis Mental health input appreciated, psych meds are being adjusted, patient will need placement -PNA- hospital acquired/sepsis Patient has completed abx --Hypernatremia Resolved with IV hydration --Acute renal failure probably to vasomotor nephropathy from poor PO intake cw IVF. Follow-up BMP --Type 2 diabetes mellitus Continue current management, glucose now better controlled --Dermatitis continue Lac-Hydrin/hydrocortisone cream continue atarax prn Supportive skincare --Right second finger paronychia/Abscess/sepsis Orthopedic input appreciated, status post I&D. Await final surgical cultures. Culture with group G strep. Antibiotics have been changed to Rocephin per ID ID following. --? History TB Follow-up Old records. Quantiferon TB assay ordered. --Hx of T-cell lymphoma --Hx of ? Herpes Acyclovir therapy ( suppressive dosing) --hypothyroidism TSH normal -- Hx of gout --Disposition patient had plans of discharge to [facility] yesterday however still requiring restraints. Patient without restraints currently. If patient continues to exhibit behavioral problems, psychiatric evaluation. Potential discharge today. History Interval history: No new issues overnight. Hospitalist Physical - Constitutional Vitals: Temp Pulse Resp BP Pulse Ox 98.1 F 70 20 115/62 97 11/20/16 05:00 11/20/16 05:00 11/20/16 07:47 11/20/16 05:00 11/20/16 08:21 General appearance: Present: no acute distress, well-nourished - EENT Eyes: Present: PERRL, EOM intact ENT: hearing intact, clear oral mucosa, dentition normal - Neck Neck: Present: supple, normal ROM - Respiratory Respiratory effort: normal Respiratory: bilateral: CTA - Cardiovascular Rhythm: regular Heart Sounds: Present: S1 & S2. Absent: gallop, rub - Extremities Extremities: no ischemia, No edema, Full ROM - Abdominal General gastrointestinal: soft, non-tender, non-distended, normal bowel sounds - Integumentary Integumentary: Present: clear, warm, dry - Neurologic Neurologic: CNII-XII intact, moves all extremities Results - Labs CBC & Chem 7: 11/18/16 08:50 11/18/16 16:30 Labs: Laboratory Last Values WBC 7.0 K/mm3 (4.5-11.0) 11/18/16 08:50 RBC 2.81 M/mm3 (3.65-5.03) L 11/18/16 08:50 Hgb 8.4 gm/dl (11.8-15.2) L 11/18/16 08:50 Hct 25.5 % (35.5-45.6) L 11/18/16 08:50 MCV 91 fl (84-94) 11/18/16 08:50 MCH 30 pg (28-32) 11/18/16 08:50 MCHC 33 % (32-34) 11/18/16 08:50 RDW 18.6 % (13.2-15.2) H 11/18/16 08:50 Plt Count 352 K/mm3 (140-440) 11/18/16 08:50 Lymph % (Auto) 9.9 % (13.4-35.0) L 11/18/16 06:40 [place] % (Auto) 6.1 % (0.0-7.3) 11/18/16 06:40 Eos % (Auto) 2.9 % (0.0-4.3) 11/18/16 06:40 Baso % (Auto) 1.3 % (0.0-1.8) 11/18/16 06:40 Lymph # 0.6 K/mm3 (1.2-5.4) L 11/18/16 06:40 [place] # 0.4 K/mm3 (0.0-0.8) 11/18/16 06:40 Eos # 0.2 K/mm3 (0.0-0.4) 11/18/16 06:40 Baso # 0.1 K/mm3 (0.0-0.1) 11/18/16 06:40 Seg Neutrophils % 79.8 % (40.0-70.0) H 11/18/16 06:40 Seg Neutrophils # 4.7 K/mm3 (1.8-7.7) 11/18/16 06:40 PT 14.3 Sec. (12.2-14.9) 10/23/16 12:53 INR 1.12 (0.87-1.13) 10/23/16 12:53 APTT 30.6 Sec. (24.2-36.6) 10/23/16 12:53 POC ABG pH 7.507 (7.35-7.45) H 11/12/16 21:51 POC ABG pCO2 32.8 (35-45) L 11/12/16 21:51 POC ABG pO2 78 (80-105) L 11/12/16 21:51 POC ABG HCO3 26.0 11/12/16 21:51 POC ABG Total CO2 27 11/12/16 21:51 POC ABG O2 Sat 97 11/12/16 21:51 POC ABG Base Excess 3 11/12/16 21:51 FiO2 28 % 11/12/16 21:51 Sodium 139 mmol/L (137-145) 11/18/16 16:30 Potassium 3.9 mmol/L (3.6-5.0) 11/18/16 16:30 Chloride 103.0 mmol/L (98-107) 11/18/16 16:30 Carbon Dioxide 26 mmol/L (22-30) 11/18/16 16:30 Anion Gap 14 mmol/L 11/18/16 16:30 BUN 9 mg/dL (9-20) 11/18/16 16:30 Creatinine 0.9 mg/dL (0.8-1.5) 11/18/16 16:30 Estimated GFR > 60 ml/min 11/18/16 16:30 BUN/Creatinine Ratio 10.00 % 11/18/16 16:30 Glucose 205 mg/dL (75-100) H 11/18/16 16:30 POC Glucose 95 (70-105) 11/20/16 06:28 Hemoglobin A1c 7.2 % (4-6) H 10/27/16 05:30 Lactic Acid 2.8 mmol/L (0.7-2.0) H* 10/23/16 12:53 Calcium 7.7 mg/dL (8.4-10.2) L 11/18/16 16:30 Magnesium 1.9 mg/dL (1.7-2.3) 10/31/16 12:35 Total Bilirubin 0.9 mg/dL (0.1-1.2) 10/27/16 05:30 Direct Bilirubin 0.3 mg/dL (0-0.2) H 10/27/16 05:30 Indirect Bilirubin 0.6 mg/dL 10/27/16 05:30 AST 18 units/L (5-40) 10/27/16 05:30 ALT 13 units/L (7-56) 10/27/16 05:30 Alkaline Phosphatase 116 units/L (35-129) 10/27/16 05:30 Ammonia 30.0 umol/L (25-60) 10/26/16 09:00 Total Creatine Kinase 72 units/L (55-170) 11/02/16 18:37 CK-MB (CK-2) 3.0 ng/mL (0.0-4.0) 10/23/16 12:53 CK-MB (CK-2) Rel Index 0.9 (0-4) 10/23/16 12:53 Troponin T 0.032 ng/mL (0.00-0.029) H 10/23/16 12:53 NT-Pro-B Natriuret Pep 532.6 pg/mL (0-900) 10/23/16 12:53 Total Protein 7.1 g/dL (6.3-8.2) 10/27/16 05:30 Albumin 3.2 g/dL (3.9-5) L 10/27/16 05:30 Albumin/Globulin Ratio 0.8 % 10/27/16 05:30 Triglycerides 199 mg/dL (2-149) H 10/23/16 12:53 Cholesterol 143 mg/dL (50-199) 10/23/16 12:53 LDL Cholesterol Direct 64 mg/dL (50-130) 10/23/16 12:53 HDL Cholesterol 40 mg/dL (40-59) 10/23/16 12:53 Cholesterol/HDL Ratio 3.57 % 10/23/16 12:53 TSH 1.040 mlU/mL (0.270-4.200) 10/23/16 12:53 Free T4 1.13 ng/dL (0.76-1.46) 10/23/16 22:59 Thyroxine (T4) 5.2 ug/dL (4.0-12.0) 10/23/16 22:59 T3 (NISHA) 56 ng/dL (76-181) L 10/23/16 22:59 Free T3 Index 2.0 pg/mL (2.3-4.2) L 10/23/16 22:59 T3 Uptake See scanned report 10/23/16 22:59 Urine Color Yellow (Yellow) 11/03/16 07:47 Urine Turbidity Clear (Clear) 11/03/16 07:47 Urine pH 5.0 (5.0-7.0) 11/03/16 07:47 Ur Specific [place] 1.012 (1.003-1.030) 11/03/16 07:47 Urine Protein <15 mg/dl mg/dL (Negative) 11/03/16 07:47 Urine Glucose (UA) Neg mg/dL (Negative) 11/03/16 07:47 Urine Ketones Neg mg/dL (Negative) 11/03/16 07:47 Urine Blood Neg (Negative) 11/03/16 07:47 Urine Nitrite Pos (Negative) 11/03/16 07:47 Urine Bilirubin Neg (Negative) 11/03/16 07:47 Urine Urobilinogen 4.0 mg/dL (<2.0) 11/03/16 07:47 Ur Leukocyte Esterase Tr (Negative) 11/03/16 07:47 Urine WBC (Auto) 1.0 /HPF (0.0-6.0) 11/03/16 07:47 Urine RBC (Auto) 5.0 /HPF (0.0-6.0) 11/03/16 07:47 U Epithel Cells (Auto) < 1.0 /HPF (0-13.0) 11/03/16 07:47 Urine Bacteria (Auto) 2+ /HPF (Negative) 11/03/16 07:47 Urine Mucus Few /HPF 11/03/16 07:47 Urine Opiates Screen Presumptive negative 10/21/16 20:36 Urine Methadone Screen Presumptive negative 10/21/16 20:36 Ur Barbiturates Screen Presumptive negative 10/21/16 20:36 Ur Phencyclidine Scrn Presumptive negative 10/21/16 20:36 Ur Amphetamines Screen Presumptive negative 10/21/16 20:36 U Benzodiazepines Scrn Presumptive negative 10/21/16 20:36 Urine Cocaine Screen Presumptive negative 10/21/16 20:36 U Marijuana (THC) Screen Presumptive negative 10/21/16 20:36 Drugs of Abuse Note Disclamer 10/21/16 20:36 Plasma/Serum Alcohol < 0.01 gm% (0-0.07) 10/21/16 20:30 TB (QFT) Gold In Tube Negative (Negative) 11/10/16 00:08 TB Test (QFT) Nil 0.00 IU/mL (()) 11/10/16 00:08 TB Test Mitogen - Nil 1.22 IU/mL (()) 11/10/16 00:08 TB Test Antigen - Nil 0.01 IU/mL (()) 11/10/16 00:08
[2016-11-20] MEDS: D5/0.45NS 1,000 ML IV SCH (11:55)
[2016-11-20] MEDS: COREG PO SCH ×2 (12:00→22:21)
[2016-11-20] MEDS: HCTZ PO SCH (12:00)
[2016-11-20] MEDS: HALDOL PO SCH ×2 (12:01→22:03)
[2016-11-20] MEDS: COLACE PO SCH ×2 (12:01→21:59)
[2016-11-20] MEDS: PROCARDIA XL PO SCH (12:01)
[2016-11-20] MEDS: ROXICODONE PO SCH (12:02)
[2016-11-20] MEDS: HEPARIN SUB-Q SCH ×2 (12:03→22:21)
[2016-11-20] MEDS: MIRALAX 3350 PO SCH (12:05)
[2016-11-20] MEDS: ZYLOPRIM PO SCH (12:16)
[2016-11-20] MEDS: LAC-HYDRIN TP SCH ×2 (12:18→22:21)
[2016-11-20] MEDS: NEURONTIN PO SCH ×2 (16:25→22:23)
[2016-11-20] MEDS: DESYREL PO SCH (21:59)
[2016-11-21] MEDS: LAC-HYDRIN TP SCH ×3 (02:20→23:40)
[2016-11-21] MEDS: SYNTHROID PO SCH (06:40)
--- NOTE | 2016-11-21 07:38 | XRay Report ---
Right wrist: There is extensive vascular calcification of the arteries and generalized swelling of the soft tissues. 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 There are some cystic changes involving the lunate and navicular bones however the cartilaginous spaces, joint alignment, and mineralization of the bones are relatively unremarkable. Impression: Evidence of underlying metabolic disease. Nonspecific diffuse soft tissue swelling of the forearm and wrist.
--- NOTE | 2016-11-21 08:24 | Progress Note ---
Assessment and Plan Assessment and plan: --Severe dementia with episodes of acute delirium/agitation. Psychiatric recommendations for medication dosing. Start Depakote 250 mg twice a day. Consider adding Klonopin if no significant improvement. -PNA- hospital acquired/sepsis Patient has completed abx --Hypernatremia Resolved with IV hydration --Acute renal failure probably to vasomotor nephropathy from poor PO intake Continue with IVF as needed. Follow-up BMP --Type 2 diabetes mellitus Continue current management, glucose now better controlled --Dermatitis continue Lac-Hydrin/hydrocortisone cream continue atarax prn Supportive skincare --Right second finger paronychia/Abscess/sepsis Etiology with trauma versus lymphoma versus herpes Patient with amputation 11/15 at [facility] Culture with group G strep ID following. --? History TB Follow-up Old records. Quantiferon TB assay ordered. --Hx of T-cell lymphoma --Hx of ? Herpes Acyclovir therapy ( suppressive dosing) --hypothyroidism TSH normal -- Hx of gout --Disposition patient had plans of discharge to shelter yesterday however still requiring restraints. Patient continues to exhibit behavioral problems. I discussed the case with [facility]ry [facility] recommended Depakote twice a day. History Interval history: No new issues overnight. Patient still remains agitated requiring restraints. Patient with a fall yesterday attempting to get out of bed with left forearm pain. Hospitalist Physical - Constitutional Vitals: Temp Pulse Resp BP Pulse Ox 98.0 F 83 18 124/61 98 11/21/16 03:15 11/21/16 03:15 11/21/16 03:15 11/21/16 03:15 11/21/16 03:15 General appearance: Present: no acute distress, well-nourished - EENT Eyes: Present: PERRL, EOM intact ENT: hearing intact, clear oral mucosa, dentition normal - Neck Neck: Present: supple, normal ROM - Respiratory Respiratory effort: normal Respiratory: bilateral: diminished - Cardiovascular Rhythm: regular Heart Sounds: Present: S1 & S2. Absent: gallop, rub - Extremities Extremities: no ischemia, No edema, Full ROM - Abdominal General gastrointestinal: soft, non-tender, non-distended, normal bowel sounds - Integumentary Integumentary: Present: clear, warm, dry - Neurologic Neurologic: CNII-XII intact, moves all extremities Results - Labs CBC & Chem 7: 01/09/17 08:50 11/18/16 16:30 Labs: Laboratory Last Values WBC 7.0 K/mm3 (4.5-11.0) 11/18/16 08:50 RBC 2.81 M/mm3 (3.65-5.03) L 11/18/16 08:50 Hgb 8.4 gm/dl (11.8-15.2) L 11/18/16 08:50 Hct 25.5 % (35.5-45.6) L 11/18/16 08:50 MCV 91 fl (84-94) 11/18/16 08:50 MCH 30 pg (28-32) 11/18/16 08:50 MCHC 33 % (32-34) 11/18/16 08:50 RDW 18.6 % (13.2-15.2) H 11/18/16 08:50 Plt Count 352 K/mm3 (140-440) 11/18/16 08:50 Lymph % (Auto) 9.9 % (13.4-35.0) L 11/18/16 06:40 [place] % (Auto) 6.1 % (0.0-7.3) 11/18/16 06:40 Eos % (Auto) 2.9 % (0.0-4.3) 11/18/16 06:40 Baso % (Auto) 1.3 % (0.0-1.8) 11/18/16 06:40 Lymph # 0.6 K/mm3 (1.2-5.4) L 11/18/16 06:40 [place] # 0.4 K/mm3 (0.0-0.8) 11/18/16 06:40 Eos # 0.2 K/mm3 (0.0-0.4) 11/18/16 06:40 Baso # 0.1 K/mm3 (0.0-0.1) 11/18/16 06:40 Seg Neutrophils % 79.8 % (40.0-70.0) H 11/18/16 06:40 Seg Neutrophils # 4.7 K/mm3 (1.8-7.7) 11/18/16 06:40 PT 14.3 Sec. (12.2-14.9) 10/23/16 12:53 INR 1.12 (0.87-1.13) 10/23/16 12:53 APTT 30.6 Sec. (24.2-36.6) 10/23/16 12:53 POC ABG pH 7.507 (7.35-7.45) H 11/12/16 21:51 POC ABG pCO2 32.8 (35-45) L 11/12/16 21:51 POC ABG pO2 78 (80-105) L 11/12/16 21:51 POC ABG HCO3 26.0 11/12/16 21:51 POC ABG Total CO2 27 11/12/16 21:51 POC ABG O2 Sat 97 11/12/16 21:51 POC ABG Base Excess 3 11/12/16 21:51 FiO2 28 % 11/12/16 21:51 Sodium 139 mmol/L (137-145) 11/18/16 16:30 Potassium 3.9 mmol/L (3.6-5.0) 11/18/16 16:30 Chloride 103.0 mmol/L (98-107) 11/18/16 16:30 Carbon Dioxide 26 mmol/L (22-30) 11/18/16 16:30 Anion Gap 14 mmol/L 11/18/16 16:30 BUN 9 mg/dL (9-20) 11/18/16 16:30 Creatinine 0.9 mg/dL (0.8-1.5) 11/18/16 16:30 Estimated GFR > 60 ml/min 11/18/16 16:30 BUN/Creatinine Ratio 10.00 % 11/18/16 16:30 Glucose 205 mg/dL (75-100) H 11/18/16 16:30 POC Glucose 79 (70-105) 11/21/16 06:53 Hemoglobin A1c 7.2 % (4-6) H 10/27/16 05:30 Lactic Acid 2.8 mmol/L (0.7-2.0) H* 10/23/16 12:53 Calcium 7.7 mg/dL (8.4-10.2) L 11/18/16 16:30 Magnesium 1.9 mg/dL (1.7-2.3) 10/31/16 12:35 Total Bilirubin 0.9 mg/dL (0.1-1.2) 10/27/16 05:30 Direct Bilirubin 0.3 mg/dL (0-0.2) H 10/27/16 05:30 Indirect Bilirubin 0.6 mg/dL 10/27/16 05:30 AST 18 units/L (5-40) 10/27/16 05:30 ALT 13 units/L (7-56) 10/27/16 05:30 Alkaline Phosphatase 116 units/L (35-129) 10/27/16 05:30 Ammonia 30.0 umol/L (25-60) 10/26/16 09:00 Total Creatine Kinase 72 units/L (55-170) 11/02/16 18:37 CK-MB (CK-2) 3.0 ng/mL (0.0-4.0) 10/23/16 12:53 CK-MB (CK-2) Rel Index 0.9 (0-4) 10/23/16 12:53 Troponin T 0.032 ng/mL (0.00-0.029) H 10/23/16 12:53 NT-Pro-B Natriuret Pep 532.6 pg/mL (0-900) 10/23/16 12:53 Total Protein 7.1 g/dL (6.3-8.2) 10/27/16 05:30 Albumin 3.2 g/dL (3.9-5) L 10/27/16 05:30 Albumin/Globulin Ratio 0.8 % 10/27/16 05:30 Triglycerides 199 mg/dL (2-149) H 10/23/16 12:53 Cholesterol 143 mg/dL (50-199) 10/23/16 12:53 LDL Cholesterol Direct 64 mg/dL (50-130) 10/23/16 12:53 HDL Cholesterol 40 mg/dL (40-59) 10/23/16 12:53 Cholesterol/HDL Ratio 3.57 % 10/23/16 12:53 TSH 1.040 mlU/mL (0.270-4.200) 10/23/16 12:53 Free T4 1.13 ng/dL (0.76-1.46) 10/23/16 22:59 Thyroxine (T4) 5.2 ug/dL (4.0-12.0) 10/23/16 22:59 T3 (NISHA) 56 ng/dL (76-181) L 10/23/16 22:59 Free T3 Index 2.0 pg/mL (2.3-4.2) L 10/23/16 22:59 T3 Uptake See scanned report 10/23/16 22:59 Urine Color Yellow (Yellow) 11/03/16 07:47 Urine Turbidity Clear (Clear) 11/03/16 07:47 Urine pH 5.0 (5.0-7.0) 11/03/16 07:47 Ur Specific [place] 1.012 (1.003-1.030) 11/03/16 07:47 Urine Protein <15 mg/dl mg/dL (Negative) 11/03/16 07:47 Urine Glucose (UA) Neg mg/dL (Negative) 11/03/16 07:47 Urine Ketones Neg mg/dL (Negative) 11/03/16 07:47 Urine Blood Neg (Negative) 11/03/16 07:47 Urine Nitrite Pos (Negative) 11/03/16 07:47 Urine Bilirubin Neg (Negative) 11/03/16 07:47 Urine Urobilinogen 4.0 mg/dL (<2.0) 11/03/16 07:47 Ur Leukocyte Esterase Tr (Negative) 11/03/16 07:47 Urine WBC (Auto) 1.0 /HPF (0.0-6.0) 11/03/16 07:47 Urine RBC (Auto) 5.0 /HPF (0.0-6.0) 11/03/16 07:47 U Epithel Cells (Auto) < 1.0 /HPF (0-13.0) 11/03/16 07:47 Urine Bacteria (Auto) 2+ /HPF (Negative) 11/03/16 07:47 Urine Mucus Few /HPF 11/03/16 07:47 Urine Opiates Screen Presumptive negative 10/21/16 20:36 Urine Methadone Screen Presumptive negative 10/21/16 20:36 Ur Barbiturates Screen Presumptive negative 10/21/16 20:36 Ur Phencyclidine Scrn Presumptive negative 10/21/16 20:36 Ur Amphetamines Screen Presumptive negative 10/21/16 20:36 U Benzodiazepines Scrn Presumptive negative 10/21/16 20:36 Urine Cocaine Screen Presumptive negative 10/21/16 20:36 U Marijuana (THC) Screen Presumptive negative 10/21/16 20:36 Drugs of Abuse Note Disclamer 10/21/16 20:36 Plasma/Serum Alcohol < 0.01 gm% (0-0.07) 10/21/16 20:30 TB (QFT) Gold In Tube Negative (Negative) 11/10/16 00:08 TB Test (QFT) Nil 0.00 IU/mL (()) 11/10/16 00:08 TB Test Mitogen - Nil 1.22 IU/mL (()) 11/10/16 00:08 TB Test Antigen - Nil 0.01 IU/mL (()) 11/10/16 00:08
[2016-11-21] MEDS: NOVOLOG SUB-Q SCH ×4 (09:18→22:00)
[2016-11-21] MEDS: HALDOL PO SCH (09:28)
[2016-11-21] MEDS: PROCARDIA XL PO SCH (09:29)
[2016-11-21] MEDS: ROXICODONE PO SCH (09:29)
[2016-11-21] MEDS: COLACE PO SCH (09:29)
[2016-11-21] MEDS: ZYLOPRIM PO SCH (09:29)
[2016-11-21] MEDS: COREG PO SCH (09:30)
[2016-11-21] MEDS: ATARAX PO PRN (09:30)
[2016-11-21] MEDS: MIRALAX 3350 PO SCH (09:30)
[2016-11-21] MEDS: HCTZ PO SCH (09:30)
[2016-11-21] MEDS: HEPARIN SUB-Q SCH ×2 (09:36→22:00)
[2016-11-21] MEDS: NEURONTIN PO SCH (10:40)
[2016-11-21] MEDS: BENADRYL IM PRN ×2 (15:02→21:17)
[2016-11-21] MEDS: DILAUDID IV PRN ×3 (15:04→21:18)
[2016-11-21] MEDS: HALDOL IM PRN (18:13)
[2016-11-22] MEDS: BENADRYL IM PRN (02:31)
[2016-11-22] MEDS: COLACE PO SCH ×3 (02:38→21:23)
[2016-11-22] MEDS: COREG PO SCH ×3 (02:38→21:34)
[2016-11-22] MEDS: DESYREL PO SCH ×2 (02:39→21:22)
[2016-11-22] MEDS: HALDOL PO SCH ×3 (02:39→21:23)
[2016-11-22] MEDS: NEURONTIN PO SCH ×3 (02:40→21:23)
[2016-11-22] MEDS: DILAUDID IV PRN (03:30)
[2016-11-22] MEDS: ATARAX PO PRN ×2 (03:44→09:58)
[2016-11-22] MEDS: SYNTHROID PO SCH (05:38)
[2016-11-22] MEDS: D5/0.45NS 1,000 ML IV SCH (05:39)
[2016-11-22 05:41] LABS: Basophils % (Auto) 1.1 % (0.0-1.8); Hematocrit 24.7 % (35.5-45.6); Hemoglobin 8.1 gm/dl (11.8-15.2); Mean Corpuscular HGB Conc 33 % (32-34); Mean Corpuscular Hemoglobin 30 pg (28-32); Mean Corpuscular Volume 91 fl (84-94); Platelet Count 244 K/mm3 (140-440); Red Blood Count 2.71 M/mm3 (3.65-5.03); White Blood Count 4.8 K/mm3 (4.5-11.0)
[2016-11-22 06:10] LABS: Anion Gap 15 mmol/L; Blood Urea Nitrogen 9 mg/dL (9-20); Carbon Dioxide 25 mmol/L (22-30); Chloride 106.3 mmol/L (98-107); Glucose 59 mg/dL (75-100); Potassium 3.6 mmol/L (3.6-5.0); Sodium 143 mmol/L (137-145)
[2016-11-22] MEDS: NOVOLOG SUB-Q SCH ×3 (08:48→17:04)
[2016-11-22] MEDS: ZYLOPRIM PO SCH (09:57)
[2016-11-22] MEDS: PROCARDIA XL PO SCH (09:57)
[2016-11-22] MEDS: HCTZ PO SCH (09:57)
[2016-11-22] MEDS: ROXICODONE PO SCH (09:57)
[2016-11-22] MEDS: HEPARIN SUB-Q SCH ×2 (09:58→21:25)
[2016-11-22] MEDS: MIRALAX 3350 PO SCH (10:05)
[2016-11-22] MEDS: LAC-HYDRIN TP SCH ×2 (10:06→21:45)
--- NOTE | 2016-11-22 10:48 | Progress Note ---
Assessment and Plan Assessment and plan: --Severe dementia with episodes of acute delirium/agitation. Psychiatric recommendations for medication dosing. Started Depakote 250 mg twice a day. Consider adding Klonopin if no significant improvement. -PNA- hospital acquired/sepsis Patient has completed abx --Hypernatremia Resolved with IV hydration --Acute renal failure probably to vasomotor nephropathy from poor PO intake Continue with IVF as needed. Follow-up BMP --Type 2 diabetes mellitus Continue current management, glucose now better controlled --Dermatitis continue Lac-Hydrin/hydrocortisone cream continue atarax prn Supportive skincare --Right second finger paronychia/Abscess/sepsis Etiology with trauma versus lymphoma versus herpes Patient with amputation 11/15 at the [facility] Culture with group G strep ID following. --? History TB Follow-up Old records. Quantiferon TB assay ordered. --Hx of T-cell lymphoma --Hx of ? Herpes Acyclovir therapy ( suppressive dosing) --hypothyroidism TSH normal -- Hx of gout --Disposition patient [facility] however still required restraints. Patient continues to exhibit behavioral problems. The appealed to discharge to Medicare. Case management is attempting to arrange for discharge to geriatric psych facility. History Interval history: No new issues overnight. Patient still remains agitated requiring restraints. Patient with a fall yesterday attempting to get out of bed with left forearm pain. Hospitalist Physical - Constitutional Vitals: Temp Pulse Resp BP Pulse Ox 98.6 F 80 18 155/76 98 11/22/16 08:00 11/22/16 08:00 11/22/16 08:00 11/22/16 08:00 11/22/16 08:00 General appearance: Present: no acute distress, well-nourished - EENT Eyes: Present: PERRL, EOM intact ENT: hearing intact, clear oral mucosa, dentition normal - Neck Neck: Present: supple, normal ROM - Respiratory Respiratory effort: normal Respiratory: bilateral: CTA - Cardiovascular Rhythm: regular Heart Sounds: Present: S1 & S2. Absent: gallop, rub - Extremities Extremities: no ischemia, No edema, Full ROM - Abdominal General gastrointestinal: soft, non-tender, non-distended, normal bowel sounds - Integumentary Integumentary: Present: clear, warm, dry - Neurologic Neurologic: CNII-XII intact, moves all extremities Results - Labs CBC & Chem 7: 11/22/16 05:00 11/22/16 05:00 Labs: Laboratory Last Values WBC 4.8 K/mm3 (4.5-11.0) 11/22/16 05:00 RBC 2.71 M/mm3 (3.65-5.03) L 11/22/16 05:00 Hgb 8.1 gm/dl (11.8-15.2) L 11/22/16 05:00 Hct 24.7 % (35.5-45.6) L 11/22/16 05:00 MCV 91 fl (84-94) 11/22/16 05:00 MCH 30 pg (28-32) 11/22/16 05:00 MCHC 33 % (32-34) 11/22/16 05:00 RDW 19.0 % (13.2-15.2) H 11/22/16 05:00 Plt Count 244 K/mm3 (140-440) 11/22/16 05:00 Lymph % (Auto) 13.0 % (13.4-35.0) L 11/22/16 05:00 [place] % (Auto) 7.5 % (0.0-7.3) H 11/22/16 05:00 Eos % (Auto) 3.0 % (0.0-4.3) 11/22/16 05:00 Baso % (Auto) 1.1 % (0.0-1.8) 11/22/16 05:00 Lymph # 0.6 K/mm3 (1.2-5.4) L 11/22/16 05:00 [place] # 0.4 K/mm3 (0.0-0.8) 11/22/16 05:00 Eos # 0.1 K/mm3 (0.0-0.4) 11/22/16 05:00 Baso # 0.1 K/mm3 (0.0-0.1) 11/22/16 05:00 Seg Neutrophils % 75.4 % (40.0-70.0) H 11/22/16 05:00 Seg Neutrophils # 3.7 K/mm3 (1.8-7.7) 11/22/16 05:00 PT 14.3 Sec. (12.2-14.9) 10/23/16 12:53 INR 1.12 (0.87-1.13) 10/23/16 12:53 APTT 30.6 Sec. (24.2-36.6) 10/23/16 12:53 POC ABG pH 7.507 (7.35-7.45) H 11/12/16 21:51 POC ABG pCO2 32.8 (35-45) L 11/12/16 21:51 POC ABG pO2 78 (80-105) L 11/12/16 21:51 POC ABG HCO3 26.0 11/12/16 21:51 POC ABG Total CO2 27 11/12/16 21:51 POC ABG O2 Sat 97 11/12/16 21:51 POC ABG Base Excess 3 11/12/16 21:51 FiO2 28 % 11/12/16 21:51 Sodium 143 mmol/L (137-145) 11/22/16 05:00 Potassium 3.6 mmol/L (3.6-5.0) 11/22/16 05:00 Chloride 106.3 mmol/L (98-107) 11/22/16 05:00 Carbon Dioxide 25 mmol/L (22-30) 11/22/16 05:00 Anion Gap 15 mmol/L 11/22/16 05:00 BUN 9 mg/dL (9-20) 11/22/16 05:00 Creatinine 1.0 mg/dL (0.8-1.5) 11/22/16 05:00 Estimated GFR > 60 ml/min 11/22/16 05:00 BUN/Creatinine Ratio 9.00 % 11/22/16 05:00 Glucose 59 mg/dL (75-100) L 11/22/16 05:00 POC Glucose 68 (70-105) L 11/22/16 06:28 Hemoglobin A1c 7.2 % (4-6) H 10/27/16 05:30 Lactic Acid 2.8 mmol/L (0.7-2.0) H* 10/23/16 12:53 Calcium 8.0 mg/dL (8.4-10.2) L 11/22/16 05:00 Magnesium 1.9 mg/dL (1.7-2.3) 10/31/16 12:35 Total Bilirubin 0.9 mg/dL (0.1-1.2) 10/27/16 05:30 Direct Bilirubin 0.3 mg/dL (0-0.2) H 10/27/16 05:30 Indirect Bilirubin 0.6 mg/dL 10/27/16 05:30 AST 18 units/L (5-40) 10/27/16 05:30 ALT 13 units/L (7-56) 10/27/16 05:30 Alkaline Phosphatase 116 units/L (35-129) 10/27/16 05:30 Ammonia 30.0 umol/L (25-60) 10/26/16 09:00 Total Creatine Kinase 72 units/L (55-170) 11/02/16 18:37 CK-MB (CK-2) 3.0 ng/mL (0.0-4.0) 10/23/16 12:53 CK-MB (CK-2) Rel Index 0.9 (0-4) 10/23/16 12:53 Troponin T 0.032 ng/mL (0.00-0.029) H 10/23/16 12:53 NT-Pro-B Natriuret Pep 532.6 pg/mL (0-900) 10/23/16 12:53 Total Protein 7.1 g/dL (6.3-8.2) 10/27/16 05:30 Albumin 3.2 g/dL (3.9-5) L 10/27/16 05:30 Albumin/Globulin Ratio 0.8 % 10/27/16 05:30 Triglycerides 199 mg/dL (2-149) H 10/23/16 12:53 Cholesterol 143 mg/dL (50-199) 10/23/16 12:53 LDL Cholesterol Direct 64 mg/dL (50-130) 10/23/16 12:53 HDL Cholesterol 40 mg/dL (40-59) 10/23/16 12:53 Cholesterol/HDL Ratio 3.57 % 10/23/16 12:53 TSH 1.040 mlU/mL (0.270-4.200) 10/23/16 12:53 Free T4 1.13 ng/dL (0.76-1.46) 10/23/16 22:59 Thyroxine (T4) 5.2 ug/dL (4.0-12.0) 10/23/16 22:59 T3 (NISHA) 56 ng/dL (76-181) L 10/23/16 22:59 Free T3 Index 2.0 pg/mL (2.3-4.2) L 10/23/16 22:59 T3 Uptake See scanned report 10/23/16 22:59 Urine Color Yellow (Yellow) 11/03/16 07:47 Urine Turbidity Clear (Clear) 11/03/16 07:47 Urine pH 5.0 (5.0-7.0) 11/03/16 07:47 Ur Specific [place] 1.012 (1.003-1.030) 11/03/16 07:47 Urine Protein <15 mg/dl mg/dL (Negative) 11/03/16 07:47 Urine Glucose (UA) Neg mg/dL (Negative) 11/03/16 07:47 Urine Ketones Neg mg/dL (Negative) 11/03/16 07:47 Urine Blood Neg (Negative) 11/03/16 07:47 Urine Nitrite Pos (Negative) 11/03/16 07:47 Urine Bilirubin Neg (Negative) 11/03/16 07:47 Urine Urobilinogen 4.0 mg/dL (<2.0) 11/03/16 07:47 Ur Leukocyte Esterase Tr (Negative) 11/03/16 07:47 Urine WBC (Auto) 1.0 /HPF (0.0-6.0) 11/03/16 07:47 Urine RBC (Auto) 5.0 /HPF (0.0-6.0) 11/03/16 07:47 U Epithel Cells (Auto) < 1.0 /HPF (0-13.0) 11/03/16 07:47 Urine Bacteria (Auto) 2+ /HPF (Negative) 11/03/16 07:47 Urine Mucus Few /HPF 11/03/16 07:47 Urine Opiates Screen Presumptive negative 10/21/16 20:36 Urine Methadone Screen Presumptive negative 10/21/16 20:36 Ur Barbiturates Screen Presumptive negative 10/21/16 20:36 Ur Phencyclidine Scrn Presumptive negative 10/21/16 20:36 Ur Amphetamines Screen Presumptive negative 10/21/16 20:36 U Benzodiazepines Scrn Presumptive negative 10/21/16 20:36 Urine Cocaine Screen Presumptive negative 10/21/16 20:36 U Marijuana (THC) Screen Presumptive negative 10/21/16 20:36 Drugs of Abuse Note Disclamer 10/21/16 20:36 Plasma/Serum Alcohol < 0.01 gm% (0-0.07) 10/21/16 20:30 TB (QFT) Gold In Tube Negative (Negative) 11/10/16 00:08 TB Test (QFT) Nil 0.00 IU/mL (()) 11/10/16 00:08 TB Test Mitogen - Nil 1.22 IU/mL (()) 11/10/16 00:08 TB Test Antigen - Nil 0.01 IU/mL (()) 11/10/16 00:08
[2016-11-22] MEDS: TYLENOL PO PRN (21:29)
[2016-11-23] MEDS: NOVOLOG SUB-Q SCH ×5 (00:05→22:48)
[2016-11-23] MEDS: SYNTHROID PO SCH (06:31)
[2016-11-23] MEDS: COLACE PO SCH ×2 (09:42→21:45)
[2016-11-23] MEDS: COREG PO SCH ×2 (09:42→21:46)
[2016-11-23] MEDS: MIRALAX 3350 PO SCH (09:43)
[2016-11-23] MEDS: HALDOL PO SCH ×2 (09:44→21:45)
--- NOTE | 2016-11-23 09:44 | Progress Note ---
Assessment and Plan Assessment and plan: --Severe dementia with episodes of acute delirium/agitation. Psychiatric recommendations for medication dosing. Started Depakote 250 mg twice a day. Consider adding Klonopin if no significant improvement. -PNA- hospital acquired/sepsis Patient has completed abx --Hypernatremia Resolved with IV hydration --Acute renal failure probably to vasomotor nephropathy from poor PO intake Continue with IVF as needed. Follow-up BMP --Type 2 diabetes mellitus Continue current management, glucose now better controlled --Dermatitis continue Lac-Hydrin/hydrocortisone cream continue atarax prn Supportive skincare --Right second finger paronychia/Abscess/sepsis Etiology with trauma versus lymphoma versus herpes Patient with amputation 11/15 at the [facility] Culture with group G strep ID following. --? History TB Follow-up Old records. Quantiferon TB assay ordered. --Hx of T-cell lymphoma --Hx of ? Herpes Acyclovir therapy ( suppressive dosing) --hypothyroidism TSH normal -- Hx of gout --Disposition patient had plans of discharge to shelter yesterday however still required restraints. Patient continues to exhibit behavioral problems. The appealed to discharge to Medicare. Case management is attempting to arrange for discharge to geriatric psych facility. History Interval history: No new issues overnight. Patient still remains agitated requiring restraints. Patient with a fall yesterday evening per nursing. Hospitalist Physical - Constitutional Vitals: Temp Pulse Resp BP Pulse Ox 98.3 F 80 20 118/63 97 11/23/16 08:00 11/23/16 08:00 11/23/16 08:00 11/23/16 08:00 11/23/16 08:00 General appearance: Present: no acute distress, well-nourished - EENT Eyes: Present: PERRL, EOM intact ENT: hearing intact, clear oral mucosa, dentition normal - Neck Neck: Present: supple, normal ROM - Respiratory Respiratory effort: normal Respiratory: bilateral: CTA - Cardiovascular Rhythm: regular Heart Sounds: Present: S1 & S2. Absent: gallop, rub - Extremities Extremities: no ischemia, No edema, Full ROM - Abdominal General gastrointestinal: soft, non-tender, non-distended, normal bowel sounds - Integumentary Integumentary: Present: clear, warm, dry - Neurologic Neurologic: CNII-XII intact, moves all extremities Results - Labs CBC & Chem 7: 01/13/17 05:00 11/22/16 05:00 Labs: Laboratory Last Values WBC 4.8 K/mm3 (4.5-11.0) 11/22/16 05:00 RBC 2.71 M/mm3 (3.65-5.03) L 11/22/16 05:00 Hgb 8.1 gm/dl (11.8-15.2) L 11/22/16 05:00 Hct 24.7 % (35.5-45.6) L 11/22/16 05:00 MCV 91 fl (84-94) 11/22/16 05:00 MCH 30 pg (28-32) 11/22/16 05:00 MCHC 33 % (32-34) 11/22/16 05:00 RDW 19.0 % (13.2-15.2) H 11/22/16 05:00 Plt Count 244 K/mm3 (140-440) 11/22/16 05:00 Lymph % (Auto) 13.0 % (13.4-35.0) L 11/22/16 05:00 [place] % (Auto) 7.5 % (0.0-7.3) H 11/22/16 05:00 Eos % (Auto) 3.0 % (0.0-4.3) 11/22/16 05:00 Baso % (Auto) 1.1 % (0.0-1.8) 11/22/16 05:00 Lymph # 0.6 K/mm3 (1.2-5.4) L 11/22/16 05:00 [place] # 0.4 K/mm3 (0.0-0.8) 11/22/16 05:00 Eos # 0.1 K/mm3 (0.0-0.4) 11/22/16 05:00 Baso # 0.1 K/mm3 (0.0-0.1) 11/22/16 05:00 Seg Neutrophils % 75.4 % (40.0-70.0) H 11/22/16 05:00 Seg Neutrophils # 3.7 K/mm3 (1.8-7.7) 11/22/16 05:00 PT 14.3 Sec. (12.2-14.9) 10/23/16 12:53 INR 1.12 (0.87-1.13) 10/23/16 12:53 APTT 30.6 Sec. (24.2-36.6) 10/23/16 12:53 POC ABG pH 7.507 (7.35-7.45) H 11/12/16 21:51 POC ABG pCO2 32.8 (35-45) L 11/12/16 21:51 POC ABG pO2 78 (80-105) L 11/12/16 21:51 POC ABG HCO3 26.0 11/12/16 21:51 POC ABG Total CO2 27 11/12/16 21:51 POC ABG O2 Sat 97 11/12/16 21:51 POC ABG Base Excess 3 11/12/16 21:51 FiO2 28 % 11/12/16 21:51 Sodium 143 mmol/L (137-145) 11/22/16 05:00 Potassium 3.6 mmol/L (3.6-5.0) 11/22/16 05:00 Chloride 106.3 mmol/L (98-107) 11/22/16 05:00 Carbon Dioxide 25 mmol/L (22-30) 11/22/16 05:00 Anion Gap 15 mmol/L 11/22/16 05:00 BUN 9 mg/dL (9-20) 11/22/16 05:00 Creatinine 1.0 mg/dL (0.8-1.5) 11/22/16 05:00 Estimated GFR > 60 ml/min 11/22/16 05:00 BUN/Creatinine Ratio 9.00 % 11/22/16 05:00 Glucose 59 mg/dL (75-100) L 11/22/16 05:00 POC Glucose 91 (70-105) 11/23/16 06:32 Hemoglobin A1c 7.2 % (4-6) H 10/27/16 05:30 Lactic Acid 2.8 mmol/L (0.7-2.0) H* 10/23/16 12:53 Calcium 8.0 mg/dL (8.4-10.2) L 11/22/16 05:00 Magnesium 1.9 mg/dL (1.7-2.3) 10/31/16 12:35 Total Bilirubin 0.9 mg/dL (0.1-1.2) 10/27/16 05:30 Direct Bilirubin 0.3 mg/dL (0-0.2) H 10/27/16 05:30 Indirect Bilirubin 0.6 mg/dL 10/27/16 05:30 AST 18 units/L (5-40) 10/27/16 05:30 ALT 13 units/L (7-56) 10/27/16 05:30 Alkaline Phosphatase 116 units/L (35-129) 10/27/16 05:30 Ammonia 30.0 umol/L (25-60) 10/26/16 09:00 Total Creatine Kinase 72 units/L (55-170) 11/02/16 18:37 CK-MB (CK-2) 3.0 ng/mL (0.0-4.0) 10/23/16 12:53 CK-MB (CK-2) Rel Index 0.9 (0-4) 10/23/16 12:53 Troponin T 0.032 ng/mL (0.00-0.029) H 10/23/16 12:53 NT-Pro-B Natriuret Pep 532.6 pg/mL (0-900) 10/23/16 12:53 Total Protein 7.1 g/dL (6.3-8.2) 10/27/16 05:30 Albumin 3.2 g/dL (3.9-5) L 10/27/16 05:30 Albumin/Globulin Ratio 0.8 % 10/27/16 05:30 Triglycerides 199 mg/dL (2-149) H 10/23/16 12:53 Cholesterol 143 mg/dL (50-199) 10/23/16 12:53 LDL Cholesterol Direct 64 mg/dL (50-130) 10/23/16 12:53 HDL Cholesterol 40 mg/dL (40-59) 10/23/16 12:53 Cholesterol/HDL Ratio 3.57 % 10/23/16 12:53 TSH 1.040 mlU/mL (0.270-4.200) 10/23/16 12:53 Free T4 1.13 ng/dL (0.76-1.46) 10/23/16 22:59 Thyroxine (T4) 5.2 ug/dL (4.0-12.0) 10/23/16 22:59 T3 (NISHA) 56 ng/dL (76-181) L 10/23/16 22:59 Free T3 Index 2.0 pg/mL (2.3-4.2) L 10/23/16 22:59 T3 Uptake See scanned report 10/23/16 22:59 Urine Color Yellow (Yellow) 11/03/16 07:47 Urine Turbidity Clear (Clear) 11/03/16 07:47 Urine pH 5.0 (5.0-7.0) 11/03/16 07:47 Ur Specific [place] 1.012 (1.003-1.030) 11/03/16 07:47 Urine Protein <15 mg/dl mg/dL (Negative) 11/03/16 07:47 Urine Glucose (UA) Neg mg/dL (Negative) 11/03/16 07:47 Urine Ketones Neg mg/dL (Negative) 11/03/16 07:47 Urine Blood Neg (Negative) 11/03/16 07:47 Urine Nitrite Pos (Negative) 11/03/16 07:47 Urine Bilirubin Neg (Negative) 11/03/16 07:47 Urine Urobilinogen 4.0 mg/dL (<2.0) 11/03/16 07:47 Ur Leukocyte Esterase Tr (Negative) 11/03/16 07:47 Urine WBC (Auto) 1.0 /HPF (0.0-6.0) 11/03/16 07:47 Urine RBC (Auto) 5.0 /HPF (0.0-6.0) 11/03/16 07:47 U Epithel Cells (Auto) < 1.0 /HPF (0-13.0) 11/03/16 07:47 Urine Bacteria (Auto) 2+ /HPF (Negative) 11/03/16 07:47 Urine Mucus Few /HPF 11/03/16 07:47 Urine Opiates Screen Presumptive negative 10/21/16 20:36 Urine Methadone Screen Presumptive negative 10/21/16 20:36 Ur Barbiturates Screen Presumptive negative 10/21/16 20:36 Ur Phencyclidine Scrn Presumptive negative 10/21/16 20:36 Ur Amphetamines Screen Presumptive negative 10/21/16 20:36 U Benzodiazepines Scrn Presumptive negative 10/21/16 20:36 Urine Cocaine Screen Presumptive negative 10/21/16 20:36 U Marijuana (THC) Screen Presumptive negative 10/21/16 20:36 Drugs of Abuse Note Disclamer 10/21/16 20:36 Plasma/Serum Alcohol < 0.01 gm% (0-0.07) 10/21/16 20:30 TB (QFT) Gold In Tube Negative (Negative) 11/10/16 00:08 TB Test (QFT) Nil 0.00 IU/mL (()) 11/10/16 00:08 TB Test Mitogen - Nil 1.22 IU/mL (()) 11/10/16 00:08 TB Test Antigen - Nil 0.01 IU/mL (()) 11/10/16 00:08
[2016-11-23] MEDS: NEURONTIN PO SCH ×2 (10:00→22:54)
[2016-11-23] MEDS: ROXICODONE PO SCH (10:52)
[2016-11-23] MEDS: ZYLOPRIM PO SCH (10:54)
[2016-11-23] MEDS: PROCARDIA XL PO SCH (10:54)
[2016-11-23] MEDS: LAC-HYDRIN TP SCH ×2 (10:55→22:45)
[2016-11-23] MEDS: HCTZ PO SCH (10:56)
[2016-11-23] MEDS: HEPARIN SUB-Q SCH ×2 (10:56→21:47)
[2016-11-23] MEDS: TYLENOL PO PRN ×2 (14:25→22:55)
[2016-11-23] MEDS: BENADRYL IM PRN (14:26)
[2016-11-23] MEDS: HALDOL IM PRN (14:47)
[2016-11-23] MEDS: DESYREL PO SCH (21:44)
[2016-11-24] MEDS: SYNTHROID PO SCH (05:16)
[2016-11-24] MEDS: NOVOLOG SUB-Q SCH ×4 (07:32→22:25)
[2016-11-24] MEDS: BENADRYL IM PRN (07:57)
[2016-11-24] MEDS: TYLENOL PO PRN (07:57)
--- NOTE | 2016-11-24 10:17 | Progress Note ---
Assessment and Plan Assessment and plan: --Severe dementia with episodes of acute delirium/agitation. Depakote 250 mg twice a day. Consider adding Klonopin if no significant improvement. -PNA- hospital acquired/sepsis Patient has completed abx --Hypernatremia Resolved with IV hydration --Acute renal failure probably to vasomotor nephropathy from poor PO intake Continue with IVF as needed. Follow-up BMP --Type 2 diabetes mellitus Continue current management, glucose now better controlled --Dermatitis continue Lac-Hydrin/hydrocortisone cream continue atarax prn Supportive skincare --Right second finger paronychia/Abscess/sepsis Etiology with trauma versus lymphoma versus herpes Patient with amputation 11/15 at the [place] [facility] Culture with group G strep ID following. --? History TB Follow-up Old records. Quantiferon TB assay ordered. --Hx of T-cell lymphoma --Hx of ? Herpes Acyclovir therapy ( suppressive dosing) --hypothyroidism TSH normal -- Hx of gout --Disposition patient had plans of discharge to [facility] previously however still required restraints. Patient continues to exhibit behavioral problems. The appealed the discharge to Medicare. Case management is attempting to arrange for discharge to geriatric psych facility. History Interval history: No new issues overnight. Patient still remains agitated requiring restraints. Hospitalist Physical - Constitutional Vitals: Temp Pulse Resp BP Pulse Ox 99.3 F 87 18 133/68 96 11/24/16 09:25 11/24/16 09:25 11/24/16 09:25 11/24/16 09:25 11/24/16 09:25 General appearance: Present: no acute distress, well-nourished - EENT Eyes: Present: PERRL, EOM intact ENT: hearing intact, clear oral mucosa, dentition normal - Neck Neck: Present: supple, normal ROM - Respiratory Respiratory effort: normal Respiratory: bilateral: CTA - Cardiovascular Rhythm: regular Heart Sounds: Present: S1 & S2. Absent: gallop, rub - Extremities Extremities: no ischemia, No edema, Full ROM - Abdominal General gastrointestinal: soft, non-tender, non-distended, normal bowel sounds - Integumentary Integumentary: Present: clear, warm, dry - Neurologic Neurologic: CNII-XII intact, moves all extremities Results - Labs CBC & Chem 7: 11/22/16 05:00 11/22/16 05:00 Labs: Laboratory Last Values WBC 4.8 K/mm3 (4.5-11.0) 11/22/16 05:00 RBC 2.71 M/mm3 (3.65-5.03) L 11/22/16 05:00 Hgb 8.1 gm/dl (11.8-15.2) L 11/22/16 05:00 Hct 24.7 % (35.5-45.6) L 11/22/16 05:00 MCV 91 fl (84-94) 11/22/16 05:00 MCH 30 pg (28-32) 11/22/16 05:00 MCHC 33 % (32-34) 11/22/16 05:00 RDW 19.0 % (13.2-15.2) H 11/22/16 05:00 Plt Count 244 K/mm3 (140-440) 11/22/16 05:00 Lymph % (Auto) 13.0 % (13.4-35.0) L 11/22/16 05:00 [place] % (Auto) 7.5 % (0.0-7.3) H 11/22/16 05:00 Eos % (Auto) 3.0 % (0.0-4.3) 11/22/16 05:00 Baso % (Auto) 1.1 % (0.0-1.8) 11/22/16 05:00 Lymph # 0.6 K/mm3 (1.2-5.4) L 11/22/16 05:00 [place] # 0.4 K/mm3 (0.0-0.8) 11/22/16 05:00 Eos # 0.1 K/mm3 (0.0-0.4) 11/22/16 05:00 Baso # 0.1 K/mm3 (0.0-0.1) 11/22/16 05:00 Seg Neutrophils % 75.4 % (40.0-70.0) H 11/22/16 05:00 Seg Neutrophils # 3.7 K/mm3 (1.8-7.7) 11/22/16 05:00 PT 14.3 Sec. (12.2-14.9) 10/23/16 12:53 INR 1.12 (0.87-1.13) 10/23/16 12:53 APTT 30.6 Sec. (24.2-36.6) 10/23/16 12:53 POC ABG pH 7.507 (7.35-7.45) H 11/12/16 21:51 POC ABG pCO2 32.8 (35-45) L 11/12/16 21:51 POC ABG pO2 78 (80-105) L 11/12/16 21:51 POC ABG HCO3 26.0 11/12/16 21:51 POC ABG Total CO2 27 11/12/16 21:51 POC ABG O2 Sat 97 11/12/16 21:51 POC ABG Base Excess 3 11/12/16 21:51 FiO2 28 % 11/12/16 21:51 Sodium 143 mmol/L (137-145) 11/22/16 05:00 Potassium 3.6 mmol/L (3.6-5.0) 11/22/16 05:00 Chloride 106.3 mmol/L (98-107) 11/22/16 05:00 Carbon Dioxide 25 mmol/L (22-30) 11/22/16 05:00 Anion Gap 15 mmol/L 11/22/16 05:00 BUN 9 mg/dL (9-20) 11/22/16 05:00 Creatinine 1.0 mg/dL (0.8-1.5) 11/22/16 05:00 Estimated GFR > 60 ml/min 11/22/16 05:00 BUN/Creatinine Ratio 9.00 % 11/22/16 05:00 Glucose 59 mg/dL (75-100) L 11/22/16 05:00 POC Glucose 103 (70-105) 11/24/16 06:11 Hemoglobin A1c 7.2 % (4-6) H 10/27/16 05:30 Lactic Acid 2.8 mmol/L (0.7-2.0) H* 10/23/16 12:53 Calcium 8.0 mg/dL (8.4-10.2) L 11/22/16 05:00 Magnesium 1.9 mg/dL (1.7-2.3) 10/31/16 12:35 Total Bilirubin 0.9 mg/dL (0.1-1.2) 10/27/16 05:30 Direct Bilirubin 0.3 mg/dL (0-0.2) H 10/27/16 05:30 Indirect Bilirubin 0.6 mg/dL 10/27/16 05:30 AST 18 units/L (5-40) 10/27/16 05:30 ALT 13 units/L (7-56) 10/27/16 05:30 Alkaline Phosphatase 116 units/L (35-129) 10/27/16 05:30 Ammonia 30.0 umol/L (25-60) 10/26/16 09:00 Total Creatine Kinase 72 units/L (55-170) 11/02/16 18:37 CK-MB (CK-2) 3.0 ng/mL (0.0-4.0) 10/23/16 12:53 CK-MB (CK-2) Rel Index 0.9 (0-4) 10/23/16 12:53 Troponin T 0.032 ng/mL (0.00-0.029) H 10/23/16 12:53 NT-Pro-B Natriuret Pep 532.6 pg/mL (0-900) 10/23/16 12:53 Total Protein 7.1 g/dL (6.3-8.2) 10/27/16 05:30 Albumin 3.2 g/dL (3.9-5) L 10/27/16 05:30 Albumin/Globulin Ratio 0.8 % 10/27/16 05:30 Triglycerides 199 mg/dL (2-149) H 10/23/16 12:53 Cholesterol 143 mg/dL (50-199) 10/23/16 12:53 LDL Cholesterol Direct 64 mg/dL (50-130) 10/23/16 12:53 HDL Cholesterol 40 mg/dL (40-59) 10/23/16 12:53 Cholesterol/HDL Ratio 3.57 % 10/23/16 12:53 TSH 1.040 mlU/mL (0.270-4.200) 10/23/16 12:53 Free T4 1.13 ng/dL (0.76-1.46) 10/23/16 22:59 Thyroxine (T4) 5.2 ug/dL (4.0-12.0) 10/23/16 22:59 T3 (NISHA) 56 ng/dL (76-181) L 10/23/16 22:59 Free T3 Index 2.0 pg/mL (2.3-4.2) L 10/23/16 22:59 T3 Uptake See scanned report 10/23/16 22:59 Urine Color Yellow (Yellow) 11/03/16 07:47 Urine Turbidity Clear (Clear) 11/03/16 07:47 Urine pH 5.0 (5.0-7.0) 11/03/16 07:47 Ur Specific [place] 1.012 (1.003-1.030) 11/03/16 07:47 Urine Protein <15 mg/dl mg/dL (Negative) 11/03/16 07:47 Urine Glucose (UA) Neg mg/dL (Negative) 11/03/16 07:47 Urine Ketones Neg mg/dL (Negative) 11/03/16 07:47 Urine Blood Neg (Negative) 11/03/16 07:47 Urine Nitrite Pos (Negative) 11/03/16 07:47 Urine Bilirubin Neg (Negative) 11/03/16 07:47 Urine Urobilinogen 4.0 mg/dL (<2.0) 11/03/16 07:47 Ur Leukocyte Esterase Tr (Negative) 11/03/16 07:47 Urine WBC (Auto) 1.0 /HPF (0.0-6.0) 11/03/16 07:47 Urine RBC (Auto) 5.0 /HPF (0.0-6.0) 11/03/16 07:47 U Epithel Cells (Auto) < 1.0 /HPF (0-13.0) 11/03/16 07:47 Urine Bacteria (Auto) 2+ /HPF (Negative) 11/03/16 07:47 Urine Mucus Few /HPF 11/03/16 07:47 Urine Opiates Screen Presumptive negative 10/21/16 20:36 Urine Methadone Screen Presumptive negative 10/21/16 20:36 Ur Barbiturates Screen Presumptive negative 10/21/16 20:36 Ur Phencyclidine Scrn Presumptive negative 10/21/16 20:36 Ur Amphetamines Screen Presumptive negative 10/21/16 20:36 U Benzodiazepines Scrn Presumptive negative 10/21/16 20:36 Urine Cocaine Screen Presumptive negative 10/21/16 20:36 U Marijuana (THC) Screen Presumptive negative 10/21/16 20:36 Drugs of Abuse Note Disclamer 10/21/16 20:36 Plasma/Serum Alcohol < 0.01 gm% (0-0.07) 10/21/16 20:30 TB (QFT) Gold In Tube Negative (Negative) 11/10/16 00:08 TB Test (QFT) Nil 0.00 IU/mL (()) 11/10/16 00:08 TB Test Mitogen - Nil 1.22 IU/mL (()) 11/10/16 00:08 TB Test Antigen - Nil 0.01 IU/mL (()) 11/10/16 00:08
[2016-11-24] MEDS: PROCARDIA XL PO SCH (10:55)
[2016-11-24] MEDS: ROXICODONE PO SCH (10:55)
[2016-11-24] MEDS: HALDOL PO SCH ×2 (10:55→22:29)
[2016-11-24] MEDS: COLACE PO SCH ×2 (10:56→22:28)
[2016-11-24] MEDS: COREG PO SCH ×2 (10:56→22:32)
[2016-11-24] MEDS: ZYLOPRIM PO SCH (10:56)
[2016-11-24] MEDS: NEURONTIN PO SCH ×2 (10:57→22:29)
[2016-11-24] MEDS: HEPARIN SUB-Q SCH ×2 (10:58→22:30)
[2016-11-24] MEDS: LAC-HYDRIN TP SCH ×2 (10:59→22:42)
[2016-11-24] MEDS: MIRALAX 3350 PO SCH (11:01)
[2016-11-24] MEDS: HCTZ PO SCH (11:03)
[2016-11-24] MEDS: DESYREL PO SCH (22:27)
[2016-11-25] MEDS: SYNTHROID PO SCH (06:23)
[2016-11-25 06:38] LABS: Basophils % (Auto) 1.6 % (0.0-1.8); Eosinophils % (Auto) 3.1 % (0.0-4.3); Hematocrit 30.2 % (35.5-45.6); Hemoglobin 9.8 gm/dl (11.8-15.2); Mean Corpuscular HGB Conc 32 % (32-34); Mean Corpuscular Hemoglobin 29 pg (28-32); Mean Corpuscular Volume 91 fl (84-94); Platelet Count 220 K/mm3 (140-440); Red Blood Count 3.32 M/mm3 (3.65-5.03); Red Cell Distribution Width 19.7 % (13.2-15.2); White Blood Count 3.6 K/mm3 (4.5-11.0)
[2016-11-25 06:50] LABS: Blood Urea Nitrogen 9 mg/dL (9-20); Calcium 8.7 mg/dL (8.4-10.2); Carbon Dioxide 25 mmol/L (22-30); Glucose 154 mg/dL (75-100)
[2016-11-25 06:51] LABS: Chloride 106.5 mmol/L (98-107); Potassium 4.3 mmol/L (3.6-5.0); Sodium 145 mmol/L (137-145)
[2016-11-25 06:52] LABS: Anion Gap 18 mmol/L
[2016-11-25] MEDS: NOVOLOG SUB-Q SCH ×4 (08:30→21:54)
[2016-11-25] MEDS: HCTZ PO SCH (10:21)
[2016-11-25] MEDS: HALDOL PO SCH ×2 (10:21→21:58)
[2016-11-25] MEDS: COLACE PO SCH ×2 (10:21→21:55)
[2016-11-25] MEDS: COREG PO SCH ×2 (10:22→21:55)
[2016-11-25] MEDS: ZYLOPRIM PO SCH (10:22)
[2016-11-25] MEDS: ROXICODONE PO SCH (10:22)
[2016-11-25] MEDS: LAC-HYDRIN TP SCH ×2 (10:23→21:58)
[2016-11-25] MEDS: HEPARIN SUB-Q SCH ×2 (10:23→21:59)
[2016-11-25] MEDS: NEURONTIN PO SCH ×2 (10:24→21:54)
[2016-11-25] MEDS: MIRALAX 3350 PO SCH (10:26)
[2016-11-25] MEDS: PROCARDIA XL PO SCH (10:26)
--- NOTE | 2016-11-25 12:56 | Progress Note ---
Assessment and Plan - Patient Problems (1) Finger amputation, no complication Current Visit: Yes Status: Acute Qualifiers: Encounter type: initial encounter Qualified Code(s): S68.119A - Complete traumatic metacarpophalangeal amputation of unspecified finger, initial encounter Plan to address problem: Continue with wound care, sutures may be removed and another 4 days or so. Patient can be discharged when cleared by internal medicine, we'll see him back in our office for followup. Subjective Date of service: 11/25/16 Principal diagnosis: Right index finger infection Interval history: 10 th postop day, and status post amputation of the right index at the MCP level. Wound evaluated, no swelling, healing satisfactory. No evidence of recurrent/residual infection. Objective Vital signs: Vital Signs - 12hr 11/25/16 11/25/16 11/25/16 04:00 08:00 10:22 Temperature 99.2 F 98.7 F Pulse Rate 88 Pulse Rate [ 73 76 Right Radial] Respiratory 20 18 Rate Blood Pressure 130/70 Blood Pressure 138/70 126/63 [Right Arm] O2 Sat by Pulse 98 Oximetry - Labs CBC & BMP: 11/25/16 05:44 11/25/16 05:44 Labs: Abnormal lab results 11/24/16 11/25/16 11/25/16 Range/Units 21:46 05:44 05:44 WBC 3.6 L (4.5-11.0) K/mm3 RBC 3.32 L (3.65-5.03) M/mm3 Hgb 9.8 L (11.8-15.2) gm/dl Hct 30.2 L (35.5-45.6) % RDW 19.7 H (13.2-15.2) % [place] % (Auto) 7.6 H (0.0-7.3) % Lymph # 0.5 L (1.2-5.4) K/mm3 Seg Neutrophils % 73.3 H (40.0-70.0) % Glucose 154 H (75-100) mg/dL POC Glucose 262 H (70-105) 11/25/16 Range/Units 06:24 WBC (4.5-11.0) K/mm3 RBC (3.65-5.03) M/mm3 Hgb (11.8-15.2) gm/dl Hct (35.5-45.6) % RDW (13.2-15.2) % [place] % (Auto) (0.0-7.3) % Lymph # (1.2-5.4) K/mm3 Seg Neutrophils % (40.0-70.0) % Glucose (75-100) mg/dL POC Glucose 156 H (70-105)
--- NOTE | 2016-11-25 15:13 | Progress Note ---
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 ( abn cyto in other organs), obstructive sleep apnea, TB contact and exposure, adverse effects to antiviral drugs, hypothyroidism, gout, muscle weakness, dry eye, high chol, multiple falls, dementia and depression who presented to [facility] ED from [place] with staff reports that patient acting psychotic as evidenced by walking around naked, defecating in halls, harassing staff and other residents, sexually inappropriate and being verbally abusive, Since admission to ED patient has been disoriented, incontinent, agitated and combative, yelling, hitting at staff, kicking, biting restraints. She tends to take patient off restraints and get him back to intermediate has been unsuccessful. Discussed with case management still pending placement. Discussed with nursing staff patient has had multiple falls here in the hospital once taken off of restraints. For safety sake restraints remain in place. --Severe dementia with episodes of acute delirium/agitation. Depakote 250 mg twice a day. Consider adding Klonopin if no significant improvement. -PNA- hospital acquired/sepsis Patient has completed abx --Hypernatremia Resolved with IV hydration --Acute renal failure probably to vasomotor nephropathy from poor PO intake Resolved with discontinuing IV fluids --Type 2 diabetes mellitus Continue current management, glucose now better controlled --Dermatitis continue Lac-Hydrin/hydrocortisone cream continue atarax prn Supportive skincare --Right second finger paronychia/Abscess/sepsis Etiology with trauma versus lymphoma versus herpes Status post amputation also input appreciated Patient with amputation 11/15 at the [facility] joint Culture with group G strep --? History TB Follow-up Old records. Quantiferon TB assay ordered. --Hx of T-cell lymphoma Herpes Acyclovir therapy ( suppressive dosing) --hypothyroidism TSH normal -- Hx of gout --Disposition patient had plans of discharge to intermediate previously however still required restraints. Patient continues to exhibit behavioral problems. The appealed the discharge to Medicare and initial discharge time. Case management is attempting to arrange for discharge to geriatric psych facility. Okay to discharge to facility once bed available History Interval history: Patient seen and examined this morning in no acute distress Denies any chest pain, nausea, vomiting, diarrhea No fever noted blood pressure controlled Nursing still reports the patient went off restraints as impulsive movements and subsequently on the floor has had multiple falls Hospitalist Physical - Physical exam Narrative exam: VITAL SIGNS: Reviewed. GENERAL: The patient appeared well nourished and normally developed. Vital signs as documented. HEAD: No signs of head trauma. EYES: Pupils are equal. Extraocular motions intact. EARS: Hearing grossly intact. MOUTH: Oropharynx is normal. NECK: No adenopathy, no JVD. CHEST: Chest with clear breath sounds bilaterally. No wheezes, rales, or rhonchi. CARDIAC: Regular rate and rhythm. S1 and S2, without murmurs, gallops, or rubs. VASCULAR: No Edema. Peripheral pulses normal and equal in all extremities. ABDOMEN: Soft, without detectable tenderness. No sign of distention. No rebound or guarding, and no masses palpated. Bowel Sounds normal. MUSCULOSKELETAL: Good range of motion of all major joints. Extremities without clubbing, cyanosis or edema. NEUROLOGIC EXAM: Alert and oriented x 3. Although often goes off on a tangent. No focal sensory or strength deficits. Speech normal. Follows commands sometimes. PSYCHIATRIC: Mood normal. SKIN: Sutures but from. - Constitutional Vitals: Temp Pulse Resp BP Pulse Ox 98.7 F 88 18 130/70 98 11/25/16 08:00 11/25/16 10:22 11/25/16 08:00 11/25/16 10:22 11/25/16 08:00 General appearance: Present: no acute distress, well-nourished Results - Labs CBC & Chem 7: 11/25/16 05:44 11/25/16 05:44 Labs: Laboratory Last Values WBC 3.6 K/mm3 (4.5-11.0) L 11/25/16 05:44 RBC 3.32 M/mm3 (3.65-5.03) L 11/25/16 05:44 Hgb 9.8 gm/dl (11.8-15.2) L 11/25/16 05:44 Hct 30.2 % (35.5-45.6) L 11/25/16 05:44 MCV 91 fl (84-94) 11/25/16 05:44 MCH 29 pg (28-32) 11/25/16 05:44 MCHC 32 % (32-34) 11/25/16 05:44 RDW 19.7 % (13.2-15.2) H 11/25/16 05:44 Plt Count 220 K/mm3 (140-440) 11/25/16 05:44 Lymph % (Auto) 14.4 % (13.4-35.0) 11/25/16 05:44 [place] % (Auto) 7.6 % (0.0-7.3) H 11/25/16 05:44 Eos % (Auto) 3.1 % (0.0-4.3) 11/25/16 05:44 Baso % (Auto) 1.6 % (0.0-1.8) 11/25/16 05:44 Lymph # 0.5 K/mm3 (1.2-5.4) L 11/25/16 05:44 [place] # 0.3 K/mm3 (0.0-0.8) 11/25/16 05:44 Eos # 0.1 K/mm3 (0.0-0.4) 11/25/16 05:44 Baso # 0.1 K/mm3 (0.0-0.1) 11/25/16 05:44 Seg Neutrophils % 73.3 % (40.0-70.0) H 11/25/16 05:44 Seg Neutrophils # 2.7 K/mm3 (1.8-7.7) 11/25/16 05:44 PT 14.3 Sec. (12.2-14.9) 10/23/16 12:53 INR 1.12 (0.87-1.13) 10/23/16 12:53 APTT 30.6 Sec. (24.2-36.6) 10/23/16 12:53 POC ABG pH 7.507 (7.35-7.45) H 11/12/16 21:51 POC ABG pCO2 32.8 (35-45) L 11/12/16 21:51 POC ABG pO2 78 (80-105) L 11/12/16 21:51 POC ABG HCO3 26.0 11/12/16 21:51 POC ABG Total CO2 27 11/12/16 21:51 POC ABG O2 Sat 97 11/12/16 21:51 POC ABG Base Excess 3 11/12/16 21:51 FiO2 28 % 11/12/16 21:51 Sodium 145 mmol/L (137-145) 11/25/16 05:44 Potassium 4.3 mmol/L (3.6-5.0) 11/25/16 05:44 Chloride 106.5 mmol/L (98-107) 11/25/16 05:44 Carbon Dioxide 25 mmol/L (22-30) 11/25/16 05:44 Anion Gap 18 mmol/L 11/25/16 05:44 BUN 9 mg/dL (9-20) 11/25/16 05:44 Creatinine 0.9 mg/dL (0.8-1.5) 11/25/16 05:44 Estimated GFR > 60 ml/min 11/25/16 05:44 BUN/Creatinine Ratio 10.00 % 11/25/16 05:44 Glucose 154 mg/dL (75-100) H 11/25/16 05:44 POC Glucose 156 (70-105) H 11/25/16 06:24 Hemoglobin A1c 7.2 % (4-6) H 10/27/16 05:30 Lactic Acid 2.8 mmol/L (0.7-2.0) H* 10/23/16 12:53 Calcium 8.7 mg/dL (8.4-10.2) 11/25/16 05:44 Magnesium 1.9 mg/dL (1.7-2.3) 10/31/16 12:35 Total Bilirubin 0.9 mg/dL (0.1-1.2) 10/27/16 05:30 Direct Bilirubin 0.3 mg/dL (0-0.2) H 10/27/16 05:30 Indirect Bilirubin 0.6 mg/dL 10/27/16 05:30 AST 18 units/L (5-40) 10/27/16 05:30 ALT 13 units/L (7-56) 10/27/16 05:30 Alkaline Phosphatase 116 units/L (35-129) 10/27/16 05:30 Ammonia 30.0 umol/L (25-60) 10/26/16 09:00 Total Creatine Kinase 72 units/L (55-170) 11/02/16 18:37 CK-MB (CK-2) 3.0 ng/mL (0.0-4.0) 10/23/16 12:53 CK-MB (CK-2) Rel Index 0.9 (0-4) 10/23/16 12:53 Troponin T 0.032 ng/mL (0.00-0.029) H 10/23/16 12:53 NT-Pro-B Natriuret Pep 532.6 pg/mL (0-900) 10/23/16 12:53 Total Protein 7.1 g/dL (6.3-8.2) 10/27/16 05:30 Albumin 3.2 g/dL (3.9-5) L 10/27/16 05:30 Albumin/Globulin Ratio 0.8 % 10/27/16 05:30 Triglycerides 199 mg/dL (2-149) H 10/23/16 12:53 Cholesterol 143 mg/dL (50-199) 10/23/16 12:53 LDL Cholesterol Direct 64 mg/dL (50-130) 10/23/16 12:53 HDL Cholesterol 40 mg/dL (40-59) 10/23/16 12:53 Cholesterol/HDL Ratio 3.57 % 10/23/16 12:53 TSH 1.040 mlU/mL (0.270-4.200) 10/23/16 12:53 Free T4 1.13 ng/dL (0.76-1.46) 10/23/16 22:59 Thyroxine (T4) 5.2 ug/dL (4.0-12.0) 10/23/16 22:59 T3 (NISHA) 56 ng/dL (76-181) L 10/23/16 22:59 Free T3 Index 2.0 pg/mL (2.3-4.2) L 10/23/16 22:59 T3 Uptake See scanned report 10/23/16 22:59 Urine Color Yellow (Yellow) 11/03/16 07:47 Urine Turbidity Clear (Clear) 11/03/16 07:47 Urine pH 5.0 (5.0-7.0) 11/03/16 07:47 Ur Specific [place] 1.012 (1.003-1.030) 11/03/16 07:47 Urine Protein <15 mg/dl mg/dL (Negative) 11/03/16 07:47 Urine Glucose (UA) Neg mg/dL (Negative) 11/03/16 07:47 Urine Ketones Neg mg/dL (Negative) 11/03/16 07:47 Urine Blood Neg (Negative) 11/03/16 07:47 Urine Nitrite Pos (Negative) 11/03/16 07:47 Urine Bilirubin Neg (Negative) 11/03/16 07:47 Urine Urobilinogen 4.0 mg/dL (<2.0) 11/03/16 07:47 Ur Leukocyte Esterase Tr (Negative) 11/03/16 07:47 Urine WBC (Auto) 1.0 /HPF (0.0-6.0) 11/03/16 07:47 Urine RBC (Auto) 5.0 /HPF (0.0-6.0) 11/03/16 07:47 U Epithel Cells (Auto) < 1.0 /HPF (0-13.0) 11/03/16 07:47 Urine Bacteria (Auto) 2+ /HPF (Negative) 11/03/16 07:47 Urine Mucus Few /HPF 11/03/16 07:47 Urine Opiates Screen Presumptive negative 10/21/16 20:36 Urine Methadone Screen Presumptive negative 10/21/16 20:36 Ur Barbiturates Screen Presumptive negative 10/21/16 20:36 Ur Phencyclidine Scrn Presumptive negative 10/21/16 20:36 Ur Amphetamines Screen Presumptive negative 10/21/16 20:36 U Benzodiazepines Scrn Presumptive negative 10/21/16 20:36 Urine Cocaine Screen Presumptive negative 10/21/16 20:36 U Marijuana (THC) Screen Presumptive negative 10/21/16 20:36 Drugs of Abuse Note Disclamer 10/21/16 20:36 Plasma/Serum Alcohol < 0.01 gm% (0-0.07) 10/21/16 20:30 TB (QFT) Gold In Tube Negative (Negative) 11/10/16 00:08 TB Test (QFT) Nil 0.00 IU/mL (()) 11/10/16 00:08 TB Test Mitogen - Nil 1.22 IU/mL (()) 11/10/16 00:08 TB Test Antigen - Nil 0.01 IU/mL (()) 11/10/16 00:08
[2016-11-25] MEDS: DESYREL PO SCH (21:58)
[2016-11-26] MEDS: SYNTHROID PO SCH (07:27)
[2016-11-26] MEDS: NOVOLOG SUB-Q SCH ×4 (08:00→21:47)
[2016-11-26] MEDS: ZYLOPRIM PO SCH (09:01)
[2016-11-26] MEDS: MIRALAX 3350 PO SCH (09:01)
[2016-11-26] MEDS: LAC-HYDRIN TP SCH ×2 (09:01→21:41)
[2016-11-26] MEDS: NEURONTIN PO SCH ×2 (09:02→22:06)
[2016-11-26] MEDS: PROCARDIA XL PO SCH (09:02)
[2016-11-26] MEDS: HCTZ PO SCH (09:02)
[2016-11-26] MEDS: ROXICODONE PO SCH (09:02)
[2016-11-26] MEDS: COLACE PO SCH ×2 (09:02→21:40)
[2016-11-26] MEDS: HALDOL PO SCH ×2 (09:02→21:39)
[2016-11-26] MEDS: COREG PO SCH ×2 (09:02→21:45)
[2016-11-26] MEDS: HEPARIN SUB-Q SCH ×2 (09:03→21:36)
--- NOTE | 2016-11-26 09:24 | Admit Criteria Form ---
Admission Criteria Documentation: RENAL FAILURE, ACUTE Clinical Indications for Admission to Inpatient Care ( Place 'X' for any and all applicable criteria): Admission is indicated for ALL (if I & II) or III of the following [A](2)(3)(4)( 5)(6)(7): [ ]I. Acute renal failure as indicated by ANY ONE of the following: [ ]a) A 3-fold rise in serum creatinine from baseline [ ]b) Serum creatinine greater than 4 mg/dL (354 micromoles/L) with an acute rise greater than 0.5 mg/dL (44.2 micromoles/L) [ ]c) Reduction of more than 75% in estimated glomerular filtration rate from baseline [ ]d) Estimated glomerular filtration rate less than 35 mL/min/1.73m2 (0.59mL/sec/1.73m2)in a child up to 18 years of age [ ]e) Anuria indicated by ALL of the following: [ ]i) Adequate volume status [ ]ii) Cessation of urine output indicated by ANY ONE of the following: [ ]1) Urine output less than 0.3 mL/kg/hr for 24 hours [ ]2) Anuria (urine output less than 0.1 mL/kg/ hr) for 12 hours [ X] II. Renal failure cannot be managed in an outpatient setting or observational care setting as indicating by ANY ONE of the following: [ ]a) Altered mental status that is severe or persistent [ ]b) Volume overload or Respiratory distress (eg, clinically significant pulmonary edema) that is severe or persistent [ ]c) Cardiac arrhythmias of immediate concern [ ]d) Hemodynamic instability [ ]e) Clinically significant electrolyte abnormality that requires inpatient care (eg, hyperkalemia with severe ECG findings)[B] [ ]f) Clinically significant metabolic abnormality (eg, acidosis) that is severe or persistent [ ]g) Acute treatment of renal failure (eg, renal replacement therapy) not feasible or appropriate in observational care setting [ ]h) Clinical situation too unstable or uncertain (eg, inadequate urine output, ongoing decline in renal function, etiology unclear) [ ]i) Necessary support and caregiver ability to comply with outpatient treatment cannot be arranged in observation care timeframe (eg, within 24 hours) [ X]j) Other significant finding or clinical condition judged not to be within scope of observation care [ X]III.General contraindications and/or Inappropriate clinical situations for Observational Care in patients with Acute Renal Failure, when ANY ONE of the following is required: [X ]a) Prediction of prolongation of LOS based on ANY ONE of the following may be considered as a contraindication for observational care 2, 3, 4, 5, 6, 7, 8 , 9, 10, 11 [X ]i) Age > 65 yrs. [ ]ii) Patient arriving by ambulance [ ]iii) Patient with high acuity [ ]iv) Patient requiring vital sign monitoring [ ]v) Patient on IV medication [ ]b) Systolic blood pressures 180mmHg 3,12 [ ]c) Patient with altered mental status including delirium and other alteration of consciousness, (3) [ ]d) Patient whose discharge disposition will be to a senior living home or rehabilitation home should not be managed in Emergency Department Observation Unit. CMS rule requires 3 days hospital stay before such placement.3,13 [ ]e) Patient with failure to thrive due to broad array of etiologies 3, 16,17 [ ]f) Inability to ambulate 3,14 Extended stay beyond goal length of stay may be needed for(13) [ ]a) Continuing uremic complications [ ]b) Care for comorbidities [ ]c) acute renal failure [ ]d) Need for dialysis The original [employer] content created by [employer] has been revised. The portions of the content which have been revised are identified through the use of italic text or in bold, and [facility] has neither reviewed nor approved the modified material. All other unmodified content is copyright [facility]. Please see references footnoted in the original [facility] edition 2016 Admission Criteria Met: Yes
--- NOTE | 2016-11-26 16:30 | Progress Note ---
Assessment and Plan - Patient Problems (1) Finger amputation, no complication Current Visit: Yes Status: Acute Qualifiers: Encounter type: initial encounter Qualified Code(s): S68.119A - Complete traumatic metacarpophalangeal amputation of unspecified finger, initial encounter Subjective Date of service: 11/26/16 Principal diagnosis: Right index finger infection Interval history: Status post right index amputation, doing well. Incision is healed well. We' ll remove sutures.We'll sign off, followup in our office on discharge. Objective Vital signs: Vital Signs - 12hr 11/26/16 08:00 Temperature 96.7 F L Pulse Rate [ 90 Right Radial] Respiratory 16 Rate Blood Pressure 128/68 [Right Arm] O2 Sat by Pulse 100 Oximetry - Labs CBC & BMP: 11/25/16 05:44 11/25/16 05:44 Labs: Abnormal lab results 11/25/16 11/25/16 11/26/16 Range/Units 16:12 21:08 11:21 POC Glucose 169 H 186 H 244 H (70-105)
[2016-11-26] MEDS: DESYREL PO SCH (21:38)
[2016-11-27] MEDS: SYNTHROID PO SCH (06:30)
[2016-11-27] MEDS: NOVOLOG SUB-Q SCH ×5 (08:10→23:21)
[2016-11-27] MEDS: HALDOL PO SCH ×2 (10:30→22:46)
[2016-11-27] MEDS: HCTZ PO SCH (10:30)
[2016-11-27] MEDS: MIRALAX 3350 PO SCH (10:30)
[2016-11-27] MEDS: COREG PO SCH ×2 (10:31→22:48)
[2016-11-27] MEDS: COLACE PO SCH ×2 (10:31→22:46)
[2016-11-27] MEDS: HEPARIN SUB-Q SCH ×2 (10:32→22:47)
[2016-11-27] MEDS: LAC-HYDRIN TP SCH (10:34)
[2016-11-27] MEDS: PROCARDIA XL PO SCH (10:35)
[2016-11-27] MEDS: ROXICODONE PO SCH (10:35)
[2016-11-27] MEDS: ZYLOPRIM PO SCH (10:36)
[2016-11-27] MEDS: NEURONTIN PO SCH ×2 (10:43→22:45)
[2016-11-27] MEDS: DESYREL PO SCH (22:47)
[2016-11-28] MEDS: LAC-HYDRIN TP SCH ×3 (06:28→22:55)
[2016-11-28] MEDS: SYNTHROID PO SCH (06:28)
--- NOTE | 2016-11-28 08:16 | Progress Note ---
Assessment and Plan - Patient Problems (1) Sepsis Current Visit: Yes Status: Acute Plan to address problem: IV abx, supportive care, monitor uop q shift, (2) Pneumonia Current Visit: Yes Status: Acute Plan to address problem: Pneumonia protocol: IV abx, blood cultures, supportive care, supplemental oxygen , nebs. (3) Dementia Current Visit: Yes Status: Chronic Plan to address problem: supportive care, bed alarm, fall precautions (4) Psychosis Current Visit: Yes Status: Acute Qualifiers: Psychosis type: unspecified psychosis type Qualified Code(s): F29 - Unspecified psychosis not due to a substance or known physiological condition Plan to address problem: continue current therapy (5) Finger amputation, no complication Current Visit: Yes Status: Acute Qualifiers: Encounter type: initial encounter Qualified Code(s): S68.119A - Complete traumatic metacarpophalangeal amputation of unspecified finger, initial encounter Plan to address problem: Ortho consulted, outpatient f/U. (6) Acute renal failure (ARF) Current Visit: Yes Status: Acute Plan to address problem: IVF, supportive care, monitor uop q shift, (7) Encephalopathy Current Visit: Yes Status: Acute Plan to address problem: supportive care, treat pneumonia, supportive care, (8) DVT prophylaxis Current Visit: Yes Status: Acute History Interval history: Pt resting comfortably in bed, No reported nursing events. Pt confused. Hospitalist Physical - Constitutional Vitals: Temp Pulse Resp BP Pulse Ox 98.4 F 100 H 18 166/89 100 11/28/16 00:19 11/28/16 00:11/28/16 00:11/28/16 00:11/27/16 21:37 General appearance: Present: no acute distress, well-nourished - EENT Eyes: Present: PERRL ENT: hearing intact - Neck Neck: Present: supple - Respiratory Respiratory: bilateral: diminished - Cardiovascular Rhythm: regular Heart Sounds: Present: S1 & S2 - Extremities Extremities: no ischemia Extremity abnormal: edema Peripheral Pulses: within normal limits - Abdominal General gastrointestinal: soft, non-tender, non-distended - Integumentary Integumentary: Present: clear, dry, decreased turgor - Psychiatric Psychiatric: no intact judgment & insight, no memory intact, cooperative - Neurologic Neurologic: moves all extremities, no gait normal Results - Labs CBC & Chem 7: 11/25/16 05:44 11/25/16 05:44 Labs: Laboratory Last Values WBC 3.6 K/mm3 (4.5-11.0) L 11/25/16 05:44 RBC 3.32 M/mm3 (3.65-5.03) L 11/25/16 05:44 Hgb 9.8 gm/dl (11.8-15.2) L 11/25/16 05:44 Hct 30.2 % (35.5-45.6) L 11/25/16 05:44 MCV 91 fl (84-94) 11/25/16 05:44 MCH 29 pg (28-32) 11/25/16 05:44 MCHC 32 % (32-34) 11/25/16 05:44 RDW 19.7 % (13.2-15.2) H 11/25/16 05:44 Plt Count 220 K/mm3 (140-440) 11/25/16 05:44 Lymph % (Auto) 14.4 % (13.4-35.0) 11/25/16 05:44 [place] % (Auto) 7.6 % (0.0-7.3) H 11/25/16 05:44 Eos % (Auto) 3.1 % (0.0-4.3) 11/25/16 05:44 Baso % (Auto) 1.6 % (0.0-1.8) 11/25/16 05:44 Lymph # 0.5 K/mm3 (1.2-5.4) L 11/25/16 05:44 [place] # 0.3 K/mm3 (0.0-0.8) 11/25/16 05:44 Eos # 0.1 K/mm3 (0.0-0.4) 11/25/16 05:44 Baso # 0.1 K/mm3 (0.0-0.1) 11/25/16 05:44 Seg Neutrophils % 73.3 % (40.0-70.0) H 11/25/16 05:44 Seg Neutrophils # 2.7 K/mm3 (1.8-7.7) 11/25/16 05:44 PT 14.3 Sec. (12.2-14.9) 10/23/16 12:53 INR 1.12 (0.87-1.13) 10/23/16 12:53 APTT 30.6 Sec. (24.2-36.6) 10/23/16 12:53 POC ABG pH 7.507 (7.35-7.45) H 11/12/16 21:51 POC ABG pCO2 32.8 (35-45) L 11/12/16 21:51 POC ABG pO2 78 (80-105) L 11/12/16 21:51 POC ABG HCO3 26.0 11/12/16 21:51 POC ABG Total CO2 27 11/12/16 21:51 POC ABG O2 Sat 97 11/12/16 21:51 POC ABG Base Excess 3 11/12/16 21:51 FiO2 28 % 11/12/16 21:51 Sodium 145 mmol/L (137-145) 11/25/16 05:44 Potassium 4.3 mmol/L (3.6-5.0) 11/25/16 05:44 Chloride 106.5 mmol/L (98-107) 11/25/16 05:44 Carbon Dioxide 25 mmol/L (22-30) 11/25/16 05:44 Anion Gap 18 mmol/L 11/25/16 05:44 BUN 9 mg/dL (9-20) 11/25/16 05:44 Creatinine 0.9 mg/dL (0.8-1.5) 11/25/16 05:44 Estimated GFR > 60 ml/min 11/25/16 05:44 BUN/Creatinine Ratio 10.00 % 11/25/16 05:44 Glucose 154 mg/dL (75-100) H 11/25/16 05:44 POC Glucose 171 (70-105) H 11/28/16 05:51 Hemoglobin A1c 7.2 % (4-6) H 10/27/16 05:30 Lactic Acid 2.8 mmol/L (0.7-2.0) H* 10/23/16 12:53 Calcium 8.7 mg/dL (8.4-10.2) 11/25/16 05:44 Magnesium 1.9 mg/dL (1.7-2.3) 10/31/16 12:35 Total Bilirubin 0.9 mg/dL (0.1-1.2) 10/27/16 05:30 Direct Bilirubin 0.3 mg/dL (0-0.2) H 10/27/16 05:30 Indirect Bilirubin 0.6 mg/dL 10/27/16 05:30 AST 18 units/L (5-40) 10/27/16 05:30 ALT 13 units/L (7-56) 10/27/16 05:30 Alkaline Phosphatase 116 units/L (35-129) 10/27/16 05:30 Ammonia 30.0 umol/L (25-60) 10/26/16 09:00 Total Creatine Kinase 72 units/L (55-170) 11/02/16 18:37 CK-MB (CK-2) 3.0 ng/mL (0.0-4.0) 10/23/16 12:53 CK-MB (CK-2) Rel Index 0.9 (0-4) 10/23/16 12:53 Troponin T 0.032 ng/mL (0.00-0.029) H 10/23/16 12:53 NT-Pro-B Natriuret Pep 532.6 pg/mL (0-900) 10/23/16 12:53 Total Protein 7.1 g/dL (6.3-8.2) 10/27/16 05:30 Albumin 3.2 g/dL (3.9-5) L 10/27/16 05:30 Albumin/Globulin Ratio 0.8 % 10/27/16 05:30 Triglycerides 199 mg/dL (2-149) H 10/23/16 12:53 Cholesterol 143 mg/dL (50-199) 10/23/16 12:53 LDL Cholesterol Direct 64 mg/dL (50-130) 10/23/16 12:53 HDL Cholesterol 40 mg/dL (40-59) 10/23/16 12:53 Cholesterol/HDL Ratio 3.57 % 10/23/16 12:53 TSH 1.040 mlU/mL (0.270-4.200) 10/23/16 12:53 Free T4 1.13 ng/dL (0.76-1.46) 10/23/16 22:59 Thyroxine (T4) 5.2 ug/dL (4.0-12.0) 10/23/16 22:59 T3 (NISHA) 56 ng/dL (76-181) L 10/23/16 22:59 Free T3 Index 2.0 pg/mL (2.3-4.2) L 10/23/16 22:59 T3 Uptake See scanned report 10/23/16 22:59 Urine Color Yellow (Yellow) 11/03/16 07:47 Urine Turbidity Clear (Clear) 11/03/16 07:47 Urine pH 5.0 (5.0-7.0) 11/03/16 07:47 Ur Specific [place] 1.012 (1.003-1.030) 11/03/16 07:47 Urine Protein <15 mg/dl mg/dL (Negative) 11/03/16 07:47 Urine Glucose (UA) Neg mg/dL (Negative) 11/03/16 07:47 Urine Ketones Neg mg/dL (Negative) 11/03/16 07:47 Urine Blood Neg (Negative) 11/03/16 07:47 Urine Nitrite Pos (Negative) 11/03/16 07:47 Urine Bilirubin Neg (Negative) 11/03/16 07:47 Urine Urobilinogen 4.0 mg/dL (<2.0) 11/03/16 07:47 Ur Leukocyte Esterase Tr (Negative) 11/03/16 07:47 Urine WBC (Auto) 1.0 /HPF (0.0-6.0) 11/03/16 07:47 Urine RBC (Auto) 5.0 /HPF (0.0-6.0) 11/03/16 07:47 U Epithel Cells (Auto) < 1.0 /HPF (0-13.0) 11/03/16 07:47 Urine Bacteria (Auto) 2+ /HPF (Negative) 11/03/16 07:47 Urine Mucus Few /HPF 11/03/16 07:47 Urine Opiates Screen Presumptive negative 10/21/16 20:36 Urine Methadone Screen Presumptive negative 10/21/16 20:36 Ur Barbiturates Screen Presumptive negative 10/21/16 20:36 Ur Phencyclidine Scrn Presumptive negative 10/21/16 20:36 Ur Amphetamines Screen Presumptive negative 10/21/16 20:36 U Benzodiazepines Scrn Presumptive negative 10/21/16 20:36 Urine Cocaine Screen Presumptive negative 10/21/16 20:36 U Marijuana (THC) Screen Presumptive negative 10/21/16 20:36 Drugs of Abuse Note Disclamer 10/21/16 20:36 Plasma/Serum Alcohol < 0.01 gm% (0-0.07) 10/21/16 20:30 TB (QFT) Gold In Tube Negative (Negative) 11/10/16 00:08 TB Test (QFT) Nil 0.00 IU/mL (()) 11/10/16 00:08 TB Test Mitogen - Nil 1.22 IU/mL (()) 11/10/16 00:08 TB Test Antigen - Nil 0.01 IU/mL (()) 11/10/16 00:08
[2016-11-28] MEDS: NOVOLOG SUB-Q SCH ×4 (08:58→22:56)
[2016-11-28] MEDS: ROXICODONE PO SCH (09:42)
[2016-11-28] MEDS: COREG PO SCH ×2 (09:43→22:53)
[2016-11-28] MEDS: COLACE PO SCH ×2 (09:43→22:53)
[2016-11-28] MEDS: HEPARIN SUB-Q SCH ×2 (09:43→22:56)
[2016-11-28] MEDS: ZYLOPRIM PO SCH (09:43)
[2016-11-28] MEDS: HCTZ PO SCH (09:44)
[2016-11-28] MEDS: HALDOL PO SCH ×2 (09:44→22:51)
[2016-11-28] MEDS: MIRALAX 3350 PO SCH (09:45)
[2016-11-28] MEDS: PROCARDIA XL PO SCH (09:51)
[2016-11-28] MEDS: NEURONTIN PO SCH ×2 (09:51→22:54)
[2016-11-28] MEDS: BENADRYL IM PRN (12:13)
[2016-11-28] MEDS: DESYREL PO SCH (22:53)
[2016-11-29] MEDS: SYNTHROID PO SCH (05:40)
[2016-11-29] MEDS: COLACE PO SCH ×3 (05:54→22:34)
[2016-11-29] MEDS: DESYREL PO SCH ×2 (05:55→22:35)
[2016-11-29] MEDS: COREG PO SCH ×3 (05:55→22:39)
[2016-11-29] MEDS: HALDOL PO SCH ×3 (05:55→22:34)
[2016-11-29] MEDS: NOVOLOG SUB-Q SCH ×4 (08:37→22:57)
[2016-11-29] MEDS: ROXICODONE PO SCH (11:50)
[2016-11-29] MEDS: HCTZ PO SCH (11:50)
[2016-11-29] MEDS: PROCARDIA XL PO SCH (11:51)
[2016-11-29] MEDS: ZYLOPRIM PO SCH (11:51)
[2016-11-29] MEDS: MIRALAX 3350 PO SCH (11:51)
[2016-11-29] MEDS: NEURONTIN PO SCH ×2 (11:51→22:36)
[2016-11-29] MEDS: HEPARIN SUB-Q SCH ×2 (11:52→22:37)
[2016-11-29] MEDS: LAC-HYDRIN TP SCH ×2 (11:52→22:37)
--- NOTE | 2016-11-29 12:03 | Progress Note ---
Assessment and Plan - Patient Problems (1) Sepsis Current Visit: Yes Status: Resolved Plan to address problem: IV abx, supportive care, monitor uop q shift, (2) Pneumonia Current Visit: Yes Status: Resolved Plan to address problem: Pneumonia protocol: IV abx, blood cultures, supportive care, supplemental oxygen , nebs. (3) Dementia Current Visit: Yes Status: Chronic Plan to address problem: supportive care, bed alarm, fall precautions (4) Psychosis Current Visit: Yes Status: Acute Qualifiers: Psychosis type: unspecified psychosis type Qualified Code(s): F29 - Unspecified psychosis not due to a substance or known physiological condition Plan to address problem: continue current therapy (5) Finger amputation, no complication Current Visit: Yes Status: Acute Qualifiers: Encounter type: initial encounter Qualified Code(s): S68.119A - Complete traumatic metacarpophalangeal amputation of unspecified finger, initial encounter Plan to address problem: Ortho consulted, outpatient f/U. (6) Acute renal failure (ARF) Current Visit: Yes Status: Acute Plan to address problem: IVF, supportive care, monitor uop q shift, (7) Encephalopathy Current Visit: Yes Status: Acute Plan to address problem: supportive care, treat pneumonia, supportive care, (8) DVT prophylaxis Current Visit: Yes Status: Acute History Interval history: Pt resting comfortably in bed, No reported nursing events. Pt less agitated. Pt confused. case management consulted, pending placement. Hospitalist Physical - Constitutional Vitals: Temp Pulse Resp BP Pulse Ox 97.6 F 84 16 128/68 97 11/29/16 08:00 11/29/16 08:00 11/29/16 08:00 11/29/16 11:50 11/29/16 10:00 General appearance: Present: no acute distress, well-nourished - EENT Eyes: Present: PERRL ENT: hearing intact - Neck Neck: Present: supple - Respiratory Respiratory: bilateral: diminished - Cardiovascular Rhythm: regular Heart Sounds: Present: S1 & S2 - Extremities Extremities: no ischemia Extremity abnormal: edema Peripheral Pulses: within normal limits - Abdominal General gastrointestinal: soft, non-tender, non-distended - Integumentary Integumentary: Present: clear, dry - Psychiatric Psychiatric: no intact judgment & insight, no memory intact - Neurologic Neurologic: no gait normal Results - Labs CBC & Chem 7: 11/25/16 05:44 11/25/16 05:44 Labs: Laboratory Last Values WBC 3.6 K/mm3 (4.5-11.0) L 11/25/16 05:44 RBC 3.32 M/mm3 (3.65-5.03) L 11/25/16 05:44 Hgb 9.8 gm/dl (11.8-15.2) L 11/25/16 05:44 Hct 30.2 % (35.5-45.6) L 11/25/16 05:44 MCV 91 fl (84-94) 11/25/16 05:44 MCH 29 pg (28-32) 11/25/16 05:44 MCHC 32 % (32-34) 11/25/16 05:44 RDW 19.7 % (13.2-15.2) H 11/25/16 05:44 Plt Count 220 K/mm3 (140-440) 11/25/16 05:44 Lymph % (Auto) 14.4 % (13.4-35.0) 11/25/16 05:44 [place] % (Auto) 7.6 % (0.0-7.3) H 11/25/16 05:44 Eos % (Auto) 3.1 % (0.0-4.3) 11/25/16 05:44 Baso % (Auto) 1.6 % (0.0-1.8) 11/25/16 05:44 Lymph # 0.5 K/mm3 (1.2-5.4) L 11/25/16 05:44 [place] # 0.3 K/mm3 (0.0-0.8) 11/25/16 05:44 Eos # 0.1 K/mm3 (0.0-0.4) 11/25/16 05:44 Baso # 0.1 K/mm3 (0.0-0.1) 11/25/16 05:44 Seg Neutrophils % 73.3 % (40.0-70.0) H 11/25/16 05:44 Seg Neutrophils # 2.7 K/mm3 (1.8-7.7) 11/25/16 05:44 PT 14.3 Sec. (12.2-14.9) 10/23/16 12:53 INR 1.12 (0.87-1.13) 10/23/16 12:53 APTT 30.6 Sec. (24.2-36.6) 10/23/16 12:53 POC ABG pH 7.507 (7.35-7.45) H 11/12/16 21:51 POC ABG pCO2 32.8 (35-45) L 11/12/16 21:51 POC ABG pO2 78 (80-105) L 11/12/16 21:51 POC ABG HCO3 26.0 11/12/16 21:51 POC ABG Total CO2 27 11/12/16 21:51 POC ABG O2 Sat 97 11/12/16 21:51 POC ABG Base Excess 3 11/12/16 21:51 FiO2 28 % 11/12/16 21:51 Sodium 145 mmol/L (137-145) 11/25/16 05:44 Potassium 4.3 mmol/L (3.6-5.0) 11/25/16 05:44 Chloride 106.5 mmol/L (98-107) 11/25/16 05:44 Carbon Dioxide 25 mmol/L (22-30) 11/25/16 05:44 Anion Gap 18 mmol/L 11/25/16 05:44 BUN 9 mg/dL (9-20) 11/25/16 05:44 Creatinine 0.9 mg/dL (0.8-1.5) 11/25/16 05:44 Estimated GFR > 60 ml/min 11/25/16 05:44 BUN/Creatinine Ratio 10.00 % 11/25/16 05:44 Glucose 154 mg/dL (75-100) H 11/25/16 05:44 POC Glucose 110 (70-105) H 11/29/16 06:19 Hemoglobin A1c 7.2 % (4-6) H 10/27/16 05:30 Lactic Acid 2.8 mmol/L (0.7-2.0) H* 10/23/16 12:53 Calcium 8.7 mg/dL (8.4-10.2) 11/25/16 05:44 Magnesium 1.9 mg/dL (1.7-2.3) 10/31/16 12:35 Total Bilirubin 0.9 mg/dL (0.1-1.2) 10/27/16 05:30 Direct Bilirubin 0.3 mg/dL (0-0.2) H 10/27/16 05:30 Indirect Bilirubin 0.6 mg/dL 10/27/16 05:30 AST 18 units/L (5-40) 10/27/16 05:30 ALT 13 units/L (7-56) 10/27/16 05:30 Alkaline Phosphatase 116 units/L (35-129) 10/27/16 05:30 Ammonia 30.0 umol/L (25-60) 10/26/16 09:00 Total Creatine Kinase 72 units/L (55-170) 11/02/16 18:37 CK-MB (CK-2) 3.0 ng/mL (0.0-4.0) 10/23/16 12:53 CK-MB (CK-2) Rel Index 0.9 (0-4) 10/23/16 12:53 Troponin T 0.032 ng/mL (0.00-0.029) H 10/23/16 12:53 NT-Pro-B Natriuret Pep 532.6 pg/mL (0-900) 10/23/16 12:53 Total Protein 7.1 g/dL (6.3-8.2) 10/27/16 05:30 Albumin 3.2 g/dL (3.9-5) L 10/27/16 05:30 Albumin/Globulin Ratio 0.8 % 10/27/16 05:30 Triglycerides 199 mg/dL (2-149) H 10/23/16 12:53 Cholesterol 143 mg/dL (50-199) 10/23/16 12:53 LDL Cholesterol Direct 64 mg/dL (50-130) 10/23/16 12:53 HDL Cholesterol 40 mg/dL (40-59) 10/23/16 12:53 Cholesterol/HDL Ratio 3.57 % 10/23/16 12:53 TSH 1.040 mlU/mL (0.270-4.200) 10/23/16 12:53 Free T4 1.13 ng/dL (0.76-1.46) 10/23/16 22:59 Thyroxine (T4) 5.2 ug/dL (4.0-12.0) 10/23/16 22:59 T3 (NISHA) 56 ng/dL (76-181) L 10/23/16 22:59 Free T3 Index 2.0 pg/mL (2.3-4.2) L 10/23/16 22:59 T3 Uptake See scanned report 10/23/16 22:59 Urine Color Yellow (Yellow) 11/03/16 07:47 Urine Turbidity Clear (Clear) 11/03/16 07:47 Urine pH 5.0 (5.0-7.0) 11/03/16 07:47 Ur Specific [place] 1.012 (1.003-1.030) 11/03/16 07:47 Urine Protein <15 mg/dl mg/dL (Negative) 11/03/16 07:47 Urine Glucose (UA) Neg mg/dL (Negative) 11/03/16 07:47 Urine Ketones Neg mg/dL (Negative) 11/03/16 07:47 Urine Blood Neg (Negative) 11/03/16 07:47 Urine Nitrite Pos (Negative) 11/03/16 07:47 Urine Bilirubin Neg (Negative) 11/03/16 07:47 Urine Urobilinogen 4.0 mg/dL (<2.0) 11/03/16 07:47 Ur Leukocyte Esterase Tr (Negative) 11/03/16 07:47 Urine WBC (Auto) 1.0 /HPF (0.0-6.0) 11/03/16 07:47 Urine RBC (Auto) 5.0 /HPF (0.0-6.0) 11/03/16 07:47 U Epithel Cells (Auto) < 1.0 /HPF (0-13.0) 11/03/16 07:47 Urine Bacteria (Auto) 2+ /HPF (Negative) 11/03/16 07:47 Urine Mucus Few /HPF 11/03/16 07:47 Urine Opiates Screen Presumptive negative 10/21/16 20:36 Urine Methadone Screen Presumptive negative 10/21/16 20:36 Ur Barbiturates Screen Presumptive negative 10/21/16 20:36 Ur Phencyclidine Scrn Presumptive negative 10/21/16 20:36 Ur Amphetamines Screen Presumptive negative 10/21/16 20:36 U Benzodiazepines Scrn Presumptive negative 10/21/16 20:36 Urine Cocaine Screen Presumptive negative 10/21/16 20:36 U Marijuana (THC) Screen Presumptive negative 10/21/16 20:36 Drugs of Abuse Note Disclamer 10/21/16 20:36 Plasma/Serum Alcohol < 0.01 gm% (0-0.07) 10/21/16 20:30 TB (QFT) Gold In Tube Negative (Negative) 11/10/16 00:08 TB Test (QFT) Nil 0.00 IU/mL (()) 11/10/16 00:08 TB Test Mitogen - Nil 1.22 IU/mL (()) 11/10/16 00:08 TB Test Antigen - Nil 0.01 IU/mL (()) 11/10/16 00:08
[2016-11-30] MEDS: SYNTHROID PO SCH (05:03)
[2016-11-30] MEDS: NOVOLOG SUB-Q SCH ×4 (10:32→22:55)
[2016-11-30] MEDS: ROXICODONE PO SCH (10:34)
[2016-11-30] MEDS: MIRALAX 3350 PO SCH (10:34)
[2016-11-30] MEDS: COLACE PO SCH ×2 (10:35→22:43)
[2016-11-30] MEDS: ZYLOPRIM PO SCH (10:35)
[2016-11-30] MEDS: HALDOL PO SCH ×2 (10:35→22:44)
[2016-11-30] MEDS: HCTZ PO SCH (10:36)
[2016-11-30] MEDS: HEPARIN SUB-Q SCH ×2 (10:39→22:45)
[2016-11-30] MEDS: COREG PO SCH ×2 (10:49→22:56)
[2016-11-30] MEDS: PROCARDIA XL PO SCH (10:49)
[2016-11-30] MEDS: NEURONTIN PO SCH ×2 (11:26→22:43)
[2016-11-30] MEDS: LAC-HYDRIN TP SCH ×2 (13:13→22:48)
[2016-11-30] MEDS: DESYREL PO SCH (22:44)
[2016-12-01] MEDS: SYNTHROID PO SCH (06:16)
--- NOTE | 2016-12-01 07:51 | Progress Note ---
Assessment and Plan - Patient Problems (1) Sepsis Current Visit: Yes Status: Resolved Plan to address problem: IV abx, supportive care, monitor uop q shift, (2) Pneumonia Current Visit: Yes Status: Resolved Plan to address problem: Pneumonia protocol: IV abx, blood cultures, supportive care, supplemental oxygen , nebs. (3) Dementia Current Visit: Yes Status: Chronic Plan to address problem: supportive care, bed alarm, fall precautions (4) Psychosis Current Visit: Yes Status: Acute Qualifiers: Psychosis type: unspecified psychosis type Qualified Code(s): F29 - Unspecified psychosis not due to a substance or known physiological condition Plan to address problem: continue current therapy (5) Finger amputation, no complication Current Visit: Yes Status: Acute Qualifiers: Encounter type: initial encounter Qualified Code(s): S68.119A - Complete traumatic metacarpophalangeal amputation of unspecified finger, initial encounter Plan to address problem: Ortho consulted, outpatient f/U. (6) Acute renal failure (ARF) Current Visit: Yes Status: Resolved Plan to address problem: IVF, supportive care, monitor uop q shift, (7) Encephalopathy Current Visit: Yes Status: Acute Plan to address problem: supportive care, treat pneumonia, supportive care, (8) DVT prophylaxis Current Visit: Yes Status: Acute History Interval history: Pt resting comfortably in bed, No reported nursing events. Pt less agitated. Pt confused. case management consulted, pending placement.Discussed care plan with . Hospitalist Physical - Constitutional Vitals: Temp Pulse Resp BP Pulse Ox 100.3 F H 88 22 129/65 93 11/30/16 23:00 11/30/16 23:00 12/01/16 03:00 11/30/16 23:00 11/30/16 23:00 General appearance: Present: no acute distress, well-nourished - EENT Eyes: Present: PERRL ENT: hearing intact - Neck Neck: Present: supple - Respiratory Respiratory: bilateral: diminished - Cardiovascular Rhythm: regular Heart Sounds: Present: S1 & S2 - Extremities Extremities: no ischemia Extremity abnormal: edema Peripheral Pulses: within normal limits - Abdominal General gastrointestinal: soft, non-tender, non-distended - Integumentary Integumentary: Present: clear, dry, decreased turgor - Psychiatric Psychiatric: no intact judgment & insight, no memory intact - Neurologic Neurologic: moves all extremities, no gait normal Results - Labs CBC & Chem 7: 11/25/16 05:44 11/25/16 05:44 Labs: Laboratory Last Values WBC 3.6 K/mm3 (4.5-11.0) L 11/25/16 05:44 RBC 3.32 M/mm3 (3.65-5.03) L 11/25/16 05:44 Hgb 9.8 gm/dl (11.8-15.2) L 11/25/16 05:44 Hct 30.2 % (35.5-45.6) L 11/25/16 05:44 MCV 91 fl (84-94) 11/25/16 05:44 MCH 29 pg (28-32) 11/25/16 05:44 MCHC 32 % (32-34) 11/25/16 05:44 RDW 19.7 % (13.2-15.2) H 11/25/16 05:44 Plt Count 220 K/mm3 (140-440) 11/25/16 05:44 Lymph % (Auto) 14.4 % (13.4-35.0) 11/25/16 05:44 [place] % (Auto) 7.6 % (0.0-7.3) H 11/25/16 05:44 Eos % (Auto) 3.1 % (0.0-4.3) 11/25/16 05:44 Baso % (Auto) 1.6 % (0.0-1.8) 11/25/16 05:44 Lymph # 0.5 K/mm3 (1.2-5.4) L 11/25/16 05:44 [place] # 0.3 K/mm3 (0.0-0.8) 11/25/16 05:44 Eos # 0.1 K/mm3 (0.0-0.4) 11/25/16 05:44 Baso # 0.1 K/mm3 (0.0-0.1) 11/25/16 05:44 Seg Neutrophils % 73.3 % (40.0-70.0) H 11/25/16 05:44 Seg Neutrophils # 2.7 K/mm3 (1.8-7.7) 11/25/16 05:44 PT 14.3 Sec. (12.2-14.9) 10/23/16 12:53 INR 1.12 (0.87-1.13) 10/23/16 12:53 APTT 30.6 Sec. (24.2-36.6) 10/23/16 12:53 POC ABG pH 7.507 (7.35-7.45) H 11/12/16 21:51 POC ABG pCO2 32.8 (35-45) L 11/12/16 21:51 POC ABG pO2 78 (80-105) L 11/12/16 21:51 POC ABG HCO3 26.0 11/12/16 21:51 POC ABG Total CO2 27 11/12/16 21:51 POC ABG O2 Sat 97 11/12/16 21:51 POC ABG Base Excess 3 11/12/16 21:51 FiO2 28 % 11/12/16 21:51 Sodium 145 mmol/L (137-145) 11/25/16 05:44 Potassium 4.3 mmol/L (3.6-5.0) 11/25/16 05:44 Chloride 106.5 mmol/L (98-107) 11/25/16 05:44 Carbon Dioxide 25 mmol/L (22-30) 11/25/16 05:44 Anion Gap 18 mmol/L 11/25/16 05:44 BUN 9 mg/dL (9-20) 11/25/16 05:44 Creatinine 0.9 mg/dL (0.8-1.5) 11/25/16 05:44 Estimated GFR > 60 ml/min 11/25/16 05:44 BUN/Creatinine Ratio 10.00 % 11/25/16 05:44 Glucose 154 mg/dL (75-100) H 11/25/16 05:44 POC Glucose 200 (70-105) H 12/01/16 06:21 Hemoglobin A1c 7.2 % (4-6) H 10/27/16 05:30 Lactic Acid 2.8 mmol/L (0.7-2.0) H* 10/23/16 12:53 Calcium 8.7 mg/dL (8.4-10.2) 11/25/16 05:44 Magnesium 1.9 mg/dL (1.7-2.3) 10/31/16 12:35 Total Bilirubin 0.9 mg/dL (0.1-1.2) 10/27/16 05:30 Direct Bilirubin 0.3 mg/dL (0-0.2) H 10/27/16 05:30 Indirect Bilirubin 0.6 mg/dL 10/27/16 05:30 AST 18 units/L (5-40) 10/27/16 05:30 ALT 13 units/L (7-56) 10/27/16 05:30 Alkaline Phosphatase 116 units/L (35-129) 10/27/16 05:30 Ammonia 30.0 umol/L (25-60) 10/26/16 09:00 Total Creatine Kinase 72 units/L (55-170) 11/02/16 18:37 CK-MB (CK-2) 3.0 ng/mL (0.0-4.0) 10/23/16 12:53 CK-MB (CK-2) Rel Index 0.9 (0-4) 10/23/16 12:53 Troponin T 0.032 ng/mL (0.00-0.029) H 10/23/16 12:53 NT-Pro-B Natriuret Pep 532.6 pg/mL (0-900) 10/23/16 12:53 Total Protein 7.1 g/dL (6.3-8.2) 10/27/16 05:30 Albumin 3.2 g/dL (3.9-5) L 10/27/16 05:30 Albumin/Globulin Ratio 0.8 % 10/27/16 05:30 Triglycerides 199 mg/dL (2-149) H 10/23/16 12:53 Cholesterol 143 mg/dL (50-199) 10/23/16 12:53 LDL Cholesterol Direct 64 mg/dL (50-130) 10/23/16 12:53 HDL Cholesterol 40 mg/dL (40-59) 10/23/16 12:53 Cholesterol/HDL Ratio 3.57 % 10/23/16 12:53 TSH 1.040 mlU/mL (0.270-4.200) 10/23/16 12:53 Free T4 1.13 ng/dL (0.76-1.46) 10/23/16 22:59 Thyroxine (T4) 5.2 ug/dL (4.0-12.0) 10/23/16 22:59 T3 (NISHA) 56 ng/dL (76-181) L 10/23/16 22:59 Free T3 Index 2.0 pg/mL (2.3-4.2) L 10/23/16 22:59 T3 Uptake See scanned report 10/23/16 22:59 Urine Color Yellow (Yellow) 11/03/16 07:47 Urine Turbidity Clear (Clear) 11/03/16 07:47 Urine pH 5.0 (5.0-7.0) 11/03/16 07:47 Ur Specific [place] 1.012 (1.003-1.030) 11/03/16 07:47 Urine Protein <15 mg/dl mg/dL (Negative) 11/03/16 07:47 Urine Glucose (UA) Neg mg/dL (Negative) 11/03/16 07:47 Urine Ketones Neg mg/dL (Negative) 11/03/16 07:47 Urine Blood Neg (Negative) 11/03/16 07:47 Urine Nitrite Pos (Negative) 11/03/16 07:47 Urine Bilirubin Neg (Negative) 11/03/16 07:47 Urine Urobilinogen 4.0 mg/dL (<2.0) 11/03/16 07:47 Ur Leukocyte Esterase Tr (Negative) 11/03/16 07:47 Urine WBC (Auto) 1.0 /HPF (0.0-6.0) 11/03/16 07:47 Urine RBC (Auto) 5.0 /HPF (0.0-6.0) 11/03/16 07:47 U Epithel Cells (Auto) < 1.0 /HPF (0-13.0) 11/03/16 07:47 Urine Bacteria (Auto) 2+ /HPF (Negative) 11/03/16 07:47 Urine Mucus Few /HPF 11/03/16 07:47 Urine Opiates Screen Presumptive negative 10/21/16 20:36 Urine Methadone Screen Presumptive negative 10/21/16 20:36 Ur Barbiturates Screen Presumptive negative 10/21/16 20:36 Ur Phencyclidine Scrn Presumptive negative 10/21/16 20:36 Ur Amphetamines Screen Presumptive negative 10/21/16 20:36 U Benzodiazepines Scrn Presumptive negative 10/21/16 20:36 Urine Cocaine Screen Presumptive negative 10/21/16 20:36 U Marijuana (THC) Screen Presumptive negative 10/21/16 20:36 Drugs of Abuse Note Disclamer 10/21/16 20:36 Plasma/Serum Alcohol < 0.01 gm% (0-0.07) 10/21/16 20:30 TB (QFT) Gold In Tube Negative (Negative) 11/10/16 00:08 TB Test (QFT) Nil 0.00 IU/mL (()) 11/10/16 00:08 TB Test Mitogen - Nil 1.22 IU/mL (()) 11/10/16 00:08 TB Test Antigen - Nil 0.01 IU/mL (()) 11/10/16 00:08
[2016-12-01] MEDS: NOVOLOG SUB-Q SCH ×3 (08:16→17:34)
[2016-12-01] MEDS: ZYLOPRIM PO SCH (09:29)
[2016-12-01] MEDS: COLACE PO SCH ×2 (09:29→21:51)
[2016-12-01] MEDS: COREG PO SCH ×2 (09:29→21:55)
[2016-12-01] MEDS: HCTZ PO SCH (09:29)
[2016-12-01] MEDS: ROXICODONE PO SCH (09:29)
[2016-12-01] MEDS: PROCARDIA XL PO SCH (09:30)
[2016-12-01] MEDS: MIRALAX 3350 PO SCH (09:31)
[2016-12-01] MEDS: HALDOL PO SCH ×2 (09:35→21:51)
[2016-12-01] MEDS: HEPARIN SUB-Q SCH ×2 (09:36→22:45)
[2016-12-01] MEDS: NEURONTIN PO SCH ×2 (09:40→22:48)
[2016-12-01] MEDS: LAC-HYDRIN TP SCH ×2 (09:40→22:49)
[2016-12-01] MEDS: DILAUDID IV PRN ×2 (17:39→22:14)
--- NOTE | 2016-12-01 18:55 | Progress Note ---
Assessment and Plan - Patient Problems (1) Sepsis Current Visit: Yes Status: Resolved Plan to address problem: IV abx, supportive care, monitor uop q shift, (2) Pneumonia Current Visit: Yes Status: Resolved (3) Dementia Current Visit: Yes Status: Chronic Plan to address problem: supportive care, bed alarm, fall precautions (4) Psychosis Current Visit: Yes Status: Acute Qualifiers: Psychosis type: unspecified psychosis type Qualified Code(s): F29 - Unspecified psychosis not due to a substance or known physiological condition Plan to address problem: continue current therapy (5) Finger amputation, no complication Current Visit: Yes Status: Acute Qualifiers: Encounter type: initial encounter Qualified Code(s): S68.119A - Complete traumatic metacarpophalangeal amputation of unspecified finger, initial encounter Plan to address problem: Ortho consulted, outpatient f/U. (6) Acute renal failure (ARF) Current Visit: Yes Status: Resolved Plan to address problem: IVF, supportive care, monitor uop q shift, (7) Encephalopathy Current Visit: Yes Status: Acute Plan to address problem: supportive care, treat pneumonia, supportive care, (8) DVT prophylaxis Current Visit: Yes Status: Acute History Interval history: Pt resting comfortably in bed, No reported nursing events. Pt less agitated. Pt confused. Pt medically stable and optimized for discharge. case management consulted, pending placement.Discussed care plan with . Hospitalist Physical - Constitutional Vitals: Temp Pulse Resp BP Pulse Ox 97.4 F L 95 H 20 116/70 96 12/01/16 16:30 12/01/16 16:30 12/01/16 16:30 12/01/16 16:30 12/01/16 16:30 General appearance: Present: no acute distress, well-nourished - EENT Eyes: Present: PERRL, EOM intact ENT: hearing intact - Neck Neck: Present: supple - Respiratory Respiratory: bilateral: diminished - Cardiovascular Rhythm: regular Heart Sounds: Present: S1 & S2 - Extremities Extremities: no ischemia Peripheral Pulses: within normal limits - Abdominal General gastrointestinal: soft, non-tender, non-distended - Integumentary Integumentary: Present: clear, dry - Psychiatric Psychiatric: no intact judgment & insight, no memory intact - Neurologic Neurologic: moves all extremities, no gait normal Results - Labs CBC & Chem 7: 11/25/16 05:44 01/16/17 05:44 Labs: Laboratory Last Values WBC 3.6 K/mm3 (4.5-11.0) L 11/25/16 05:44 RBC 3.32 M/mm3 (3.65-5.03) L 11/25/16 05:44 Hgb 9.8 gm/dl (11.8-15.2) L 11/25/16 05:44 Hct 30.2 % (35.5-45.6) L 11/25/16 05:44 MCV 91 fl (84-94) 11/25/16 05:44 MCH 29 pg (28-32) 11/25/16 05:44 MCHC 32 % (32-34) 11/25/16 05:44 RDW 19.7 % (13.2-15.2) H 11/25/16 05:44 Plt Count 220 K/mm3 (140-440) 11/25/16 05:44 Lymph % (Auto) 14.4 % (13.4-35.0) 11/25/16 05:44 [place] % (Auto) 7.6 % (0.0-7.3) H 11/25/16 05:44 Eos % (Auto) 3.1 % (0.0-4.3) 11/25/16 05:44 Baso % (Auto) 1.6 % (0.0-1.8) 11/25/16 05:44 Lymph # 0.5 K/mm3 (1.2-5.4) L 11/25/16 05:44 [place] # 0.3 K/mm3 (0.0-0.8) 11/25/16 05:44 Eos # 0.1 K/mm3 (0.0-0.4) 11/25/16 05:44 Baso # 0.1 K/mm3 (0.0-0.1) 11/25/16 05:44 Seg Neutrophils % 73.3 % (40.0-70.0) H 11/25/16 05:44 Seg Neutrophils # 2.7 K/mm3 (1.8-7.7) 11/25/16 05:44 PT 14.3 Sec. (12.2-14.9) 10/23/16 12:53 INR 1.12 (0.87-1.13) 10/23/16 12:53 APTT 30.6 Sec. (24.2-36.6) 10/23/16 12:53 POC ABG pH 7.507 (7.35-7.45) H 11/12/16 21:51 POC ABG pCO2 32.8 (35-45) L 11/12/16 21:51 POC ABG pO2 78 (80-105) L 11/12/16 21:51 POC ABG HCO3 26.0 11/12/16 21:51 POC ABG Total CO2 27 11/12/16 21:51 POC ABG O2 Sat 97 11/12/16 21:51 POC ABG Base Excess 3 11/12/16 21:51 FiO2 28 % 11/12/16 21:51 Sodium 145 mmol/L (137-145) 11/25/16 05:44 Potassium 4.3 mmol/L (3.6-5.0) 11/25/16 05:44 Chloride 106.5 mmol/L (98-107) 11/25/16 05:44 Carbon Dioxide 25 mmol/L (22-30) 11/25/16 05:44 Anion Gap 18 mmol/L 11/25/16 05:44 BUN 9 mg/dL (9-20) 11/25/16 05:44 Creatinine 0.9 mg/dL (0.8-1.5) 11/25/16 05:44 Estimated GFR > 60 ml/min 11/25/16 05:44 BUN/Creatinine Ratio 10.00 % 11/25/16 05:44 Glucose 154 mg/dL (75-100) H 11/25/16 05:44 POC Glucose 92 (70-105) 12/01/16 16:33 Hemoglobin A1c 7.2 % (4-6) H 10/27/16 05:30 Lactic Acid 2.8 mmol/L (0.7-2.0) H* 10/23/16 12:53 Calcium 8.7 mg/dL (8.4-10.2) 11/25/16 05:44 Magnesium 1.9 mg/dL (1.7-2.3) 10/31/16 12:35 Total Bilirubin 0.9 mg/dL (0.1-1.2) 10/27/16 05:30 Direct Bilirubin 0.3 mg/dL (0-0.2) H 10/27/16 05:30 Indirect Bilirubin 0.6 mg/dL 10/27/16 05:30 AST 18 units/L (5-40) 10/27/16 05:30 ALT 13 units/L (7-56) 10/27/16 05:30 Alkaline Phosphatase 116 units/L (35-129) 10/27/16 05:30 Ammonia 30.0 umol/L (25-60) 10/26/16 09:00 Total Creatine Kinase 72 units/L (55-170) 11/02/16 18:37 CK-MB (CK-2) 3.0 ng/mL (0.0-4.0) 10/23/16 12:53 CK-MB (CK-2) Rel Index 0.9 (0-4) 10/23/16 12:53 Troponin T 0.032 ng/mL (0.00-0.029) H 10/23/16 12:53 NT-Pro-B Natriuret Pep 532.6 pg/mL (0-900) 10/23/16 12:53 Total Protein 7.1 g/dL (6.3-8.2) 10/27/16 05:30 Albumin 3.2 g/dL (3.9-5) L 10/27/16 05:30 Albumin/Globulin Ratio 0.8 % 10/27/16 05:30 Triglycerides 199 mg/dL (2-149) H 10/23/16 12:53 Cholesterol 143 mg/dL (50-199) 10/23/16 12:53 LDL Cholesterol Direct 64 mg/dL (50-130) 10/23/16 12:53 HDL Cholesterol 40 mg/dL (40-59) 10/23/16 12:53 Cholesterol/HDL Ratio 3.57 % 10/23/16 12:53 TSH 1.040 mlU/mL (0.270-4.200) 10/23/16 12:53 Free T4 1.13 ng/dL (0.76-1.46) 10/23/16 22:59 Thyroxine (T4) 5.2 ug/dL (4.0-12.0) 10/23/16 22:59 T3 (NISHA) 56 ng/dL (76-181) L 10/23/16 22:59 Free T3 Index 2.0 pg/mL (2.3-4.2) L 10/23/16 22:59 T3 Uptake See scanned report 10/23/16 22:59 Urine Color Yellow (Yellow) 11/03/16 07:47 Urine Turbidity Clear (Clear) 11/03/16 07:47 Urine pH 5.0 (5.0-7.0) 11/03/16 07:47 Ur Specific [place] 1.012 (1.003-1.030) 11/03/16 07:47 Urine Protein <15 mg/dl mg/dL (Negative) 11/03/16 07:47 Urine Glucose (UA) Neg mg/dL (Negative) 11/03/16 07:47 Urine Ketones Neg mg/dL (Negative) 11/03/16 07:47 Urine Blood Neg (Negative) 11/03/16 07:47 Urine Nitrite Pos (Negative) 11/03/16 07:47 Urine Bilirubin Neg (Negative) 11/03/16 07:47 Urine Urobilinogen 4.0 mg/dL (<2.0) 11/03/16 07:47 Ur Leukocyte Esterase Tr (Negative) 11/03/16 07:47 Urine WBC (Auto) 1.0 /HPF (0.0-6.0) 11/03/16 07:47 Urine RBC (Auto) 5.0 /HPF (0.0-6.0) 11/03/16 07:47 U Epithel Cells (Auto) < 1.0 /HPF (0-13.0) 11/03/16 07:47 Urine Bacteria (Auto) 2+ /HPF (Negative) 11/03/16 07:47 Urine Mucus Few /HPF 11/03/16 07:47 Urine Opiates Screen Presumptive negative 10/21/16 20:36 Urine Methadone Screen Presumptive negative 10/21/16 20:36 Ur Barbiturates Screen Presumptive negative 10/21/16 20:36 Ur Phencyclidine Scrn Presumptive negative 10/21/16 20:36 Ur Amphetamines Screen Presumptive negative 10/21/16 20:36 U Benzodiazepines Scrn Presumptive negative 10/21/16 20:36 Urine Cocaine Screen Presumptive negative 10/21/16 20:36 U Marijuana (THC) Screen Presumptive negative 10/21/16 20:36 Drugs of Abuse Note Disclamer 10/21/16 20:36 Plasma/Serum Alcohol < 0.01 gm% (0-0.07) 10/21/16 20:30 TB (QFT) Gold In Tube Negative (Negative) 11/10/16 00:08 TB Test (QFT) Nil 0.00 IU/mL (()) 11/10/16 00:08 TB Test Mitogen - Nil 1.22 IU/mL (()) 11/10/16 00:08 TB Test Antigen - Nil 0.01 IU/mL (()) 11/10/16 00:08
[2016-12-01] MEDS: DESYREL PO SCH (21:52)
[2016-12-01] MEDS: BENADRYL IM PRN (22:15)
[2016-12-02] MEDS: NOVOLOG SUB-Q SCH ×5 (01:48→22:30)
[2016-12-02] MEDS: SYNTHROID PO SCH (06:10)
[2016-12-02] MEDS: HEPARIN SUB-Q SCH ×2 (12:50→22:32)
[2016-12-02] MEDS: COLACE PO SCH ×2 (12:51→22:31)
[2016-12-02] MEDS: ZYLOPRIM PO SCH (12:51)
[2016-12-02] MEDS: HALDOL PO SCH (12:51)
[2016-12-02] MEDS: HCTZ PO SCH (12:52)
[2016-12-02] MEDS: COREG PO SCH ×2 (12:54→22:31)
[2016-12-02] MEDS: MIRALAX 3350 PO SCH (12:59)
[2016-12-02] MEDS: ROXICODONE PO SCH (12:59)
[2016-12-02] MEDS: PROCARDIA XL PO SCH ×2 (13:06→13:17)
[2016-12-02] MEDS: LAC-HYDRIN TP SCH ×2 (18:32→22:35)
[2016-12-02] MEDS ORDERED: ATIVAN IV PRN (18:59)
[2016-12-02] MEDS: GEODON PO SCH (22:32)
--- NOTE | 2016-12-03 05:26 | Progress Note ---
Assessment and Plan - Patient Problems (1) Sepsis Current Visit: Yes Status: Resolved (2) Pneumonia Current Visit: Yes Status: Resolved (3) Dementia Current Visit: Yes Status: Chronic Plan to address problem: supportive care, bed alarm, fall precautions (4) Psychosis Current Visit: Yes Status: Acute Qualifiers: Psychosis type: unspecified psychosis type Qualified Code(s): F29 - Unspecified psychosis not due to a substance or known physiological condition Plan to address problem: continue current therapy Geodon initiated, continue current therapy (5) Finger amputation, no complication Current Visit: Yes Status: Acute Qualifiers: Encounter type: initial encounter Qualified Code(s): S68.119A - Complete traumatic metacarpophalangeal amputation of unspecified finger, initial encounter Plan to address problem: Ortho consulted, outpatient f/U. (6) Acute renal failure (ARF) Current Visit: Yes Status: Resolved Plan to address problem: IVF, supportive care, monitor uop q shift, (7) Encephalopathy Current Visit: Yes Status: Acute Plan to address problem: supportive care, treat pneumonia, supportive care, (8) DVT prophylaxis Current Visit: Yes Status: Acute History Interval history: Pt resting comfortably in bed, No reported nursing events. Pt less agitated. Pt confused. Pt medically stable and optimized for discharge. case management consulted, pending placement.Discussed care plan with . Pt restraints discontinued. Hospitalist Physical - Constitutional Vitals: Temp Pulse Resp BP Pulse Ox 98.6 F 97 H 22 137/71 98 12/02/16 23:45 12/02/16 23:45 12/02/16 23:45 12/02/16 23:45 12/02/16 23:45 General appearance: Present: no acute distress, well-nourished - EENT Eyes: Present: PERRL ENT: hearing intact - Neck Neck: Present: supple - Respiratory Respiratory: bilateral: diminished - Cardiovascular Rhythm: regular Heart Sounds: Present: S1 & S2 - Extremities Extremities: no ischemia - Abdominal General gastrointestinal: soft, non-tender, non-distended - Integumentary Integumentary: Present: clear, dry - Psychiatric Psychiatric: no intact judgment & insight, no memory intact - Neurologic Neurologic: no gait normal Results - Labs CBC & Chem 7: 11/25/16 05:44 11/25/16 05:44 Labs: Laboratory Last Values WBC 3.6 K/mm3 (4.5-11.0) L 11/25/16 05:44 RBC 3.32 M/mm3 (3.65-5.03) L 11/25/16 05:44 Hgb 9.8 gm/dl (11.8-15.2) L 11/25/16 05:44 Hct 30.2 % (35.5-45.6) L 11/25/16 05:44 MCV 91 fl (84-94) 11/25/16 05:44 MCH 29 pg (28-32) 11/25/16 05:44 MCHC 32 % (32-34) 11/25/16 05:44 RDW 19.7 % (13.2-15.2) H 11/25/16 05:44 Plt Count 220 K/mm3 (140-440) 11/25/16 05:44 Lymph % (Auto) 14.4 % (13.4-35.0) 11/25/16 05:44 [place] % (Auto) 7.6 % (0.0-7.3) H 11/25/16 05:44 Eos % (Auto) 3.1 % (0.0-4.3) 11/25/16 05:44 Baso % (Auto) 1.6 % (0.0-1.8) 11/25/16 05:44 Lymph # 0.5 K/mm3 (1.2-5.4) L 11/25/16 05:44 [place] # 0.3 K/mm3 (0.0-0.8) 11/25/16 05:44 Eos # 0.1 K/mm3 (0.0-0.4) 11/25/16 05:44 Baso # 0.1 K/mm3 (0.0-0.1) 11/25/16 05:44 Seg Neutrophils % 73.3 % (40.0-70.0) H 11/25/16 05:44 Seg Neutrophils # 2.7 K/mm3 (1.8-7.7) 11/25/16 05:44 PT 14.3 Sec. (12.2-14.9) 10/23/16 12:53 INR 1.12 (0.87-1.13) 10/23/16 12:53 APTT 30.6 Sec. (24.2-36.6) 10/23/16 12:53 POC ABG pH 7.507 (7.35-7.45) H 11/12/16 21:51 POC ABG pCO2 32.8 (35-45) L 11/12/16 21:51 POC ABG pO2 78 (80-105) L 11/12/16 21:51 POC ABG HCO3 26.0 11/12/16 21:51 POC ABG Total CO2 27 11/12/16 21:51 POC ABG O2 Sat 97 11/12/16 21:51 POC ABG Base Excess 3 11/12/16 21:51 FiO2 28 % 11/12/16 21:51 Sodium 145 mmol/L (137-145) 11/25/16 05:44 Potassium 4.3 mmol/L (3.6-5.0) 11/25/16 05:44 Chloride 106.5 mmol/L (98-107) 11/25/16 05:44 Carbon Dioxide 25 mmol/L (22-30) 11/25/16 05:44 Anion Gap 18 mmol/L 11/25/16 05:44 BUN 9 mg/dL (9-20) 11/25/16 05:44 Creatinine 0.9 mg/dL (0.8-1.5) 11/25/16 05:44 Estimated GFR > 60 ml/min 11/25/16 05:44 BUN/Creatinine Ratio 10.00 % 11/25/16 05:44 Glucose 154 mg/dL (75-100) H 11/25/16 05:44 POC Glucose 176 (70-105) H 12/02/16 22:02 Hemoglobin A1c 7.2 % (4-6) H 10/27/16 05:30 Lactic Acid 2.8 mmol/L (0.7-2.0) H* 10/23/16 12:53 Calcium 8.7 mg/dL (8.4-10.2) 11/25/16 05:44 Magnesium 1.9 mg/dL (1.7-2.3) 10/31/16 12:35 Total Bilirubin 0.9 mg/dL (0.1-1.2) 10/27/16 05:30 Direct Bilirubin 0.3 mg/dL (0-0.2) H 10/27/16 05:30 Indirect Bilirubin 0.6 mg/dL 10/27/16 05:30 AST 18 units/L (5-40) 10/27/16 05:30 ALT 13 units/L (7-56) 10/27/16 05:30 Alkaline Phosphatase 116 units/L (35-129) 10/27/16 05:30 Ammonia 30.0 umol/L (25-60) 10/26/16 09:00 Total Creatine Kinase 72 units/L (55-170) 11/02/16 18:37 CK-MB (CK-2) 3.0 ng/mL (0.0-4.0) 10/23/16 12:53 CK-MB (CK-2) Rel Index 0.9 (0-4) 10/23/16 12:53 Troponin T 0.032 ng/mL (0.00-0.029) H 10/23/16 12:53 NT-Pro-B Natriuret Pep 532.6 pg/mL (0-900) 10/23/16 12:53 Total Protein 7.1 g/dL (6.3-8.2) 10/27/16 05:30 Albumin 3.2 g/dL (3.9-5) L 10/27/16 05:30 Albumin/Globulin Ratio 0.8 % 10/27/16 05:30 Triglycerides 199 mg/dL (2-149) H 10/23/16 12:53 Cholesterol 143 mg/dL (50-199) 10/23/16 12:53 LDL Cholesterol Direct 64 mg/dL (50-130) 10/23/16 12:53 HDL Cholesterol 40 mg/dL (40-59) 10/23/16 12:53 Cholesterol/HDL Ratio 3.57 % 10/23/16 12:53 TSH 1.040 mlU/mL (0.270-4.200) 10/23/16 12:53 Free T4 1.13 ng/dL (0.76-1.46) 10/23/16 22:59 Thyroxine (T4) 5.2 ug/dL (4.0-12.0) 10/23/16 22:59 T3 (NISHA) 56 ng/dL (76-181) L 10/23/16 22:59 Free T3 Index 2.0 pg/mL (2.3-4.2) L 10/23/16 22:59 T3 Uptake See scanned report 10/23/16 22:59 Urine Color Yellow (Yellow) 11/03/16 07:47 Urine Turbidity Clear (Clear) 11/03/16 07:47 Urine pH 5.0 (5.0-7.0) 11/03/16 07:47 Ur Specific [place] 1.012 (1.003-1.030) 11/03/16 07:47 Urine Protein <15 mg/dl mg/dL (Negative) 11/03/16 07:47 Urine Glucose (UA) Neg mg/dL (Negative) 11/03/16 07:47 Urine Ketones Neg mg/dL (Negative) 11/03/16 07:47 Urine Blood Neg (Negative) 11/03/16 07:47 Urine Nitrite Pos (Negative) 11/03/16 07:47 Urine Bilirubin Neg (Negative) 11/03/16 07:47 Urine Urobilinogen 4.0 mg/dL (<2.0) 11/03/16 07:47 Ur Leukocyte Esterase Tr (Negative) 11/03/16 07:47 Urine WBC (Auto) 1.0 /HPF (0.0-6.0) 11/03/16 07:47 Urine RBC (Auto) 5.0 /HPF (0.0-6.0) 11/03/16 07:47 U Epithel Cells (Auto) < 1.0 /HPF (0-13.0) 11/03/16 07:47 Urine Bacteria (Auto) 2+ /HPF (Negative) 11/03/16 07:47 Urine Mucus Few /HPF 11/03/16 07:47 Urine Opiates Screen Presumptive negative 10/21/16 20:36 Urine Methadone Screen Presumptive negative 10/21/16 20:36 Ur Barbiturates Screen Presumptive negative 10/21/16 20:36 Ur Phencyclidine Scrn Presumptive negative 10/21/16 20:36 Ur Amphetamines Screen Presumptive negative 10/21/16 20:36 U Benzodiazepines Scrn Presumptive negative 10/21/16 20:36 Urine Cocaine Screen Presumptive negative 10/21/16 20:36 U Marijuana (THC) Screen Presumptive negative 10/21/16 20:36 Drugs of Abuse Note Disclamer 10/21/16 20:36 Plasma/Serum Alcohol < 0.01 gm% (0-0.07) 10/21/16 20:30 TB (QFT) Gold In Tube Negative (Negative) 11/10/16 00:08 TB Test (QFT) Nil 0.00 IU/mL (()) 11/10/16 00:08 TB Test Mitogen - Nil 1.22 IU/mL (()) 11/10/16 00:08 TB Test Antigen - Nil 0.01 IU/mL (()) 11/10/16 00:08
[2016-12-03] MEDS: SYNTHROID PO SCH (05:54)
--- NOTE | 2016-12-03 08:40 | Progress Note ---
Assessment and Plan Assessment and plan: 1) Sepsis Current Visit: Yes Status: Resolved (2) Pneumonia Current Visit: Yes Status: Resolved (3) Dementia Current Visit: Yes Status: Chronic Plan to address problem: supportive care, bed alarm, fall precautions (4) Psychosis Current Visit: Yes Status: Acute Qualifiers: Psychosis type: unspecified psychosis type Qualified Code(s): F29 - Unspecified psychosis not due to a substance or known physiological condition Plan to address problem: continue current therapy Geodon initiated, continue current therapy (5) Finger amputation, no complication Current Visit: Yes Status: Acute Qualifiers: Encounter type: initial encounter Qualified Code(s): S68.119A - Complete traumatic metacarpophalangeal amputation of unspecified finger, initial encounter Plan to address problem: Ortho consulted, outpatient f/U. (6) Acute renal failure (ARF) Current Visit: Yes Status: Resolved Plan to address problem: IVF, supportive care, monitor uop q shift, (7) Encephalopathy Current Visit: Yes Status: Acute Plan to address problem: supportive care, treat pneumonia, supportive care, (8) DVT prophylaxis Current Visit: Yes Status: Acute History Interval history: Patient was seen and evaluated this morning. No new complaints, no nursing issues overnight. Hospitalist Physical - Physical exam Narrative exam: Not in cardiopulmonary distress. The patient appeared well nourished and normally developed. Vital signs as documented. Head exam is unremarkable. No scleral icterus . Neck is without jugular venous distension, thyromegaly, or carotid bruits. Lungs are clear to auscultation. Cardiac exam reveals regular rate and Rhythm. First and second heart sounds normal. No murmurs, rubs or gallops. Abdominal exam reveals normal bowel sounds, no masses, no organomegaly and no aortic enlargement. Extremities are nonedematous and both femoral and pedal pulses are normal. DIRECTOR OF CLINICAL SERVICES: Alert and oriented 3. No focal weakness. - Constitutional Vitals: Temp Pulse Resp BP Pulse Ox 98.2 F 78 18 129/72 100 12/03/16 07:30 12/03/16 07:30 12/03/16 07:30 12/03/16 07:30 12/03/16 07:30 General appearance: Present: no acute distress, well-nourished Results - Labs CBC & Chem 7: 11/25/16 05:44 11/25/16 05:44 Labs: Laboratory Last Values WBC 3.6 K/mm3 (4.5-11.0) L 11/25/16 05:44 RBC 3.32 M/mm3 (3.65-5.03) L 11/25/16 05:44 Hgb 9.8 gm/dl (11.8-15.2) L 11/25/16 05:44 Hct 30.2 % (35.5-45.6) L 11/25/16 05:44 MCV 91 fl (84-94) 11/25/16 05:44 MCH 29 pg (28-32) 11/25/16 05:44 MCHC 32 % (32-34) 11/25/16 05:44 RDW 19.7 % (13.2-15.2) H 11/25/16 05:44 Plt Count 220 K/mm3 (140-440) 11/25/16 05:44 Lymph % (Auto) 14.4 % (13.4-35.0) 11/25/16 05:44 [place] % (Auto) 7.6 % (0.0-7.3) H 11/25/16 05:44 Eos % (Auto) 3.1 % (0.0-4.3) 11/25/16 05:44 Baso % (Auto) 1.6 % (0.0-1.8) 11/25/16 05:44 Lymph # 0.5 K/mm3 (1.2-5.4) L 11/25/16 05:44 [place] # 0.3 K/mm3 (0.0-0.8) 11/25/16 05:44 Eos # 0.1 K/mm3 (0.0-0.4) 11/25/16 05:44 Baso # 0.1 K/mm3 (0.0-0.1) 11/25/16 05:44 Seg Neutrophils % 73.3 % (40.0-70.0) H 11/25/16 05:44 Seg Neutrophils # 2.7 K/mm3 (1.8-7.7) 11/25/16 05:44 PT 14.3 Sec. (12.2-14.9) 10/23/16 12:53 INR 1.12 (0.87-1.13) 10/23/16 12:53 APTT 30.6 Sec. (24.2-36.6) 10/23/16 12:53 POC ABG pH 7.507 (7.35-7.45) H 11/12/16 21:51 POC ABG pCO2 32.8 (35-45) L 11/12/16 21:51 POC ABG pO2 78 (80-105) L 11/12/16 21:51 POC ABG HCO3 26.0 11/12/16 21:51 POC ABG Total CO2 27 11/12/16 21:51 POC ABG O2 Sat 97 11/12/16 21:51 POC ABG Base Excess 3 11/12/16 21:51 FiO2 28 % 11/12/16 21:51 Sodium 145 mmol/L (137-145) 11/25/16 05:44 Potassium 4.3 mmol/L (3.6-5.0) 11/25/16 05:44 Chloride 106.5 mmol/L (98-107) 11/25/16 05:44 Carbon Dioxide 25 mmol/L (22-30) 11/25/16 05:44 Anion Gap 18 mmol/L 11/25/16 05:44 BUN 9 mg/dL (9-20) 11/25/16 05:44 Creatinine 0.9 mg/dL (0.8-1.5) 11/25/16 05:44 Estimated GFR > 60 ml/min 11/25/16 05:44 BUN/Creatinine Ratio 10.00 % 11/25/16 05:44 Glucose 154 mg/dL (75-100) H 11/25/16 05:44 POC Glucose 206 (70-105) H 12/03/16 08:14 Hemoglobin A1c 7.2 % (4-6) H 10/27/16 05:30 Lactic Acid 2.8 mmol/L (0.7-2.0) H* 10/23/16 12:53 Calcium 8.7 mg/dL (8.4-10.2) 11/25/16 05:44 Magnesium 1.9 mg/dL (1.7-2.3) 10/31/16 12:35 Total Bilirubin 0.9 mg/dL (0.1-1.2) 10/27/16 05:30 Direct Bilirubin 0.3 mg/dL (0-0.2) H 10/27/16 05:30 Indirect Bilirubin 0.6 mg/dL 10/27/16 05:30 AST 18 units/L (5-40) 10/27/16 05:30 ALT 13 units/L (7-56) 10/27/16 05:30 Alkaline Phosphatase 116 units/L (35-129) 10/27/16 05:30 Ammonia 30.0 umol/L (25-60) 10/26/16 09:00 Total Creatine Kinase 72 units/L (55-170) 11/02/16 18:37 CK-MB (CK-2) 3.0 ng/mL (0.0-4.0) 10/23/16 12:53 CK-MB (CK-2) Rel Index 0.9 (0-4) 10/23/16 12:53 Troponin T 0.032 ng/mL (0.00-0.029) H 10/23/16 12:53 NT-Pro-B Natriuret Pep 532.6 pg/mL (0-900) 10/23/16 12:53 Total Protein 7.1 g/dL (6.3-8.2) 10/27/16 05:30 Albumin 3.2 g/dL (3.9-5) L 10/27/16 05:30 Albumin/Globulin Ratio 0.8 % 10/27/16 05:30 Triglycerides 199 mg/dL (2-149) H 10/23/16 12:53 Cholesterol 143 mg/dL (50-199) 10/23/16 12:53 LDL Cholesterol Direct 64 mg/dL (50-130) 10/23/16 12:53 HDL Cholesterol 40 mg/dL (40-59) 10/23/16 12:53 Cholesterol/HDL Ratio 3.57 % 10/23/16 12:53 TSH 1.040 mlU/mL (0.270-4.200) 10/23/16 12:53 Free T4 1.13 ng/dL (0.76-1.46) 10/23/16 22:59 Thyroxine (T4) 5.2 ug/dL (4.0-12.0) 10/23/16 22:59 T3 (NISHA) 56 ng/dL (76-181) L 10/23/16 22:59 Free T3 Index 2.0 pg/mL (2.3-4.2) L 10/23/16 22:59 T3 Uptake See scanned report 10/23/16 22:59 Urine Color Yellow (Yellow) 11/03/16 07:47 Urine Turbidity Clear (Clear) 11/03/16 07:47 Urine pH 5.0 (5.0-7.0) 11/03/16 07:47 Ur Specific [place] 1.012 (1.003-1.030) 11/03/16 07:47 Urine Protein <15 mg/dl mg/dL (Negative) 11/03/16 07:47 Urine Glucose (UA) Neg mg/dL (Negative) 11/03/16 07:47 Urine Ketones Neg mg/dL (Negative) 11/03/16 07:47 Urine Blood Neg (Negative) 11/03/16 07:47 Urine Nitrite Pos (Negative) 11/03/16 07:47 Urine Bilirubin Neg (Negative) 11/03/16 07:47 Urine Urobilinogen 4.0 mg/dL (<2.0) 11/03/16 07:47 Ur Leukocyte Esterase Tr (Negative) 11/03/16 07:47 Urine WBC (Auto) 1.0 /HPF (0.0-6.0) 11/03/16 07:47 Urine RBC (Auto) 5.0 /HPF (0.0-6.0) 11/03/16 07:47 U Epithel Cells (Auto) < 1.0 /HPF (0-13.0) 11/03/16 07:47 Urine Bacteria (Auto) 2+ /HPF (Negative) 11/03/16 07:47 Urine Mucus Few /HPF 11/03/16 07:47 Urine Opiates Screen Presumptive negative 10/21/16 20:36 Urine Methadone Screen Presumptive negative 10/21/16 20:36 Ur Barbiturates Screen Presumptive negative 10/21/16 20:36 Ur Phencyclidine Scrn Presumptive negative 10/21/16 20:36 Ur Amphetamines Screen Presumptive negative 10/21/16 20:36 U Benzodiazepines Scrn Presumptive negative 10/21/16 20:36 Urine Cocaine Screen Presumptive negative 10/21/16 20:36 U Marijuana (THC) Screen Presumptive negative 10/21/16 20:36 Drugs of Abuse Note Disclamer 10/21/16 20:36 Plasma/Serum Alcohol < 0.01 gm% (0-0.07) 10/21/16 20:30 TB (QFT) Gold In Tube Negative (Negative) 11/10/16 00:08 TB Test (QFT) Nil 0.00 IU/mL (()) 11/10/16 00:08 TB Test Mitogen - Nil 1.22 IU/mL (()) 11/10/16 00:08 TB Test Antigen - Nil 0.01 IU/mL (()) 11/10/16 00:08
[2016-12-03] MEDS: NOVOLOG SUB-Q SCH ×4 (09:04→22:40)
[2016-12-03] MEDS: HALDOL PO SCH (09:47)
[2016-12-03] MEDS: GEODON PO SCH ×2 (09:47→22:38)
[2016-12-03] MEDS: HEPARIN SUB-Q SCH ×2 (09:47→22:33)
[2016-12-03] MEDS: COLACE PO SCH ×2 (09:47→22:39)
[2016-12-03] MEDS: ROXICODONE PO SCH (09:47)
[2016-12-03] MEDS: COREG PO SCH ×2 (09:49→22:37)
[2016-12-03] MEDS: PROCARDIA XL PO SCH (09:49)
[2016-12-03] MEDS: ZYLOPRIM PO SCH (09:49)
[2016-12-03] MEDS: LAC-HYDRIN TP SCH ×2 (09:50→22:41)
[2016-12-03] MEDS: HCTZ PO SCH (09:54)
[2016-12-03] MEDS: MIRALAX 3350 PO SCH (09:54)
[2016-12-04] MEDS: SYNTHROID PO SCH (05:40)
[2016-12-04] MEDS: NOVOLOG SUB-Q SCH ×4 (08:00→22:51)
[2016-12-04] MEDS: MIRALAX 3350 PO SCH (12:22)
[2016-12-04] MEDS: HALDOL PO SCH (12:23)
[2016-12-04] MEDS: PROCARDIA XL PO SCH (12:23)
[2016-12-04] MEDS: COLACE PO SCH ×2 (12:24→22:14)
[2016-12-04] MEDS: COREG PO SCH ×2 (12:24→22:14)
[2016-12-04] MEDS: ZYLOPRIM PO SCH (12:24)
[2016-12-04] MEDS: HCTZ PO SCH (12:24)
[2016-12-04] MEDS: GEODON PO SCH ×2 (12:24→22:14)
[2016-12-04] MEDS: ROXICODONE PO SCH (12:25)
[2016-12-04] MEDS: HEPARIN SUB-Q SCH ×2 (12:25→22:15)
[2016-12-04] MEDS: LAC-HYDRIN TP SCH ×2 (12:35→22:55)
--- NOTE | 2016-12-04 17:16 | Progress Note ---
Assessment and Plan Assessment and plan: 1) Sepsis Current Visit: Yes Status: Resolved (2) Pneumonia Current Visit: Yes Status: Resolved (3) Dementia Current Visit: Yes Status: Chronic Plan to address problem: supportive care, bed alarm, fall precautions (4) Psychosis Current Visit: Yes Status: Acute Qualifiers: Psychosis type: unspecified psychosis type Qualified Code(s): F29 - Unspecified psychosis not due to a substance or known physiological condition Plan to address problem: continue current therapy Geodon initiated, continue current therapy (5) Finger amputation, no complication Current Visit: Yes Status: Acute Qualifiers: Encounter type: initial encounter Qualified Code(s): S68.119A - Complete traumatic metacarpophalangeal amputation of unspecified finger, initial encounter Plan to address problem: Ortho consulted, outpatient f/U. (6) Acute renal failure (ARF) Current Visit: Yes Status: Resolved Plan to address problem: IVF, supportive care, monitor uop q shift, (7) Encephalopathy Current Visit: Yes Status: Acute Plan to address problem: supportive care, treat pneumonia, supportive care, (8) DVT prophylaxis Current Visit: Yes Status: Acute Disposition Plan: pending placement to SNF History Interval history: Patient was seen and evaluated this morning. No new complaints, no nursing issues overnight. Patient was calm and cooperative. Hospitalist Physical - Physical exam Narrative exam: Not in cardiopulmonary distress. He is on restriants. The patient appeared well nourished and normally developed. Vital signs as documented. Head exam is unremarkable. No scleral icterus . Neck is without jugular venous distension, thyromegaly, or carotid bruits. Lungs are clear to auscultation. Cardiac exam reveals regular rate and Rhythm. First and second heart sounds normal. No murmurs, rubs or gallops. Abdominal exam reveals normal bowel sounds, no masses, no organomegaly and no aortic enlargement. Extremities are nonedematous and both femoral and pedal pulses are normal. SHEET MILL SUPERVISOR: Alert. No focal weakness. - Constitutional Vitals: Temp Pulse Resp BP Pulse Ox 98 F 101 H 20 114/70 98 12/04/16 15:58 12/04/16 15:58 12/04/16 15:58 12/04/16 15:58 12/04/16 08:00 General appearance: Present: no acute distress, well-nourished Results - Labs CBC & Chem 7: 11/25/16 05:44 11/25/16 05:44 Labs: Laboratory Last Values WBC 3.6 K/mm3 (4.5-11.0) L 11/25/16 05:44 RBC 3.32 M/mm3 (3.65-5.03) L 11/25/16 05:44 Hgb 9.8 gm/dl (11.8-15.2) L 11/25/16 05:44 Hct 30.2 % (35.5-45.6) L 11/25/16 05:44 MCV 91 fl (84-94) 11/25/16 05:44 MCH 29 pg (28-32) 11/25/16 05:44 MCHC 32 % (32-34) 11/25/16 05:44 RDW 19.7 % (13.2-15.2) H 11/25/16 05:44 Plt Count 220 K/mm3 (140-440) 11/25/16 05:44 Lymph % (Auto) 14.4 % (13.4-35.0) 11/25/16 05:44 [place] % (Auto) 7.6 % (0.0-7.3) H 11/25/16 05:44 Eos % (Auto) 3.1 % (0.0-4.3) 11/25/16 05:44 Baso % (Auto) 1.6 % (0.0-1.8) 11/25/16 05:44 Lymph # 0.5 K/mm3 (1.2-5.4) L 11/25/16 05:44 [place] # 0.3 K/mm3 (0.0-0.8) 11/25/16 05:44 Eos # 0.1 K/mm3 (0.0-0.4) 11/25/16 05:44 Baso # 0.1 K/mm3 (0.0-0.1) 11/25/16 05:44 Seg Neutrophils % 73.3 % (40.0-70.0) H 11/25/16 05:44 Seg Neutrophils # 2.7 K/mm3 (1.8-7.7) 11/25/16 05:44 PT 14.3 Sec. (12.2-14.9) 10/23/16 12:53 INR 1.12 (0.87-1.13) 10/23/16 12:53 APTT 30.6 Sec. (24.2-36.6) 10/23/16 12:53 POC ABG pH 7.507 (7.35-7.45) H 11/12/16 21:51 POC ABG pCO2 32.8 (35-45) L 11/12/16 21:51 POC ABG pO2 78 (80-105) L 11/12/16 21:51 POC ABG HCO3 26.0 11/12/16 21:51 POC ABG Total CO2 27 11/12/16 21:51 POC ABG O2 Sat 97 11/12/16 21:51 POC ABG Base Excess 3 11/12/16 21:51 FiO2 28 % 11/12/16 21:51 Sodium 145 mmol/L (137-145) 11/25/16 05:44 Potassium 4.3 mmol/L (3.6-5.0) 11/25/16 05:44 Chloride 106.5 mmol/L (98-107) 11/25/16 05:44 Carbon Dioxide 25 mmol/L (22-30) 11/25/16 05:44 Anion Gap 18 mmol/L 11/25/16 05:44 BUN 9 mg/dL (9-20) 11/25/16 05:44 Creatinine 0.9 mg/dL (0.8-1.5) 11/25/16 05:44 Estimated GFR > 60 ml/min 11/25/16 05:44 BUN/Creatinine Ratio 10.00 % 11/25/16 05:44 Glucose 154 mg/dL (75-100) H 11/25/16 05:44 POC Glucose 129 (70-105) H 12/04/16 16:24 Hemoglobin A1c 7.2 % (4-6) H 10/27/16 05:30 Lactic Acid 2.8 mmol/L (0.7-2.0) H* 10/23/16 12:53 Calcium 8.7 mg/dL (8.4-10.2) 11/25/16 05:44 Magnesium 1.9 mg/dL (1.7-2.3) 10/31/16 12:35 Total Bilirubin 0.9 mg/dL (0.1-1.2) 10/27/16 05:30 Direct Bilirubin 0.3 mg/dL (0-0.2) H 10/27/16 05:30 Indirect Bilirubin 0.6 mg/dL 10/27/16 05:30 AST 18 units/L (5-40) 10/27/16 05:30 ALT 13 units/L (7-56) 10/27/16 05:30 Alkaline Phosphatase 116 units/L (35-129) 10/27/16 05:30 Ammonia 30.0 umol/L (25-60) 10/26/16 09:00 Total Creatine Kinase 72 units/L (55-170) 11/02/16 18:37 CK-MB (CK-2) 3.0 ng/mL (0.0-4.0) 10/23/16 12:53 CK-MB (CK-2) Rel Index 0.9 (0-4) 10/23/16 12:53 Troponin T 0.032 ng/mL (0.00-0.029) H 10/23/16 12:53 NT-Pro-B Natriuret Pep 532.6 pg/mL (0-900) 10/23/16 12:53 Total Protein 7.1 g/dL (6.3-8.2) 10/27/16 05:30 Albumin 3.2 g/dL (3.9-5) L 10/27/16 05:30 Albumin/Globulin Ratio 0.8 % 10/27/16 05:30 Triglycerides 199 mg/dL (2-149) H 10/23/16 12:53 Cholesterol 143 mg/dL (50-199) 10/23/16 12:53 LDL Cholesterol Direct 64 mg/dL (50-130) 10/23/16 12:53 HDL Cholesterol 40 mg/dL (40-59) 10/23/16 12:53 Cholesterol/HDL Ratio 3.57 % 10/23/16 12:53 TSH 1.040 mlU/mL (0.270-4.200) 10/23/16 12:53 Free T4 1.13 ng/dL (0.76-1.46) 10/23/16 22:59 Thyroxine (T4) 5.2 ug/dL (4.0-12.0) 10/23/16 22:59 T3 (NISHA) 56 ng/dL (76-181) L 10/23/16 22:59 Free T3 Index 2.0 pg/mL (2.3-4.2) L 10/23/16 22:59 T3 Uptake See scanned report 10/23/16 22:59 Urine Color Yellow (Yellow) 11/03/16 07:47 Urine Turbidity Clear (Clear) 11/03/16 07:47 Urine pH 5.0 (5.0-7.0) 11/03/16 07:47 Ur Specific [place] 1.012 (1.003-1.030) 11/03/16 07:47 Urine Protein <15 mg/dl mg/dL (Negative) 11/03/16 07:47 Urine Glucose (UA) Neg mg/dL (Negative) 11/03/16 07:47 Urine Ketones Neg mg/dL (Negative) 11/03/16 07:47 Urine Blood Neg (Negative) 11/03/16 07:47 Urine Nitrite Pos (Negative) 11/03/16 07:47 Urine Bilirubin Neg (Negative) 11/03/16 07:47 Urine Urobilinogen 4.0 mg/dL (<2.0) 11/03/16 07:47 Ur Leukocyte Esterase Tr (Negative) 11/03/16 07:47 Urine WBC (Auto) 1.0 /HPF (0.0-6.0) 11/03/16 07:47 Urine RBC (Auto) 5.0 /HPF (0.0-6.0) 11/03/16 07:47 U Epithel Cells (Auto) < 1.0 /HPF (0-13.0) 11/03/16 07:47 Urine Bacteria (Auto) 2+ /HPF (Negative) 11/03/16 07:47 Urine Mucus Few /HPF 11/03/16 07:47 Urine Opiates Screen Presumptive negative 10/21/16 20:36 Urine Methadone Screen Presumptive negative 10/21/16 20:36 Ur Barbiturates Screen Presumptive negative 10/21/16 20:36 Ur Phencyclidine Scrn Presumptive negative 10/21/16 20:36 Ur Amphetamines Screen Presumptive negative 10/21/16 20:36 U Benzodiazepines Scrn Presumptive negative 10/21/16 20:36 Urine Cocaine Screen Presumptive negative 10/21/16 20:36 U Marijuana (THC) Screen Presumptive negative 10/21/16 20:36 Drugs of Abuse Note Disclamer 10/21/16 20:36 Plasma/Serum Alcohol < 0.01 gm% (0-0.07) 10/21/16 20:30 TB (QFT) Gold In Tube Negative (Negative) 11/10/16 00:08 TB Test (QFT) Nil 0.00 IU/mL (()) 11/10/16 00:08 TB Test Mitogen - Nil 1.22 IU/mL (()) 11/10/16 00:08 TB Test Antigen - Nil 0.01 IU/mL (()) 11/10/16 00:08
[2016-12-05] MEDS: SYNTHROID PO SCH (05:28)
[2016-12-05] MEDS: NOVOLOG SUB-Q SCH ×4 (08:04→22:04)
[2016-12-05] MEDS: GEODON PO SCH ×2 (10:26→21:50)
[2016-12-05] MEDS: ZYLOPRIM PO SCH (10:26)
[2016-12-05] MEDS: COLACE PO SCH ×2 (10:26→21:50)
[2016-12-05] MEDS: MIRALAX 3350 PO SCH (10:27)
[2016-12-05] MEDS: HEPARIN SUB-Q SCH ×2 (10:27→21:54)
[2016-12-05] MEDS: HCTZ PO SCH (11:11)
[2016-12-05] MEDS: COREG PO SCH ×2 (11:11→21:49)
[2016-12-05] MEDS: PROCARDIA XL PO SCH (11:12)
[2016-12-05] MEDS: ROXICODONE PO SCH (11:13)
[2016-12-05] MEDS: HALDOL PO SCH (11:14)
[2016-12-05] MEDS: LAC-HYDRIN TP SCH ×2 (11:15→21:51)
--- NOTE | 2016-12-05 13:51 | Progress Note ---
Assessment and Plan Assessment and plan: 1) Sepsis Current Visit: Yes Status: Resolved (2) Pneumonia Current Visit: Yes Status: Resolved (3) Dementia Current Visit: Yes Status: Chronic Plan to address problem: supportive care, bed alarm, fall precautions (4) Psychosis Current Visit: Yes Status: Acute Qualifiers: Psychosis type: unspecified psychosis type Qualified Code(s): F29 - Unspecified psychosis not due to a substance or known physiological condition Plan to address problem: continue current therapy Geodon initiated, continue current therapy (5) Finger amputation, no complication Current Visit: Yes Status: Acute Qualifiers: Encounter type: initial encounter Qualified Code(s): S68.119A - Complete traumatic metacarpophalangeal amputation of unspecified finger, initial encounter Plan to address problem: Ortho consulted, outpatient f/U. (6) Acute renal failure (ARF) Current Visit: Yes Status: Resolved Plan to address problem: IVF, supportive care, monitor uop q shift, (7) Encephalopathy Current Visit: Yes Status: Acute Plan to address problem: supportive care, treat pneumonia, supportive care, (8) DVT prophylaxis Current Visit: Yes Status: Acute New: The patient has decubitus ulcer and wound consult placed, frequent positioning. Disposition Plan: Pending placement History Interval history: Patient was seen and evaluated this morning. No new complaints, no nursing issues overnight. Patient was calm and cooperative. His was there by the time of examination. Hospitalist Physical - Physical exam Narrative exam: Not in cardiopulmonary distress. He is on restriants. The patient appeared well nourished and normally developed. Vital signs as documented. Head exam is unremarkable. No scleral icterus . Neck is without jugular venous distension, thyromegaly, or carotid bruits. Lungs are clear to auscultation. Cardiac exam reveals regular rate and Rhythm. First and second heart sounds normal. No murmurs, rubs or gallops. Abdominal exam reveals normal bowel sounds, no masses, no organomegaly and no aortic enlargement. Extremities are nonedematous and both femoral and pedal pulses are normal. AIR ANALYSIS TECHNICIAN: Alert. No focal weakness. - Constitutional Vitals: Temp Pulse Resp BP Pulse Ox 97.9 F 89 20 125/67 100 12/05/16 08:00 12/05/16 08:00 12/05/16 08:00 12/05/16 11:11 12/05/16 10:24 General appearance: Present: no acute distress, well-nourished Results - Labs CBC & Chem 7: 11/25/16 05:44 11/25/16 05:44 Labs: Laboratory Last Values WBC 3.6 K/mm3 (4.5-11.0) L 11/25/16 05:44 RBC 3.32 M/mm3 (3.65-5.03) L 11/25/16 05:44 Hgb 9.8 gm/dl (11.8-15.2) L 11/25/16 05:44 Hct 30.2 % (35.5-45.6) L 11/25/16 05:44 MCV 91 fl (84-94) 11/25/16 05:44 MCH 29 pg (28-32) 11/25/16 05:44 MCHC 32 % (32-34) 11/25/16 05:44 RDW 19.7 % (13.2-15.2) H 11/25/16 05:44 Plt Count 220 K/mm3 (140-440) 11/25/16 05:44 Lymph % (Auto) 14.4 % (13.4-35.0) 11/25/16 05:44 [place] % (Auto) 7.6 % (0.0-7.3) H 11/25/16 05:44 Eos % (Auto) 3.1 % (0.0-4.3) 11/25/16 05:44 Baso % (Auto) 1.6 % (0.0-1.8) 11/25/16 05:44 Lymph # 0.5 K/mm3 (1.2-5.4) L 11/25/16 05:44 [place] # 0.3 K/mm3 (0.0-0.8) 11/25/16 05:44 Eos # 0.1 K/mm3 (0.0-0.4) 11/25/16 05:44 Baso # 0.1 K/mm3 (0.0-0.1) 11/25/16 05:44 Seg Neutrophils % 73.3 % (40.0-70.0) H 11/25/16 05:44 Seg Neutrophils # 2.7 K/mm3 (1.8-7.7) 11/25/16 05:44 PT 14.3 Sec. (12.2-14.9) 10/23/16 12:53 INR 1.12 (0.87-1.13) 10/23/16 12:53 APTT 30.6 Sec. (24.2-36.6) 10/23/16 12:53 POC ABG pH 7.507 (7.35-7.45) H 11/12/16 21:51 POC ABG pCO2 32.8 (35-45) L 11/12/16 21:51 POC ABG pO2 78 (80-105) L 11/12/16 21:51 POC ABG HCO3 26.0 11/12/16 21:51 POC ABG Total CO2 27 11/12/16 21:51 POC ABG O2 Sat 97 11/12/16 21:51 POC ABG Base Excess 3 11/12/16 21:51 FiO2 28 % 11/12/16 21:51 Sodium 145 mmol/L (137-145) 11/25/16 05:44 Potassium 4.3 mmol/L (3.6-5.0) 11/25/16 05:44 Chloride 106.5 mmol/L (98-107) 11/25/16 05:44 Carbon Dioxide 25 mmol/L (22-30) 11/25/16 05:44 Anion Gap 18 mmol/L 11/25/16 05:44 BUN 9 mg/dL (9-20) 11/25/16 05:44 Creatinine 0.9 mg/dL (0.8-1.5) 11/25/16 05:44 Estimated GFR > 60 ml/min 11/25/16 05:44 BUN/Creatinine Ratio 10.00 % 11/25/16 05:44 Glucose 154 mg/dL (75-100) H 11/25/16 05:44 POC Glucose 107 (70-105) H 12/05/16 12:08 Hemoglobin A1c 7.2 % (4-6) H 10/27/16 05:30 Lactic Acid 2.8 mmol/L (0.7-2.0) H* 10/23/16 12:53 Calcium 8.7 mg/dL (8.4-10.2) 11/25/16 05:44 Magnesium 1.9 mg/dL (1.7-2.3) 10/31/16 12:35 Total Bilirubin 0.9 mg/dL (0.1-1.2) 10/27/16 05:30 Direct Bilirubin 0.3 mg/dL (0-0.2) H 10/27/16 05:30 Indirect Bilirubin 0.6 mg/dL 10/27/16 05:30 AST 18 units/L (5-40) 10/27/16 05:30 ALT 13 units/L (7-56) 10/27/16 05:30 Alkaline Phosphatase 116 units/L (35-129) 10/27/16 05:30 Ammonia 30.0 umol/L (25-60) 10/26/16 09:00 Total Creatine Kinase 72 units/L (55-170) 11/02/16 18:37 CK-MB (CK-2) 3.0 ng/mL (0.0-4.0) 10/23/16 12:53 CK-MB (CK-2) Rel Index 0.9 (0-4) 10/23/16 12:53 Troponin T 0.032 ng/mL (0.00-0.029) H 10/23/16 12:53 NT-Pro-B Natriuret Pep 532.6 pg/mL (0-900) 10/23/16 12:53 Total Protein 7.1 g/dL (6.3-8.2) 10/27/16 05:30 Albumin 3.2 g/dL (3.9-5) L 10/27/16 05:30 Albumin/Globulin Ratio 0.8 % 10/27/16 05:30 Triglycerides 199 mg/dL (2-149) H 10/23/16 12:53 Cholesterol 143 mg/dL (50-199) 10/23/16 12:53 LDL Cholesterol Direct 64 mg/dL (50-130) 10/23/16 12:53 HDL Cholesterol 40 mg/dL (40-59) 10/23/16 12:53 Cholesterol/HDL Ratio 3.57 % 10/23/16 12:53 TSH 1.040 mlU/mL (0.270-4.200) 10/23/16 12:53 Free T4 1.13 ng/dL (0.76-1.46) 10/23/16 22:59 Thyroxine (T4) 5.2 ug/dL (4.0-12.0) 10/23/16 22:59 T3 (NISHA) 56 ng/dL (76-181) L 10/23/16 22:59 Free T3 Index 2.0 pg/mL (2.3-4.2) L 10/23/16 22:59 T3 Uptake See scanned report 10/23/16 22:59 Urine Color Yellow (Yellow) 11/03/16 07:47 Urine Turbidity Clear (Clear) 11/03/16 07:47 Urine pH 5.0 (5.0-7.0) 11/03/16 07:47 Ur Specific [place] 1.012 (1.003-1.030) 11/03/16 07:47 Urine Protein <15 mg/dl mg/dL (Negative) 11/03/16 07:47 Urine Glucose (UA) Neg mg/dL (Negative) 11/03/16 07:47 Urine Ketones Neg mg/dL (Negative) 11/03/16 07:47 Urine Blood Neg (Negative) 11/03/16 07:47 Urine Nitrite Pos (Negative) 11/03/16 07:47 Urine Bilirubin Neg (Negative) 11/03/16 07:47 Urine Urobilinogen 4.0 mg/dL (<2.0) 11/03/16 07:47 Ur Leukocyte Esterase Tr (Negative) 11/03/16 07:47 Urine WBC (Auto) 1.0 /HPF (0.0-6.0) 11/03/16 07:47 Urine RBC (Auto) 5.0 /HPF (0.0-6.0) 11/03/16 07:47 U Epithel Cells (Auto) < 1.0 /HPF (0-13.0) 11/03/16 07:47 Urine Bacteria (Auto) 2+ /HPF (Negative) 11/03/16 07:47 Urine Mucus Few /HPF 11/03/16 07:47 Urine Opiates Screen Presumptive negative 10/21/16 20:36 Urine Methadone Screen Presumptive negative 10/21/16 20:36 Ur Barbiturates Screen Presumptive negative 10/21/16 20:36 Ur Phencyclidine Scrn Presumptive negative 10/21/16 20:36 Ur Amphetamines Screen Presumptive negative 10/21/16 20:36 U Benzodiazepines Scrn Presumptive negative 10/21/16 20:36 Urine Cocaine Screen Presumptive negative 10/21/16 20:36 U Marijuana (THC) Screen Presumptive negative 10/21/16 20:36 Drugs of Abuse Note Disclamer 10/21/16 20:36 Plasma/Serum Alcohol < 0.01 gm% (0-0.07) 10/21/16 20:30 TB (QFT) Gold In Tube Negative (Negative) 11/10/16 00:08 TB Test (QFT) Nil 0.00 IU/mL (()) 11/10/16 00:08 TB Test Mitogen - Nil 1.22 IU/mL (()) 11/10/16 00:08 TB Test Antigen - Nil 0.01 IU/mL (()) 11/10/16 00:08
[2016-12-06] MEDS: SYNTHROID PO SCH (05:47)
[2016-12-06] MEDS: NOVOLOG SUB-Q SCH ×3 (08:39→18:41)
[2016-12-06] MEDS: ZYLOPRIM PO SCH (10:12)
[2016-12-06] MEDS: HCTZ PO SCH (10:13)
[2016-12-06] MEDS: COREG PO SCH (10:13)
[2016-12-06] MEDS: PROCARDIA XL PO SCH (10:14)
[2016-12-06] MEDS: ROXICODONE PO SCH (10:15)
[2016-12-06] MEDS: GEODON PO SCH (10:27)
[2016-12-06] MEDS: LAC-HYDRIN TP SCH (10:27)
[2016-12-06] MEDS: COLACE PO SCH (10:27)
[2016-12-06] MEDS: MIRALAX 3350 PO SCH (10:27)
[2016-12-06] MEDS: HALDOL PO SCH (10:29)
[2016-12-06] MEDS: HEPARIN SUB-Q SCH (10:33)
--- NOTE | 2016-12-06 15:34 | Progress Note ---
Assessment and Plan Assessment and plan: 1) Sepsis Current Visit: Yes Status: Resolved (2) Pneumonia Current Visit: Yes Status: Resolved (3) Dementia Current Visit: Yes Status: Chronic Plan to address problem: supportive care, bed alarm, fall precautions (4) Psychosis Current Visit: Yes Status: Acute Qualifiers: Psychosis type: unspecified psychosis type Qualified Code(s): F29 - Unspecified psychosis not due to a substance or known physiological condition Plan to address problem: continue current therapy on geodon currently the patient is calm not on mechanical restraints Mitten for scratching (5) Finger amputation, no complication Current Visit: Yes Status: Acute Qualifiers: Encounter type: initial encounter Qualified Code(s): S68.119A - Complete traumatic metacarpophalangeal amputation of unspecified finger, initial encounter Plan to address problem: Ortho consulted, outpatient f/U. (6) Acute renal failure (ARF) Current Visit: Yes Status: Resolved Plan to address problem: IVF, supportive care, monitor uop q shift, (7) Encephalopathy Current Visit: Yes Status: Acute Plan to address problem: supportive care, treat pneumonia, supportive care, (8) DVT prophylaxis Current Visit: Yes Status: Acute New: The patient has decubitus ulcer and wound consult placed, frequent positioning. Patient is not on restraints but on mitten for scratching Disposition Plan: Pending placement, most nursing homes refuse to accept him. History Interval history: Patient was seen and evaluated this morning. No new complaints, no nursing issues overnight. Patient was calm and cooperative. His was there by the time of examination. Hospitalist Physical - Physical exam Narrative exam: Not in cardiopulmonary distress. He is on restriants. The patient appeared well nourished and normally developed. Vital signs as documented. Head exam is unremarkable. No scleral icterus . Neck is without jugular venous distension, thyromegaly, or carotid bruits. Lungs are clear to auscultation. Cardiac exam reveals regular rate and Rhythm. First and second heart sounds normal. No murmurs, rubs or gallops. Abdominal exam reveals normal bowel sounds, no masses, no organomegaly and no aortic enlargement. Extremities are nonedematous and both femoral and pedal pulses are normal. PROPAGATOR LABORER: Alert. No focal weakness. - Constitutional Vitals: Temp Pulse Resp BP Pulse Ox 98.3 F 67 20 113/59 100 12/06/16 08:00 12/06/16 08:00 12/06/16 08:00 12/06/16 10:13 12/06/16 08:00 General appearance: Present: no acute distress, well-nourished Results - Labs CBC & Chem 7: 11/25/16 05:44 11/25/16 05:44 Labs: Laboratory Last Values WBC 3.6 K/mm3 (4.5-11.0) L 11/25/16 05:44 RBC 3.32 M/mm3 (3.65-5.03) L 11/25/16 05:44 Hgb 9.8 gm/dl (11.8-15.2) L 11/25/16 05:44 Hct 30.2 % (35.5-45.6) L 11/25/16 05:44 MCV 91 fl (84-94) 11/25/16 05:44 MCH 29 pg (28-32) 11/25/16 05:44 MCHC 32 % (32-34) 11/25/16 05:44 RDW 19.7 % (13.2-15.2) H 11/25/16 05:44 Plt Count 220 K/mm3 (140-440) 11/25/16 05:44 Lymph % (Auto) 14.4 % (13.4-35.0) 11/25/16 05:44 [place] % (Auto) 7.6 % (0.0-7.3) H 11/25/16 05:44 Eos % (Auto) 3.1 % (0.0-4.3) 11/25/16 05:44 Baso % (Auto) 1.6 % (0.0-1.8) 11/25/16 05:44 Lymph # 0.5 K/mm3 (1.2-5.4) L 11/25/16 05:44 [place] # 0.3 K/mm3 (0.0-0.8) 11/25/16 05:44 Eos # 0.1 K/mm3 (0.0-0.4) 11/25/16 05:44 Baso # 0.1 K/mm3 (0.0-0.1) 11/25/16 05:44 Seg Neutrophils % 73.3 % (40.0-70.0) H 11/25/16 05:44 Seg Neutrophils # 2.7 K/mm3 (1.8-7.7) 11/25/16 05:44 PT 14.3 Sec. (12.2-14.9) 10/23/16 12:53 INR 1.12 (0.87-1.13) 10/23/16 12:53 APTT 30.6 Sec. (24.2-36.6) 10/23/16 12:53 POC ABG pH 7.507 (7.35-7.45) H 11/12/16 21:51 POC ABG pCO2 32.8 (35-45) L 11/12/16 21:51 POC ABG pO2 78 (80-105) L 11/12/16 21:51 POC ABG HCO3 26.0 11/12/16 21:51 POC ABG Total CO2 27 11/12/16 21:51 POC ABG O2 Sat 97 11/12/16 21:51 POC ABG Base Excess 3 11/12/16 21:51 FiO2 28 % 11/12/16 21:51 Sodium 145 mmol/L (137-145) 11/25/16 05:44 Potassium 4.3 mmol/L (3.6-5.0) 11/25/16 05:44 Chloride 106.5 mmol/L (98-107) 11/25/16 05:44 Carbon Dioxide 25 mmol/L (22-30) 11/25/16 05:44 Anion Gap 18 mmol/L 11/25/16 05:44 BUN 9 mg/dL (9-20) 11/25/16 05:44 Creatinine 0.9 mg/dL (0.8-1.5) 11/25/16 05:44 Estimated GFR > 60 ml/min 11/25/16 05:44 BUN/Creatinine Ratio 10.00 % 11/25/16 05:44 Glucose 154 mg/dL (75-100) H 11/25/16 05:44 POC Glucose 174 (70-105) H 12/06/16 11:05 Hemoglobin A1c 7.2 % (4-6) H 10/27/16 05:30 Lactic Acid 2.8 mmol/L (0.7-2.0) H* 10/23/16 12:53 Calcium 8.7 mg/dL (8.4-10.2) 11/25/16 05:44 Magnesium 1.9 mg/dL (1.7-2.3) 10/31/16 12:35 Total Bilirubin 0.9 mg/dL (0.1-1.2) 10/27/16 05:30 Direct Bilirubin 0.3 mg/dL (0-0.2) H 10/27/16 05:30 Indirect Bilirubin 0.6 mg/dL 10/27/16 05:30 AST 18 units/L (5-40) 10/27/16 05:30 ALT 13 units/L (7-56) 10/27/16 05:30 Alkaline Phosphatase 116 units/L (35-129) 10/27/16 05:30 Ammonia 30.0 umol/L (25-60) 10/26/16 09:00 Total Creatine Kinase 72 units/L (55-170) 11/02/16 18:37 CK-MB (CK-2) 3.0 ng/mL (0.0-4.0) 10/23/16 12:53 CK-MB (CK-2) Rel Index 0.9 (0-4) 10/23/16 12:53 Troponin T 0.032 ng/mL (0.00-0.029) H 10/23/16 12:53 NT-Pro-B Natriuret Pep 532.6 pg/mL (0-900) 10/23/16 12:53 Total Protein 7.1 g/dL (6.3-8.2) 10/27/16 05:30 Albumin 3.2 g/dL (3.9-5) L 10/27/16 05:30 Albumin/Globulin Ratio 0.8 % 10/27/16 05:30 Triglycerides 199 mg/dL (2-149) H 10/23/16 12:53 Cholesterol 143 mg/dL (50-199) 10/23/16 12:53 LDL Cholesterol Direct 64 mg/dL (50-130) 10/23/16 12:53 HDL Cholesterol 40 mg/dL (40-59) 10/23/16 12:53 Cholesterol/HDL Ratio 3.57 % 10/23/16 12:53 TSH 1.040 mlU/mL (0.270-4.200) 10/23/16 12:53 Free T4 1.13 ng/dL (0.76-1.46) 10/23/16 22:59 Thyroxine (T4) 5.2 ug/dL (4.0-12.0) 10/23/16 22:59 T3 (NISHA) 56 ng/dL (76-181) L 10/23/16 22:59 Free T3 Index 2.0 pg/mL (2.3-4.2) L 10/23/16 22:59 T3 Uptake See scanned report 10/23/16 22:59 Urine Color Yellow (Yellow) 11/03/16 07:47 Urine Turbidity Clear (Clear) 11/03/16 07:47 Urine pH 5.0 (5.0-7.0) 11/03/16 07:47 Ur Specific [place] 1.012 (1.003-1.030) 11/03/16 07:47 Urine Protein <15 mg/dl mg/dL (Negative) 11/03/16 07:47 Urine Glucose (UA) Neg mg/dL (Negative) 11/03/16 07:47 Urine Ketones Neg mg/dL (Negative) 11/03/16 07:47 Urine Blood Neg (Negative) 11/03/16 07:47 Urine Nitrite Pos (Negative) 11/03/16 07:47 Urine Bilirubin Neg (Negative) 11/03/16 07:47 Urine Urobilinogen 4.0 mg/dL (<2.0) 11/03/16 07:47 Ur Leukocyte Esterase Tr (Negative) 11/03/16 07:47 Urine WBC (Auto) 1.0 /HPF (0.0-6.0) 11/03/16 07:47 Urine RBC (Auto) 5.0 /HPF (0.0-6.0) 11/03/16 07:47 U Epithel Cells (Auto) < 1.0 /HPF (0-13.0) 11/03/16 07:47 Urine Bacteria (Auto) 2+ /HPF (Negative) 11/03/16 07:47 Urine Mucus Few /HPF 11/03/16 07:47 Urine Opiates Screen Presumptive negative 10/21/16 20:36 Urine Methadone Screen Presumptive negative 10/21/16 20:36 Ur Barbiturates Screen Presumptive negative 10/21/16 20:36 Ur Phencyclidine Scrn Presumptive negative 10/21/16 20:36 Ur Amphetamines Screen Presumptive negative 12/12/16 20:36 U Benzodiazepines Scrn Presumptive negative 10/21/16 20:36 Urine Cocaine Screen Presumptive negative 10/21/16 20:36 U Marijuana (THC) Screen Presumptive negative 10/21/16 20:36 Drugs of Abuse Note Disclamer 10/21/16 20:36 Plasma/Serum Alcohol < 0.01 gm% (0-0.07) 10/21/16 20:30 TB (QFT) Gold In Tube Negative (Negative) 11/10/16 00:08 TB Test (QFT) Nil 0.00 IU/mL (()) 11/10/16 00:08 TB Test Mitogen - Nil 1.22 IU/mL (()) 11/10/16 00:08 TB Test Antigen - Nil 0.01 IU/mL (()) 11/10/16 00:08
[2016-12-07] MEDS: BENADRYL IM PRN ×3 (02:02→17:30)
[2016-12-07] MEDS: NOVOLOG SUB-Q SCH ×4 (02:03→18:32)
[2016-12-07] MEDS: COLACE PO SCH ×2 (02:25→11:59)
[2016-12-07] MEDS: GEODON PO SCH ×2 (02:27→11:56)
[2016-12-07] MEDS: COREG PO SCH ×2 (02:27→11:52)
[2016-12-07] MEDS: HEPARIN SUB-Q SCH ×2 (02:28→11:50)
[2016-12-07] MEDS: LAC-HYDRIN TP SCH ×2 (02:31→11:56)
[2016-12-07] MEDS: SYNTHROID PO SCH (07:51)
[2016-12-07] MEDS: ROXICODONE PO SCH (11:51)
[2016-12-07] MEDS: ZYLOPRIM PO SCH (11:52)
[2016-12-07] MEDS: HCTZ PO SCH (11:52)
[2016-12-07] MEDS: HALDOL PO SCH (11:52)
[2016-12-07] MEDS: PROCARDIA XL PO SCH (11:52)
[2016-12-07] MEDS: MIRALAX 3350 PO SCH (11:53)
--- NOTE | 2016-12-07 12:41 | Progress Note ---
Assessment and Plan Assessment and plan: 1) Sepsis Current Visit: Yes Status: Resolved (2) Pneumonia Current Visit: Yes Status: Resolved (3) Dementia Current Visit: Yes Status: Chronic Plan to address problem: supportive care, bed alarm, fall precautions (4) Psychosis Current Visit: Yes Status: Acute Qualifiers: Psychosis type: unspecified psychosis type Qualified Code(s): F29 - Unspecified psychosis not due to a substance or known physiological condition Plan to address problem: continue current therapy on geodon currently the patient is calm not on mechanical restraints Mitten for scratching (5) Finger amputation, no complication Current Visit: Yes Status: Acute Qualifiers: Encounter type: initial encounter Qualified Code(s): S68.119A - Complete traumatic metacarpophalangeal amputation of unspecified finger, initial encounter Plan to address problem: Ortho consulted, outpatient f/U. (6) Acute renal failure (ARF) Current Visit: Yes Status: Resolved Plan to address problem: IVF, supportive care, monitor uop q shift, (7) Encephalopathy Current Visit: Yes Status: Acute Plan to address problem: supportive care, treat pneumonia, supportive care, (8) DVT prophylaxis Current Visit: Yes Status: Acute New: The patient has decubitus ulcer and wound consult placed, frequent positioning. Patient is not on restraints but on mitten for scratching Disposition Plan: pending fdc placement History Interval history: Patient was seen and evaluated this morning. No new complaints, no nursing issues overnight. Patient was calm and cooperative. Hospitalist Physical - Physical exam Narrative exam: Not in cardiopulmonary distress. He is on restriants. The patient appeared well nourished and normally developed. Vital signs as documented. Head exam is unremarkable. No scleral icterus . Neck is without jugular venous distension, thyromegaly, or carotid bruits. Lungs are clear to auscultation. Cardiac exam reveals regular rate and Rhythm. First and second heart sounds normal. No murmurs, rubs or gallops. Abdominal exam reveals normal bowel sounds, no masses, no organomegaly and no aortic enlargement. Extremities are nonedematous and both femoral and pedal pulses are normal. 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 No focal weakness. - Constitutional Vitals: Temp Pulse Resp BP Pulse Ox 97 F L 24 L 24 160/80 97 12/07/16 08:00 12/07/16 11:52 12/07/16 08:00 12/07/16 11:52 12/07/16 08:00 General appearance: Present: no acute distress, well-nourished Results - Labs CBC & Chem 7: 11/25/16 05:44 11/25/16 05:44 Labs: Laboratory Last Values WBC 3.6 K/mm3 (4.5-11.0) L 11/25/16 05:44 RBC 3.32 M/mm3 (3.65-5.03) L 11/25/16 05:44 Hgb 9.8 gm/dl (11.8-15.2) L 11/25/16 05:44 Hct 30.2 % (35.5-45.6) L 11/25/16 05:44 MCV 91 fl (84-94) 11/25/16 05:44 MCH 29 pg (28-32) 11/25/16 05:44 MCHC 32 % (32-34) 11/25/16 05:44 RDW 19.7 % (13.2-15.2) H 11/25/16 05:44 Plt Count 220 K/mm3 (140-440) 11/25/16 05:44 Lymph % (Auto) 14.4 % (13.4-35.0) 11/25/16 05:44 [place] % (Auto) 7.6 % (0.0-7.3) H 11/25/16 05:44 Eos % (Auto) 3.1 % (0.0-4.3) 11/25/16 05:44 Baso % (Auto) 1.6 % (0.0-1.8) 11/25/16 05:44 Lymph # 0.5 K/mm3 (1.2-5.4) L 11/25/16 05:44 [place] # 0.3 K/mm3 (0.0-0.8) 11/25/16 05:44 Eos # 0.1 K/mm3 (0.0-0.4) 11/25/16 05:44 Baso # 0.1 K/mm3 (0.0-0.1) 11/25/16 05:44 Seg Neutrophils % 73.3 % (40.0-70.0) H 11/25/16 05:44 Seg Neutrophils # 2.7 K/mm3 (1.8-7.7) 11/25/16 05:44 PT 14.3 Sec. (12.2-14.9) 10/23/16 12:53 INR 1.12 (0.87-1.13) 10/23/16 12:53 APTT 30.6 Sec. (24.2-36.6) 10/23/16 12:53 POC ABG pH 7.507 (7.35-7.45) H 11/12/16 21:51 POC ABG pCO2 32.8 (35-45) L 11/12/16 21:51 POC ABG pO2 78 (80-105) L 11/12/16 21:51 POC ABG HCO3 26.0 11/12/16 21:51 POC ABG Total CO2 27 11/12/16 21:51 POC ABG O2 Sat 97 11/12/16 21:51 POC ABG Base Excess 3 11/12/16 21:51 FiO2 28 % 11/12/16 21:51 Sodium 145 mmol/L (137-145) 11/25/16 05:44 Potassium 4.3 mmol/L (3.6-5.0) 11/25/16 05:44 Chloride 106.5 mmol/L (98-107) 11/25/16 05:44 Carbon Dioxide 25 mmol/L (22-30) 11/25/16 05:44 Anion Gap 18 mmol/L 11/25/16 05:44 BUN 9 mg/dL (9-20) 11/25/16 05:44 Creatinine 0.9 mg/dL (0.8-1.5) 11/25/16 05:44 Estimated GFR > 60 ml/min 11/25/16 05:44 BUN/Creatinine Ratio 10.00 % 11/25/16 05:44 Glucose 154 mg/dL (75-100) H 11/25/16 05:44 POC Glucose 202 (70-105) H 12/07/16 11:16 Hemoglobin A1c 7.2 % (4-6) H 10/27/16 05:30 Lactic Acid 2.8 mmol/L (0.7-2.0) H* 10/23/16 12:53 Calcium 8.7 mg/dL (8.4-10.2) 11/25/16 05:44 Magnesium 1.9 mg/dL (1.7-2.3) 10/31/16 12:35 Total Bilirubin 0.9 mg/dL (0.1-1.2) 10/27/16 05:30 Direct Bilirubin 0.3 mg/dL (0-0.2) H 10/27/16 05:30 Indirect Bilirubin 0.6 mg/dL 10/27/16 05:30 AST 18 units/L (5-40) 10/27/16 05:30 ALT 13 units/L (7-56) 10/27/16 05:30 Alkaline Phosphatase 116 units/L (35-129) 10/27/16 05:30 Ammonia 30.0 umol/L (25-60) 10/26/16 09:00 Total Creatine Kinase 72 units/L (55-170) 11/02/16 18:37 CK-MB (CK-2) 3.0 ng/mL (0.0-4.0) 10/23/16 12:53 CK-MB (CK-2) Rel Index 0.9 (0-4) 10/23/16 12:53 Troponin T 0.032 ng/mL (0.00-0.029) H 10/23/16 12:53 NT-Pro-B Natriuret Pep 532.6 pg/mL (0-900) 10/23/16 12:53 Total Protein 7.1 g/dL (6.3-8.2) 10/27/16 05:30 Albumin 3.2 g/dL (3.9-5) L 10/27/16 05:30 Albumin/Globulin Ratio 0.8 % 10/27/16 05:30 Triglycerides 199 mg/dL (2-149) H 10/23/16 12:53 Cholesterol 143 mg/dL (50-199) 10/23/16 12:53 LDL Cholesterol Direct 64 mg/dL (50-130) 10/23/16 12:53 HDL Cholesterol 40 mg/dL (40-59) 10/23/16 12:53 Cholesterol/HDL Ratio 3.57 % 10/23/16 12:53 TSH 1.040 mlU/mL (0.270-4.200) 10/23/16 12:53 Free T4 1.13 ng/dL (0.76-1.46) 10/23/16 22:59 Thyroxine (T4) 5.2 ug/dL (4.0-12.0) 10/23/16 22:59 T3 (NISHA) 56 ng/dL (76-181) L 10/23/16 22:59 Free T3 Index 2.0 pg/mL (2.3-4.2) L 10/23/16 22:59 T3 Uptake See scanned report 10/23/16 22:59 Urine Color Yellow (Yellow) 11/03/16 07:47 Urine Turbidity Clear (Clear) 11/03/16 07:47 Urine pH 5.0 (5.0-7.0) 11/03/16 07:47 Ur Specific [place] 1.012 (1.003-1.030) 11/03/16 07:47 Urine Protein <15 mg/dl mg/dL (Negative) 11/03/16 07:47 Urine Glucose (UA) Neg mg/dL (Negative) 11/03/16 07:47 Urine Ketones Neg mg/dL (Negative) 11/03/16 07:47 Urine Blood Neg (Negative) 11/03/16 07:47 Urine Nitrite Pos (Negative) 11/03/16 07:47 Urine Bilirubin Neg (Negative) 11/03/16 07:47 Urine Urobilinogen 4.0 mg/dL (<2.0) 11/03/16 07:47 Ur Leukocyte Esterase Tr (Negative) 11/03/16 07:47 Urine WBC (Auto) 1.0 /HPF (0.0-6.0) 11/03/16 07:47 Urine RBC (Auto) 5.0 /HPF (0.0-6.0) 11/03/16 07:47 U Epithel Cells (Auto) < 1.0 /HPF (0-13.0) 11/03/16 07:47 Urine Bacteria (Auto) 2+ /HPF (Negative) 11/03/16 07:47 Urine Mucus Few /HPF 11/03/16 07:47 Urine Opiates Screen Presumptive negative 10/21/16 20:36 Urine Methadone Screen Presumptive negative 10/21/16 20:36 Ur Barbiturates Screen Presumptive negative 10/21/16 20:36 Ur Phencyclidine Scrn Presumptive negative 10/21/16 20:36 Ur Amphetamines Screen Presumptive negative 10/21/16 20:36 U Benzodiazepines Scrn Presumptive negative 10/21/16 20:36 Urine Cocaine Screen Presumptive negative 10/21/16 20:36 U Marijuana (THC) Screen Presumptive negative 10/21/16 20:36 Drugs of Abuse Note Disclamer 10/21/16 20:36 Plasma/Serum Alcohol < 0.01 gm% (0-0.07) 10/21/16 20:30 TB (QFT) Gold In Tube Negative (Negative) 11/10/16 00:08 TB Test (QFT) Nil 0.00 IU/mL (()) 11/10/16 00:08 TB Test Mitogen - Nil 1.22 IU/mL (()) 11/10/16 00:08 TB Test Antigen - Nil 0.01 IU/mL (()) 11/10/16 00:08
[2016-12-08] MEDS: NOVOLOG SUB-Q SCH ×5 (02:50→23:41)
[2016-12-08] MEDS: GEODON PO SCH ×3 (02:52→23:10)
[2016-12-08] MEDS: COLACE PO SCH ×3 (02:52→23:11)
[2016-12-08] MEDS: COREG PO SCH ×3 (02:53→23:11)
[2016-12-08] MEDS: HEPARIN SUB-Q SCH ×3 (02:53→23:09)
[2016-12-08] MEDS: LAC-HYDRIN TP SCH ×4 (03:04→23:13)
[2016-12-08] MEDS: BENADRYL IM PRN (03:12)
[2016-12-08] MEDS: SYNTHROID PO SCH (07:11)
[2016-12-08 10:51] LABS: Basophils % (Auto) 1.8 % (0.0-1.8); Eosinophils % (Auto) 1.4 % (0.0-4.3); Hematocrit 32.2 % (35.5-45.6); Hemoglobin 10.5 gm/dl (11.8-15.2); Mean Corpuscular HGB Conc 33 % (32-34); Mean Corpuscular Hemoglobin 30 pg (28-32); Mean Corpuscular Volume 92 fl (84-94); Platelet Count 196 K/mm3 (140-440); Red Blood Count 3.52 M/mm3 (3.65-5.03); Red Cell Distribution Width 18.3 % (13.2-15.2); White Blood Count 7.4 K/mm3 (4.5-11.0)
[2016-12-08 10:52] LABS: BUN/Creatinine Ratio 20.66; Calcium 8.1 mg/dL (8.4-10.2); Chloride 100.6 mmol/L (98-107); Potassium 3.6 mmol/L (3.6-5.0)
[2016-12-08] MEDS: HALDOL PO SCH (12:41)
[2016-12-08] MEDS: ZYLOPRIM PO SCH (12:41)
[2016-12-08] MEDS: HCTZ PO SCH (12:41)
[2016-12-08] MEDS: PROCARDIA XL PO SCH (12:42)
[2016-12-08] MEDS: ROXICODONE PO SCH (12:43)
[2016-12-08] MEDS: MIRALAX 3350 PO SCH (12:44)
--- NOTE | 2016-12-08 13:44 | Progress Note ---
Assessment and Plan Assessment and plan: 1) Sepsis Current Visit: Yes Status: Resolved (2) Pneumonia Current Visit: Yes Status: Resolved (3) Dementia Current Visit: Yes Status: Chronic Plan to address problem: supportive care, bed alarm, fall precautions (4) Psychosis Current Visit: Yes Status: Acute Qualifiers: Psychosis type: unspecified psychosis type Qualified Code(s): F29 - Unspecified psychosis not due to a substance or known physiological condition Plan to address problem: continue current therapy on geodon currently the patient is calm not on mechanical restraints Mitten for scratching (5) Finger amputation, no complication Current Visit: Yes Status: Acute Qualifiers: Encounter type: initial encounter Qualified Code(s): S68.119A - Complete traumatic metacarpophalangeal amputation of unspecified finger, initial encounter Plan to address problem: Ortho consulted, outpatient f/U. (6) Acute renal failure (ARF) Current Visit: Yes Status: Resolved Plan to address problem: IVF, supportive care, monitor uop q shift, (7) Encephalopathy Current Visit: Yes Status: Acute Plan to address problem: supportive care, treat pneumonia, supportive care, (8) DVT prophylaxis Current Visit: Yes Status: Acute New: The patient has decubitus ulcer and wound consult placed, frequent positioning. Patient is not on restraints but on mitten for scratching History Interval history: Patient was seen and evaluated this morning. No new complaints, no nursing issues overnight. Hospitalist Physical - Physical exam Narrative exam: Not in cardiopulmonary distress. He is on restriants. The patient appeared well nourished and normally developed. Vital signs as documented. Head exam is unremarkable. No scleral icterus . Neck is without jugular venous distension, thyromegaly, or carotid bruits. Lungs are clear to auscultation. Cardiac exam reveals regular rate and Rhythm. First and second heart sounds normal. No murmurs, rubs or gallops. Abdominal exam reveals normal bowel sounds, no masses, no organomegaly and no aortic enlargement. Extremities are nonedematous and both femoral and pedal pulses are normal. TRENCH DIGGER HELPER: Alert. No focal weakness. - Constitutional Vitals: Temp Pulse Resp BP Pulse Ox 97.7 F 111 H 20 131/76 98 12/08/16 08:00 12/08/16 12:49 12/08/16 08:00 12/08/16 12:49 12/08/16 08:00 General appearance: Present: no acute distress, well-nourished Results - Labs CBC & Chem 7: 12/08/16 04:00 12/08/16 04:00 Labs: Laboratory Last Values WBC 7.4 K/mm3 (4.5-11.0) 12/08/16 04:00 RBC 3.52 M/mm3 (3.65-5.03) L 12/08/16 04:00 Hgb 10.5 gm/dl (11.8-15.2) L 12/08/16 04:00 Hct 32.2 % (35.5-45.6) L 12/08/16 04:00 MCV 92 fl (84-94) 12/08/16 04:00 MCH 30 pg (28-32) 12/08/16 04:00 MCHC 33 % (32-34) 12/08/16 04:00 RDW 18.3 % (13.2-15.2) H 12/08/16 04:00 Plt Count 196 K/mm3 (140-440) 12/08/16 04:00 Lymph % (Auto) 13.0 % (13.4-35.0) L 12/08/16 04:00 [place] % (Auto) 8.4 % (0.0-7.3) H 12/08/16 04:00 Eos % (Auto) 1.4 % (0.0-4.3) 12/08/16 04:00 Baso % (Auto) 1.8 % (0.0-1.8) 12/08/16 04:00 Lymph # 1.0 K/mm3 (1.2-5.4) L 12/08/16 04:00 [place] # 0.6 K/mm3 (0.0-0.8) 12/08/16 04:00 Eos # 0.1 K/mm3 (0.0-0.4) 12/08/16 04:00 Baso # 0.1 K/mm3 (0.0-0.1) 12/08/16 04:00 Seg Neutrophils % 75.4 % (40.0-70.0) H 12/08/16 04:00 Seg Neutrophils # 5.6 K/mm3 (1.8-7.7) 12/08/16 04:00 PT 14.3 Sec. (12.2-14.9) 10/23/16 12:53 INR 1.12 (0.87-1.13) 10/23/16 12:53 APTT 30.6 Sec. (24.2-36.6) 10/23/16 12:53 POC ABG pH 7.507 (7.35-7.45) H 11/12/16 21:51 POC ABG pCO2 32.8 (35-45) L 11/12/16 21:51 POC ABG pO2 78 (80-105) L 11/12/16 21:51 POC ABG HCO3 26.0 11/12/16 21:51 POC ABG Total CO2 27 11/12/16 21:51 POC ABG O2 Sat 97 11/12/16 21:51 POC ABG Base Excess 3 11/12/16 21:51 FiO2 28 % 11/12/16 21:51 Sodium 138 mmol/L (137-145) 12/08/16 04:00 Potassium 3.6 mmol/L (3.6-5.0) 12/08/16 04:00 Chloride 100.6 mmol/L (98-107) 12/08/16 04:00 Carbon Dioxide 26 mmol/L (22-30) 12/08/16 04:00 Anion Gap 15 mmol/L 12/08/16 04:00 BUN 31 mg/dL (9-20) H 12/08/16 04:00 Creatinine 1.5 mg/dL (0.8-1.5) 12/08/16 04:00 Estimated GFR 56 ml/min 12/08/16 04:00 BUN/Creatinine Ratio 20.66 % 12/08/16 04:00 Glucose 319 mg/dL (75-100) H 12/08/16 04:00 POC Glucose 326 (70-105) H 12/08/16 11:31 Hemoglobin A1c 7.2 % (4-6) H 10/27/16 05:30 Lactic Acid 2.8 mmol/L (0.7-2.0) H* 10/23/16 12:53 Calcium 8.1 mg/dL (8.4-10.2) L 12/08/16 04:00 Magnesium 1.9 mg/dL (1.7-2.3) 10/31/16 12:35 Total Bilirubin 0.9 mg/dL (0.1-1.2) 10/27/16 05:30 Direct Bilirubin 0.3 mg/dL (0-0.2) H 10/27/16 05:30 Indirect Bilirubin 0.6 mg/dL 10/27/16 05:30 AST 18 units/L (5-40) 10/27/16 05:30 ALT 13 units/L (7-56) 10/27/16 05:30 Alkaline Phosphatase 116 units/L (35-129) 10/27/16 05:30 Ammonia 30.0 umol/L (25-60) 10/26/16 09:00 Total Creatine Kinase 72 units/L (55-170) 11/02/16 18:37 CK-MB (CK-2) 3.0 ng/mL (0.0-4.0) 10/23/16 12:53 CK-MB (CK-2) Rel Index 0.9 (0-4) 10/23/16 12:53 Troponin T 0.032 ng/mL (0.00-0.029) H 10/23/16 12:53 NT-Pro-B Natriuret Pep 532.6 pg/mL (0-900) 10/23/16 12:53 Total Protein 7.1 g/dL (6.3-8.2) 10/27/16 05:30 Albumin 3.2 g/dL (3.9-5) L 10/27/16 05:30 Albumin/Globulin Ratio 0.8 % 10/27/16 05:30 Triglycerides 199 mg/dL (2-149) H 10/23/16 12:53 Cholesterol 143 mg/dL (50-199) 10/23/16 12:53 LDL Cholesterol Direct 64 mg/dL (50-130) 10/23/16 12:53 HDL Cholesterol 40 mg/dL (40-59) 10/23/16 12:53 Cholesterol/HDL Ratio 3.57 % 10/23/16 12:53 TSH 1.040 mlU/mL (0.270-4.200) 10/23/16 12:53 Free T4 1.13 ng/dL (0.76-1.46) 10/23/16 22:59 Thyroxine (T4) 5.2 ug/dL (4.0-12.0) 10/23/16 22:59 T3 (NISHA) 56 ng/dL (76-181) L 10/23/16 22:59 Free T3 Index 2.0 pg/mL (2.3-4.2) L 10/23/16 22:59 T3 Uptake See scanned report 10/23/16 22:59 Urine Color Yellow (Yellow) 11/03/16 07:47 Urine Turbidity Clear (Clear) 11/03/16 07:47 Urine pH 5.0 (5.0-7.0) 11/03/16 07:47 Ur Specific [place] 1.012 (1.003-1.030) 11/03/16 07:47 Urine Protein <15 mg/dl mg/dL (Negative) 11/03/16 07:47 Urine Glucose (UA) Neg mg/dL (Negative) 11/03/16 07:47 Urine Ketones Neg mg/dL (Negative) 11/03/16 07:47 Urine Blood Neg (Negative) 11/03/16 07:47 Urine Nitrite Pos (Negative) 11/03/16 07:47 Urine Bilirubin Neg (Negative) 11/03/16 07:47 Urine Urobilinogen 4.0 mg/dL (<2.0) 11/03/16 07:47 Ur Leukocyte Esterase Tr (Negative) 11/03/16 07:47 Urine WBC (Auto) 1.0 /HPF (0.0-6.0) 11/03/16 07:47 Urine RBC (Auto) 5.0 /HPF (0.0-6.0) 11/03/16 07:47 U Epithel Cells (Auto) < 1.0 /HPF (0-13.0) 11/03/16 07:47 Urine Bacteria (Auto) 2+ /HPF (Negative) 11/03/16 07:47 Urine Mucus Few /HPF 11/03/16 07:47 Urine Opiates Screen Presumptive negative 10/21/16 20:36 Urine Methadone Screen Presumptive negative 10/21/16 20:36 Ur Barbiturates Screen Presumptive negative 10/21/16 20:36 Ur Phencyclidine Scrn Presumptive negative 10/21/16 20:36 Ur Amphetamines Screen Presumptive negative 10/21/16 20:36 U Benzodiazepines Scrn Presumptive negative 10/21/16 20:36 Urine Cocaine Screen Presumptive negative 10/21/16 20:36 U Marijuana (THC) Screen Presumptive negative 10/21/16 20:36 Drugs of Abuse Note Disclamer 10/21/16 20:36 Plasma/Serum Alcohol < 0.01 gm% (0-0.07) 10/21/16 20:30 TB (QFT) Gold In Tube Negative (Negative) 11/10/16 00:08 TB Test (QFT) Nil 0.00 IU/mL (()) 11/10/16 00:08 TB Test Mitogen - Nil 1.22 IU/mL (()) 11/10/16 00:08 TB Test Antigen - Nil 0.01 IU/mL (()) 11/10/16 00:08
[2016-12-09] MEDS: SYNTHROID PO SCH (06:09)
[2016-12-09] MEDS: NOVOLOG SUB-Q SCH ×3 (07:49→18:08)
[2016-12-09] MEDS: COLACE PO SCH ×2 (09:26→22:10)
[2016-12-09] MEDS: ROXICODONE PO SCH (09:26)
[2016-12-09] MEDS: PROCARDIA XL PO SCH (09:26)
[2016-12-09] MEDS: HALDOL PO SCH (09:27)
[2016-12-09] MEDS: ZYLOPRIM PO SCH (09:27)
[2016-12-09] MEDS: HCTZ PO SCH (09:27)
[2016-12-09] MEDS: HEPARIN SUB-Q SCH ×2 (09:27→22:12)
[2016-12-09] MEDS: GEODON PO SCH ×2 (09:27→22:10)
[2016-12-09] MEDS: COREG PO SCH ×2 (09:29→22:12)
[2016-12-09] MEDS: LAC-HYDRIN TP SCH ×2 (09:39→22:17)
[2016-12-09] MEDS: MIRALAX 3350 PO SCH (09:40)
--- NOTE | 2016-12-09 17:38 | Progress Note ---
Assessment and Plan Assessment and plan: 1) Sepsis - Resolved (2) Pneumonia - Resolved (3) Dementia Current Visit: Yes Status: Chronic Plan to address problem: supportive care, bed alarm, fall precautions (4) Psychosis Current Visit: Yes Status: Acute Qualifiers: Psychosis type: unspecified psychosis type Qualified Code(s): F29 - Unspecified psychosis not due to a substance or known physiological condition Plan to address problem: continue current therapy on geodon currently the patient is calm not on mechanical restraints Mitten for scratching (5) Finger amputation, no complication (6) Acute renal failure (ARF) - Resolved (7) Encephalopathy Current Visit: Yes Status: Acute Plan to address problem: supportive care, (8) DVT prophylaxis Current Visit: Yes Status: Acute New: The patient has decubitus ulcer and wound consult placed, frequent positioning. Patient is not on restraints but on mitten for scratching. Patient need to be out of bed 3x/day. PT consult. Disposition Plan: pending placement. History Interval history: Patient was seen and evaluated this morning. He didn't respond to my questions. He was calm and lying on the bed quietly. Hospitalist Physical - Physical exam Narrative exam: Not in cardiopulmonary distress. He is on restriants. The patient appeared well nourished and normally developed. Vital signs as documented. Head exam is unremarkable. No scleral icterus . Neck is without jugular venous distension, thyromegaly, or carotid bruits. Lungs are clear to auscultation. Cardiac exam reveals regular rate and Rhythm. First and second heart sounds normal. No murmurs, rubs or gallops. Abdominal exam reveals normal bowel sounds, no masses, no organomegaly and no aortic enlargement. Extremities are nonedematous. Skin significant for decubitus sacral ulcer. TUBING SUPERVISOR: Alert. No focal weakness. - Constitutional Vitals: Temp Pulse Resp BP Pulse Ox 98.8 F 84 20 111/64 97 12/09/16 08:00 12/09/16 08:00 12/09/16 08:00 12/09/16 08:00 12/09/16 08:00 General appearance: Present: no acute distress, well-nourished Results - Labs CBC & Chem 7: 12/08/16 04:00 12/08/16 04:00 Labs: Laboratory Last Values WBC 7.4 K/mm3 (4.5-11.0) 12/08/16 04:00 RBC 3.52 M/mm3 (3.65-5.03) L 12/08/16 04:00 Hgb 10.5 gm/dl (11.8-15.2) L 12/08/16 04:00 Hct 32.2 % (35.5-45.6) L 12/08/16 04:00 MCV 92 fl (84-94) 12/08/16 04:00 MCH 30 pg (28-32) 12/08/16 04:00 MCHC 33 % (32-34) 12/08/16 04:00 RDW 18.3 % (13.2-15.2) H 12/08/16 04:00 Plt Count 196 K/mm3 (140-440) 12/08/16 04:00 Lymph % (Auto) 13.0 % (13.4-35.0) L 12/08/16 04:00 [place] % (Auto) 8.4 % (0.0-7.3) H 12/08/16 04:00 Eos % (Auto) 1.4 % (0.0-4.3) 12/08/16 04:00 Baso % (Auto) 1.8 % (0.0-1.8) 12/08/16 04:00 Lymph # 1.0 K/mm3 (1.2-5.4) L 12/08/16 04:00 [place] # 0.6 K/mm3 (0.0-0.8) 12/08/16 04:00 Eos # 0.1 K/mm3 (0.0-0.4) 12/08/16 04:00 Baso # 0.1 K/mm3 (0.0-0.1) 12/08/16 04:00 Seg Neutrophils % 75.4 % (40.0-70.0) H 12/08/16 04:00 Seg Neutrophils # 5.6 K/mm3 (1.8-7.7) 12/08/16 04:00 PT 14.3 Sec. (12.2-14.9) 10/23/16 12:53 INR 1.12 (0.87-1.13) 10/23/16 12:53 APTT 30.6 Sec. (24.2-36.6) 10/23/16 12:53 POC ABG pH 7.507 (7.35-7.45) H 11/12/16 21:51 POC ABG pCO2 32.8 (35-45) L 11/12/16 21:51 POC ABG pO2 78 (80-105) L 11/12/16 21:51 POC ABG HCO3 26.0 11/12/16 21:51 POC ABG Total CO2 27 11/12/16 21:51 POC ABG O2 Sat 97 11/12/16 21:51 POC ABG Base Excess 3 11/12/16 21:51 FiO2 28 % 11/12/16 21:51 Sodium 138 mmol/L (137-145) 12/08/16 04:00 Potassium 3.6 mmol/L (3.6-5.0) 12/08/16 04:00 Chloride 100.6 mmol/L (98-107) 12/08/16 04:00 Carbon Dioxide 26 mmol/L (22-30) 12/08/16 04:00 Anion Gap 15 mmol/L 12/08/16 04:00 BUN 31 mg/dL (9-20) H 12/08/16 04:00 Creatinine 1.5 mg/dL (0.8-1.5) 12/08/16 04:00 Estimated GFR 56 ml/min 12/08/16 04:00 BUN/Creatinine Ratio 20.66 % 12/08/16 04:00 Glucose 319 mg/dL (75-100) H 12/08/16 04:00 POC Glucose 214 (70-105) H 12/09/16 16:34 Hemoglobin A1c 7.2 % (4-6) H 10/27/16 05:30 Lactic Acid 2.8 mmol/L (0.7-2.0) H* 10/23/16 12:53 Calcium 8.1 mg/dL (8.4-10.2) L 12/08/16 04:00 Magnesium 1.9 mg/dL (1.7-2.3) 10/31/16 12:35 Total Bilirubin 0.9 mg/dL (0.1-1.2) 10/27/16 05:30 Direct Bilirubin 0.3 mg/dL (0-0.2) H 10/27/16 05:30 Indirect Bilirubin 0.6 mg/dL 10/27/16 05:30 AST 18 units/L (5-40) 10/27/16 05:30 ALT 13 units/L (7-56) 10/27/16 05:30 Alkaline Phosphatase 116 units/L (35-129) 10/27/16 05:30 Ammonia 30.0 umol/L (25-60) 10/26/16 09:00 Total Creatine Kinase 72 units/L (55-170) 11/02/16 18:37 CK-MB (CK-2) 3.0 ng/mL (0.0-4.0) 10/23/16 12:53 CK-MB (CK-2) Rel Index 0.9 (0-4) 10/23/16 12:53 Troponin T 0.032 ng/mL (0.00-0.029) H 10/23/16 12:53 NT-Pro-B Natriuret Pep 532.6 pg/mL (0-900) 10/23/16 12:53 Total Protein 7.1 g/dL (6.3-8.2) 10/27/16 05:30 Albumin 3.2 g/dL (3.9-5) L 10/27/16 05:30 Albumin/Globulin Ratio 0.8 % 10/27/16 05:30 Triglycerides 199 mg/dL (2-149) H 10/23/16 12:53 Cholesterol 143 mg/dL (50-199) 10/23/16 12:53 LDL Cholesterol Direct 64 mg/dL (50-130) 10/23/16 12:53 HDL Cholesterol 40 mg/dL (40-59) 10/23/16 12:53 Cholesterol/HDL Ratio 3.57 % 10/23/16 12:53 TSH 1.040 mlU/mL (0.270-4.200) 10/23/16 12:53 Free T4 1.13 ng/dL (0.76-1.46) 10/23/16 22:59 Thyroxine (T4) 5.2 ug/dL (4.0-12.0) 10/23/16 22:59 T3 (NISHA) 56 ng/dL (76-181) L 10/23/16 22:59 Free T3 Index 2.0 pg/mL (2.3-4.2) L 10/23/16 22:59 T3 Uptake See scanned report 10/23/16 22:59 Urine Color Yellow (Yellow) 11/03/16 07:47 Urine Turbidity Clear (Clear) 11/03/16 07:47 Urine pH 5.0 (5.0-7.0) 11/03/16 07:47 Ur Specific [place] 1.012 (1.003-1.030) 11/03/16 07:47 Urine Protein <15 mg/dl mg/dL (Negative) 11/03/16 07:47 Urine Glucose (UA) Neg mg/dL (Negative) 11/03/16 07:47 Urine Ketones Neg mg/dL (Negative) 11/03/16 07:47 Urine Blood Neg (Negative) 11/03/16 07:47 Urine Nitrite Pos (Negative) 11/03/16 07:47 Urine Bilirubin Neg (Negative) 11/03/16 07:47 Urine Urobilinogen 4.0 mg/dL (<2.0) 11/03/16 07:47 Ur Leukocyte Esterase Tr (Negative) 11/03/16 07:47 Urine WBC (Auto) 1.0 /HPF (0.0-6.0) 11/03/16 07:47 Urine RBC (Auto) 5.0 /HPF (0.0-6.0) 11/03/16 07:47 U Epithel Cells (Auto) < 1.0 /HPF (0-13.0) 11/03/16 07:47 Urine Bacteria (Auto) 2+ /HPF (Negative) 11/03/16 07:47 Urine Mucus Few /HPF 11/03/16 07:47 Urine Opiates Screen Presumptive negative 10/21/16 20:36 Urine Methadone Screen Presumptive negative 10/21/16 20:36 Ur Barbiturates Screen Presumptive negative 10/21/16 20:36 Ur Phencyclidine Scrn Presumptive negative 10/21/16 20:36 Ur Amphetamines Screen Presumptive negative 10/21/16 20:36 U Benzodiazepines Scrn Presumptive negative 10/21/16 20:36 Urine Cocaine Screen Presumptive negative 10/21/16 20:36 U Marijuana (THC) Screen Presumptive negative 10/21/16 20:36 Drugs of Abuse Note Disclamer 10/21/16 20:36 Plasma/Serum Alcohol < 0.01 gm% (0-0.07) 10/21/16 20:30 TB (QFT) Gold In Tube Negative (Negative) 11/10/16 00:08 TB Test (QFT) Nil 0.00 IU/mL (()) 11/10/16 00:08 TB Test Mitogen - Nil 1.22 IU/mL (()) 11/10/16 00:08 TB Test Antigen - Nil 0.01 IU/mL (()) 11/10/16 00:08
[2016-12-10] MEDS: NOVOLOG SUB-Q SCH ×5 (01:35→23:33)
[2016-12-10] MEDS: SYNTHROID PO SCH (06:22)
[2016-12-10] MEDS: HEPARIN SUB-Q SCH ×2 (09:36→23:12)
[2016-12-10] MEDS: GEODON PO SCH ×2 (09:39→23:04)
[2016-12-10] MEDS: ROXICODONE PO SCH (09:39)
[2016-12-10] MEDS: COLACE PO SCH ×2 (09:39→23:04)
[2016-12-10] MEDS: ZYLOPRIM PO SCH (09:40)
[2016-12-10] MEDS: MIRALAX 3350 PO SCH (09:40)
[2016-12-10] MEDS: HALDOL PO SCH (09:40)
[2016-12-10] MEDS: LAC-HYDRIN TP SCH ×2 (09:42→23:18)
[2016-12-10] MEDS: COREG PO SCH ×2 (10:07→23:05)
[2016-12-10] MEDS: HCTZ PO SCH (10:08)
[2016-12-10] MEDS: PROCARDIA XL PO SCH (10:08)
[2016-12-11] MEDS: NOVOLOG SUB-Q SCH ×4 (14:15→22:16)
--- NOTE | 2016-12-11 14:56 | Progress Note ---
Assessment and Plan - Patient Problems (1) Dementia Current Visit: Yes Status: Chronic Qualifiers: Dementia type: D Alzheimer's disease onset: A Dementia behavioral disturbance: D Plan to address problem: continue current therapy, (2) Psychosis Current Visit: Yes Status: Resolved Qualifiers: Psychosis type: unspecified psychosis type Schizoaffective disorder type: S Schizophrenia type: S Qualified Code(s): F29 - Unspecified psychosis not due to a substance or known physiological condition Plan to address problem: continue current therapy (3) Finger amputation, no complication Current Visit: Yes Status: Acute Qualifiers: Encounter type: initial encounter Qualified Code(s): S68.119A - Complete traumatic metacarpophalangeal amputation of unspecified finger, initial encounter (4) Acute renal failure (ARF) Current Visit: Yes Status: Resolved Qualifiers: Acute renal failure type: A Plan to address problem: ivf , supportive care, monitor uop q shift, (5) Sepsis Current Visit: Yes Status: Resolved Qualifiers: Sepsis type: S Plan to address problem: resolved, continue current therapy (6) Pneumonia Current Visit: Yes Status: Resolved Qualifiers: Pneumonia type: P Aspiration pneumonia type: A Laterality: L Lung location: L (7) Encephalopathy Current Visit: Yes Status: Chronic Plan to address problem: supportive care, bed alarm, fall precautions. (8) DVT prophylaxis Current Visit: Yes Status: Acute History Interval history: Pt resting comfortably in bed, No reported nursing events. Pt pleasant but confused. Pt medically stable and optimized for discharge. case management consulted, pending placement.Discussed care plan with . Hospitalist Physical - Constitutional Vitals: Temp Pulse Resp BP Pulse Ox 99.1 F 95 H 20 144/73 96 12/11/16 00:00 12/11/16 00:00 12/11/16 00:00 12/11/16 00:00 12/11/16 00:00 General appearance: Present: no acute distress, well-nourished - EENT ENT: hearing intact - Neck Neck: Present: supple - Respiratory Respiratory: bilateral: diminished - Cardiovascular Rhythm: regular Heart Sounds: Present: S1 & S2 - Extremities Extremities: no ischemia Peripheral Pulses: within normal limits - Abdominal General gastrointestinal: soft, non-tender, non-distended - Integumentary Integumentary: Present: clear, warm, dry - Psychiatric Psychiatric: no intact judgment & insight, no memory intact - Neurologic Neurologic: CNII-XII intact Results - Labs CBC & Chem 7: 12/08/16 04:00 12/08/16 04:00 Labs: Laboratory Last Values WBC 7.4 K/mm3 (4.5-11.0) 12/08/16 04:00 RBC 3.52 M/mm3 (3.65-5.03) L 12/08/16 04:00 Hgb 10.5 gm/dl (11.8-15.2) L 12/08/16 04:00 Hct 32.2 % (35.5-45.6) L 12/08/16 04:00 MCV 92 fl (84-94) 12/08/16 04:00 MCH 30 pg (28-32) 12/08/16 04:00 MCHC 33 % (32-34) 12/08/16 04:00 RDW 18.3 % (13.2-15.2) H 12/08/16 04:00 Plt Count 196 K/mm3 (140-440) 12/08/16 04:00 Lymph % (Auto) 13.0 % (13.4-35.0) L 12/08/16 04:00 [place] % (Auto) 8.4 % (0.0-7.3) H 12/08/16 04:00 Eos % (Auto) 1.4 % (0.0-4.3) 12/08/16 04:00 Baso % (Auto) 1.8 % (0.0-1.8) 12/08/16 04:00 Lymph # 1.0 K/mm3 (1.2-5.4) L 12/08/16 04:00 [place] # 0.6 K/mm3 (0.0-0.8) 12/08/16 04:00 Eos # 0.1 K/mm3 (0.0-0.4) 12/08/16 04:00 Baso # 0.1 K/mm3 (0.0-0.1) 12/08/16 04:00 Seg Neutrophils % 75.4 % (40.0-70.0) H 12/08/16 04:00 Seg Neutrophils # 5.6 K/mm3 (1.8-7.7) 12/08/16 04:00 PT 14.3 Sec. (12.2-14.9) 10/23/16 12:53 INR 1.12 (0.87-1.13) 10/23/16 12:53 APTT 30.6 Sec. (24.2-36.6) 10/23/16 12:53 POC ABG pH 7.507 (7.35-7.45) H 11/12/16 21:51 POC ABG pCO2 32.8 (35-45) L 11/12/16 21:51 POC ABG pO2 78 (80-105) L 11/12/16 21:51 POC ABG HCO3 26.0 11/12/16 21:51 POC ABG Total CO2 27 11/12/16 21:51 POC ABG O2 Sat 97 11/12/16 21:51 POC ABG Base Excess 3 11/12/16 21:51 FiO2 28 % 11/12/16 21:51 Sodium 138 mmol/L (137-145) 12/08/16 04:00 Potassium 3.6 mmol/L (3.6-5.0) 12/08/16 04:00 Chloride 100.6 mmol/L (98-107) 12/08/16 04:00 Carbon Dioxide 26 mmol/L (22-30) 12/08/16 04:00 Anion Gap 15 mmol/L 12/08/16 04:00 BUN 31 mg/dL (9-20) H 12/08/16 04:00 Creatinine 1.5 mg/dL (0.8-1.5) 12/08/16 04:00 Estimated GFR 56 ml/min 12/08/16 04:00 BUN/Creatinine Ratio 20.66 % 12/08/16 04:00 Glucose 319 mg/dL (75-100) H 12/08/16 04:00 POC Glucose 286 (70-105) H 12/11/16 11:52 Hemoglobin A1c 7.2 % (4-6) H 10/27/16 05:30 Lactic Acid 2.8 mmol/L (0.7-2.0) H* 10/23/16 12:53 Calcium 8.1 mg/dL (8.4-10.2) L 12/08/16 04:00 Magnesium 1.9 mg/dL (1.7-2.3) 10/31/16 12:35 Total Bilirubin 0.9 mg/dL (0.1-1.2) 10/27/16 05:30 Direct Bilirubin 0.3 mg/dL (0-0.2) H 10/27/16 05:30 Indirect Bilirubin 0.6 mg/dL 10/27/16 05:30 AST 18 units/L (5-40) 10/27/16 05:30 ALT 13 units/L (7-56) 10/27/16 05:30 Alkaline Phosphatase 116 units/L (35-129) 10/27/16 05:30 Ammonia 30.0 umol/L (25-60) 10/26/16 09:00 Total Creatine Kinase 72 units/L (55-170) 11/02/16 18:37 CK-MB (CK-2) 3.0 ng/mL (0.0-4.0) 10/23/16 12:53 CK-MB (CK-2) Rel Index 0.9 (0-4) 10/23/16 12:53 Troponin T 0.032 ng/mL (0.00-0.029) H 10/23/16 12:53 NT-Pro-B Natriuret Pep 532.6 pg/mL (0-900) 10/23/16 12:53 Total Protein 7.1 g/dL (6.3-8.2) 10/27/16 05:30 Albumin 3.2 g/dL (3.9-5) L 10/27/16 05:30 Albumin/Globulin Ratio 0.8 % 10/27/16 05:30 Triglycerides 199 mg/dL (2-149) H 10/23/16 12:53 Cholesterol 143 mg/dL (50-199) 10/23/16 12:53 LDL Cholesterol Direct 64 mg/dL (50-130) 10/23/16 12:53 HDL Cholesterol 40 mg/dL (40-59) 10/23/16 12:53 Cholesterol/HDL Ratio 3.57 % 10/23/16 12:53 TSH 1.040 mlU/mL (0.270-4.200) 10/23/16 12:53 Free T4 1.13 ng/dL (0.76-1.46) 10/23/16 22:59 Thyroxine (T4) 5.2 ug/dL (4.0-12.0) 10/23/16 22:59 T3 (NISHA) 56 ng/dL (76-181) L 10/23/16 22:59 Free T3 Index 2.0 pg/mL (2.3-4.2) L 10/23/16 22:59 T3 Uptake See scanned report 10/23/16 22:59 Urine Color Yellow (Yellow) 11/03/16 07:47 Urine Turbidity Clear (Clear) 11/03/16 07:47 Urine pH 5.0 (5.0-7.0) 11/03/16 07:47 Ur Specific [place] 1.012 (1.003-1.030) 11/03/16 07:47 Urine Protein <15 mg/dl mg/dL (Negative) 11/03/16 07:47 Urine Glucose (UA) Neg mg/dL (Negative) 11/03/16 07:47 Urine Ketones Neg mg/dL (Negative) 11/03/16 07:47 Urine Blood Neg (Negative) 11/03/16 07:47 Urine Nitrite Pos (Negative) 11/03/16 07:47 Urine Bilirubin Neg (Negative) 11/03/16 07:47 Urine Urobilinogen 4.0 mg/dL (<2.0) 11/03/16 07:47 Ur Leukocyte Esterase Tr (Negative) 11/03/16 07:47 Urine WBC (Auto) 1.0 /HPF (0.0-6.0) 11/03/16 07:47 Urine RBC (Auto) 5.0 /HPF (0.0-6.0) 11/03/16 07:47 U Epithel Cells (Auto) < 1.0 /HPF (0-13.0) 11/03/16 07:47 Urine Bacteria (Auto) 2+ /HPF (Negative) 11/03/16 07:47 Urine Mucus Few /HPF 11/03/16 07:47 Urine Opiates Screen Presumptive negative 10/21/16 20:36 Urine Methadone Screen Presumptive negative 10/21/16 20:36 Ur Barbiturates Screen Presumptive negative 10/21/16 20:36 Ur Phencyclidine Scrn Presumptive negative 10/21/16 20:36 Ur Amphetamines Screen Presumptive negative 10/21/16 20:36 U Benzodiazepines Scrn Presumptive negative 10/21/16 20:36 Urine Cocaine Screen Presumptive negative 10/21/16 20:36 U Marijuana (THC) Screen Presumptive negative 10/21/16 20:36 Drugs of Abuse Note Disclamer 10/21/16 20:36 Plasma/Serum Alcohol < 0.01 gm% (0-0.07) 10/21/16 20:30 TB (QFT) Gold In Tube Negative (Negative) 11/10/16 00:08 TB Test (QFT) Nil 0.00 IU/mL (()) 11/10/16 00:08 TB Test Mitogen - Nil 1.22 IU/mL (()) 11/10/16 00:08 TB Test Antigen - Nil 0.01 IU/mL (()) 11/10/16 00:08
--- NOTE | 2016-12-11 15:01 | Progress Note ---
Assessment and Plan - Patient Problems (1) Dementia Current Visit: Yes Status: Chronic Qualifiers: Dementia type: D Alzheimer's disease onset: A Dementia behavioral disturbance: D Plan to address problem: continue current therapy, (2) Psychosis Current Visit: Yes Status: Resolved Qualifiers: Psychosis type: unspecified psychosis type Schizoaffective disorder type: S Schizophrenia type: S Qualified Code(s): F29 - Unspecified psychosis not due to a substance or known physiological condition Plan to address problem: continue current therapy (3) Finger amputation, no complication Current Visit: Yes Status: Acute Qualifiers: Encounter type: initial encounter Qualified Code(s): S68.119A - Complete traumatic metacarpophalangeal amputation of unspecified finger, initial encounter (4) Acute renal failure (ARF) Current Visit: Yes Status: Resolved Qualifiers: Acute renal failure type: A Plan to address problem: ivf , supportive care, monitor uop q shift, (5) Sepsis Current Visit: Yes Status: Resolved Qualifiers: Sepsis type: S Plan to address problem: resolved, continue current therapy (6) Pneumonia Current Visit: Yes Status: Resolved Qualifiers: Pneumonia type: P Aspiration pneumonia type: A Laterality: L Lung location: L (7) Encephalopathy Current Visit: Yes Status: Chronic Plan to address problem: supportive care, bed alarm, fall precautions. (8) DVT prophylaxis Current Visit: Yes Status: Acute History Interval history: Pt resting comfortably in bed, No reported nursing events. Pt pleasant but confused. Pt medically stable and optimized for discharge. case management consulted, pending placement.Discussed care plan with . Hospitalist Physical - Constitutional Vitals: Temp Pulse Resp BP Pulse Ox 99.1 F 95 H 20 144/73 96 12/11/16 00:00 12/11/16 00:00 12/11/16 00:00 12/11/16 00:00 12/11/16 00:00 General appearance: Present: no acute distress, well-nourished - EENT Eyes: Present: PERRL ENT: hearing intact - Neck Neck: Present: supple - Respiratory Respiratory: bilateral: diminished - Cardiovascular Rhythm: regular Heart Sounds: Present: S1 & S2 - Extremities Extremities: no ischemia Extremity abnormal: edema Peripheral Pulses: within normal limits - Abdominal General gastrointestinal: soft, non-tender, non-distended - Integumentary Integumentary: Present: clear, dry - Psychiatric Psychiatric: cooperative - Neurologic Neurologic: CNII-XII intact Results - Labs CBC & Chem 7: 12/08/16 04:00 12/08/16 04:00 Labs: Laboratory Last Values WBC 7.4 K/mm3 (4.5-11.0) 12/08/16 04:00 RBC 3.52 M/mm3 (3.65-5.03) L 12/08/16 04:00 Hgb 10.5 gm/dl (11.8-15.2) L 12/08/16 04:00 Hct 32.2 % (35.5-45.6) L 12/08/16 04:00 MCV 92 fl (84-94) 12/08/16 04:00 MCH 30 pg (28-32) 12/08/16 04:00 MCHC 33 % (32-34) 12/08/16 04:00 RDW 18.3 % (13.2-15.2) H 12/08/16 04:00 Plt Count 196 K/mm3 (140-440) 12/08/16 04:00 Lymph % (Auto) 13.0 % (13.4-35.0) L 12/08/16 04:00 [place] % (Auto) 8.4 % (0.0-7.3) H 12/08/16 04:00 Eos % (Auto) 1.4 % (0.0-4.3) 12/08/16 04:00 Baso % (Auto) 1.8 % (0.0-1.8) 12/08/16 04:00 Lymph # 1.0 K/mm3 (1.2-5.4) L 12/08/16 04:00 [place] # 0.6 K/mm3 (0.0-0.8) 12/08/16 04:00 Eos # 0.1 K/mm3 (0.0-0.4) 12/08/16 04:00 Baso # 0.1 K/mm3 (0.0-0.1) 12/08/16 04:00 Seg Neutrophils % 75.4 % (40.0-70.0) H 12/08/16 04:00 Seg Neutrophils # 5.6 K/mm3 (1.8-7.7) 12/08/16 04:00 PT 14.3 Sec. (12.2-14.9) 10/23/16 12:53 INR 1.12 (0.87-1.13) 10/23/16 12:53 APTT 30.6 Sec. (24.2-36.6) 10/23/16 12:53 POC ABG pH 7.507 (7.35-7.45) H 11/12/16 21:51 POC ABG pCO2 32.8 (35-45) L 11/12/16 21:51 POC ABG pO2 78 (80-105) L 11/12/16 21:51 POC ABG HCO3 26.0 11/12/16 21:51 POC ABG Total CO2 27 11/12/16 21:51 POC ABG O2 Sat 97 11/12/16 21:51 POC ABG Base Excess 3 11/12/16 21:51 FiO2 28 % 11/12/16 21:51 Sodium 138 mmol/L (137-145) 12/08/16 04:00 Potassium 3.6 mmol/L (3.6-5.0) 12/08/16 04:00 Chloride 100.6 mmol/L (98-107) 12/08/16 04:00 Carbon Dioxide 26 mmol/L (22-30) 12/08/16 04:00 Anion Gap 15 mmol/L 12/08/16 04:00 BUN 31 mg/dL (9-20) H 12/08/16 04:00 Creatinine 1.5 mg/dL (0.8-1.5) 12/08/16 04:00 Estimated GFR 56 ml/min 12/08/16 04:00 BUN/Creatinine Ratio 20.66 % 12/08/16 04:00 Glucose 319 mg/dL (75-100) H 12/08/16 04:00 POC Glucose 286 (70-105) H 12/11/16 11:52 Hemoglobin A1c 7.2 % (4-6) H 10/27/16 05:30 Lactic Acid 2.8 mmol/L (0.7-2.0) H* 10/23/16 12:53 Calcium 8.1 mg/dL (8.4-10.2) L 12/08/16 04:00 Magnesium 1.9 mg/dL (1.7-2.3) 10/31/16 12:35 Total Bilirubin 0.9 mg/dL (0.1-1.2) 10/27/16 05:30 Direct Bilirubin 0.3 mg/dL (0-0.2) H 10/27/16 05:30 Indirect Bilirubin 0.6 mg/dL 10/27/16 05:30 AST 18 units/L (5-40) 10/27/16 05:30 ALT 13 units/L (7-56) 10/27/16 05:30 Alkaline Phosphatase 116 units/L (35-129) 10/27/16 05:30 Ammonia 30.0 umol/L (25-60) 10/26/16 09:00 Total Creatine Kinase 72 units/L (55-170) 11/02/16 18:37 CK-MB (CK-2) 3.0 ng/mL (0.0-4.0) 10/23/16 12:53 CK-MB (CK-2) Rel Index 0.9 (0-4) 10/23/16 12:53 Troponin T 0.032 ng/mL (0.00-0.029) H 10/23/16 12:53 NT-Pro-B Natriuret Pep 532.6 pg/mL (0-900) 10/23/16 12:53 Total Protein 7.1 g/dL (6.3-8.2) 10/27/16 05:30 Albumin 3.2 g/dL (3.9-5) L 10/27/16 05:30 Albumin/Globulin Ratio 0.8 % 10/27/16 05:30 Triglycerides 199 mg/dL (2-149) H 10/23/16 12:53 Cholesterol 143 mg/dL (50-199) 10/23/16 12:53 LDL Cholesterol Direct 64 mg/dL (50-130) 10/23/16 12:53 HDL Cholesterol 40 mg/dL (40-59) 10/23/16 12:53 Cholesterol/HDL Ratio 3.57 % 10/23/16 12:53 TSH 1.040 mlU/mL (0.270-4.200) 10/23/16 12:53 Free T4 1.13 ng/dL (0.76-1.46) 10/23/16 22:59 Thyroxine (T4) 5.2 ug/dL (4.0-12.0) 10/23/16 22:59 T3 (NISHA) 56 ng/dL (76-181) L 10/23/16 22:59 Free T3 Index 2.0 pg/mL (2.3-4.2) L 10/23/16 22:59 T3 Uptake See scanned report 10/23/16 22:59 Urine Color Yellow (Yellow) 11/03/16 07:47 Urine Turbidity Clear (Clear) 11/03/16 07:47 Urine pH 5.0 (5.0-7.0) 11/03/16 07:47 Ur Specific [place] 1.012 (1.003-1.030) 11/03/16 07:47 Urine Protein <15 mg/dl mg/dL (Negative) 11/03/16 07:47 Urine Glucose (UA) Neg mg/dL (Negative) 11/03/16 07:47 Urine Ketones Neg mg/dL (Negative) 11/03/16 07:47 Urine Blood Neg (Negative) 11/03/16 07:47 Urine Nitrite Pos (Negative) 11/03/16 07:47 Urine Bilirubin Neg (Negative) 11/03/16 07:47 Urine Urobilinogen 4.0 mg/dL (<2.0) 11/03/16 07:47 Ur Leukocyte Esterase Tr (Negative) 11/03/16 07:47 Urine WBC (Auto) 1.0 /HPF (0.0-6.0) 11/03/16 07:47 Urine RBC (Auto) 5.0 /HPF (0.0-6.0) 11/03/16 07:47 U Epithel Cells (Auto) < 1.0 /HPF (0-13.0) 11/03/16 07:47 Urine Bacteria (Auto) 2+ /HPF (Negative) 11/03/16 07:47 Urine Mucus Few /HPF 11/03/16 07:47 Urine Opiates Screen Presumptive negative 10/21/16 20:36 Urine Methadone Screen Presumptive negative 10/21/16 20:36 Ur Barbiturates Screen Presumptive negative 10/21/16 20:36 Ur Phencyclidine Scrn Presumptive negative 10/21/16 20:36 Ur Amphetamines Screen Presumptive negative 10/21/16 20:36 U Benzodiazepines Scrn Presumptive negative 10/21/16 20:36 Urine Cocaine Screen Presumptive negative 10/21/16 20:36 U Marijuana (THC) Screen Presumptive negative 10/21/16 20:36 Drugs of Abuse Note Disclamer 10/21/16 20:36 Plasma/Serum Alcohol < 0.01 gm% (0-0.07) 10/21/16 20:30 TB (QFT) Gold In Tube Negative (Negative) 11/10/16 00:08 TB Test (QFT) Nil 0.00 IU/mL (()) 11/10/16 00:08 TB Test Mitogen - Nil 1.22 IU/mL (()) 11/10/16 00:08 TB Test Antigen - Nil 0.01 IU/mL (()) 11/10/16 00:08
[2016-12-11] MEDS: COLACE PO SCH ×2 (20:16→22:15)
[2016-12-11] MEDS: COREG PO SCH ×2 (20:17→22:15)
[2016-12-11] MEDS: GEODON PO SCH ×2 (20:17→22:20)
[2016-12-11] MEDS: HALDOL PO SCH (20:18)
[2016-12-11] MEDS: HCTZ PO SCH (20:18)
[2016-12-11] MEDS: HEPARIN SUB-Q SCH ×2 (20:18→22:28)
[2016-12-11] MEDS: LAC-HYDRIN TP SCH ×2 (20:18→22:29)
[2016-12-11] MEDS: MIRALAX 3350 PO SCH (20:19)
[2016-12-11] MEDS: ROXICODONE PO SCH (20:19)
[2016-12-11] MEDS: PROCARDIA XL PO SCH (20:19)
[2016-12-11] MEDS: ZYLOPRIM PO SCH (20:21)
[2016-12-12] MEDS: SYNTHROID PO SCH (06:07)
[2016-12-12] MEDS: NOVOLOG SUB-Q SCH ×3 (08:15→18:20)
[2016-12-12] MEDS: COLACE PO SCH (12:26)
[2016-12-12] MEDS: ZYLOPRIM PO SCH (12:26)
[2016-12-12] MEDS: HCTZ PO SCH (12:27)
[2016-12-12] MEDS: COREG PO SCH (12:28)
[2016-12-12] MEDS: HALDOL PO SCH (12:28)
[2016-12-12] MEDS: LAC-HYDRIN TP SCH (12:29)
[2016-12-12] MEDS: HEPARIN SUB-Q SCH (12:29)
[2016-12-12] MEDS: PROCARDIA XL PO SCH (12:30)
[2016-12-12] MEDS: ROXICODONE PO SCH (12:33)
[2016-12-12] MEDS: MIRALAX 3350 PO SCH ×2 (12:33→13:15)
[2016-12-12] MEDS: GEODON PO SCH (12:33)
--- NOTE | 2016-12-12 23:18 | Progress Note ---
Assessment and Plan - Patient Problems (1) Dementia Current Visit: Yes Status: Chronic Qualifiers: Dementia type: D Alzheimer's disease onset: A Dementia behavioral disturbance: D Plan to address problem: continue current therapy, (2) Psychosis Current Visit: Yes Status: Resolved Qualifiers: Psychosis type: unspecified psychosis type Schizoaffective disorder type: S Schizophrenia type: S Qualified Code(s): F29 - Unspecified psychosis not due to a substance or known physiological condition Plan to address problem: continue current therapy (3) Finger amputation, no complication Current Visit: Yes Status: Acute Qualifiers: Encounter type: initial encounter Qualified Code(s): S68.119A - Complete traumatic metacarpophalangeal amputation of unspecified finger, initial encounter (4) Acute renal failure (ARF) Current Visit: Yes Status: Resolved Qualifiers: Acute renal failure type: A Plan to address problem: ivf , supportive care, monitor uop q shift, (5) Sepsis Current Visit: Yes Status: Resolved Qualifiers: Sepsis type: S Plan to address problem: resolved, continue current therapy (6) Pneumonia Current Visit: Yes Status: Resolved Qualifiers: Pneumonia type: P Aspiration pneumonia type: A Laterality: L Lung location: L (7) Encephalopathy Current Visit: Yes Status: Chronic Plan to address problem: supportive care, bed alarm, fall precautions. (8) DVT prophylaxis Current Visit: Yes Status: Acute History Interval history: Pt resting comfortably in bed, No reported nursing events. Pt pleasant but confused. Pt medically stable and optimized for discharge. case management consulted, pending placement. Discussed care plan with and son. Hospitalist Physical - Constitutional Vitals: Temp Pulse Resp BP Pulse Ox 99.3 F 74 18 117/54 95 12/12/16 07:45 12/12/16 21:40 12/12/16 21:40 12/12/16 15:15 12/12/16 21:40 General appearance: Present: no acute distress, well-nourished - EENT Eyes: Present: PERRL ENT: hearing intact - Neck Neck: Present: supple - Respiratory Respiratory: bilateral: diminished - Cardiovascular Rhythm: regular Heart Sounds: Present: S1 & S2 - Extremities Extremities: no ischemia, abnormal Peripheral Pulses: within normal limits - Abdominal General gastrointestinal: soft, non-tender, non-distended, no hepatomegaly, no splenomegaly - Integumentary Integumentary: Present: clear, dry - Psychiatric Psychiatric: no intact judgment & insight, no memory intact - Neurologic Neurologic: CNII-XII intact, moves all extremities, no gait normal Results - Labs CBC & Chem 7: 12/08/16 04:00 12/08/16 04:00 Labs: Laboratory Last Values WBC 7.4 K/mm3 (4.5-11.0) 12/08/16 04:00 RBC 3.52 M/mm3 (3.65-5.03) L 12/08/16 04:00 Hgb 10.5 gm/dl (11.8-15.2) L 12/08/16 04:00 Hct 32.2 % (35.5-45.6) L 12/08/16 04:00 MCV 92 fl (84-94) 12/08/16 04:00 MCH 30 pg (28-32) 12/08/16 04:00 MCHC 33 % (32-34) 12/08/16 04:00 RDW 18.3 % (13.2-15.2) H 12/08/16 04:00 Plt Count 196 K/mm3 (140-440) 12/08/16 04:00 Lymph % (Auto) 13.0 % (13.4-35.0) L 12/08/16 04:00 [place] % (Auto) 8.4 % (0.0-7.3) H 12/08/16 04:00 Eos % (Auto) 1.4 % (0.0-4.3) 12/08/16 04:00 Baso % (Auto) 1.8 % (0.0-1.8) 12/08/16 04:00 Lymph # 1.0 K/mm3 (1.2-5.4) L 12/08/16 04:00 [place] # 0.6 K/mm3 (0.0-0.8) 12/08/16 04:00 Eos # 0.1 K/mm3 (0.0-0.4) 12/08/16 04:00 Baso # 0.1 K/mm3 (0.0-0.1) 12/08/16 04:00 Seg Neutrophils % 75.4 % (40.0-70.0) H 12/08/16 04:00 Seg Neutrophils # 5.6 K/mm3 (1.8-7.7) 12/08/16 04:00 PT 14.3 Sec. (12.2-14.9) 10/23/16 12:53 INR 1.12 (0.87-1.13) 10/23/16 12:53 APTT 30.6 Sec. (24.2-36.6) 10/23/16 12:53 POC ABG pH 7.507 (7.35-7.45) H 11/12/16 21:51 POC ABG pCO2 32.8 (35-45) L 11/12/16 21:51 POC ABG pO2 78 (80-105) L 11/12/16 21:51 POC ABG HCO3 26.0 11/12/16 21:51 POC ABG Total CO2 27 11/12/16 21:51 POC ABG O2 Sat 97 11/12/16 21:51 POC ABG Base Excess 3 11/12/16 21:51 FiO2 28 % 11/12/16 21:51 Sodium 138 mmol/L (137-145) 12/08/16 04:00 Potassium 3.6 mmol/L (3.6-5.0) 12/08/16 04:00 Chloride 100.6 mmol/L (98-107) 12/08/16 04:00 Carbon Dioxide 26 mmol/L (22-30) 12/08/16 04:00 Anion Gap 15 mmol/L 12/08/16 04:00 BUN 31 mg/dL (9-20) H 12/08/16 04:00 Creatinine 1.5 mg/dL (0.8-1.5) 12/08/16 04:00 Estimated GFR 56 ml/min 12/08/16 04:00 BUN/Creatinine Ratio 20.66 % 12/08/16 04:00 Glucose 319 mg/dL (75-100) H 12/08/16 04:00 POC Glucose 218 (70-105) H 12/12/16 11:38 Hemoglobin A1c 7.2 % (4-6) H 10/27/16 05:30 Lactic Acid 2.8 mmol/L (0.7-2.0) H* 10/23/16 12:53 Calcium 8.1 mg/dL (8.4-10.2) L 12/08/16 04:00 Magnesium 1.9 mg/dL (1.7-2.3) 10/31/16 12:35 Total Bilirubin 0.9 mg/dL (0.1-1.2) 10/27/16 05:30 Direct Bilirubin 0.3 mg/dL (0-0.2) H 10/27/16 05:30 Indirect Bilirubin 0.6 mg/dL 10/27/16 05:30 AST 18 units/L (5-40) 10/27/16 05:30 ALT 13 units/L (7-56) 10/27/16 05:30 Alkaline Phosphatase 116 units/L (35-129) 10/27/16 05:30 Ammonia 30.0 umol/L (25-60) 10/26/16 09:00 Total Creatine Kinase 72 units/L (55-170) 11/02/16 18:37 CK-MB (CK-2) 3.0 ng/mL (0.0-4.0) 10/23/16 12:53 CK-MB (CK-2) Rel Index 0.9 (0-4) 10/23/16 12:53 Troponin T 0.032 ng/mL (0.00-0.029) H 10/23/16 12:53 NT-Pro-B Natriuret Pep 532.6 pg/mL (0-900) 10/23/16 12:53 Total Protein 7.1 g/dL (6.3-8.2) 10/27/16 05:30 Albumin 3.2 g/dL (3.9-5) L 10/27/16 05:30 Albumin/Globulin Ratio 0.8 % 10/27/16 05:30 Triglycerides 199 mg/dL (2-149) H 10/23/16 12:53 Cholesterol 143 mg/dL (50-199) 10/23/16 12:53 LDL Cholesterol Direct 64 mg/dL (50-130) 10/23/16 12:53 HDL Cholesterol 40 mg/dL (40-59) 10/23/16 12:53 Cholesterol/HDL Ratio 3.57 % 10/23/16 12:53 TSH 1.040 mlU/mL (0.270-4.200) 10/23/16 12:53 Free T4 1.13 ng/dL (0.76-1.46) 10/23/16 22:59 Thyroxine (T4) 5.2 ug/dL (4.0-12.0) 10/23/16 22:59 T3 (NISHA) 56 ng/dL (76-181) L 10/23/16 22:59 Free T3 Index 2.0 pg/mL (2.3-4.2) L 10/23/16 22:59 T3 Uptake See scanned report 10/23/16 22:59 Urine Color Yellow (Yellow) 11/03/16 07:47 Urine Turbidity Clear (Clear) 11/03/16 07:47 Urine pH 5.0 (5.0-7.0) 11/03/16 07:47 Ur Specific [place] 1.012 (1.003-1.030) 11/03/16 07:47 Urine Protein <15 mg/dl mg/dL (Negative) 11/03/16 07:47 Urine Glucose (UA) Neg mg/dL (Negative) 11/03/16 07:47 Urine Ketones Neg mg/dL (Negative) 11/03/16 07:47 Urine Blood Neg (Negative) 11/03/16 07:47 Urine Nitrite Pos (Negative) 11/03/16 07:47 Urine Bilirubin Neg (Negative) 11/03/16 07:47 Urine Urobilinogen 4.0 mg/dL (<2.0) 11/03/16 07:47 Ur Leukocyte Esterase Tr (Negative) 11/03/16 07:47 Urine WBC (Auto) 1.0 /HPF (0.0-6.0) 11/03/16 07:47 Urine RBC (Auto) 5.0 /HPF (0.0-6.0) 11/03/16 07:47 U Epithel Cells (Auto) < 1.0 /HPF (0-13.0) 11/03/16 07:47 Urine Bacteria (Auto) 2+ /HPF (Negative) 11/03/16 07:47 Urine Mucus Few /HPF 11/03/16 07:47 Urine Opiates Screen Presumptive negative 10/21/16 20:36 Urine Methadone Screen Presumptive negative 10/21/16 20:36 Ur Barbiturates Screen Presumptive negative 10/21/16 20:36 Ur Phencyclidine Scrn Presumptive negative 10/21/16 20:36 Ur Amphetamines Screen Presumptive negative 10/21/16 20:36 U Benzodiazepines Scrn Presumptive negative 10/21/16 20:36 Urine Cocaine Screen Presumptive negative 10/21/16 20:36 U Marijuana (THC) Screen Presumptive negative 10/21/16 20:36 Drugs of Abuse Note Disclamer 10/21/16 20:36 Plasma/Serum Alcohol < 0.01 gm% (0-0.07) 10/21/16 20:30 TB (QFT) Gold In Tube Negative (Negative) 11/10/16 00:08 TB Test (QFT) Nil 0.00 IU/mL (()) 11/10/16 00:08 TB Test Mitogen - Nil 1.22 IU/mL (()) 11/10/16 00:08 TB Test Antigen - Nil 0.01 IU/mL (()) 11/10/16 00:08
[2016-12-13] MEDS: NOVOLOG SUB-Q SCH ×4 (08:58→22:00)
[2016-12-13] MEDS: COLACE PO SCH ×2 (11:25→22:00)
[2016-12-13] MEDS: HEPARIN SUB-Q SCH ×3 (11:25→23:17)
[2016-12-13] MEDS: COREG PO SCH ×2 (11:26→22:53)
[2016-12-13] MEDS: GEODON PO SCH ×2 (11:26→23:12)
[2016-12-13] MEDS: PROCARDIA XL PO SCH (11:26)
[2016-12-13] MEDS: ROXICODONE PO SCH (11:26)
[2016-12-13] MEDS: HCTZ PO SCH (11:27)
[2016-12-13] MEDS: ZYLOPRIM PO SCH (11:27)
[2016-12-13] MEDS: HALDOL PO SCH (11:27)
[2016-12-13] MEDS: LAC-HYDRIN TP SCH ×2 (11:30→22:00)
[2016-12-13] MEDS: MIRALAX 3350 PO SCH (11:32)
--- NOTE | 2016-12-13 19:29 | Progress Note ---
Assessment and Plan - Patient Problems (1) Dementia Current Visit: Yes Status: Chronic Qualifiers: Dementia type: D Alzheimer's disease onset: A Dementia behavioral disturbance: D Plan to address problem: continue current therapy, (2) Psychosis Current Visit: Yes Status: Resolved Qualifiers: Psychosis type: unspecified psychosis type Schizoaffective disorder type: S Schizophrenia type: S Qualified Code(s): F29 - Unspecified psychosis not due to a substance or known physiological condition Plan to address problem: continue current therapy (3) Finger amputation, no complication Current Visit: Yes Status: Acute Qualifiers: Encounter type: initial encounter Qualified Code(s): S68.119A - Complete traumatic metacarpophalangeal amputation of unspecified finger, initial encounter (4) Acute renal failure (ARF) Current Visit: Yes Status: Resolved Qualifiers: Acute renal failure type: A Plan to address problem: ivf , supportive care, monitor uop q shift, (5) Sepsis Current Visit: Yes Status: Resolved Qualifiers: Sepsis type: S Plan to address problem: resolved, continue current therapy (6) Pneumonia Current Visit: Yes Status: Resolved Qualifiers: Pneumonia type: P Aspiration pneumonia type: A Laterality: L Lung location: L (7) Encephalopathy Current Visit: Yes Status: Chronic Plan to address problem: supportive care, bed alarm, fall precautions. (8) DVT prophylaxis Current Visit: Yes Status: Acute History Interval history: Pt resting comfortably in bed, No reported nursing events. Pt pleasant but confused. Pt medically stable overnight and optimized for discharge. case management consulted, pending placement. Discussed care plan with and son. Hospitalist Physical - Constitutional Vitals: Temp Pulse Resp BP Pulse Ox 98.9 F 101 H 20 111/66 96 12/13/16 12:50 12/13/16 12:50 12/13/16 12:50 12/13/16 12:50 12/13/16 12:50 General appearance: Present: no acute distress, well-nourished - Neck Neck: Present: supple - Respiratory Respiratory: bilateral: diminished - Cardiovascular Rhythm: regular Heart Sounds: Present: S1 & S2 - Extremities Extremities: no ischemia Extremity abnormal: edema Peripheral Pulses: within normal limits - Abdominal General gastrointestinal: soft, non-tender, non-distended - Integumentary Integumentary: Present: clear, dry - Psychiatric Psychiatric: no intact judgment & insight, no memory intact Results - Labs CBC & Chem 7: 12/08/16 04:00 12/08/16 04:00 Labs: Laboratory Last Values WBC 7.4 K/mm3 (4.5-11.0) 12/08/16 04:00 RBC 3.52 M/mm3 (3.65-5.03) L 12/08/16 04:00 Hgb 10.5 gm/dl (11.8-15.2) L 12/08/16 04:00 Hct 32.2 % (35.5-45.6) L 12/08/16 04:00 MCV 92 fl (84-94) 12/08/16 04:00 MCH 30 pg (28-32) 12/08/16 04:00 MCHC 33 % (32-34) 12/08/16 04:00 RDW 18.3 % (13.2-15.2) H 12/08/16 04:00 Plt Count 196 K/mm3 (140-440) 12/08/16 04:00 Lymph % (Auto) 13.0 % (13.4-35.0) L 12/08/16 04:00 [place] % (Auto) 8.4 % (0.0-7.3) H 12/08/16 04:00 Eos % (Auto) 1.4 % (0.0-4.3) 12/08/16 04:00 Baso % (Auto) 1.8 % (0.0-1.8) 12/08/16 04:00 Lymph # 1.0 K/mm3 (1.2-5.4) L 12/08/16 04:00 [place] # 0.6 K/mm3 (0.0-0.8) 12/08/16 04:00 Eos # 0.1 K/mm3 (0.0-0.4) 12/08/16 04:00 Baso # 0.1 K/mm3 (0.0-0.1) 12/08/16 04:00 Seg Neutrophils % 75.4 % (40.0-70.0) H 12/08/16 04:00 Seg Neutrophils # 5.6 K/mm3 (1.8-7.7) 12/08/16 04:00 PT 14.3 Sec. (12.2-14.9) 10/23/16 12:53 INR 1.12 (0.87-1.13) 10/23/16 12:53 APTT 30.6 Sec. (24.2-36.6) 10/23/16 12:53 POC ABG pH 7.507 (7.35-7.45) H 11/12/16 21:51 POC ABG pCO2 32.8 (35-45) L 11/12/16 21:51 POC ABG pO2 78 (80-105) L 11/12/16 21:51 POC ABG HCO3 26.0 11/12/16 21:51 POC ABG Total CO2 27 11/12/16 21:51 POC ABG O2 Sat 97 11/12/16 21:51 POC ABG Base Excess 3 11/12/16 21:51 FiO2 28 % 11/12/16 21:51 Sodium 138 mmol/L (137-145) 12/08/16 04:00 Potassium 3.6 mmol/L (3.6-5.0) 12/08/16 04:00 Chloride 100.6 mmol/L (98-107) 12/08/16 04:00 Carbon Dioxide 26 mmol/L (22-30) 12/08/16 04:00 Anion Gap 15 mmol/L 12/08/16 04:00 BUN 31 mg/dL (9-20) H 12/08/16 04:00 Creatinine 1.5 mg/dL (0.8-1.5) 12/08/16 04:00 Estimated GFR 56 ml/min 12/08/16 04:00 BUN/Creatinine Ratio 20.66 % 12/08/16 04:00 Glucose 319 mg/dL (75-100) H 12/08/16 04:00 POC Glucose 228 (70-105) H 12/13/16 15:56 Hemoglobin A1c 7.2 % (4-6) H 10/27/16 05:30 Lactic Acid 2.8 mmol/L (0.7-2.0) H* 10/23/16 12:53 Calcium 8.1 mg/dL (8.4-10.2) L 12/08/16 04:00 Magnesium 1.9 mg/dL (1.7-2.3) 10/31/16 12:35 Total Bilirubin 0.9 mg/dL (0.1-1.2) 10/27/16 05:30 Direct Bilirubin 0.3 mg/dL (0-0.2) H 10/27/16 05:30 Indirect Bilirubin 0.6 mg/dL 10/27/16 05:30 AST 18 units/L (5-40) 10/27/16 05:30 ALT 13 units/L (7-56) 10/27/16 05:30 Alkaline Phosphatase 116 units/L (35-129) 10/27/16 05:30 Ammonia 30.0 umol/L (25-60) 10/26/16 09:00 Total Creatine Kinase 72 units/L (55-170) 11/02/16 18:37 CK-MB (CK-2) 3.0 ng/mL (0.0-4.0) 10/23/16 12:53 CK-MB (CK-2) Rel Index 0.9 (0-4) 10/23/16 12:53 Troponin T 0.032 ng/mL (0.00-0.029) H 10/23/16 12:53 NT-Pro-B Natriuret Pep 532.6 pg/mL (0-900) 10/23/16 12:53 Total Protein 7.1 g/dL (6.3-8.2) 10/27/16 05:30 Albumin 3.2 g/dL (3.9-5) L 10/27/16 05:30 Albumin/Globulin Ratio 0.8 % 10/27/16 05:30 Triglycerides 199 mg/dL (2-149) H 10/23/16 12:53 Cholesterol 143 mg/dL (50-199) 10/23/16 12:53 LDL Cholesterol Direct 64 mg/dL (50-130) 10/23/16 12:53 HDL Cholesterol 40 mg/dL (40-59) 10/23/16 12:53 Cholesterol/HDL Ratio 3.57 % 10/23/16 12:53 TSH 1.040 mlU/mL (0.270-4.200) 10/23/16 12:53 Free T4 1.13 ng/dL (0.76-1.46) 10/23/16 22:59 Thyroxine (T4) 5.2 ug/dL (4.0-12.0) 10/23/16 22:59 T3 (NISHA) 56 ng/dL (76-181) L 10/23/16 22:59 Free T3 Index 2.0 pg/mL (2.3-4.2) L 10/23/16 22:59 T3 Uptake See scanned report 10/23/16 22:59 Urine Color Yellow (Yellow) 11/03/16 07:47 Urine Turbidity Clear (Clear) 11/03/16 07:47 Urine pH 5.0 (5.0-7.0) 11/03/16 07:47 Ur Specific [place] 1.012 (1.003-1.030) 11/03/16 07:47 Urine Protein <15 mg/dl mg/dL (Negative) 11/03/16 07:47 Urine Glucose (UA) Neg mg/dL (Negative) 11/03/16 07:47 Urine Ketones Neg mg/dL (Negative) 11/03/16 07:47 Urine Blood Neg (Negative) 11/03/16 07:47 Urine Nitrite Pos (Negative) 11/03/16 07:47 Urine Bilirubin Neg (Negative) 11/03/16 07:47 Urine Urobilinogen 4.0 mg/dL (<2.0) 11/03/16 07:47 Ur Leukocyte Esterase Tr (Negative) 11/03/16 07:47 Urine WBC (Auto) 1.0 /HPF (0.0-6.0) 11/03/16 07:47 Urine RBC (Auto) 5.0 /HPF (0.0-6.0) 11/03/16 07:47 U Epithel Cells (Auto) < 1.0 /HPF (0-13.0) 11/03/16 07:47 Urine Bacteria (Auto) 2+ /HPF (Negative) 11/03/16 07:47 Urine Mucus Few /HPF 11/03/16 07:47 Urine Opiates Screen Presumptive negative 10/21/16 20:36 Urine Methadone Screen Presumptive negative 10/21/16 20:36 Ur Barbiturates Screen Presumptive negative 10/21/16 20:36 Ur Phencyclidine Scrn Presumptive negative 10/21/16 20:36 Ur Amphetamines Screen Presumptive negative 10/21/16 20:36 U Benzodiazepines Scrn Presumptive negative 10/21/16 20:36 Urine Cocaine Screen Presumptive negative 10/21/16 20:36 U Marijuana (THC) Screen Presumptive negative 10/21/16 20:36 Drugs of Abuse Note Disclamer 10/21/16 20:36 Plasma/Serum Alcohol < 0.01 gm% (0-0.07) 10/21/16 20:30 TB (QFT) Gold In Tube Negative (Negative) 11/10/16 00:08 TB Test (QFT) Nil 0.00 IU/mL (()) 11/10/16 00:08 TB Test Mitogen - Nil 1.22 IU/mL (()) 11/10/16 00:08 TB Test Antigen - Nil 0.01 IU/mL (()) 11/10/16 00:08
[2016-12-14] MEDS: SYNTHROID PO SCH ×3 (06:00→11:25)
[2016-12-14] MEDS: HCTZ PO SCH (09:26)
[2016-12-14] MEDS: COREG PO SCH ×3 (09:26→22:43)
[2016-12-14] MEDS: HALDOL PO SCH (09:26)
[2016-12-14] MEDS: HEPARIN SUB-Q SCH ×2 (09:26→22:45)
[2016-12-14] MEDS: PROCARDIA XL PO SCH (09:26)
[2016-12-14] MEDS: COLACE PO SCH ×3 (09:26→22:44)
[2016-12-14] MEDS: ZYLOPRIM PO SCH (09:26)
[2016-12-14] MEDS: GEODON PO SCH ×3 (09:27→22:43)
[2016-12-14] MEDS: LAC-HYDRIN TP SCH ×2 (09:27→22:46)
[2016-12-14] MEDS: ROXICODONE PO SCH (09:27)
[2016-12-14] MEDS: NOVOLOG SUB-Q SCH ×5 (09:28→22:44)
[2016-12-14] MEDS: MIRALAX 3350 PO SCH (09:29)
[2016-12-14] MEDS: BENADRYL IM PRN (11:26)
[2016-12-15] MEDS: SYNTHROID PO SCH (06:39)
--- NOTE | 2016-12-15 07:17 | Progress Note ---
Assessment and Plan - Patient Problems (1) Dementia Current Visit: Yes Status: Chronic Qualifiers: Dementia type: D Alzheimer's disease onset: A Dementia behavioral disturbance: D Plan to address problem: continue current therapy, (2) Psychosis Current Visit: Yes Status: Resolved Qualifiers: Psychosis type: unspecified psychosis type Schizoaffective disorder type: S Schizophrenia type: S Qualified Code(s): F29 - Unspecified psychosis not due to a substance or known physiological condition Plan to address problem: continue current therapy (3) Finger amputation, no complication Current Visit: Yes Status: Acute Qualifiers: Encounter type: initial encounter Qualified Code(s): S68.119A - Complete traumatic metacarpophalangeal amputation of unspecified finger, initial encounter (4) Acute renal failure (ARF) Current Visit: Yes Status: Resolved Qualifiers: Acute renal failure type: A Plan to address problem: ivf , supportive care, monitor uop q shift, (5) Sepsis Current Visit: Yes Status: Resolved Qualifiers: Sepsis type: S Plan to address problem: resolved, continue current therapy (6) Pneumonia Current Visit: Yes Status: Resolved Qualifiers: Pneumonia type: P Aspiration pneumonia type: A Laterality: L Lung location: L (7) Encephalopathy Current Visit: Yes Status: Chronic Plan to address problem: supportive care, bed alarm, fall precautions. (8) DVT prophylaxis Current Visit: Yes Status: Acute History Interval history: Pt resting comfortably in bed, No reported nursing events. Pt pleasant but confused. Pt medically stable overnight and optimized for discharge. case management consulted, pending discharge when bed available. Discussed care plan with family. Hospitalist Physical - Constitutional Vitals: Temp Pulse Resp BP Pulse Ox 99.8 F H 101 H 20 116/65 97 12/14/16 23:35 12/14/16 23:35 12/14/16 23:35 12/14/16 23:35 12/14/16 23:35 General appearance: Present: no acute distress, well-nourished - EENT Eyes: Present: PERRL ENT: hearing intact - Neck Neck: Present: supple - Respiratory Respiratory: bilateral: diminished - Cardiovascular Rhythm: regular Heart Sounds: Present: S1 & S2 - Extremities Extremities: No edema Peripheral Pulses: within normal limits - Abdominal General gastrointestinal: soft, non-tender, non-distended - Integumentary Integumentary: Present: clear, dry, decreased turgor - Psychiatric Psychiatric: no intact judgment & insight, no memory intact - Neurologic Neurologic: moves all extremities, no gait normal Results - Labs CBC & Chem 7: 12/08/16 04:00 12/08/16 04:00 Labs: Laboratory Last Values WBC 7.4 K/mm3 (4.5-11.0) 12/08/16 04:00 RBC 3.52 M/mm3 (3.65-5.03) L 12/08/16 04:00 Hgb 10.5 gm/dl (11.8-15.2) L 12/08/16 04:00 Hct 32.2 % (35.5-45.6) L 12/08/16 04:00 MCV 92 fl (84-94) 12/08/16 04:00 MCH 30 pg (28-32) 12/08/16 04:00 MCHC 33 % (32-34) 12/08/16 04:00 RDW 18.3 % (13.2-15.2) H 12/08/16 04:00 Plt Count 196 K/mm3 (140-440) 12/08/16 04:00 Lymph % (Auto) 13.0 % (13.4-35.0) L 12/08/16 04:00 [place] % (Auto) 8.4 % (0.0-7.3) H 12/08/16 04:00 Eos % (Auto) 1.4 % (0.0-4.3) 12/08/16 04:00 Baso % (Auto) 1.8 % (0.0-1.8) 12/08/16 04:00 Lymph # 1.0 K/mm3 (1.2-5.4) L 12/08/16 04:00 [place] # 0.6 K/mm3 (0.0-0.8) 12/08/16 04:00 Eos # 0.1 K/mm3 (0.0-0.4) 12/08/16 04:00 Baso # 0.1 K/mm3 (0.0-0.1) 12/08/16 04:00 Seg Neutrophils % 75.4 % (40.0-70.0) H 12/08/16 04:00 Seg Neutrophils # 5.6 K/mm3 (1.8-7.7) 12/08/16 04:00 PT 14.3 Sec. (12.2-14.9) 10/23/16 12:53 INR 1.12 (0.87-1.13) 10/23/16 12:53 APTT 30.6 Sec. (24.2-36.6) 10/23/16 12:53 POC ABG pH 7.507 (7.35-7.45) H 11/12/16 21:51 POC ABG pCO2 32.8 (35-45) L 11/12/16 21:51 POC ABG pO2 78 (80-105) L 11/12/16 21:51 POC ABG HCO3 26.0 11/12/16 21:51 POC ABG Total CO2 27 11/12/16 21:51 POC ABG O2 Sat 97 11/12/16 21:51 POC ABG Base Excess 3 11/12/16 21:51 FiO2 28 % 11/12/16 21:51 Sodium 138 mmol/L (137-145) 12/08/16 04:00 Potassium 3.6 mmol/L (3.6-5.0) 12/08/16 04:00 Chloride 100.6 mmol/L (98-107) 12/08/16 04:00 Carbon Dioxide 26 mmol/L (22-30) 12/08/16 04:00 Anion Gap 15 mmol/L 12/08/16 04:00 BUN 31 mg/dL (9-20) H 12/08/16 04:00 Creatinine 1.5 mg/dL (0.8-1.5) 12/08/16 04:00 Estimated GFR 56 ml/min 12/08/16 04:00 BUN/Creatinine Ratio 20.66 % 12/08/16 04:00 Glucose 319 mg/dL (75-100) H 12/08/16 04:00 POC Glucose 179 (70-105) H 12/15/16 06:29 Hemoglobin A1c 7.2 % (4-6) H 10/27/16 05:30 Lactic Acid 2.8 mmol/L (0.7-2.0) H* 10/23/16 12:53 Calcium 8.1 mg/dL (8.4-10.2) L 12/08/16 04:00 Magnesium 1.9 mg/dL (1.7-2.3) 12/22/16 12:35 Total Bilirubin 0.9 mg/dL (0.1-1.2) 10/27/16 05:30 Direct Bilirubin 0.3 mg/dL (0-0.2) H 10/27/16 05:30 Indirect Bilirubin 0.6 mg/dL 10/27/16 05:30 AST 18 units/L (5-40) 10/27/16 05:30 ALT 13 units/L (7-56) 10/27/16 05:30 Alkaline Phosphatase 116 units/L (35-129) 10/27/16 05:30 Ammonia 30.0 umol/L (25-60) 10/26/16 09:00 Total Creatine Kinase 72 units/L (55-170) 11/02/16 18:37 CK-MB (CK-2) 3.0 ng/mL (0.0-4.0) 10/23/16 12:53 CK-MB (CK-2) Rel Index 0.9 (0-4) 10/23/16 12:53 Troponin T 0.032 ng/mL (0.00-0.029) H 10/23/16 12:53 NT-Pro-B Natriuret Pep 532.6 pg/mL (0-900) 10/23/16 12:53 Total Protein 7.1 g/dL (6.3-8.2) 10/27/16 05:30 Albumin 3.2 g/dL (3.9-5) L 10/27/16 05:30 Albumin/Globulin Ratio 0.8 % 10/27/16 05:30 Triglycerides 199 mg/dL (2-149) H 10/23/16 12:53 Cholesterol 143 mg/dL (50-199) 10/23/16 12:53 LDL Cholesterol Direct 64 mg/dL (50-130) 10/23/16 12:53 HDL Cholesterol 40 mg/dL (40-59) 10/23/16 12:53 Cholesterol/HDL Ratio 3.57 % 10/23/16 12:53 TSH 1.040 mlU/mL (0.270-4.200) 10/23/16 12:53 Free T4 1.13 ng/dL (0.76-1.46) 10/23/16 22:59 Thyroxine (T4) 5.2 ug/dL (4.0-12.0) 10/23/16 22:59 T3 (NISHA) 56 ng/dL (76-181) L 10/23/16 22:59 Free T3 Index 2.0 pg/mL (2.3-4.2) L 10/23/16 22:59 T3 Uptake See scanned report 10/23/16 22:59 Urine Color Yellow (Yellow) 11/03/16 07:47 Urine Turbidity Clear (Clear) 11/03/16 07:47 Urine pH 5.0 (5.0-7.0) 11/03/16 07:47 Ur Specific [place] 1.012 (1.003-1.030) 11/03/16 07:47 Urine Protein <15 mg/dl mg/dL (Negative) 11/03/16 07:47 Urine Glucose (UA) Neg mg/dL (Negative) 11/03/16 07:47 Urine Ketones Neg mg/dL (Negative) 11/03/16 07:47 Urine Blood Neg (Negative) 11/03/16 07:47 Urine Nitrite Pos (Negative) 11/03/16 07:47 Urine Bilirubin Neg (Negative) 11/03/16 07:47 Urine Urobilinogen 4.0 mg/dL (<2.0) 11/03/16 07:47 Ur Leukocyte Esterase Tr (Negative) 11/03/16 07:47 Urine WBC (Auto) 1.0 /HPF (0.0-6.0) 11/03/16 07:47 Urine RBC (Auto) 5.0 /HPF (0.0-6.0) 11/03/16 07:47 U Epithel Cells (Auto) < 1.0 /HPF (0-13.0) 11/03/16 07:47 Urine Bacteria (Auto) 2+ /HPF (Negative) 11/03/16 07:47 Urine Mucus Few /HPF 11/03/16 07:47 Urine Opiates Screen Presumptive negative 10/21/16 20:36 Urine Methadone Screen Presumptive negative 10/21/16 20:36 Ur Barbiturates Screen Presumptive negative 10/21/16 20:36 Ur Phencyclidine Scrn Presumptive negative 10/21/16 20:36 Ur Amphetamines Screen Presumptive negative 10/21/16 20:36 U Benzodiazepines Scrn Presumptive negative 10/21/16 20:36 Urine Cocaine Screen Presumptive negative 10/21/16 20:36 U Marijuana (THC) Screen Presumptive negative 10/21/16 20:36 Drugs of Abuse Note Disclamer 10/21/16 20:36 Plasma/Serum Alcohol < 0.01 gm% (0-0.07) 10/21/16 20:30 TB (QFT) Gold In Tube Negative (Negative) 11/10/16 00:08 TB Test (QFT) Nil 0.00 IU/mL (()) 11/10/16 00:08 TB Test Mitogen - Nil 1.22 IU/mL (()) 11/10/16 00:08 TB Test Antigen - Nil 0.01 IU/mL (()) 11/10/16 00:08
[2016-12-15] MEDS: NOVOLOG SUB-Q SCH ×5 (09:54→23:22)
[2016-12-15] MEDS: HEPARIN SUB-Q SCH ×2 (09:54→22:40)
[2016-12-15] MEDS: GEODON PO SCH ×2 (09:56→22:39)
[2016-12-15] MEDS: ZYLOPRIM PO SCH (09:56)
[2016-12-15] MEDS: COLACE PO SCH ×2 (09:56→22:39)
[2016-12-15] MEDS: MIRALAX 3350 PO SCH (09:56)
[2016-12-15] MEDS: PROCARDIA XL PO SCH (09:57)
[2016-12-15] MEDS: HCTZ PO SCH (09:57)
[2016-12-15] MEDS: ROXICODONE PO SCH (09:57)
[2016-12-15] MEDS: HALDOL PO SCH (09:57)
[2016-12-15] MEDS: COREG PO SCH ×2 (09:57→22:39)
[2016-12-15] MEDS: LAC-HYDRIN TP SCH ×2 (09:59→22:43)
[2016-12-15] MEDS: BENADRYL IM PRN (10:00)
--- NOTE | 2016-12-15 15:26 | Progress Note ---
Assessment and Plan - Patient Problems (1) Dementia Current Visit: Yes Status: Chronic Qualifiers: Dementia type: D Alzheimer's disease onset: A Dementia behavioral disturbance: D Plan to address problem: continue current therapy, (2) Psychosis Current Visit: Yes Status: Resolved Qualifiers: Psychosis type: unspecified psychosis type Schizoaffective disorder type: S Schizophrenia type: S Qualified Code(s): F29 - Unspecified psychosis not due to a substance or known physiological condition Plan to address problem: continue current therapy (3) Finger amputation, no complication Current Visit: Yes Status: Acute Qualifiers: Encounter type: initial encounter Qualified Code(s): S68.119A - Complete traumatic metacarpophalangeal amputation of unspecified finger, initial encounter (4) Acute renal failure (ARF) Current Visit: Yes Status: Resolved Qualifiers: Acute renal failure type: A Plan to address problem: ivf , supportive care, monitor uop q shift, (5) Sepsis Current Visit: Yes Status: Resolved Qualifiers: Sepsis type: S Plan to address problem: resolved, continue current therapy (6) Pneumonia Current Visit: Yes Status: Resolved Qualifiers: Pneumonia type: P Aspiration pneumonia type: A Laterality: L Lung location: L (7) Encephalopathy Current Visit: Yes Status: Chronic Plan to address problem: supportive care, bed alarm, fall precautions. (8) DVT prophylaxis Current Visit: Yes Status: Acute History Interval history: Pt resting comfortably in bed, No reported nursing events. Pt pleasant but confused. Pt medically stable overnight and optimized for discharge. case management consulted, pending discharge when bed available. Discussed care plan with family. Hospitalist Physical - Constitutional Vitals: Temp Pulse Resp BP Pulse Ox 97.9 F 100 H 20 130/76 94 12/15/16 10:14 12/15/16 10:14 12/15/16 10:14 12/15/16 10:14 12/15/16 10:14 General appearance: Present: no acute distress, well-nourished - EENT Eyes: Present: PERRL ENT: hearing intact - Neck Neck: Present: supple - Respiratory Respiratory: bilateral: diminished - Cardiovascular Rhythm: regular Heart Sounds: Present: S1 & S2 - Extremities Extremities: no ischemia - Abdominal General gastrointestinal: soft, non-tender, non-distended - Integumentary Integumentary: Present: clear, dry - Psychiatric Psychiatric: no intact judgment & insight, no memory intact - Neurologic Neurologic: no gait normal Results - Labs CBC & Chem 7: 12/08/16 04:00 12/08/16 04:00 Labs: Laboratory Last Values WBC 7.4 K/mm3 (4.5-11.0) 12/08/16 04:00 RBC 3.52 M/mm3 (3.65-5.03) L 12/08/16 04:00 Hgb 10.5 gm/dl (11.8-15.2) L 12/08/16 04:00 Hct 32.2 % (35.5-45.6) L 12/08/16 04:00 MCV 92 fl (84-94) 12/08/16 04:00 MCH 30 pg (28-32) 12/08/16 04:00 MCHC 33 % (32-34) 12/08/16 04:00 RDW 18.3 % (13.2-15.2) H 12/08/16 04:00 Plt Count 196 K/mm3 (140-440) 12/08/16 04:00 Lymph % (Auto) 13.0 % (13.4-35.0) L 12/08/16 04:00 [place] % (Auto) 8.4 % (0.0-7.3) H 12/08/16 04:00 Eos % (Auto) 1.4 % (0.0-4.3) 12/08/16 04:00 Baso % (Auto) 1.8 % (0.0-1.8) 12/08/16 04:00 Lymph # 1.0 K/mm3 (1.2-5.4) L 12/08/16 04:00 [place] # 0.6 K/mm3 (0.0-0.8) 12/08/16 04:00 Eos # 0.1 K/mm3 (0.0-0.4) 12/08/16 04:00 Baso # 0.1 K/mm3 (0.0-0.1) 12/08/16 04:00 Seg Neutrophils % 75.4 % (40.0-70.0) H 12/08/16 04:00 Seg Neutrophils # 5.6 K/mm3 (1.8-7.7) 12/08/16 04:00 PT 14.3 Sec. (12.2-14.9) 10/23/16 12:53 INR 1.12 (0.87-1.13) 10/23/16 12:53 APTT 30.6 Sec. (24.2-36.6) 10/23/16 12:53 POC ABG pH 7.507 (7.35-7.45) H 11/12/16 21:51 POC ABG pCO2 32.8 (35-45) L 11/12/16 21:51 POC ABG pO2 78 (80-105) L 11/12/16 21:51 POC ABG HCO3 26.0 11/12/16 21:51 POC ABG Total CO2 27 11/12/16 21:51 POC ABG O2 Sat 97 11/12/16 21:51 POC ABG Base Excess 3 11/12/16 21:51 FiO2 28 % 11/12/16 21:51 Sodium 138 mmol/L (137-145) 12/08/16 04:00 Potassium 3.6 mmol/L (3.6-5.0) 12/08/16 04:00 Chloride 100.6 mmol/L (98-107) 12/08/16 04:00 Carbon Dioxide 26 mmol/L (22-30) 12/08/16 04:00 Anion Gap 15 mmol/L 12/08/16 04:00 BUN 31 mg/dL (9-20) H 12/08/16 04:00 Creatinine 1.5 mg/dL (0.8-1.5) 12/08/16 04:00 Estimated GFR 56 ml/min 12/08/16 04:00 BUN/Creatinine Ratio 20.66 % 12/08/16 04:00 Glucose 319 mg/dL (75-100) H 12/08/16 04:00 POC Glucose 179 (70-105) H 12/15/16 06:29 Hemoglobin A1c 7.2 % (4-6) H 10/27/16 05:30 Lactic Acid 2.8 mmol/L (0.7-2.0) H* 10/23/16 12:53 Calcium 8.1 mg/dL (8.4-10.2) L 12/08/16 04:00 Magnesium 1.9 mg/dL (1.7-2.3) 10/31/16 12:35 Total Bilirubin 0.9 mg/dL (0.1-1.2) 10/27/16 05:30 Direct Bilirubin 0.3 mg/dL (0-0.2) H 10/27/16 05:30 Indirect Bilirubin 0.6 mg/dL 10/27/16 05:30 AST 18 units/L (5-40) 10/27/16 05:30 ALT 13 units/L (7-56) 10/27/16 05:30 Alkaline Phosphatase 116 units/L (35-129) 10/27/16 05:30 Ammonia 30.0 umol/L (25-60) 10/26/16 09:00 Total Creatine Kinase 72 units/L (55-170) 11/02/16 18:37 CK-MB (CK-2) 3.0 ng/mL (0.0-4.0) 10/23/16 12:53 CK-MB (CK-2) Rel Index 0.9 (0-4) 10/23/16 12:53 Troponin T 0.032 ng/mL (0.00-0.029) H 10/23/16 12:53 NT-Pro-B Natriuret Pep 532.6 pg/mL (0-900) 10/23/16 12:53 Total Protein 7.1 g/dL (6.3-8.2) 10/27/16 05:30 Albumin 3.2 g/dL (3.9-5) L 10/27/16 05:30 Albumin/Globulin Ratio 0.8 % 10/27/16 05:30 Triglycerides 199 mg/dL (2-149) H 10/23/16 12:53 Cholesterol 143 mg/dL (50-199) 10/23/16 12:53 LDL Cholesterol Direct 64 mg/dL (50-130) 10/23/16 12:53 HDL Cholesterol 40 mg/dL (40-59) 10/23/16 12:53 Cholesterol/HDL Ratio 3.57 % 10/23/16 12:53 TSH 1.040 mlU/mL (0.270-4.200) 10/23/16 12:53 Free T4 1.13 ng/dL (0.76-1.46) 10/23/16 22:59 Thyroxine (T4) 5.2 ug/dL (4.0-12.0) 10/23/16 22:59 T3 (NISHA) 56 ng/dL (76-181) L 10/23/16 22:59 Free T3 Index 2.0 pg/mL (2.3-4.2) L 10/23/16 22:59 T3 Uptake See scanned report 10/23/16 22:59 Urine Color Yellow (Yellow) 11/03/16 07:47 Urine Turbidity Clear (Clear) 11/03/16 07:47 Urine pH 5.0 (5.0-7.0) 11/03/16 07:47 Ur Specific [place] 1.012 (1.003-1.030) 11/03/16 07:47 Urine Protein <15 mg/dl mg/dL (Negative) 11/03/16 07:47 Urine Glucose (UA) Neg mg/dL (Negative) 11/03/16 07:47 Urine Ketones Neg mg/dL (Negative) 11/03/16 07:47 Urine Blood Neg (Negative) 11/03/16 07:47 Urine Nitrite Pos (Negative) 11/03/16 07:47 Urine Bilirubin Neg (Negative) 11/03/16 07:47 Urine Urobilinogen 4.0 mg/dL (<2.0) 11/03/16 07:47 Ur Leukocyte Esterase Tr (Negative) 11/03/16 07:47 Urine WBC (Auto) 1.0 /HPF (0.0-6.0) 11/03/16 07:47 Urine RBC (Auto) 5.0 /HPF (0.0-6.0) 11/03/16 07:47 U Epithel Cells (Auto) < 1.0 /HPF (0-13.0) 11/03/16 07:47 Urine Bacteria (Auto) 2+ /HPF (Negative) 11/03/16 07:47 Urine Mucus Few /HPF 11/03/16 07:47 Urine Opiates Screen Presumptive negative 10/21/16 20:36 Urine Methadone Screen Presumptive negative 10/21/16 20:36 Ur Barbiturates Screen Presumptive negative 10/21/16 20:36 Ur Phencyclidine Scrn Presumptive negative 10/21/16 20:36 Ur Amphetamines Screen Presumptive negative 10/21/16 20:36 U Benzodiazepines Scrn Presumptive negative 10/21/16 20:36 Urine Cocaine Screen Presumptive negative 10/21/16 20:36 U Marijuana (THC) Screen Presumptive negative 10/21/16 20:36 Drugs of Abuse Note Disclamer 10/21/16 20:36 Plasma/Serum Alcohol < 0.01 gm% (0-0.07) 10/21/16 20:30 TB (QFT) Gold In Tube Negative (Negative) 11/10/16 00:08 TB Test (QFT) Nil 0.00 IU/mL (()) 11/10/16 00:08 TB Test Mitogen - Nil 1.22 IU/mL (()) 11/10/16 00:08 TB Test Antigen - Nil 0.01 IU/mL (()) 11/10/16 00:08
[2016-12-16] MEDS: SYNTHROID PO SCH (05:22)
[2016-12-16] MEDS: NOVOLOG SUB-Q SCH ×3 (08:47→17:54)
[2016-12-16] MEDS: HALDOL PO SCH (10:34)
[2016-12-16] MEDS: ZYLOPRIM PO SCH (10:34)
[2016-12-16] MEDS: ROXICODONE PO SCH (10:35)
[2016-12-16] MEDS: GEODON PO SCH (10:35)
[2016-12-16] MEDS: COREG PO SCH (10:35)
[2016-12-16] MEDS: COLACE PO SCH (10:35)
[2016-12-16] MEDS: HCTZ PO SCH (10:35)
[2016-12-16] MEDS: PROCARDIA XL PO SCH (10:37)
[2016-12-16] MEDS: LAC-HYDRIN TP SCH (10:37)
[2016-12-16] MEDS: MIRALAX 3350 PO SCH (10:37)
[2016-12-16] MEDS: HEPARIN SUB-Q SCH (10:38)
[2016-12-16] MEDS: BENADRYL IM PRN (17:43)
--- NOTE | 2016-12-16 19:15 | Progress Note ---
Assessment and Plan - Patient Problems (1) Dementia Current Visit: Yes Status: Chronic Qualifiers: Dementia type: D Alzheimer's disease onset: A Dementia behavioral disturbance: D Plan to address problem: continue current therapy, (2) Psychosis Current Visit: Yes Status: Resolved Qualifiers: Psychosis type: unspecified psychosis type Schizoaffective disorder type: S Schizophrenia type: S Qualified Code(s): F29 - Unspecified psychosis not due to a substance or known physiological condition Plan to address problem: continue current therapy (3) Finger amputation, no complication Current Visit: Yes Status: Acute Qualifiers: Encounter type: initial encounter Qualified Code(s): S68.119A - Complete traumatic metacarpophalangeal amputation of unspecified finger, initial encounter (4) Acute renal failure (ARF) Current Visit: Yes Status: Resolved Qualifiers: Acute renal failure type: A Plan to address problem: ivf , supportive care, monitor uop q shift, (5) Sepsis Current Visit: Yes Status: Resolved Qualifiers: Sepsis type: S Plan to address problem: resolved, continue current therapy (6) Pneumonia Current Visit: Yes Status: Resolved Qualifiers: Pneumonia type: P Aspiration pneumonia type: A Laterality: L Lung location: L (7) Encephalopathy Current Visit: Yes Status: Chronic Plan to address problem: supportive care, bed alarm, fall precautions. (8) DVT prophylaxis Current Visit: Yes Status: Acute History Interval history: Pt resting comfortably in bed, No reported nursing events. Pt pleasant but confused. Pt medically stable overnight and optimized for discharge. case management consulted, pending discharge when bed available. Discussed care plan with family. Hospitalist Physical - Constitutional Vitals: Temp Pulse Resp BP Pulse Ox 98.3 F 86 20 126/61 97 12/16/16 16:05 12/16/16 16:05 12/16/16 16:05 12/16/16 16:05 12/16/16 08:10 General appearance: Present: no acute distress, well-nourished - EENT Eyes: Present: PERRL, EOM intact ENT: hearing intact - Neck Neck: Present: supple - Respiratory Respiratory: bilateral: diminished - Cardiovascular Rhythm: regular Heart Sounds: Present: S1 & S2 - Extremities Extremity abnormal: edema - Abdominal General gastrointestinal: soft, non-tender, non-distended - Integumentary Integumentary: Present: clear, dry - Psychiatric Psychiatric: no intact judgment & insight, no memory intact - Neurologic Neurologic: CNII-XII intact, no gait normal Results - Labs CBC & Chem 7: 12/08/16 04:00 12/08/16 04:00 Labs: Laboratory Last Values WBC 7.4 K/mm3 (4.5-11.0) 12/08/16 04:00 RBC 3.52 M/mm3 (3.65-5.03) L 12/08/16 04:00 Hgb 10.5 gm/dl (11.8-15.2) L 12/08/16 04:00 Hct 32.2 % (35.5-45.6) L 12/08/16 04:00 MCV 92 fl (84-94) 12/08/16 04:00 MCH 30 pg (28-32) 12/08/16 04:00 MCHC 33 % (32-34) 12/08/16 04:00 RDW 18.3 % (13.2-15.2) H 12/08/16 04:00 Plt Count 196 K/mm3 (140-440) 12/08/16 04:00 Lymph % (Auto) 13.0 % (13.4-35.0) L 12/08/16 04:00 [place] % (Auto) 8.4 % (0.0-7.3) H 12/08/16 04:00 Eos % (Auto) 1.4 % (0.0-4.3) 12/08/16 04:00 Baso % (Auto) 1.8 % (0.0-1.8) 12/08/16 04:00 Lymph # 1.0 K/mm3 (1.2-5.4) L 12/08/16 04:00 [place] # 0.6 K/mm3 (0.0-0.8) 12/08/16 04:00 Eos # 0.1 K/mm3 (0.0-0.4) 12/08/16 04:00 Baso # 0.1 K/mm3 (0.0-0.1) 12/08/16 04:00 Seg Neutrophils % 75.4 % (40.0-70.0) H 12/08/16 04:00 Seg Neutrophils # 5.6 K/mm3 (1.8-7.7) 12/08/16 04:00 PT 14.3 Sec. (12.2-14.9) 10/23/16 12:53 INR 1.12 (0.87-1.13) 10/23/16 12:53 APTT 30.6 Sec. (24.2-36.6) 10/23/16 12:53 POC ABG pH 7.507 (7.35-7.45) H 11/12/16 21:51 POC ABG pCO2 32.8 (35-45) L 11/12/16 21:51 POC ABG pO2 78 (80-105) L 11/12/16 21:51 POC ABG HCO3 26.0 11/12/16 21:51 POC ABG Total CO2 27 11/12/16 21:51 POC ABG O2 Sat 97 11/12/16 21:51 POC ABG Base Excess 3 11/12/16 21:51 FiO2 28 % 11/12/16 21:51 Sodium 138 mmol/L (137-145) 12/08/16 04:00 Potassium 3.6 mmol/L (3.6-5.0) 12/08/16 04:00 Chloride 100.6 mmol/L (98-107) 12/08/16 04:00 Carbon Dioxide 26 mmol/L (22-30) 12/08/16 04:00 Anion Gap 15 mmol/L 12/08/16 04:00 BUN 31 mg/dL (9-20) H 12/08/16 04:00 Creatinine 1.5 mg/dL (0.8-1.5) 12/08/16 04:00 Estimated GFR 56 ml/min 12/08/16 04:00 BUN/Creatinine Ratio 20.66 % 12/08/16 04:00 Glucose 319 mg/dL (75-100) H 12/08/16 04:00 POC Glucose 270 (70-105) H 12/16/16 11:44 Hemoglobin A1c 7.2 % (4-6) H 10/27/16 05:30 Lactic Acid 2.8 mmol/L (0.7-2.0) H* 10/23/16 12:53 Calcium 8.1 mg/dL (8.4-10.2) L 12/08/16 04:00 Magnesium 1.9 mg/dL (1.7-2.3) 10/31/16 12:35 Total Bilirubin 0.9 mg/dL (0.1-1.2) 10/27/16 05:30 Direct Bilirubin 0.3 mg/dL (0-0.2) H 10/27/16 05:30 Indirect Bilirubin 0.6 mg/dL 10/27/16 05:30 AST 18 units/L (5-40) 10/27/16 05:30 ALT 13 units/L (7-56) 10/27/16 05:30 Alkaline Phosphatase 116 units/L (35-129) 10/27/16 05:30 Ammonia 30.0 umol/L (25-60) 10/26/16 09:00 Total Creatine Kinase 72 units/L (55-170) 11/02/16 18:37 CK-MB (CK-2) 3.0 ng/mL (0.0-4.0) 10/23/16 12:53 CK-MB (CK-2) Rel Index 0.9 (0-4) 10/23/16 12:53 Troponin T 0.032 ng/mL (0.00-0.029) H 10/23/16 12:53 NT-Pro-B Natriuret Pep 532.6 pg/mL (0-900) 10/23/16 12:53 Total Protein 7.1 g/dL (6.3-8.2) 10/27/16 05:30 Albumin 3.2 g/dL (3.9-5) L 10/27/16 05:30 Albumin/Globulin Ratio 0.8 % 10/27/16 05:30 Triglycerides 199 mg/dL (2-149) H 10/23/16 12:53 Cholesterol 143 mg/dL (50-199) 10/23/16 12:53 LDL Cholesterol Direct 64 mg/dL (50-130) 10/23/16 12:53 HDL Cholesterol 40 mg/dL (40-59) 10/23/16 12:53 Cholesterol/HDL Ratio 3.57 % 10/23/16 12:53 TSH 1.040 mlU/mL (0.270-4.200) 10/23/16 12:53 Free T4 1.13 ng/dL (0.76-1.46) 10/23/16 22:59 Thyroxine (T4) 5.2 ug/dL (4.0-12.0) 10/23/16 22:59 T3 (NISHA) 56 ng/dL (76-181) L 10/23/16 22:59 Free T3 Index 2.0 pg/mL (2.3-4.2) L 10/23/16 22:59 T3 Uptake See scanned report 10/23/16 22:59 Urine Color Yellow (Yellow) 11/03/16 07:47 Urine Turbidity Clear (Clear) 11/03/16 07:47 Urine pH 5.0 (5.0-7.0) 11/03/16 07:47 Ur Specific [place] 1.012 (1.003-1.030) 11/03/16 07:47 Urine Protein <15 mg/dl mg/dL (Negative) 11/03/16 07:47 Urine Glucose (UA) Neg mg/dL (Negative) 11/03/16 07:47 Urine Ketones Neg mg/dL (Negative) 11/03/16 07:47 Urine Blood Neg (Negative) 11/03/16 07:47 Urine Nitrite Pos (Negative) 11/03/16 07:47 Urine Bilirubin Neg (Negative) 11/03/16 07:47 Urine Urobilinogen 4.0 mg/dL (<2.0) 11/03/16 07:47 Ur Leukocyte Esterase Tr (Negative) 11/03/16 07:47 Urine WBC (Auto) 1.0 /HPF (0.0-6.0) 11/03/16 07:47 Urine RBC (Auto) 5.0 /HPF (0.0-6.0) 11/03/16 07:47 U Epithel Cells (Auto) < 1.0 /HPF (0-13.0) 11/03/16 07:47 Urine Bacteria (Auto) 2+ /HPF (Negative) 11/03/16 07:47 Urine Mucus Few /HPF 11/03/16 07:47 Urine Opiates Screen Presumptive negative 10/21/16 20:36 Urine Methadone Screen Presumptive negative 10/21/16 20:36 Ur Barbiturates Screen Presumptive negative 10/21/16 20:36 Ur Phencyclidine Scrn Presumptive negative 10/21/16 20:36 Ur Amphetamines Screen Presumptive negative 10/21/16 20:36 U Benzodiazepines Scrn Presumptive negative 10/21/16 20:36 Urine Cocaine Screen Presumptive negative 10/21/16 20:36 U Marijuana (THC) Screen Presumptive negative 10/21/16 20:36 Drugs of Abuse Note Disclamer 10/21/16 20:36 Plasma/Serum Alcohol < 0.01 gm% (0-0.07) 10/21/16 20:30 TB (QFT) Gold In Tube Negative (Negative) 11/10/16 00:08 TB Test (QFT) Nil 0.00 IU/mL (()) 11/10/16 00:08 TB Test Mitogen - Nil 1.22 IU/mL (()) 11/10/16 00:08 TB Test Antigen - Nil 0.01 IU/mL (()) 11/10/16 00:08
[2016-12-17] MEDS: GEODON PO SCH ×3 (00:25→23:09)
[2016-12-17] MEDS: COLACE PO SCH ×3 (00:25→23:10)
[2016-12-17] MEDS: COREG PO SCH ×3 (00:26→23:10)
[2016-12-17] MEDS: HEPARIN SUB-Q SCH ×3 (00:28→23:11)
[2016-12-17] MEDS: LAC-HYDRIN TP SCH ×3 (00:29→23:08)
[2016-12-17] MEDS: NOVOLOG SUB-Q SCH ×5 (00:29→23:11)
[2016-12-17] MEDS: SYNTHROID PO SCH (05:36)
[2016-12-17] MEDS: ROXICODONE PO SCH (11:17)
[2016-12-17] MEDS: HCTZ PO SCH (11:17)
[2016-12-17] MEDS: ZYLOPRIM PO SCH (11:20)
[2016-12-17] MEDS: HALDOL PO SCH (11:20)
[2016-12-17] MEDS: MIRALAX 3350 PO SCH (11:21)
[2016-12-17] MEDS: PROCARDIA XL PO SCH (11:21)
--- NOTE | 2016-12-17 12:28 | Progress Note ---
Assessment and Plan Assessment and plan: 1) Sepsis - Resolved (2) Pneumonia - Resolved (3) Dementia Current Visit: Yes Status: Chronic Plan to address problem: supportive care, bed alarm, fall precautions (4) Psychosis Current Visit: Yes Status: Acute Qualifiers: Psychosis type: unspecified psychosis type Qualified Code(s): F29 - Unspecified psychosis not due to a substance or known physiological condition Plan to address problem: continue current therapy on geodon currently the patient is calm not on mechanical restraints Mitten for scratching (5) Finger amputation, no complication (6) Acute renal failure (ARF) - Resolved (7) Encephalopathy Current Visit: Yes Status: Acute Plan to address problem: supportive care, (8) DVT prophylaxis Current Visit: Yes Status: Acute New: The patient has decubitus ulcer and wound consult placed, frequent positioning. Patient is not on restraints but on mitten for scratching. Patient need to be out of bed 3x/day. PT consult. History Interval history: Patient was seen and evaluated this morning. Patient is sitting quietly on the chair. Hospitalist Physical - Physical exam Narrative exam: Not in cardiopulmonary distress. He is on restriants. The patient appeared well nourished and normally developed. Vital signs as documented. Head exam is unremarkable. No scleral icterus . Neck is without jugular venous distension, thyromegaly, or carotid bruits. Lungs are clear to auscultation. Cardiac exam reveals regular rate and Rhythm. First and second heart sounds normal. No murmurs, rubs or gallops. Abdominal exam reveals normal bowel sounds, no masses, no organomegaly and no aortic enlargement. Extremities are nonedematous. Skin significant for decubitus sacral ulcer. CAMPUS AMBASSADOR: Alert. No focal weakness. - Constitutional Vitals: Temp Pulse Resp BP Pulse Ox 98.3 F 108 H 20 128/88 95 12/17/16 08:00 12/17/16 11:19 12/17/16 08:00 12/17/16 11:19 12/17/16 08:00 General appearance: Present: no acute distress, well-nourished Results - Labs CBC & Chem 7: 12/08/16 04:00 12/08/16 04:00 Labs: Laboratory Last Values WBC 7.4 K/mm3 (4.5-11.0) 12/08/16 04:00 RBC 3.52 M/mm3 (3.65-5.03) L 12/08/16 04:00 Hgb 10.5 gm/dl (11.8-15.2) L 12/08/16 04:00 Hct 32.2 % (35.5-45.6) L 12/08/16 04:00 MCV 92 fl (84-94) 12/08/16 04:00 MCH 30 pg (28-32) 12/08/16 04:00 MCHC 33 % (32-34) 12/08/16 04:00 RDW 18.3 % (13.2-15.2) H 12/08/16 04:00 Plt Count 196 K/mm3 (140-440) 12/08/16 04:00 Lymph % (Auto) 13.0 % (13.4-35.0) L 12/08/16 04:00 [place] % (Auto) 8.4 % (0.0-7.3) H 12/08/16 04:00 Eos % (Auto) 1.4 % (0.0-4.3) 12/08/16 04:00 Baso % (Auto) 1.8 % (0.0-1.8) 12/08/16 04:00 Lymph # 1.0 K/mm3 (1.2-5.4) L 12/08/16 04:00 [place] # 0.6 K/mm3 (0.0-0.8) 12/08/16 04:00 Eos # 0.1 K/mm3 (0.0-0.4) 12/08/16 04:00 Baso # 0.1 K/mm3 (0.0-0.1) 12/08/16 04:00 Seg Neutrophils % 75.4 % (40.0-70.0) H 12/08/16 04:00 Seg Neutrophils # 5.6 K/mm3 (1.8-7.7) 12/08/16 04:00 PT 14.3 Sec. (12.2-14.9) 10/23/16 12:53 INR 1.12 (0.87-1.13) 10/23/16 12:53 APTT 30.6 Sec. (24.2-36.6) 10/23/16 12:53 POC ABG pH 7.507 (7.35-7.45) H 11/12/16 21:51 POC ABG pCO2 32.8 (35-45) L 11/12/16 21:51 POC ABG pO2 78 (80-105) L 11/12/16 21:51 POC ABG HCO3 26.0 11/12/16 21:51 POC ABG Total CO2 27 11/12/16 21:51 POC ABG O2 Sat 97 11/12/16 21:51 POC ABG Base Excess 3 11/12/16 21:51 FiO2 28 % 11/12/16 21:51 Sodium 138 mmol/L (137-145) 12/08/16 04:00 Potassium 3.6 mmol/L (3.6-5.0) 12/08/16 04:00 Chloride 100.6 mmol/L (98-107) 12/08/16 04:00 Carbon Dioxide 26 mmol/L (22-30) 12/08/16 04:00 Anion Gap 15 mmol/L 12/08/16 04:00 BUN 31 mg/dL (9-20) H 12/08/16 04:00 Creatinine 1.5 mg/dL (0.8-1.5) 12/08/16 04:00 Estimated GFR 56 ml/min 12/08/16 04:00 BUN/Creatinine Ratio 20.66 % 12/08/16 04:00 Glucose 319 mg/dL (75-100) H 12/08/16 04:00 POC Glucose 133 (70-105) H 12/17/16 06:25 Hemoglobin A1c 7.2 % (4-6) H 10/27/16 05:30 Lactic Acid 2.8 mmol/L (0.7-2.0) H* 10/23/16 12:53 Calcium 8.1 mg/dL (8.4-10.2) L 12/08/16 04:00 Magnesium 1.9 mg/dL (1.7-2.3) 10/31/16 12:35 Total Bilirubin 0.9 mg/dL (0.1-1.2) 10/27/16 05:30 Direct Bilirubin 0.3 mg/dL (0-0.2) H 10/27/16 05:30 Indirect Bilirubin 0.6 mg/dL 10/27/16 05:30 AST 18 units/L (5-40) 10/27/16 05:30 ALT 13 units/L (7-56) 10/27/16 05:30 Alkaline Phosphatase 116 units/L (35-129) 10/27/16 05:30 Ammonia 30.0 umol/L (25-60) 10/26/16 09:00 Total Creatine Kinase 72 units/L (55-170) 11/02/16 18:37 CK-MB (CK-2) 3.0 ng/mL (0.0-4.0) 10/23/16 12:53 CK-MB (CK-2) Rel Index 0.9 (0-4) 10/23/16 12:53 Troponin T 0.032 ng/mL (0.00-0.029) H 10/23/16 12:53 NT-Pro-B Natriuret Pep 532.6 pg/mL (0-900) 10/23/16 12:53 Total Protein 7.1 g/dL (6.3-8.2) 10/27/16 05:30 Albumin 3.2 g/dL (3.9-5) L 10/27/16 05:30 Albumin/Globulin Ratio 0.8 % 10/27/16 05:30 Triglycerides 199 mg/dL (2-149) H 10/23/16 12:53 Cholesterol 143 mg/dL (50-199) 10/23/16 12:53 LDL Cholesterol Direct 64 mg/dL (50-130) 10/23/16 12:53 HDL Cholesterol 40 mg/dL (40-59) 10/23/16 12:53 Cholesterol/HDL Ratio 3.57 % 10/23/16 12:53 TSH 1.040 mlU/mL (0.270-4.200) 10/23/16 12:53 Free T4 1.13 ng/dL (0.76-1.46) 10/23/16 22:59 Thyroxine (T4) 5.2 ug/dL (4.0-12.0) 10/23/16 22:59 T3 (NISHA) 56 ng/dL (76-181) L 10/23/16 22:59 Free T3 Index 2.0 pg/mL (2.3-4.2) L 10/23/16 22:59 T3 Uptake See scanned report 10/23/16 22:59 Urine Color Yellow (Yellow) 11/03/16 07:47 Urine Turbidity Clear (Clear) 11/03/16 07:47 Urine pH 5.0 (5.0-7.0) 11/03/16 07:47 Ur Specific [place] 1.012 (1.003-1.030) 11/03/16 07:47 Urine Protein <15 mg/dl mg/dL (Negative) 11/03/16 07:47 Urine Glucose (UA) Neg mg/dL (Negative) 11/03/16 07:47 Urine Ketones Neg mg/dL (Negative) 11/03/16 07:47 Urine Blood Neg (Negative) 11/03/16 07:47 Urine Nitrite Pos (Negative) 11/03/16 07:47 Urine Bilirubin Neg (Negative) 11/03/16 07:47 Urine Urobilinogen 4.0 mg/dL (<2.0) 11/03/16 07:47 Ur Leukocyte Esterase Tr (Negative) 11/03/16 07:47 Urine WBC (Auto) 1.0 /HPF (0.0-6.0) 11/03/16 07:47 Urine RBC (Auto) 5.0 /HPF (0.0-6.0) 11/03/16 07:47 U Epithel Cells (Auto) < 1.0 /HPF (0-13.0) 11/03/16 07:47 Urine Bacteria (Auto) 2+ /HPF (Negative) 11/03/16 07:47 Urine Mucus Few /HPF 11/03/16 07:47 Urine Opiates Screen Presumptive negative 10/21/16 20:36 Urine Methadone Screen Presumptive negative 10/21/16 20:36 Ur Barbiturates Screen Presumptive negative 10/21/16 20:36 Ur Phencyclidine Scrn Presumptive negative 10/21/16 20:36 Ur Amphetamines Screen Presumptive negative 10/21/16 20:36 U Benzodiazepines Scrn Presumptive negative 10/21/16 20:36 Urine Cocaine Screen Presumptive negative 10/21/16 20:36 U Marijuana (THC) Screen Presumptive negative 10/21/16 20:36 Drugs of Abuse Note Disclamer 10/21/16 20:36 Plasma/Serum Alcohol < 0.01 gm% (0-0.07) 10/21/16 20:30 TB (QFT) Gold In Tube Negative (Negative) 11/10/16 00:08 TB Test (QFT) Nil 0.00 IU/mL (()) 11/10/16 00:08 TB Test Mitogen - Nil 1.22 IU/mL (()) 11/10/16 00:08 TB Test Antigen - Nil 0.01 IU/mL (()) 11/10/16 00:08
[2016-12-18] MEDS: SYNTHROID PO SCH (06:15)
[2016-12-18] MEDS: NOVOLOG SUB-Q SCH ×4 (07:57→23:03)
[2016-12-18] MEDS: BENADRYL IM PRN (08:10)
--- NOTE | 2016-12-18 09:00 | Discharge Summary ---
Providers - Providers Date of Admission: 10/26/16 12:28 Date of discharge: 12/18/16 Attending physician: CARLO MANRIQUEZ MD 11/14/16 09:30 Consult to Wound/ET Nurse [CONS] Urgent Reason For Exam: wound eval 11/18/16 09:22 Physical Therapy Evaluation and Treat [CONS] Routine Comment: Reason For Exam: debility 11/19/16 13:07 psychiatry consult [Consult to Mental Health] [CONS] Routine Reason For Exam: agitation Place consult to:: jg Notified:: mental health Phone number called:: [phone] Was contact made?: Yes If yes, spoke with:: ANURAG Time called:: 13:48 Comment:: NUGGET 12/05/16 13:37 Consult to Wound/ET Nurse [CONS] Urgent Reason For Exam: wound eval 12/09/16 12:26 Physical Therapy Evaluation and Treat [CONS] Routine Comment: Reason For Exam: debility 10/28/16 16:31 Physical Therapy Evaluation and Treat [CONS] Routine Comment: Reason For Exam: altered level of consciousness/psychosis 11/02/16 12:37 Consult to Dietitian/Nutrition [CONS] Routine Physician Instructions: Reason For Exam: Reason for Consult: Malnutrition 11/07/16 14:05 Consult to Wound/ET Nurse [CONS] Urgent Reason For Exam: wound eval (R) index finger 11/07/16 15:38 Consult to Physician [CONS] Routine Consulting Provider: JACKSON MACDONALD V Reason For Exam: Right hand infection Place consult to:: mychal Notified:: yesi sorto Phone number called:: [phone] Was contact made?: Yes If yes, spoke with:: reese Time called:: 12:50 11/09/16 11:33 Consult to Physician [CONS] Routine Consulting Provider: TY CUADRA Reason For Exam: right index finger abscess Place consult to:: DR. Cuadra Notified:: Dr. Cuadra Phone number called:: [phone] Was contact made?: Yes Time called:: 12:30 Comment:: COMPLETED Primary care physician: [employer]ER Hospitalization Reason for admission: dementia, Encephalopathy, sepsis Condition: Stable Disposition: DC/[place] SNF W [facility] Time spent for discharge: 34 minutes - Discharge Diagnoses (1) Finger amputation, no complication Status: Acute Qualifiers: Encounter type: initial encounter Qualified Code(s): S68.119A - Complete traumatic metacarpophalangeal amputation of unspecified finger, initial encounter (2) Dementia Status: Chronic Qualifiers: Dementia type: D Alzheimer's disease onset: A Dementia behavioral disturbance: D (3) Encephalopathy Status: Chronic (4) Pneumonia Status: Resolved Qualifiers: Pneumonia type: P Aspiration pneumonia type: A Laterality: L Lung location: L (5) Psychosis Status: Resolved Qualifiers: Psychosis type: unspecified psychosis type Schizoaffective disorder type: S Schizophrenia type: S Qualified Code(s): F29 - Unspecified psychosis not due to a substance or known physiological condition (6) Sepsis Status: Resolved Qualifiers: Sepsis type: S Core Measure Documentation - Palliative Care Palliative Care/ Comfort Measures: Not Applicable - Core Measures Any of the following diagnoses?: none Exam - Physical Exam Narrative exam: Not in cardiopulmonary distress. The patient is alert but not responding to questions. The patient is on mitten from scratching. The patient appeared well nourished and normally developed. Vital signs as documented. Head exam is unremarkable. No scleral icterus . Neck is without jugular venous distension, thyromegaly, or carotid bruits. Lungs are clear to auscultation. Cardiac exam reveals regular rate and Rhythm. First and second heart sounds normal. No murmurs, rubs or gallops. Abdominal exam reveals normal bowel sounds, no masses, no organomegaly and no aortic enlargement. Extremities are nonedematous. Skin significant for healing decubitus sacral ulcer. 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 No focal weakness. - Constitutional Vitals: Temp Pulse Resp BP Pulse Ox 100.3 F H 104 H 20 144/86 98 12/18/16 08:38 12/18/16 08:38 12/18/16 08:38 12/18/16 08:38 12/18/16 08:38 Plan Activity: fall precautions Weight Bearing Status: Partial Weight Bearing Diet: regular Follow up with: TY CUADRA MD [Staff Physician] - 7 Days PRIMARY MD EDUAR [Primary Care Provider] - 3-5 Days JACKSON MACDONALD MD [Staff Physician] - 7 Days Prescriptions: traZODone [Desyrel] 25 mg PO QHS #30 tablet oxyCODONE [Roxicodone TAB] 5 mg PO DAILY #30 tablet
[2016-12-18] MEDS: MIRALAX 3350 PO SCH ×2 (10:04→10:44)
[2016-12-18] MEDS: HEPARIN SUB-Q SCH ×2 (10:05→21:19)
[2016-12-18] MEDS: HALDOL PO SCH (10:06)
[2016-12-18] MEDS: ROXICODONE PO SCH (10:06)
[2016-12-18] MEDS: COREG PO SCH ×2 (10:06→21:19)
[2016-12-18] MEDS: ZYLOPRIM PO SCH (10:06)
[2016-12-18] MEDS: LAC-HYDRIN TP SCH ×2 (10:07→21:20)
[2016-12-18] MEDS: GEODON PO SCH ×2 (10:07→21:20)
[2016-12-18] MEDS: HCTZ PO SCH (10:07)
[2016-12-18] MEDS: COLACE PO SCH ×3 (10:07→21:20)
[2016-12-18] MEDS: PROCARDIA XL PO SCH (10:07)
--- NOTE | 2016-12-18 13:54 | Progress Note ---
Assessment and Plan Assessment and plan: 1) Sepsis - Resolved (2) Pneumonia - Resolved (3) Dementia Current Visit: Yes Status: Chronic Plan to address problem: supportive care, bed alarm, fall precautions (4) Psychosis continue current therapy on geodon currently the patient is calm not on mechanical restraints Mitten for scratching (5) Finger amputation, no complication (6) Acute renal failure (ARF) - Resolved (7) Encephalopathy Current Visit: Yes Status: Acute Plan to address problem: supportive care, (8) DVT prophylaxis - heparin Disposition - patient was [facility] be [facility] No penitentiary accepted per case management. - Patient Problems (1) Finger amputation, no complication Current Visit: Yes Status: Acute Qualifiers: Encounter type: initial encounter Qualified Code(s): S68.119A - Complete traumatic metacarpophalangeal amputation of unspecified finger, initial encounter (2) Dementia Current Visit: Yes Status: Chronic Qualifiers: Dementia type: D Alzheimer's disease onset: A Dementia behavioral disturbance: D (3) Encephalopathy Current Visit: Yes Status: Chronic (4) Pneumonia Current Visit: Yes Status: Resolved Qualifiers: Pneumonia type: P Aspiration pneumonia type: A Laterality: L Lung location: L (5) Psychosis Current Visit: Yes Status: Resolved Qualifiers: Psychosis type: unspecified psychosis type Schizoaffective disorder type: S Schizophrenia type: S Qualified Code(s): F29 - Unspecified psychosis not due to a substance or known physiological condition (6) Sepsis Current Visit: Yes Status: Resolved Qualifiers: Sepsis type: S History Interval history: Patient was seen and evaluated this morning. Patient was lying on the bed. patient was alert but didn't answer questions. Hospitalist Physical - Physical exam Narrative exam: Not in cardiopulmonary distress. The patient is alert but not responding to questions. The patient is on mitten from scratching. The patient appeared well nourished and normally developed. Vital signs as documented. Head exam is unremarkable. No scleral icterus . Neck is without jugular venous distension, thyromegaly, or carotid bruits. Lungs are clear to auscultation. Cardiac exam reveals regular rate and Rhythm. First and second heart sounds normal. No murmurs, rubs or gallops. Abdominal exam reveals normal bowel sounds, no masses, no organomegaly and no aortic enlargement. Extremities are nonedematous. Skin significant for healing decubitus sacral ulcer and skin lesions . EDGE INKER HEELS: Alert. No focal weakness. - Constitutional Vitals: Temp Pulse Resp BP Pulse Ox 100.3 F H 104 H 20 144/86 98 12/18/16 08:38 12/18/16 08:38 12/18/16 08:38 12/18/16 08:38 12/18/16 08:38 General appearance: Present: no acute distress, well-nourished Results - Labs CBC & Chem 7: 12/08/16 04:00 12/08/16 04:00 Labs: Laboratory Last Values WBC 7.4 K/mm3 (4.5-11.0) 12/08/16 04:00 RBC 3.52 M/mm3 (3.65-5.03) L 12/08/16 04:00 Hgb 10.5 gm/dl (11.8-15.2) L 12/08/16 04:00 Hct 32.2 % (35.5-45.6) L 12/08/16 04:00 MCV 92 fl (84-94) 12/08/16 04:00 MCH 30 pg (28-32) 12/08/16 04:00 MCHC 33 % (32-34) 12/08/16 04:00 RDW 18.3 % (13.2-15.2) H 12/08/16 04:00 Plt Count 196 K/mm3 (140-440) 12/08/16 04:00 Lymph % (Auto) 13.0 % (13.4-35.0) L 12/08/16 04:00 [place] % (Auto) 8.4 % (0.0-7.3) H 12/08/16 04:00 Eos % (Auto) 1.4 % (0.0-4.3) 12/08/16 04:00 Baso % (Auto) 1.8 % (0.0-1.8) 12/08/16 04:00 Lymph # 1.0 K/mm3 (1.2-5.4) L 12/08/16 04:00 [place] # 0.6 K/mm3 (0.0-0.8) 12/08/16 04:00 Eos # 0.1 K/mm3 (0.0-0.4) 12/08/16 04:00 Baso # 0.1 K/mm3 (0.0-0.1) 12/08/16 04:00 Seg Neutrophils % 75.4 % (40.0-70.0) H 12/08/16 04:00 Seg Neutrophils # 5.6 K/mm3 (1.8-7.7) 12/08/16 04:00 PT 14.3 Sec. (12.2-14.9) 10/23/16 12:53 INR 1.12 (0.87-1.13) 10/23/16 12:53 APTT 30.6 Sec. (24.2-36.6) 10/23/16 12:53 POC ABG pH 7.507 (7.35-7.45) H 11/12/16 21:51 POC ABG pCO2 32.8 (35-45) L 11/12/16 21:51 POC ABG pO2 78 (80-105) L 11/12/16 21:51 POC ABG HCO3 26.0 11/12/16 21:51 POC ABG Total CO2 27 11/12/16 21:51 POC ABG O2 Sat 97 11/12/16 21:51 POC ABG Base Excess 3 11/12/16 21:51 FiO2 28 % 11/12/16 21:51 Sodium 138 mmol/L (137-145) 12/08/16 04:00 Potassium 3.6 mmol/L (3.6-5.0) 12/08/16 04:00 Chloride 100.6 mmol/L (98-107) 12/08/16 04:00 Carbon Dioxide 26 mmol/L (22-30) 12/08/16 04:00 Anion Gap 15 mmol/L 12/08/16 04:00 BUN 31 mg/dL (9-20) H 12/08/16 04:00 Creatinine 1.5 mg/dL (0.8-1.5) 12/08/16 04:00 Estimated GFR 56 ml/min 12/08/16 04:00 BUN/Creatinine Ratio 20.66 % 12/08/16 04:00 Glucose 319 mg/dL (75-100) H 12/08/16 04:00 POC Glucose 213 (70-105) H 12/18/16 11:53 Hemoglobin A1c 7.2 % (4-6) H 10/27/16 05:30 Lactic Acid 2.8 mmol/L (0.7-2.0) H* 10/23/16 12:53 Calcium 8.1 mg/dL (8.4-10.2) L 12/08/16 04:00 Magnesium 1.9 mg/dL (1.7-2.3) 10/31/16 12:35 Total Bilirubin 0.9 mg/dL (0.1-1.2) 10/27/16 05:30 Direct Bilirubin 0.3 mg/dL (0-0.2) H 10/27/16 05:30 Indirect Bilirubin 0.6 mg/dL 10/27/16 05:30 AST 18 units/L (5-40) 10/27/16 05:30 ALT 13 units/L (7-56) 10/27/16 05:30 Alkaline Phosphatase 116 units/L (35-129) 10/27/16 05:30 Ammonia 30.0 umol/L (25-60) 10/26/16 09:00 Total Creatine Kinase 72 units/L (55-170) 11/02/16 18:37 CK-MB (CK-2) 3.0 ng/mL (0.0-4.0) 10/23/16 12:53 CK-MB (CK-2) Rel Index 0.9 (0-4) 10/23/16 12:53 Troponin T 0.032 ng/mL (0.00-0.029) H 10/23/16 12:53 NT-Pro-B Natriuret Pep 532.6 pg/mL (0-900) 10/23/16 12:53 Total Protein 7.1 g/dL (6.3-8.2) 10/27/16 05:30 Albumin 3.2 g/dL (3.9-5) L 10/27/16 05:30 Albumin/Globulin Ratio 0.8 % 10/27/16 05:30 Triglycerides 199 mg/dL (2-149) H 10/23/16 12:53 Cholesterol 143 mg/dL (50-199) 10/23/16 12:53 LDL Cholesterol Direct 64 mg/dL (50-130) 10/23/16 12:53 HDL Cholesterol 40 mg/dL (40-59) 10/23/16 12:53 Cholesterol/HDL Ratio 3.57 % 10/23/16 12:53 TSH 1.040 mlU/mL (0.270-4.200) 10/23/16 12:53 Free T4 1.13 ng/dL (0.76-1.46) 10/23/16 22:59 Thyroxine (T4) 5.2 ug/dL (4.0-12.0) 10/23/16 22:59 T3 (NISHA) 56 ng/dL (76-181) L 10/23/16 22:59 Free T3 Index 2.0 pg/mL (2.3-4.2) L 10/23/16 22:59 T3 Uptake See scanned report 10/23/16 22:59 Urine Color Yellow (Yellow) 11/03/16 07:47 Urine Turbidity Clear (Clear) 11/03/16 07:47 Urine pH 5.0 (5.0-7.0) 11/03/16 07:47 Ur Specific [place] 1.012 (1.003-1.030) 11/03/16 07:47 Urine Protein <15 mg/dl mg/dL (Negative) 11/03/16 07:47 Urine Glucose (UA) Neg mg/dL (Negative) 11/03/16 07:47 Urine Ketones Neg mg/dL (Negative) 11/03/16 07:47 Urine Blood Neg (Negative) 11/03/16 07:47 Urine Nitrite Pos (Negative) 11/03/16 07:47 Urine Bilirubin Neg (Negative) 11/03/16 07:47 Urine Urobilinogen 4.0 mg/dL (<2.0) 11/03/16 07:47 Ur Leukocyte Esterase Tr (Negative) 11/03/16 07:47 Urine WBC (Auto) 1.0 /HPF (0.0-6.0) 11/03/16 07:47 Urine RBC (Auto) 5.0 /HPF (0.0-6.0) 11/03/16 07:47 U Epithel Cells (Auto) < 1.0 /HPF (0-13.0) 11/03/16 07:47 Urine Bacteria (Auto) 2+ /HPF (Negative) 11/03/16 07:47 Urine Mucus Few /HPF 11/03/16 07:47 Urine Opiates Screen Presumptive negative 10/21/16 20:36 Urine Methadone Screen Presumptive negative 10/21/16 20:36 Ur Barbiturates Screen Presumptive negative 10/21/16 20:36 Ur Phencyclidine Scrn Presumptive negative 10/21/16 20:36 Ur Amphetamines Screen Presumptive negative 10/21/16 20:36 U Benzodiazepines Scrn Presumptive negative 10/21/16 20:36 Urine Cocaine Screen Presumptive negative 10/21/16 20:36 U Marijuana (THC) Screen Presumptive negative 10/21/16 20:36 Drugs of Abuse Note Disclamer 10/21/16 20:36 Plasma/Serum Alcohol < 0.01 gm% (0-0.07) 10/21/16 20:30 TB (QFT) Gold In Tube Negative (Negative) 11/10/16 00:08 TB Test (QFT) Nil 0.00 IU/mL (()) 11/10/16 00:08 TB Test Mitogen - Nil 1.22 IU/mL (()) 11/10/16 00:08 TB Test Antigen - Nil 0.01 IU/mL (()) 11/10/16 00:08
[2016-12-19] MEDS: SYNTHROID PO SCH (05:08)
[2016-12-19] MEDS: HEPARIN SUB-Q SCH ×2 (09:36→23:33)
[2016-12-19] MEDS: MIRALAX 3350 PO SCH (09:37)
[2016-12-19] MEDS: HALDOL PO SCH (09:37)
[2016-12-19] MEDS: BENADRYL IM PRN ×2 (09:38→23:35)
[2016-12-19] MEDS: ROXICODONE PO SCH (09:39)
[2016-12-19] MEDS: PROCARDIA XL PO SCH (09:39)
[2016-12-19] MEDS: COREG PO SCH ×2 (09:40→23:33)
[2016-12-19] MEDS: GEODON PO SCH ×2 (09:40→23:32)
[2016-12-19] MEDS: ZYLOPRIM PO SCH (09:40)
[2016-12-19] MEDS: COLACE PO SCH ×2 (09:40→23:32)
[2016-12-19] MEDS: LAC-HYDRIN TP SCH ×2 (09:41→23:36)
[2016-12-19] MEDS: NOVOLOG SUB-Q SCH ×4 (09:41→23:36)
[2016-12-19] MEDS: HCTZ PO SCH (10:00)
--- NOTE | 2016-12-19 13:00 | Progress Note ---
Assessment and Plan Assessment and plan: 1) Sepsis - Resolved (2) Pneumonia - Resolved (3) Dementia Current Visit: Yes Status: Chronic Plan to address problem: supportive care, bed alarm, fall precautions (4) Psychosis continue current therapy on geodon currently the patient is calm not on mechanical restraints Mitten for scratching (5) Finger amputation, no complication (6) Acute renal failure (ARF) - Resolved (7) Encephalopathy Current Visit: Yes Status: Acute Plan to address problem: supportive care, (8) DVT prophylaxis - heparin Disposition - patient [facility] per case management. - Patient Problems (1) Finger amputation, no complication Current Visit: Yes Status: Acute Qualifiers: Encounter type: initial encounter Qualified Code(s): S68.119A - Complete traumatic metacarpophalangeal amputation of unspecified finger, initial encounter (2) Dementia Current Visit: Yes Status: Chronic Qualifiers: Dementia type: D Alzheimer's disease onset: A Dementia behavioral disturbance: D (3) Encephalopathy Current Visit: Yes Status: Chronic (4) Pneumonia Current Visit: Yes Status: Resolved Qualifiers: Pneumonia type: P Aspiration pneumonia type: A Laterality: L Lung location: L (5) Psychosis Current Visit: Yes Status: Resolved Qualifiers: Psychosis type: unspecified psychosis type Schizoaffective disorder type: S Schizophrenia type: S Qualified Code(s): F29 - Unspecified psychosis not due to a substance or known physiological condition (6) Sepsis Current Visit: Yes Status: Resolved Qualifiers: Sepsis type: S History Interval history: Patient was seen and evaluated this morning. Patient was lying on the bed. patient was alert but didn't answer questions. Hospitalist Physical - Physical exam Narrative exam: Not in cardiopulmonary distress. The patient is alert but not responding to questions. The patient is on mitten from scratching. The patient appeared well nourished and normally developed. Vital signs as documented. Head exam is unremarkable. No scleral icterus . Neck is without jugular venous distension, thyromegaly, or carotid bruits. Lungs are clear to auscultation. Cardiac exam reveals regular rate and Rhythm. First and second heart sounds normal. No murmurs, rubs or gallops. Abdominal exam reveals normal bowel sounds, no masses, no organomegaly and no aortic enlargement. Extremities are nonedematous. Skin significant for healing decubitus sacral ulcer and psoriatic skin lesions . GIFT PACKER: Alert. No focal weakness. - Constitutional Vitals: Temp Pulse Resp BP Pulse Ox 97.6 F 97 H 20 118/67 97 12/19/16 07:30 12/19/16 09:40 12/19/16 09:40 12/19/16 09:40 12/19/16 07:30 General appearance: Present: no acute distress, well-nourished Results - Labs CBC & Chem 7: 12/08/16 04:00 12/08/16 04:00 Labs: Laboratory Last Values WBC 7.4 K/mm3 (4.5-11.0) 12/08/16 04:00 RBC 3.52 M/mm3 (3.65-5.03) L 12/08/16 04:00 Hgb 10.5 gm/dl (11.8-15.2) L 12/08/16 04:00 Hct 32.2 % (35.5-45.6) L 12/08/16 04:00 MCV 92 fl (84-94) 12/08/16 04:00 MCH 30 pg (28-32) 12/08/16 04:00 MCHC 33 % (32-34) 12/08/16 04:00 RDW 18.3 % (13.2-15.2) H 12/08/16 04:00 Plt Count 196 K/mm3 (140-440) 12/08/16 04:00 Lymph % (Auto) 13.0 % (13.4-35.0) L 12/08/16 04:00 [place] % (Auto) 8.4 % (0.0-7.3) H 12/08/16 04:00 Eos % (Auto) 1.4 % (0.0-4.3) 12/08/16 04:00 Baso % (Auto) 1.8 % (0.0-1.8) 12/08/16 04:00 Lymph # 1.0 K/mm3 (1.2-5.4) L 12/08/16 04:00 [place] # 0.6 K/mm3 (0.0-0.8) 12/08/16 04:00 Eos # 0.1 K/mm3 (0.0-0.4) 12/08/16 04:00 Baso # 0.1 K/mm3 (0.0-0.1) 12/08/16 04:00 Seg Neutrophils % 75.4 % (40.0-70.0) H 12/08/16 04:00 Seg Neutrophils # 5.6 K/mm3 (1.8-7.7) 12/08/16 04:00 PT 14.3 Sec. (12.2-14.9) 10/23/16 12:53 INR 1.12 (0.87-1.13) 10/23/16 12:53 APTT 30.6 Sec. (24.2-36.6) 10/23/16 12:53 POC ABG pH 7.507 (7.35-7.45) H 11/12/16 21:51 POC ABG pCO2 32.8 (35-45) L 11/12/16 21:51 POC ABG pO2 78 (80-105) L 11/12/16 21:51 POC ABG HCO3 26.0 11/12/16 21:51 POC ABG Total CO2 27 11/12/16 21:51 POC ABG O2 Sat 97 11/12/16 21:51 POC ABG Base Excess 3 11/12/16 21:51 FiO2 28 % 11/12/16 21:51 Sodium 138 mmol/L (137-145) 12/08/16 04:00 Potassium 3.6 mmol/L (3.6-5.0) 12/08/16 04:00 Chloride 100.6 mmol/L (98-107) 12/08/16 04:00 Carbon Dioxide 26 mmol/L (22-30) 12/08/16 04:00 Anion Gap 15 mmol/L 12/08/16 04:00 BUN 31 mg/dL (9-20) H 12/08/16 04:00 Creatinine 1.5 mg/dL (0.8-1.5) 12/08/16 04:00 Estimated GFR 56 ml/min 12/08/16 04:00 BUN/Creatinine Ratio 20.66 % 12/08/16 04:00 Glucose 319 mg/dL (75-100) H 12/08/16 04:00 POC Glucose 171 (70-105) H 12/19/16 05:56 Hemoglobin A1c 7.2 % (4-6) H 10/27/16 05:30 Lactic Acid 2.8 mmol/L (0.7-2.0) H* 10/23/16 12:53 Calcium 8.1 mg/dL (8.4-10.2) L 12/08/16 04:00 Magnesium 1.9 mg/dL (1.7-2.3) 10/31/16 12:35 Total Bilirubin 0.9 mg/dL (0.1-1.2) 10/27/16 05:30 Direct Bilirubin 0.3 mg/dL (0-0.2) H 10/27/16 05:30 Indirect Bilirubin 0.6 mg/dL 10/27/16 05:30 AST 18 units/L (5-40) 10/27/16 05:30 ALT 13 units/L (7-56) 10/27/16 05:30 Alkaline Phosphatase 116 units/L (35-129) 10/27/16 05:30 Ammonia 30.0 umol/L (25-60) 10/26/16 09:00 Total Creatine Kinase 72 units/L (55-170) 11/02/16 18:37 CK-MB (CK-2) 3.0 ng/mL (0.0-4.0) 10/23/16 12:53 CK-MB (CK-2) Rel Index 0.9 (0-4) 10/23/16 12:53 Troponin T 0.032 ng/mL (0.00-0.029) H 10/23/16 12:53 NT-Pro-B Natriuret Pep 532.6 pg/mL (0-900) 10/23/16 12:53 Total Protein 7.1 g/dL (6.3-8.2) 10/27/16 05:30 Albumin 3.2 g/dL (3.9-5) L 10/27/16 05:30 Albumin/Globulin Ratio 0.8 % 10/27/16 05:30 Triglycerides 199 mg/dL (2-149) H 10/23/16 12:53 Cholesterol 143 mg/dL (50-199) 10/23/16 12:53 LDL Cholesterol Direct 64 mg/dL (50-130) 10/23/16 12:53 HDL Cholesterol 40 mg/dL (40-59) 10/23/16 12:53 Cholesterol/HDL Ratio 3.57 % 10/23/16 12:53 TSH 1.040 mlU/mL (0.270-4.200) 10/23/16 12:53 Free T4 1.13 ng/dL (0.76-1.46) 10/23/16 22:59 Thyroxine (T4) 5.2 ug/dL (4.0-12.0) 10/23/16 22:59 T3 (NISHA) 56 ng/dL (76-181) L 10/23/16 22:59 Free T3 Index 2.0 pg/mL (2.3-4.2) L 10/23/16 22:59 T3 Uptake See scanned report 10/23/16 22:59 Urine Color Yellow (Yellow) 11/03/16 07:47 Urine Turbidity Clear (Clear) 11/03/16 07:47 Urine pH 5.0 (5.0-7.0) 11/03/16 07:47 Ur Specific [place] 1.012 (1.003-1.030) 11/03/16 07:47 Urine Protein <15 mg/dl mg/dL (Negative) 11/03/16 07:47 Urine Glucose (UA) Neg mg/dL (Negative) 11/03/16 07:47 Urine Ketones Neg mg/dL (Negative) 11/03/16 07:47 Urine Blood Neg (Negative) 11/03/16 07:47 Urine Nitrite Pos (Negative) 11/03/16 07:47 Urine Bilirubin Neg (Negative) 11/03/16 07:47 Urine Urobilinogen 4.0 mg/dL (<2.0) 11/03/16 07:47 Ur Leukocyte Esterase Tr (Negative) 11/03/16 07:47 Urine WBC (Auto) 1.0 /HPF (0.0-6.0) 11/03/16 07:47 Urine RBC (Auto) 5.0 /HPF (0.0-6.0) 11/03/16 07:47 U Epithel Cells (Auto) < 1.0 /HPF (0-13.0) 11/03/16 07:47 Urine Bacteria (Auto) 2+ /HPF (Negative) 11/03/16 07:47 Urine Mucus Few /HPF 11/03/16 07:47 Urine Opiates Screen Presumptive negative 10/21/16 20:36 Urine Methadone Screen Presumptive negative 10/21/16 20:36 Ur Barbiturates Screen Presumptive negative 10/21/16 20:36 Ur Phencyclidine Scrn Presumptive negative 10/21/16 20:36 Ur Amphetamines Screen Presumptive negative 10/21/16 20:36 U Benzodiazepines Scrn Presumptive negative 10/21/16 20:36 Urine Cocaine Screen Presumptive negative 10/21/16 20:36 U Marijuana (THC) Screen Presumptive negative 10/21/16 20:36 Drugs of Abuse Note Disclamer 10/21/16 20:36 Plasma/Serum Alcohol < 0.01 gm% (0-0.07) 10/21/16 20:30 TB (QFT) Gold In Tube Negative (Negative) 11/10/16 00:08 TB Test (QFT) Nil 0.00 IU/mL (()) 11/10/16 00:08 TB Test Mitogen - Nil 1.22 IU/mL (()) 11/10/16 00:08 TB Test Antigen - Nil 0.01 IU/mL (()) 11/10/16 00:08
[2016-12-20] MEDS: SYNTHROID PO SCH (06:01)
[2016-12-20] MEDS: NOVOLOG SUB-Q SCH ×3 (08:16→18:36)
[2016-12-20] MEDS: ROXICODONE PO SCH (10:05)
[2016-12-20] MEDS: COLACE PO SCH (10:05)
[2016-12-20] MEDS: ZYLOPRIM PO SCH (10:05)
[2016-12-20] MEDS: GEODON PO SCH (10:05)
[2016-12-20] MEDS: HCTZ PO SCH (10:05)
[2016-12-20] MEDS: HALDOL PO SCH (10:05)
[2016-12-20] MEDS: MIRALAX 3350 PO SCH (10:05)
[2016-12-20] MEDS: PROCARDIA XL PO SCH (10:05)
[2016-12-20] MEDS: HEPARIN SUB-Q SCH (10:06)
[2016-12-20] MEDS: COREG PO SCH (10:06)
[2016-12-20] MEDS: LAC-HYDRIN TP SCH (10:18)
--- NOTE | 2016-12-20 12:25 | Progress Note ---
Assessment and Plan Assessment and plan: 1) Sepsis - Resolved (2) Pneumonia - Resolved (3) Dementia Current Visit: Yes Status: Chronic Plan to address problem: supportive care, bed alarm, fall precautions (4) Psychosis continue current therapy on geodon currently the patient is calm not on mechanical restraints Mitten for scratching (5) Finger amputation, no complication (6) Acute renal failure (ARF) - Resolved (7) Encephalopathy Current Visit: Yes Status: Acute Plan to address problem: supportive care, (8) DVT prophylaxis - heparin Disposition - patient was ready to be discharged to long term. No long term accepted per case management. - Patient Problems (1) Finger amputation, no complication Current Visit: Yes Status: Acute Qualifiers: Encounter type: initial encounter Qualified Code(s): S68.119A - Complete traumatic metacarpophalangeal amputation of unspecified finger, initial encounter (2) Dementia Current Visit: Yes Status: Chronic Qualifiers: Dementia type: D Alzheimer's disease onset: A Dementia behavioral disturbance: D (3) Encephalopathy Current Visit: Yes Status: Chronic (4) Pneumonia Current Visit: Yes Status: Resolved Qualifiers: Pneumonia type: P Aspiration pneumonia type: A Laterality: L Lung location: L (5) Psychosis Current Visit: Yes Status: Resolved Qualifiers: Psychosis type: unspecified psychosis type Schizoaffective disorder type: S Schizophrenia type: S Qualified Code(s): F29 - Unspecified psychosis not due to a substance or known physiological condition (6) Sepsis Current Visit: Yes Status: Resolved Qualifiers: Sepsis type: S History Interval history: Patient was seen and evaluated this morning. Patient was lying on the bed. patient was alert but didn't answer questions. Hospitalist Physical - Physical exam Narrative exam: Not in cardiopulmonary distress. The patient is alert but not responding to questions. The patient is on mitten from scratching. The patient appeared well nourished and normally developed. Vital signs as documented. Head exam is unremarkable. No scleral icterus . Neck is without jugular venous distension, thyromegaly, or carotid bruits. Lungs are clear to auscultation. Cardiac exam reveals regular rate and Rhythm. First and second heart sounds normal. No murmurs, rubs or gallops. Abdominal exam reveals normal bowel sounds, no masses, no organomegaly and no aortic enlargement. Extremities are nonedematous. Skin significant for healing decubitus sacral ulcer and psoriatic skin lesions . MAT CUTTER: Alert. No focal weakness. - Constitutional Vitals: Temp Pulse Resp BP Pulse Ox 98 F 94 H 16 120/66 97 12/20/16 08:00 12/20/16 08:00 12/20/16 08:00 12/20/16 08:00 12/20/16 08:00 General appearance: Present: no acute distress, well-nourished Results - Labs CBC & Chem 7: 12/08/16 04:00 12/08/16 04:00 Labs: Laboratory Last Values WBC 7.4 K/mm3 (4.5-11.0) 12/08/16 04:00 RBC 3.52 M/mm3 (3.65-5.03) L 12/08/16 04:00 Hgb 10.5 gm/dl (11.8-15.2) L 12/08/16 04:00 Hct 32.2 % (35.5-45.6) L 12/08/16 04:00 MCV 92 fl (84-94) 12/08/16 04:00 MCH 30 pg (28-32) 12/08/16 04:00 MCHC 33 % (32-34) 12/08/16 04:00 RDW 18.3 % (13.2-15.2) H 12/08/16 04:00 Plt Count 196 K/mm3 (140-440) 12/08/16 04:00 Lymph % (Auto) 13.0 % (13.4-35.0) L 12/08/16 04:00 [place] % (Auto) 8.4 % (0.0-7.3) H 12/08/16 04:00 Eos % (Auto) 1.4 % (0.0-4.3) 12/08/16 04:00 Baso % (Auto) 1.8 % (0.0-1.8) 12/08/16 04:00 Lymph # 1.0 K/mm3 (1.2-5.4) L 12/08/16 04:00 [place] # 0.6 K/mm3 (0.0-0.8) 12/08/16 04:00 Eos # 0.1 K/mm3 (0.0-0.4) 12/08/16 04:00 Baso # 0.1 K/mm3 (0.0-0.1) 12/08/16 04:00 Seg Neutrophils % 75.4 % (40.0-70.0) H 12/08/16 04:00 Seg Neutrophils # 5.6 K/mm3 (1.8-7.7) 12/08/16 04:00 PT 14.3 Sec. (12.2-14.9) 10/23/16 12:53 INR 1.12 (0.87-1.13) 10/23/16 12:53 APTT 30.6 Sec. (24.2-36.6) 10/23/16 12:53 POC ABG pH 7.507 (7.35-7.45) H 11/12/16 21:51 POC ABG pCO2 32.8 (35-45) L 11/12/16 21:51 POC ABG pO2 78 (80-105) L 11/12/16 21:51 POC ABG HCO3 26.0 11/12/16 21:51 POC ABG Total CO2 27 11/12/16 21:51 POC ABG O2 Sat 97 11/12/16 21:51 POC ABG Base Excess 3 11/12/16 21:51 FiO2 28 % 11/12/16 21:51 Sodium 138 mmol/L (137-145) 12/08/16 04:00 Potassium 3.6 mmol/L (3.6-5.0) 12/08/16 04:00 Chloride 100.6 mmol/L (98-107) 12/08/16 04:00 Carbon Dioxide 26 mmol/L (22-30) 12/08/16 04:00 Anion Gap 15 mmol/L 12/08/16 04:00 BUN 31 mg/dL (9-20) H 12/08/16 04:00 Creatinine 1.5 mg/dL (0.8-1.5) 12/08/16 04:00 Estimated GFR 56 ml/min 12/08/16 04:00 BUN/Creatinine Ratio 20.66 % 12/08/16 04:00 Glucose 319 mg/dL (75-100) H 12/08/16 04:00 POC Glucose 189 (70-105) H 12/20/16 11:37 Hemoglobin A1c 7.2 % (4-6) H 10/27/16 05:30 Lactic Acid 2.8 mmol/L (0.7-2.0) H* 10/23/16 12:53 Calcium 8.1 mg/dL (8.4-10.2) L 12/08/16 04:00 Magnesium 1.9 mg/dL (1.7-2.3) 10/31/16 12:35 Total Bilirubin 0.9 mg/dL (0.1-1.2) 10/27/16 05:30 Direct Bilirubin 0.3 mg/dL (0-0.2) H 10/27/16 05:30 Indirect Bilirubin 0.6 mg/dL 10/27/16 05:30 AST 18 units/L (5-40) 10/27/16 05:30 ALT 13 units/L (7-56) 10/27/16 05:30 Alkaline Phosphatase 116 units/L (35-129) 10/27/16 05:30 Ammonia 30.0 umol/L (25-60) 10/26/16 09:00 Total Creatine Kinase 72 units/L (55-170) 11/02/16 18:37 CK-MB (CK-2) 3.0 ng/mL (0.0-4.0) 10/23/16 12:53 CK-MB (CK-2) Rel Index 0.9 (0-4) 10/23/16 12:53 Troponin T 0.032 ng/mL (0.00-0.029) H 10/23/16 12:53 NT-Pro-B Natriuret Pep 532.6 pg/mL (0-900) 10/23/16 12:53 Total Protein 7.1 g/dL (6.3-8.2) 10/27/16 05:30 Albumin 3.2 g/dL (3.9-5) L 10/27/16 05:30 Albumin/Globulin Ratio 0.8 % 10/27/16 05:30 Triglycerides 199 mg/dL (2-149) H 10/23/16 12:53 Cholesterol 143 mg/dL (50-199) 10/23/16 12:53 LDL Cholesterol Direct 64 mg/dL (50-130) 10/23/16 12:53 HDL Cholesterol 40 mg/dL (40-59) 10/23/16 12:53 Cholesterol/HDL Ratio 3.57 % 10/23/16 12:53 TSH 1.040 mlU/mL (0.270-4.200) 10/23/16 12:53 Free T4 1.13 ng/dL (0.76-1.46) 10/23/16 22:59 Thyroxine (T4) 5.2 ug/dL (4.0-12.0) 10/23/16 22:59 T3 (NISHA) 56 ng/dL (76-181) L 10/23/16 22:59 Free T3 Index 2.0 pg/mL (2.3-4.2) L 10/23/16 22:59 T3 Uptake See scanned report 10/23/16 22:59 Urine Color Yellow (Yellow) 11/03/16 07:47 Urine Turbidity Clear (Clear) 11/03/16 07:47 Urine pH 5.0 (5.0-7.0) 11/03/16 07:47 Ur Specific [place] 1.012 (1.003-1.030) 11/03/16 07:47 Urine Protein <15 mg/dl mg/dL (Negative) 11/03/16 07:47 Urine Glucose (UA) Neg mg/dL (Negative) 11/03/16 07:47 Urine Ketones Neg mg/dL (Negative) 11/03/16 07:47 Urine Blood Neg (Negative) 11/03/16 07:47 Urine Nitrite Pos (Negative) 11/03/16 07:47 Urine Bilirubin Neg (Negative) 11/03/16 07:47 Urine Urobilinogen 4.0 mg/dL (<2.0) 11/03/16 07:47 Ur Leukocyte Esterase Tr (Negative) 11/03/16 07:47 Urine WBC (Auto) 1.0 /HPF (0.0-6.0) 11/03/16 07:47 Urine RBC (Auto) 5.0 /HPF (0.0-6.0) 11/03/16 07:47 U Epithel Cells (Auto) < 1.0 /HPF (0-13.0) 11/03/16 07:47 Urine Bacteria (Auto) 2+ /HPF (Negative) 11/03/16 07:47 Urine Mucus Few /HPF 11/03/16 07:47 Urine Opiates Screen Presumptive negative 10/21/16 20:36 Urine Methadone Screen Presumptive negative 10/21/16 20:36 Ur Barbiturates Screen Presumptive negative 10/21/16 20:36 Ur Phencyclidine Scrn Presumptive negative 10/21/16 20:36 Ur Amphetamines Screen Presumptive negative 10/21/16 20:36 U Benzodiazepines Scrn Presumptive negative 10/21/16 20:36 Urine Cocaine Screen Presumptive negative 10/21/16 20:36 U Marijuana (THC) Screen Presumptive negative 10/21/16 20:36 Drugs of Abuse Note Disclamer 10/21/16 20:36 Plasma/Serum Alcohol < 0.01 gm% (0-0.07) 10/21/16 20:30 TB (QFT) Gold In Tube Negative (Negative) 11/10/16 00:08 TB Test (QFT) Nil 0.00 IU/mL (()) 11/10/16 00:08 TB Test Mitogen - Nil 1.22 IU/mL (()) 11/10/16 00:08 TB Test Antigen - Nil 0.01 IU/mL (()) 11/10/16 00:08
[2016-12-21] MEDS: GEODON PO SCH ×3 (00:15→22:46)
[2016-12-21] MEDS: COREG PO SCH ×2 (00:15→10:30)
[2016-12-21] MEDS: HEPARIN SUB-Q SCH ×3 (00:16→22:46)
[2016-12-21] MEDS: COLACE PO SCH ×3 (00:16→22:46)
[2016-12-21] MEDS: LAC-HYDRIN TP SCH ×3 (00:18→22:49)
[2016-12-21] MEDS: NOVOLOG SUB-Q SCH ×5 (00:24→22:56)
[2016-12-21] MEDS: BENADRYL IM PRN (00:38)
[2016-12-21] MEDS: SYNTHROID PO SCH (07:51)
[2016-12-21] MEDS: ROXICODONE PO SCH (10:30)
[2016-12-21] MEDS: ZYLOPRIM PO SCH (10:30)
[2016-12-21] MEDS: PROCARDIA XL PO SCH (10:30)
[2016-12-21] MEDS: HCTZ PO SCH (10:30)
[2016-12-21] MEDS: HALDOL PO SCH (10:30)
[2016-12-21] MEDS: MIRALAX 3350 PO SCH (12:31)
[2016-12-22] MEDS: SYNTHROID PO SCH (06:29)
--- NOTE | 2016-12-22 08:36 | Progress Note ---
Assessment and Plan Assessment and plan: 1) Sepsis - Resolved (2) Pneumonia - Resolved (3) Dementia Current Visit: Yes Status: Chronic Plan to address problem: supportive care, bed alarm, fall precautions (4) Psychosis continue current therapy on geodon currently the patient is calm not on mechanical restraints Mitten for scratching (5) Finger amputation, no complication (6) Acute renal failure (ARF) - Resolved (7) Encephalopathy Current Visit: Yes Status: Acute Plan to address problem: supportive care, (8) DVT prophylaxis - heparin Disposition - [facility] per case management. His stated she is not able to take care of him. - Patient Problems (1) Finger amputation, no complication Current Visit: Yes Status: Acute Qualifiers: Encounter type: initial encounter Qualified Code(s): S68.119A - Complete traumatic metacarpophalangeal amputation of unspecified finger, initial encounter (2) Dementia Current Visit: Yes Status: Chronic Qualifiers: Dementia type: D Alzheimer's disease onset: A Dementia behavioral disturbance: D (3) Encephalopathy Current Visit: Yes Status: Chronic (4) Pneumonia Current Visit: Yes Status: Resolved Qualifiers: Pneumonia type: P Aspiration pneumonia type: A Laterality: L Lung location: L (5) Psychosis Current Visit: Yes Status: Resolved Qualifiers: Psychosis type: unspecified psychosis type Schizoaffective disorder type: S Schizophrenia type: S Qualified Code(s): F29 - Unspecified psychosis not due to a substance or known physiological condition (6) Sepsis Current Visit: Yes Status: Resolved Qualifiers: Sepsis type: S History Interval history: Patient was seen and evaluated this morning. Patient was lying on the bed. patient was alert but didn't answer questions. His was in the room I examined him, he stated that she is not going to take care of him. She stated she has her own health problems and requested to be placed instead of going home. Hospitalist Physical - Physical exam Narrative exam: Not in cardiopulmonary distress. The patient is alert but not responding to questions. The patient is on mitten from scratching. The patient appeared well nourished and normally developed. Vital signs as documented. Head exam is unremarkable. No scleral icterus . Neck is without jugular venous distension, thyromegaly, or carotid bruits. Lungs are clear to auscultation. Cardiac exam reveals regular rate and Rhythm. First and second heart sounds normal. No murmurs, rubs or gallops. Abdominal exam reveals normal bowel sounds, no masses, no organomegaly and no aortic enlargement. Extremities are nonedematous. Skin significant for healing decubitus sacral ulcer and psoriatic skin lesions . POST ANESTHESIA CARE UNIT NURSE: Alert. No focal weakness. - Constitutional Vitals: Temp Pulse Resp BP Pulse Ox 97.3 F L 95 H 22 96/54 95 12/22/16 07:44 12/22/16 07:44 12/22/16 07:44 12/22/16 07:44 12/22/16 07:44 General appearance: Present: no acute distress, well-nourished Results - Labs CBC & Chem 7: 12/08/16 04:00 12/08/16 04:00 Labs: Laboratory Last Values WBC 7.4 K/mm3 (4.5-11.0) 12/08/16 04:00 RBC 3.52 M/mm3 (3.65-5.03) L 12/08/16 04:00 Hgb 10.5 gm/dl (11.8-15.2) L 12/08/16 04:00 Hct 32.2 % (35.5-45.6) L 12/08/16 04:00 MCV 92 fl (84-94) 12/08/16 04:00 MCH 30 pg (28-32) 12/08/16 04:00 MCHC 33 % (32-34) 12/08/16 04:00 RDW 18.3 % (13.2-15.2) H 12/08/16 04:00 Plt Count 196 K/mm3 (140-440) 12/08/16 04:00 Lymph % (Auto) 13.0 % (13.4-35.0) L 12/08/16 04:00 [place] % (Auto) 8.4 % (0.0-7.3) H 12/08/16 04:00 Eos % (Auto) 1.4 % (0.0-4.3) 12/08/16 04:00 Baso % (Auto) 1.8 % (0.0-1.8) 12/08/16 04:00 Lymph # 1.0 K/mm3 (1.2-5.4) L 12/08/16 04:00 [place] # 0.6 K/mm3 (0.0-0.8) 12/08/16 04:00 Eos # 0.1 K/mm3 (0.0-0.4) 12/08/16 04:00 Baso # 0.1 K/mm3 (0.0-0.1) 12/08/16 04:00 Seg Neutrophils % 75.4 % (40.0-70.0) H 12/08/16 04:00 Seg Neutrophils # 5.6 K/mm3 (1.8-7.7) 12/08/16 04:00 PT 14.3 Sec. (12.2-14.9) 10/23/16 12:53 INR 1.12 (0.87-1.13) 10/23/16 12:53 APTT 30.6 Sec. (24.2-36.6) 10/23/16 12:53 POC ABG pH 7.507 (7.35-7.45) H 11/12/16 21:51 POC ABG pCO2 32.8 (35-45) L 11/12/16 21:51 POC ABG pO2 78 (80-105) L 11/12/16 21:51 POC ABG HCO3 26.0 11/12/16 21:51 POC ABG Total CO2 27 11/12/16 21:51 POC ABG O2 Sat 97 11/12/16 21:51 POC ABG Base Excess 3 11/12/16 21:51 FiO2 28 % 11/12/16 21:51 Sodium 138 mmol/L (137-145) 12/08/16 04:00 Potassium 3.6 mmol/L (3.6-5.0) 12/08/16 04:00 Chloride 100.6 mmol/L (98-107) 12/08/16 04:00 Carbon Dioxide 26 mmol/L (22-30) 12/08/16 04:00 Anion Gap 15 mmol/L 12/08/16 04:00 BUN 31 mg/dL (9-20) H 12/08/16 04:00 Creatinine 1.5 mg/dL (0.8-1.5) 12/08/16 04:00 Estimated GFR 56 ml/min 12/08/16 04:00 BUN/Creatinine Ratio 20.66 % 12/08/16 04:00 Glucose 319 mg/dL (75-100) H 12/08/16 04:00 POC Glucose 222 (70-105) H 12/22/16 06:37 Hemoglobin A1c 7.2 % (4-6) H 10/27/16 05:30 Lactic Acid 2.8 mmol/L (0.7-2.0) H* 10/23/16 12:53 Calcium 8.1 mg/dL (8.4-10.2) L 12/08/16 04:00 Magnesium 1.9 mg/dL (1.7-2.3) 10/31/16 12:35 Total Bilirubin 0.9 mg/dL (0.1-1.2) 10/27/16 05:30 Direct Bilirubin 0.3 mg/dL (0-0.2) H 10/27/16 05:30 Indirect Bilirubin 0.6 mg/dL 10/27/16 05:30 AST 18 units/L (5-40) 10/27/16 05:30 ALT 13 units/L (7-56) 10/27/16 05:30 Alkaline Phosphatase 116 units/L (35-129) 10/27/16 05:30 Ammonia 30.0 umol/L (25-60) 10/26/16 09:00 Total Creatine Kinase 72 units/L (55-170) 11/02/16 18:37 CK-MB (CK-2) 3.0 ng/mL (0.0-4.0) 10/23/16 12:53 CK-MB (CK-2) Rel Index 0.9 (0-4) 10/23/16 12:53 Troponin T 0.032 ng/mL (0.00-0.029) H 10/23/16 12:53 NT-Pro-B Natriuret Pep 532.6 pg/mL (0-900) 10/23/16 12:53 Total Protein 7.1 g/dL (6.3-8.2) 10/27/16 05:30 Albumin 3.2 g/dL (3.9-5) L 10/27/16 05:30 Albumin/Globulin Ratio 0.8 % 10/27/16 05:30 Triglycerides 199 mg/dL (2-149) H 10/23/16 12:53 Cholesterol 143 mg/dL (50-199) 10/23/16 12:53 LDL Cholesterol Direct 64 mg/dL (50-130) 10/23/16 12:53 HDL Cholesterol 40 mg/dL (40-59) 10/23/16 12:53 Cholesterol/HDL Ratio 3.57 % 10/23/16 12:53 TSH 1.040 mlU/mL (0.270-4.200) 10/23/16 12:53 Free T4 1.13 ng/dL (0.76-1.46) 10/23/16 22:59 Thyroxine (T4) 5.2 ug/dL (4.0-12.0) 10/23/16 22:59 T3 (NISHA) 56 ng/dL (76-181) L 10/23/16 22:59 Free T3 Index 2.0 pg/mL (2.3-4.2) L 10/23/16 22:59 T3 Uptake See scanned report 10/23/16 22:59 Urine Color Yellow (Yellow) 11/03/16 07:47 Urine Turbidity Clear (Clear) 11/03/16 07:47 Urine pH 5.0 (5.0-7.0) 11/03/16 07:47 Ur Specific [place] 1.012 (1.003-1.030) 11/03/16 07:47 Urine Protein <15 mg/dl mg/dL (Negative) 11/03/16 07:47 Urine Glucose (UA) Neg mg/dL (Negative) 11/03/16 07:47 Urine Ketones Neg mg/dL (Negative) 11/03/16 07:47 Urine Blood Neg (Negative) 11/03/16 07:47 Urine Nitrite Pos (Negative) 11/03/16 07:47 Urine Bilirubin Neg (Negative) 11/03/16 07:47 Urine Urobilinogen 4.0 mg/dL (<2.0) 11/03/16 07:47 Ur Leukocyte Esterase Tr (Negative) 11/03/16 07:47 Urine WBC (Auto) 1.0 /HPF (0.0-6.0) 11/03/16 07:47 Urine RBC (Auto) 5.0 /HPF (0.0-6.0) 11/03/16 07:47 U Epithel Cells (Auto) < 1.0 /HPF (0-13.0) 11/03/16 07:47 Urine Bacteria (Auto) 2+ /HPF (Negative) 11/03/16 07:47 Urine Mucus Few /HPF 11/03/16 07:47 Urine Opiates Screen Presumptive negative 10/21/16 20:36 Urine Methadone Screen Presumptive negative 10/21/16 20:36 Ur Barbiturates Screen Presumptive negative 10/21/16 20:36 Ur Phencyclidine Scrn Presumptive negative 10/21/16 20:36 Ur Amphetamines Screen Presumptive negative 10/21/16 20:36 U Benzodiazepines Scrn Presumptive negative 10/21/16 20:36 Urine Cocaine Screen Presumptive negative 10/21/16 20:36 U Marijuana (THC) Screen Presumptive negative 10/21/16 20:36 Drugs of Abuse Note Disclamer 10/21/16 20:36 Plasma/Serum Alcohol < 0.01 gm% (0-0.07) 10/21/16 20:30 TB (QFT) Gold In Tube Negative (Negative) 11/10/16 00:08 TB Test (QFT) Nil 0.00 IU/mL (()) 11/10/16 00:08 TB Test Mitogen - Nil 1.22 IU/mL (()) 11/10/16 00:08 TB Test Antigen - Nil 0.01 IU/mL (()) 11/10/16 00:08
[2016-12-22] MEDS: NOVOLOG SUB-Q SCH ×3 (08:41→18:33)
[2016-12-22] MEDS: LAC-HYDRIN TP SCH (10:00)
[2016-12-22] MEDS: PROCARDIA XL PO SCH (10:00)
[2016-12-22] MEDS: GEODON PO SCH ×2 (10:00→22:10)
[2016-12-22] MEDS: HALDOL PO SCH (10:00)
[2016-12-22] MEDS: HEPARIN SUB-Q SCH ×2 (10:00→22:10)
[2016-12-22] MEDS: COLACE PO SCH ×2 (12:48→22:10)
[2016-12-22] MEDS: HCTZ PO SCH (12:50)
[2016-12-22] MEDS: MIRALAX 3350 PO SCH (12:51)
[2016-12-23] MEDS: SYNTHROID PO SCH (05:59)
[2016-12-23] MEDS: NOVOLOG SUB-Q SCH ×3 (08:00→23:02)
[2016-12-23] MEDS: PROCARDIA XL PO SCH (10:00)
[2016-12-23] MEDS: GEODON PO SCH ×2 (10:00→21:17)
[2016-12-23] MEDS: HALDOL PO SCH (10:00)
[2016-12-23] MEDS: LAC-HYDRIN TP SCH ×2 (10:00→21:16)
[2016-12-23] MEDS: COLACE PO SCH ×2 (10:00→21:17)
[2016-12-23] MEDS: HCTZ PO SCH (10:00)
[2016-12-23] MEDS: MIRALAX 3350 PO SCH (10:00)
[2016-12-23] MEDS: HEPARIN SUB-Q SCH ×2 (10:00→21:17)
--- NOTE | 2016-12-23 13:20 | Progress Note ---
Assessment and Plan Assessment and plan: 1) Sepsis - Resolved (2) Pneumonia - Resolved (3) Dementia Current Visit: Yes Status: Chronic Plan to address problem: supportive care, bed alarm, fall precautions (4) Psychosis continue current therapy on geodon currently the patient is calm not on mechanical restraints Mitten for scratching (5) Finger amputation, no complication (6) Acute renal failure (ARF) - Resolved (7) Encephalopathy Current Visit: Yes Status: Acute Plan to address problem: supportive care, (8) DVT prophylaxis - heparin Disposition - patient was ready to be discharged to senior living. No senior living accepted per case management. His stated she is not able to take care of him. - Patient Problems (1) Finger amputation, no complication Current Visit: Yes Status: Acute Qualifiers: Encounter type: initial encounter Qualified Code(s): S68.119A - Complete traumatic metacarpophalangeal amputation of unspecified finger, initial encounter (2) Dementia Current Visit: Yes Status: Chronic Qualifiers: Dementia type: D Alzheimer's disease onset: A Dementia behavioral disturbance: D (3) Encephalopathy Current Visit: Yes Status: Chronic (4) Pneumonia Current Visit: Yes Status: Resolved Qualifiers: Pneumonia type: P Aspiration pneumonia type: A Laterality: L Lung location: L (5) Psychosis Current Visit: Yes Status: Resolved Qualifiers: Psychosis type: unspecified psychosis type Schizoaffective disorder type: S Schizophrenia type: S Qualified Code(s): F29 - Unspecified psychosis not due to a substance or known physiological condition (6) Sepsis Current Visit: Yes Status: Resolved Qualifiers: Sepsis type: S History Interval history: Patient was seen and evaluated this morning. Patient was lying on the bed. patient was alert but didn't answer questions. Hospitalist Physical - Physical exam Narrative exam: Not in cardiopulmonary distress. The patient is alert but not responding to questions. The patient is on mitten from scratching. The patient appeared well nourished and normally developed. Vital signs as documented. Head exam is unremarkable. No scleral icterus . Neck is without jugular venous distension, thyromegaly, or carotid bruits. Lungs are clear to auscultation. Cardiac exam reveals regular rate and Rhythm. First and second heart sounds normal. No murmurs, rubs or gallops. Abdominal exam reveals normal bowel sounds, no masses, no organomegaly and no aortic enlargement. Extremities are nonedematous. Skin significant for healing decubitus sacral ulcer, and psoriatic skin lesions all over the body. CLERICAL AIDE: Alert. No focal weakness. - Constitutional Vitals: Temp Pulse Resp BP Pulse Ox 98.4 F 89 16 165/86 99 12/23/16 07:06 12/23/16 07:06 12/23/16 07:06 12/23/16 07:06 12/23/16 07:06 General appearance: Present: no acute distress, well-nourished Results - Labs CBC & Chem 7: 12/08/16 04:00 12/08/16 04:00 Labs: Laboratory Last Values WBC 7.4 K/mm3 (4.5-11.0) 12/08/16 04:00 RBC 3.52 M/mm3 (3.65-5.03) L 12/08/16 04:00 Hgb 10.5 gm/dl (11.8-15.2) L 12/08/16 04:00 Hct 32.2 % (35.5-45.6) L 12/08/16 04:00 MCV 92 fl (84-94) 12/08/16 04:00 MCH 30 pg (28-32) 12/08/16 04:00 MCHC 33 % (32-34) 12/08/16 04:00 RDW 18.3 % (13.2-15.2) H 12/08/16 04:00 Plt Count 196 K/mm3 (140-440) 12/08/16 04:00 Lymph % (Auto) 13.0 % (13.4-35.0) L 12/08/16 04:00 [place] % (Auto) 8.4 % (0.0-7.3) H 12/08/16 04:00 Eos % (Auto) 1.4 % (0.0-4.3) 12/08/16 04:00 Baso % (Auto) 1.8 % (0.0-1.8) 12/08/16 04:00 Lymph # 1.0 K/mm3 (1.2-5.4) L 12/08/16 04:00 [place] # 0.6 K/mm3 (0.0-0.8) 12/08/16 04:00 Eos # 0.1 K/mm3 (0.0-0.4) 12/08/16 04:00 Baso # 0.1 K/mm3 (0.0-0.1) 12/08/16 04:00 Seg Neutrophils % 75.4 % (40.0-70.0) H 12/08/16 04:00 Seg Neutrophils # 5.6 K/mm3 (1.8-7.7) 12/08/16 04:00 PT 14.3 Sec. (12.2-14.9) 10/23/16 12:53 INR 1.12 (0.87-1.13) 10/23/16 12:53 APTT 30.6 Sec. (24.2-36.6) 10/23/16 12:53 POC ABG pH 7.507 (7.35-7.45) H 11/12/16 21:51 POC ABG pCO2 32.8 (35-45) L 11/12/16 21:51 POC ABG pO2 78 (80-105) L 11/12/16 21:51 POC ABG HCO3 26.0 11/12/16 21:51 POC ABG Total CO2 27 11/12/16 21:51 POC ABG O2 Sat 97 11/12/16 21:51 POC ABG Base Excess 3 11/12/16 21:51 FiO2 28 % 11/12/16 21:51 Sodium 138 mmol/L (137-145) 12/08/16 04:00 Potassium 3.6 mmol/L (3.6-5.0) 12/08/16 04:00 Chloride 100.6 mmol/L (98-107) 12/08/16 04:00 Carbon Dioxide 26 mmol/L (22-30) 12/08/16 04:00 Anion Gap 15 mmol/L 12/08/16 04:00 BUN 31 mg/dL (9-20) H 12/08/16 04:00 Creatinine 1.5 mg/dL (0.8-1.5) 12/08/16 04:00 Estimated GFR 56 ml/min 12/08/16 04:00 BUN/Creatinine Ratio 20.66 % 12/08/16 04:00 Glucose 319 mg/dL (75-100) H 12/08/16 04:00 POC Glucose 125 (70-105) H 12/23/16 06:24 Hemoglobin A1c 7.2 % (4-6) H 10/27/16 05:30 Lactic Acid 2.8 mmol/L (0.7-2.0) H* 10/23/16 12:53 Calcium 8.1 mg/dL (8.4-10.2) L 12/08/16 04:00 Magnesium 1.9 mg/dL (1.7-2.3) 10/31/16 12:35 Total Bilirubin 0.9 mg/dL (0.1-1.2) 10/27/16 05:30 Direct Bilirubin 0.3 mg/dL (0-0.2) H 10/27/16 05:30 Indirect Bilirubin 0.6 mg/dL 10/27/16 05:30 AST 18 units/L (5-40) 10/27/16 05:30 ALT 13 units/L (7-56) 10/27/16 05:30 Alkaline Phosphatase 116 units/L (35-129) 10/27/16 05:30 Ammonia 30.0 umol/L (25-60) 10/26/16 09:00 Total Creatine Kinase 72 units/L (55-170) 11/02/16 18:37 CK-MB (CK-2) 3.0 ng/mL (0.0-4.0) 10/23/16 12:53 CK-MB (CK-2) Rel Index 0.9 (0-4) 10/23/16 12:53 Troponin T 0.032 ng/mL (0.00-0.029) H 10/23/16 12:53 NT-Pro-B Natriuret Pep 532.6 pg/mL (0-900) 10/23/16 12:53 Total Protein 7.1 g/dL (6.3-8.2) 10/27/16 05:30 Albumin 3.2 g/dL (3.9-5) L 10/27/16 05:30 Albumin/Globulin Ratio 0.8 % 10/27/16 05:30 Triglycerides 199 mg/dL (2-149) H 10/23/16 12:53 Cholesterol 143 mg/dL (50-199) 10/23/16 12:53 LDL Cholesterol Direct 64 mg/dL (50-130) 10/23/16 12:53 HDL Cholesterol 40 mg/dL (40-59) 10/23/16 12:53 Cholesterol/HDL Ratio 3.57 % 10/23/16 12:53 TSH 1.040 mlU/mL (0.270-4.200) 10/23/16 12:53 Free T4 1.13 ng/dL (0.76-1.46) 10/23/16 22:59 Thyroxine (T4) 5.2 ug/dL (4.0-12.0) 10/23/16 22:59 T3 (NISHA) 56 ng/dL (76-181) L 10/23/16 22:59 Free T3 Index 2.0 pg/mL (2.3-4.2) L 10/23/16 22:59 T3 Uptake See scanned report 10/23/16 22:59 Urine Color Yellow (Yellow) 11/03/16 07:47 Urine Turbidity Clear (Clear) 11/03/16 07:47 Urine pH 5.0 (5.0-7.0) 11/03/16 07:47 Ur Specific [place] 1.012 (1.003-1.030) 11/03/16 07:47 Urine Protein <15 mg/dl mg/dL (Negative) 11/03/16 07:47 Urine Glucose (UA) Neg mg/dL (Negative) 11/03/16 07:47 Urine Ketones Neg mg/dL (Negative) 11/03/16 07:47 Urine Blood Neg (Negative) 11/03/16 07:47 Urine Nitrite Pos (Negative) 11/03/16 07:47 Urine Bilirubin Neg (Negative) 11/03/16 07:47 Urine Urobilinogen 4.0 mg/dL (<2.0) 11/03/16 07:47 Ur Leukocyte Esterase Tr (Negative) 11/03/16 07:47 Urine WBC (Auto) 1.0 /HPF (0.0-6.0) 11/03/16 07:47 Urine RBC (Auto) 5.0 /HPF (0.0-6.0) 11/03/16 07:47 U Epithel Cells (Auto) < 1.0 /HPF (0-13.0) 11/03/16 07:47 Urine Bacteria (Auto) 2+ /HPF (Negative) 11/03/16 07:47 Urine Mucus Few /HPF 11/03/16 07:47 Urine Opiates Screen Presumptive negative 10/21/16 20:36 Urine Methadone Screen Presumptive negative 10/21/16 20:36 Ur Barbiturates Screen Presumptive negative 10/21/16 20:36 Ur Phencyclidine Scrn Presumptive negative 10/21/16 20:36 Ur Amphetamines Screen Presumptive negative 10/21/16 20:36 U Benzodiazepines Scrn Presumptive negative 10/21/16 20:36 Urine Cocaine Screen Presumptive negative 10/21/16 20:36 U Marijuana (THC) Screen Presumptive negative 10/21/16 20:36 Drugs of Abuse Note Disclamer 10/21/16 20:36 Plasma/Serum Alcohol < 0.01 gm% (0-0.07) 10/21/16 20:30 TB (QFT) Gold In Tube Negative (Negative) 11/10/16 00:08 TB Test (QFT) Nil 0.00 IU/mL (()) 11/10/16 00:08 TB Test Mitogen - Nil 1.22 IU/mL (()) 11/10/16 00:08 TB Test Antigen - Nil 0.01 IU/mL (()) 11/10/16 00:08
[2016-12-24] MEDS: SYNTHROID PO SCH (05:53)
[2016-12-24] MEDS: MIRALAX 3350 PO SCH (09:04)
[2016-12-24] MEDS: COLACE PO SCH ×2 (09:04→22:54)
[2016-12-24] MEDS: HYDROCORTISONE CR TP PRN (09:04)
[2016-12-24] MEDS: PROCARDIA XL PO SCH (09:05)
[2016-12-24] MEDS: HCTZ PO SCH (09:05)
[2016-12-24] MEDS: GEODON PO SCH ×2 (09:05→22:55)
[2016-12-24] MEDS: NOVOLOG SUB-Q SCH ×2 (09:07→22:47)
[2016-12-24] MEDS: HALDOL PO SCH (09:16)
[2016-12-24] MEDS: HEPARIN SUB-Q SCH ×2 (09:16→22:55)
[2016-12-24] MEDS: LAC-HYDRIN TP SCH (22:47)
[2016-12-25] MEDS: LAC-HYDRIN TP SCH ×4 (00:10→22:00)
[2016-12-25] MEDS: NOVOLOG SUB-Q SCH ×7 (00:11→22:48)
--- NOTE | 2016-12-25 03:47 | Progress Note ---
Assessment and Plan - Patient Problems (1) Dementia Current Visit: Yes Status: Chronic Qualifiers: Dementia type: D Alzheimer's disease onset: A Dementia behavioral disturbance: D Plan to address problem: continue current therapy, (2) Psychosis Current Visit: Yes Status: Resolved Qualifiers: Psychosis type: unspecified psychosis type Schizoaffective disorder type: S Schizophrenia type: S Qualified Code(s): F29 - Unspecified psychosis not due to a substance or known physiological condition Plan to address problem: continue current therapy (3) Finger amputation, no complication Current Visit: Yes Status: Acute Qualifiers: Encounter type: initial encounter Qualified Code(s): S68.119A - Complete traumatic metacarpophalangeal amputation of unspecified finger, initial encounter (4) Acute renal failure (ARF) Current Visit: Yes Status: Resolved Qualifiers: Acute renal failure type: A Plan to address problem: ivf , supportive care, monitor uop q shift, (5) Sepsis Current Visit: Yes Status: Resolved Qualifiers: Sepsis type: S Plan to address problem: resolved, continue current therapy (6) Pneumonia Current Visit: Yes Status: Resolved Qualifiers: Pneumonia type: P Aspiration pneumonia type: A Laterality: L Lung location: L (7) Encephalopathy Current Visit: Yes Status: Resolved Plan to address problem: supportive care, bed alarm, fall precautions. (8) DVT prophylaxis Current Visit: Yes Status: Acute History Interval history: Pt resting comfortably in bed, No reported nursing events. Pt pleasant but confused. Pt medically stable overnight and optimized for discharge. case management consulted, pending discharge when bed available. Discussed care plan with family. Awaiting bed assignment. Hospitalist Physical - Constitutional Vitals: Temp Pulse Resp BP Pulse Ox 99.2 F 102 H 20 116/62 97 12/24/16 23:50 12/24/16 23:50 12/24/16 23:50 12/24/16 23:50 12/24/16 23:50 General appearance: Present: no acute distress, well-nourished - EENT Eyes: Present: PERRL ENT: hearing intact - Neck Neck: Present: supple - Respiratory Respiratory: bilateral: CTA - Cardiovascular Rhythm: regular Heart Sounds: Present: S1 & S2 - Extremities Extremities: no ischemia Peripheral Pulses: within normal limits - Abdominal General gastrointestinal: soft, non-tender, non-distended - Integumentary Integumentary: Present: clear, dry - Psychiatric Psychiatric: no intact judgment & insight, no memory intact - Neurologic Neurologic: no gait normal Results - Labs CBC & Chem 7: 12/08/16 04:00 12/08/16 04:00 Labs: Laboratory Last Values WBC 7.4 K/mm3 (4.5-11.0) 12/08/16 04:00 RBC 3.52 M/mm3 (3.65-5.03) L 12/08/16 04:00 Hgb 10.5 gm/dl (11.8-15.2) L 12/08/16 04:00 Hct 32.2 % (35.5-45.6) L 12/08/16 04:00 MCV 92 fl (84-94) 12/08/16 04:00 MCH 30 pg (28-32) 12/08/16 04:00 MCHC 33 % (32-34) 12/08/16 04:00 RDW 18.3 % (13.2-15.2) H 12/08/16 04:00 Plt Count 196 K/mm3 (140-440) 12/08/16 04:00 Lymph % (Auto) 13.0 % (13.4-35.0) L 12/08/16 04:00 [place] % (Auto) 8.4 % (0.0-7.3) H 12/08/16 04:00 Eos % (Auto) 1.4 % (0.0-4.3) 12/08/16 04:00 Baso % (Auto) 1.8 % (0.0-1.8) 12/08/16 04:00 Lymph # 1.0 K/mm3 (1.2-5.4) L 12/08/16 04:00 [place] # 0.6 K/mm3 (0.0-0.8) 12/08/16 04:00 Eos # 0.1 K/mm3 (0.0-0.4) 12/08/16 04:00 Baso # 0.1 K/mm3 (0.0-0.1) 12/08/16 04:00 Seg Neutrophils % 75.4 % (40.0-70.0) H 12/08/16 04:00 Seg Neutrophils # 5.6 K/mm3 (1.8-7.7) 12/08/16 04:00 PT 14.3 Sec. (12.2-14.9) 10/23/16 12:53 INR 1.12 (0.87-1.13) 10/23/16 12:53 APTT 30.6 Sec. (24.2-36.6) 10/23/16 12:53 POC ABG pH 7.507 (7.35-7.45) H 11/12/16 21:51 POC ABG pCO2 32.8 (35-45) L 11/12/16 21:51 POC ABG pO2 78 (80-105) L 11/12/16 21:51 POC ABG HCO3 26.0 11/12/16 21:51 POC ABG Total CO2 27 11/12/16 21:51 POC ABG O2 Sat 97 11/12/16 21:51 POC ABG Base Excess 3 11/12/16 21:51 FiO2 28 % 11/12/16 21:51 Sodium 138 mmol/L (137-145) 12/08/16 04:00 Potassium 3.6 mmol/L (3.6-5.0) 12/08/16 04:00 Chloride 100.6 mmol/L (98-107) 12/08/16 04:00 Carbon Dioxide 26 mmol/L (22-30) 12/08/16 04:00 Anion Gap 15 mmol/L 12/08/16 04:00 BUN 31 mg/dL (9-20) H 12/08/16 04:00 Creatinine 1.5 mg/dL (0.8-1.5) 12/08/16 04:00 Estimated GFR 56 ml/min 12/08/16 04:00 BUN/Creatinine Ratio 20.66 % 12/08/16 04:00 Glucose 319 mg/dL (75-100) H 12/08/16 04:00 POC Glucose 355 (70-105) H 12/24/16 21:49 Hemoglobin A1c 7.2 % (4-6) H 10/27/16 05:30 Lactic Acid 2.8 mmol/L (0.7-2.0) H* 10/23/16 12:53 Calcium 8.1 mg/dL (8.4-10.2) L 12/08/16 04:00 Magnesium 1.9 mg/dL (1.7-2.3) 10/31/16 12:35 Total Bilirubin 0.9 mg/dL (0.1-1.2) 10/27/16 05:30 Direct Bilirubin 0.3 mg/dL (0-0.2) H 10/27/16 05:30 Indirect Bilirubin 0.6 mg/dL 10/27/16 05:30 AST 18 units/L (5-40) 10/27/16 05:30 ALT 13 units/L (7-56) 10/27/16 05:30 Alkaline Phosphatase 116 units/L (35-129) 10/27/16 05:30 Ammonia 30.0 umol/L (25-60) 10/26/16 09:00 Total Creatine Kinase 72 units/L (55-170) 11/02/16 18:37 CK-MB (CK-2) 3.0 ng/mL (0.0-4.0) 10/23/16 12:53 CK-MB (CK-2) Rel Index 0.9 (0-4) 10/23/16 12:53 Troponin T 0.032 ng/mL (0.00-0.029) H 10/23/16 12:53 NT-Pro-B Natriuret Pep 532.6 pg/mL (0-900) 10/23/16 12:53 Total Protein 7.1 g/dL (6.3-8.2) 10/27/16 05:30 Albumin 3.2 g/dL (3.9-5) L 10/27/16 05:30 Albumin/Globulin Ratio 0.8 % 10/27/16 05:30 Triglycerides 199 mg/dL (2-149) H 10/23/16 12:53 Cholesterol 143 mg/dL (50-199) 10/23/16 12:53 LDL Cholesterol Direct 64 mg/dL (50-130) 10/23/16 12:53 HDL Cholesterol 40 mg/dL (40-59) 10/23/16 12:53 Cholesterol/HDL Ratio 3.57 % 10/23/16 12:53 TSH 1.040 mlU/mL (0.270-4.200) 10/23/16 12:53 Free T4 1.13 ng/dL (0.76-1.46) 10/23/16 22:59 Thyroxine (T4) 5.2 ug/dL (4.0-12.0) 10/23/16 22:59 T3 (NISHA) 56 ng/dL (76-181) L 10/23/16 22:59 Free T3 Index 2.0 pg/mL (2.3-4.2) L 10/23/16 22:59 T3 Uptake See scanned report 10/23/16 22:59 Urine Color Yellow (Yellow) 11/03/16 07:47 Urine Turbidity Clear (Clear) 11/03/16 07:47 Urine pH 5.0 (5.0-7.0) 11/03/16 07:47 Ur Specific [place] 1.012 (1.003-1.030) 11/03/16 07:47 Urine Protein <15 mg/dl mg/dL (Negative) 11/03/16 07:47 Urine Glucose (UA) Neg mg/dL (Negative) 11/03/16 07:47 Urine Ketones Neg mg/dL (Negative) 11/03/16 07:47 Urine Blood Neg (Negative) 11/03/16 07:47 Urine Nitrite Pos (Negative) 11/03/16 07:47 Urine Bilirubin Neg (Negative) 11/03/16 07:47 Urine Urobilinogen 4.0 mg/dL (<2.0) 11/03/16 07:47 Ur Leukocyte Esterase Tr (Negative) 11/03/16 07:47 Urine WBC (Auto) 1.0 /HPF (0.0-6.0) 11/03/16 07:47 Urine RBC (Auto) 5.0 /HPF (0.0-6.0) 11/03/16 07:47 U Epithel Cells (Auto) < 1.0 /HPF (0-13.0) 11/03/16 07:47 Urine Bacteria (Auto) 2+ /HPF (Negative) 11/03/16 07:47 Urine Mucus Few /HPF 11/03/16 07:47 Urine Opiates Screen Presumptive negative 10/21/16 20:36 Urine Methadone Screen Presumptive negative 10/21/16 20:36 Ur Barbiturates Screen Presumptive negative 10/21/16 20:36 Ur Phencyclidine Scrn Presumptive negative 10/21/16 20:36 Ur Amphetamines Screen Presumptive negative 10/21/16 20:36 U Benzodiazepines Scrn Presumptive negative 10/21/16 20:36 Urine Cocaine Screen Presumptive negative 10/21/16 20:36 U Marijuana (THC) Screen Presumptive negative 10/21/16 20:36 Drugs of Abuse Note Disclamer 10/21/16 20:36 Plasma/Serum Alcohol < 0.01 gm% (0-0.07) 10/21/16 20:30 TB (QFT) Gold In Tube Negative (Negative) 11/10/16 00:08 TB Test (QFT) Nil 0.00 IU/mL (()) 11/10/16 00:08 TB Test Mitogen - Nil 1.22 IU/mL (()) 11/10/16 00:08 TB Test Antigen - Nil 0.01 IU/mL (()) 11/10/16 00:08
[2016-12-25] MEDS: SYNTHROID PO SCH (07:06)
[2016-12-25] MEDS: COLACE PO SCH ×2 (09:02→22:46)
[2016-12-25] MEDS: HCTZ PO SCH (09:03)
[2016-12-25] MEDS: HEPARIN SUB-Q SCH ×2 (09:03→22:46)
[2016-12-25] MEDS: GEODON PO SCH ×2 (09:03→22:46)
[2016-12-25] MEDS: MIRALAX 3350 PO SCH (09:03)
[2016-12-25] MEDS: HALDOL PO SCH (09:03)
[2016-12-25] MEDS: PROCARDIA XL PO SCH (09:04)
--- NOTE | 2016-12-25 17:50 | Progress Note ---
Assessment and Plan - Patient Problems (1) Dementia Current Visit: Yes Status: Chronic Qualifiers: Dementia type: D Alzheimer's disease onset: A Dementia behavioral disturbance: D Plan to address problem: continue current therapy, (2) Psychosis Current Visit: Yes Status: Resolved Qualifiers: Psychosis type: unspecified psychosis type Schizoaffective disorder type: S Schizophrenia type: S Qualified Code(s): F29 - Unspecified psychosis not due to a substance or known physiological condition Plan to address problem: continue current therapy (3) Finger amputation, no complication Current Visit: Yes Status: Acute Qualifiers: Encounter type: initial encounter Qualified Code(s): S68.119A - Complete traumatic metacarpophalangeal amputation of unspecified finger, initial encounter (4) Acute renal failure (ARF) Current Visit: Yes Status: Resolved Qualifiers: Acute renal failure type: A Plan to address problem: ivf , supportive care, monitor uop q shift, (5) Sepsis Current Visit: Yes Status: Resolved Qualifiers: Sepsis type: S Plan to address problem: resolved, continue current therapy (6) Pneumonia Current Visit: Yes Status: Resolved Qualifiers: Pneumonia type: P Aspiration pneumonia type: A Laterality: L Lung location: L (7) Encephalopathy Current Visit: Yes Status: Resolved Plan to address problem: supportive care, bed alarm, fall precautions. (8) DVT prophylaxis Current Visit: Yes Status: Acute History Interval history: Pt resting comfortably in bed, No reported nursing events. Pt pleasant but confused. Pt medically stable overnight and optimized for discharge. case management consulted, pending discharge when bed available. Discussed care plan with family. Awaiting bed assignment. Hospitalist Physical - Constitutional Vitals: Temp Pulse Resp BP Pulse Ox 98.0 F 104 H 20 117/64 100 12/25/16 16:23 12/25/16 16:23 12/25/16 16:23 12/25/16 16:23 12/25/16 08:20 General appearance: Present: no acute distress, well-nourished - EENT Eyes: Present: PERRL ENT: hearing intact - Neck Neck: Present: supple - Respiratory Respiratory: bilateral: diminished - Cardiovascular Rhythm: regular Heart Sounds: Present: S1 & S2 - Extremities Extremities: no ischemia Peripheral Pulses: within normal limits - Abdominal General gastrointestinal: soft, non-tender, non-distended - Integumentary Integumentary: Present: clear, dry - Psychiatric Psychiatric: no intact judgment & insight, no memory intact - Neurologic Neurologic: no gait normal Results - Labs CBC & Chem 7: 12/08/16 04:00 12/08/16 04:00 Labs: Laboratory Last Values WBC 7.4 K/mm3 (4.5-11.0) 12/08/16 04:00 RBC 3.52 M/mm3 (3.65-5.03) L 12/08/16 04:00 Hgb 10.5 gm/dl (11.8-15.2) L 12/08/16 04:00 Hct 32.2 % (35.5-45.6) L 12/08/16 04:00 MCV 92 fl (84-94) 12/08/16 04:00 MCH 30 pg (28-32) 12/08/16 04:00 MCHC 33 % (32-34) 12/08/16 04:00 RDW 18.3 % (13.2-15.2) H 12/08/16 04:00 Plt Count 196 K/mm3 (140-440) 12/08/16 04:00 Lymph % (Auto) 13.0 % (13.4-35.0) L 12/08/16 04:00 [place] % (Auto) 8.4 % (0.0-7.3) H 12/08/16 04:00 Eos % (Auto) 1.4 % (0.0-4.3) 12/08/16 04:00 Baso % (Auto) 1.8 % (0.0-1.8) 12/08/16 04:00 Lymph # 1.0 K/mm3 (1.2-5.4) L 12/08/16 04:00 [place] # 0.6 K/mm3 (0.0-0.8) 12/08/16 04:00 Eos # 0.1 K/mm3 (0.0-0.4) 12/08/16 04:00 Baso # 0.1 K/mm3 (0.0-0.1) 12/08/16 04:00 Seg Neutrophils % 75.4 % (40.0-70.0) H 12/08/16 04:00 Seg Neutrophils # 5.6 K/mm3 (1.8-7.7) 12/08/16 04:00 PT 14.3 Sec. (12.2-14.9) 10/23/16 12:53 INR 1.12 (0.87-1.13) 10/23/16 12:53 APTT 30.6 Sec. (24.2-36.6) 10/23/16 12:53 POC ABG pH 7.507 (7.35-7.45) H 11/12/16 21:51 POC ABG pCO2 32.8 (35-45) L 11/12/16 21:51 POC ABG pO2 78 (80-105) L 11/12/16 21:51 POC ABG HCO3 26.0 11/12/16 21:51 POC ABG Total CO2 27 11/12/16 21:51 POC ABG O2 Sat 97 11/12/16 21:51 POC ABG Base Excess 3 11/12/16 21:51 FiO2 28 % 11/12/16 21:51 Sodium 138 mmol/L (137-145) 12/08/16 04:00 Potassium 3.6 mmol/L (3.6-5.0) 12/08/16 04:00 Chloride 100.6 mmol/L (98-107) 12/08/16 04:00 Carbon Dioxide 26 mmol/L (22-30) 12/08/16 04:00 Anion Gap 15 mmol/L 12/08/16 04:00 BUN 31 mg/dL (9-20) H 12/08/16 04:00 Creatinine 1.5 mg/dL (0.8-1.5) 12/08/16 04:00 Estimated GFR 56 ml/min 12/08/16 04:00 BUN/Creatinine Ratio 20.66 % 12/08/16 04:00 Glucose 319 mg/dL (75-100) H 12/08/16 04:00 POC Glucose 237 (70-105) H 12/25/16 16:24 Hemoglobin A1c 7.2 % (4-6) H 10/27/16 05:30 Lactic Acid 2.8 mmol/L (0.7-2.0) H* 10/23/16 12:53 Calcium 8.1 mg/dL (8.4-10.2) L 12/08/16 04:00 Magnesium 1.9 mg/dL (1.7-2.3) 10/31/16 12:35 Total Bilirubin 0.9 mg/dL (0.1-1.2) 10/27/16 05:30 Direct Bilirubin 0.3 mg/dL (0-0.2) H 10/27/16 05:30 Indirect Bilirubin 0.6 mg/dL 10/27/16 05:30 AST 18 units/L (5-40) 10/27/16 05:30 ALT 13 units/L (7-56) 10/27/16 05:30 Alkaline Phosphatase 116 units/L (35-129) 10/27/16 05:30 Ammonia 30.0 umol/L (25-60) 10/26/16 09:00 Total Creatine Kinase 72 units/L (55-170) 11/02/16 18:37 CK-MB (CK-2) 3.0 ng/mL (0.0-4.0) 10/23/16 12:53 CK-MB (CK-2) Rel Index 0.9 (0-4) 10/23/16 12:53 Troponin T 0.032 ng/mL (0.00-0.029) H 10/23/16 12:53 NT-Pro-B Natriuret Pep 532.6 pg/mL (0-900) 10/23/16 12:53 Total Protein 7.1 g/dL (6.3-8.2) 10/27/16 05:30 Albumin 3.2 g/dL (3.9-5) L 10/27/16 05:30 Albumin/Globulin Ratio 0.8 % 10/27/16 05:30 Triglycerides 199 mg/dL (2-149) H 10/23/16 12:53 Cholesterol 143 mg/dL (50-199) 10/23/16 12:53 LDL Cholesterol Direct 64 mg/dL (50-130) 10/23/16 12:53 HDL Cholesterol 40 mg/dL (40-59) 10/23/16 12:53 Cholesterol/HDL Ratio 3.57 % 10/23/16 12:53 TSH 1.040 mlU/mL (0.270-4.200) 10/23/16 12:53 Free T4 1.13 ng/dL (0.76-1.46) 10/23/16 22:59 Thyroxine (T4) 5.2 ug/dL (4.0-12.0) 10/23/16 22:59 T3 (NISHA) 56 ng/dL (76-181) L 10/23/16 22:59 Free T3 Index 2.0 pg/mL (2.3-4.2) L 10/23/16 22:59 T3 Uptake See scanned report 10/23/16 22:59 Urine Color Yellow (Yellow) 11/03/16 07:47 Urine Turbidity Clear (Clear) 11/03/16 07:47 Urine pH 5.0 (5.0-7.0) 11/03/16 07:47 Ur Specific [place] 1.012 (1.003-1.030) 11/03/16 07:47 Urine Protein <15 mg/dl mg/dL (Negative) 11/03/16 07:47 Urine Glucose (UA) Neg mg/dL (Negative) 11/03/16 07:47 Urine Ketones Neg mg/dL (Negative) 11/03/16 07:47 Urine Blood Neg (Negative) 11/03/16 07:47 Urine Nitrite Pos (Negative) 11/03/16 07:47 Urine Bilirubin Neg (Negative) 11/03/16 07:47 Urine Urobilinogen 4.0 mg/dL (<2.0) 11/03/16 07:47 Ur Leukocyte Esterase Tr (Negative) 11/03/16 07:47 Urine WBC (Auto) 1.0 /HPF (0.0-6.0) 11/03/16 07:47 Urine RBC (Auto) 5.0 /HPF (0.0-6.0) 11/03/16 07:47 U Epithel Cells (Auto) < 1.0 /HPF (0-13.0) 11/03/16 07:47 Urine Bacteria (Auto) 2+ /HPF (Negative) 11/03/16 07:47 Urine Mucus Few /HPF 11/03/16 07:47 Urine Opiates Screen Presumptive negative 10/21/16 20:36 Urine Methadone Screen Presumptive negative 10/21/16 20:36 Ur Barbiturates Screen Presumptive negative 10/21/16 20:36 Ur Phencyclidine Scrn Presumptive negative 10/21/16 20:36 Ur Amphetamines Screen Presumptive negative 10/21/16 20:36 U Benzodiazepines Scrn Presumptive negative 10/21/16 20:36 Urine Cocaine Screen Presumptive negative 10/21/16 20:36 U Marijuana (THC) Screen Presumptive negative 10/21/16 20:36 Drugs of Abuse Note Disclamer 10/21/16 20:36 Plasma/Serum Alcohol < 0.01 gm% (0-0.07) 10/21/16 20:30 TB (QFT) Gold In Tube Negative (Negative) 11/10/16 00:08 TB Test (QFT) Nil 0.00 IU/mL (()) 11/10/16 00:08 TB Test Mitogen - Nil 1.22 IU/mL (()) 11/10/16 00:08 TB Test Antigen - Nil 0.01 IU/mL (()) 11/10/16 00:08
[2016-12-26] MEDS: SYNTHROID PO SCH (05:57)
[2016-12-26] MEDS: NOVOLOG SUB-Q SCH ×2 (08:31→12:20)
[2016-12-26] MEDS: HCTZ PO SCH (10:32)
[2016-12-26] MEDS: COLACE PO SCH (10:32)
[2016-12-26] MEDS: HEPARIN SUB-Q SCH (10:33)
[2016-12-26] MEDS: PROCARDIA XL PO SCH (10:33)
[2016-12-26] MEDS: MIRALAX 3350 PO SCH (10:33)
[2016-12-26] MEDS: HALDOL PO SCH (10:33)
[2016-12-26] MEDS: GEODON PO SCH (10:35)
[2016-12-26] MEDS: LAC-HYDRIN TP SCH (12:20)
--- NOTE | 2016-12-26 14:21 | Discharge Summary ---
Providers - Providers Date of Admission: 10/26/16 12:28 Attending physician: ERIC SANCHEZ 11/14/16 09:30 Consult to Wound/ET Nurse [CONS] Urgent Reason For Exam: wound eval 11/18/16 09:22 Physical Therapy Evaluation and Treat [CONS] Routine Comment: Reason For Exam: debility 11/19/16 13:07 psychiatry consult [Consult to Mental Health] [CONS] Routine Reason For Exam: agitation Place consult to:: pls Notified:: mental health Phone number called:: [phone] Was contact made?: Yes If yes, spoke with:: ANURAG Time called:: 13:48 Comment:: NUGGET 12/05/16 13:37 Consult to Wound/ET Nurse [CONS] Urgent Reason For Exam: wound eval 12/09/16 12:26 Physical Therapy Evaluation and Treat [CONS] Routine Comment: Reason For Exam: debility 10/28/16 16:31 Physical Therapy Evaluation and Treat [CONS] Routine Comment: Reason For Exam: altered level of consciousness/psychosis 11/02/16 12:37 Consult to Dietitian/Nutrition [CONS] Routine Physician Instructions: Reason For Exam: Reason for Consult: Malnutrition 11/07/16 14:05 Consult to Wound/ET Nurse [CONS] Urgent Reason For Exam: wound eval (R) index finger 11/07/16 15:38 Consult to Physician [CONS] Routine Consulting Provider: JACKSON MACDONALD V Reason For Exam: Right hand infection Place consult to:: mychal Notified:: yesi sorto Phone number called:: [phone] Was contact made?: Yes If yes, spoke with:: reese Time called:: 12:50 11/09/16 11:33 Consult to Physician [CONS] Routine Consulting Provider: TY CUADRA Reason For Exam: right index finger abscess Place consult to:: DR. Cuadra Notified:: Dr. Cuadra Phone number called:: [phone] Was contact made?: Yes Time called:: 12:30 Comment:: COMPLETED Primary care physician: [employer] Hospitalization Condition: Stable Hospital course: 71 YO Male admitted for Acute Renal Failure, worsening dementia, and Psychosis. Pt hospital course complicated by right index finger infection. Ortho consulted. Pt underwent index finger amputation. Pt had prolonged hospital course. Pt experienced worsening dementia and debility. PT consulted. Pt convalesced fair during hospital course. Pt status did not improve. Pt prognosis discussed with sife and son. Pt medically optimized. Case management consulted for D/C planning. Pt evaluated prior to discharge, Pt found to be lethargic, confused with no acute physical exam findings. Pt discharged to hospice under care of medical office specialist. 35 minutes dedicated to patient discharge and education. Disposition: DC/[place] SNF [facility] CERT - Discharge Diagnoses (1) Dementia Status: Chronic Qualifiers: Dementia type: D Alzheimer's disease onset: A Dementia behavioral disturbance: D (2) Psychosis Status: Resolved Qualifiers: Psychosis type: unspecified psychosis type Schizoaffective disorder type: S Schizophrenia type: S Qualified Code(s): F29 - Unspecified psychosis not due to a substance or known physiological condition (3) Finger amputation, no complication Status: Acute Qualifiers: Encounter type: initial encounter Qualified Code(s): S68.119A - Complete traumatic metacarpophalangeal amputation of unspecified finger, initial encounter (4) Acute renal failure (ARF) Status: Resolved Qualifiers: Acute renal failure type: A (5) Sepsis Status: Resolved Qualifiers: Sepsis type: S (6) Pneumonia Status: Resolved Qualifiers: Pneumonia type: P Aspiration pneumonia type: A Laterality: L Lung location: L (7) Encephalopathy Status: Resolved (8) DVT prophylaxis Status: Acute Core Measure Documentation - Palliative Care Palliative Care/ Comfort Measures: Hospice Care Exam - Constitutional Vitals: Temp Pulse Resp BP Pulse Ox 99.0 F 107 H 20 134/78 98 12/26/16 08:00 12/26/16 08:00 12/26/16 08:00 12/26/16 08:00 12/26/16 08:00 General appearance: Present: mild distress - Neck Neck: Present: supple - Respiratory Respiratory: bilateral: diminished - Cardiovascular Rhythm: regular Heart Sounds: Present: S1 & S2 - Extremities Extremity abnormal: edema Peripheral Pulses: within normal limits - Abdominal General gastrointestinal: Present: soft, non-tender, non-distended - Integumentary Integumentary: Present: clear, dry, decreased turgor - Musculoskeletal Musculoskeletal: generalized weakness - Psychiatric Psychiatric: no intact judgment & insight, no memory intact - Neurologic Neurologic: no gait normal Plan Activity: advance as tolerated Follow up with: TY CUADRA MD [Staff Physician] - 7 Days PRIMARY CAREMD [Primary Care Provider] - 3-5 Days JACKSON MACDONALD MD [Staff Physician] - 7 Days Prescriptions: oxyCODONE [Roxicodone TAB] 5 mg PO DAILY #30 tablet traZODone [Desyrel] 25 mg PO QHS #30 tablet
[2016-12-26 15:10] VITALS: BP 123/61
== END 2016-12-26 15:15 | disposition hospice, inpatient (51) | DRG 853 ==
LOC: EEVIPCON 16:57 → ED 16:57 → UNDOADMIN 10-24 12:28 → 3A 10-24 12:28 → EEVIPCON 10-26 12:28 → 3A 10-31 05:03
PROVIDERS: ADMIT Internal Medicine; ATTEND Internal Medicine
PROC: 02HV33Z Insertion of Infusion Device into Superior Vena Cava, Percutaneous Approach (ICD-10-PCS; 2016-10-28)
PROC: 4A033R1 Measurement of Arterial Saturation, Peripheral, Percutaneous Approach (ICD-10-PCS; 2016-11-12)
PROC: 5A09557 Assistance with Respiratory Ventilation, Greater than 96 Consecutive Hours, Continuous Positive Airway Pressure (ICD-10-PCS; 2016-11-13)
PROC: 0X6N0Z3 Detachment at Right Index Finger, Low, Open Approach (ICD-10-PCS; principal; 2016-11-15)
DX: A41.9 Sepsis, unspecified organism (principal); G93.41 Metabolic encephalopathy; N17.0 Acute kidney failure with tubular necrosis; J18.9 Pneumonia, unspecified organism; F23 Brief psychotic disorder; E87.0 Hyperosmolality and hypernatremia; I13.0 Hypertensive heart and chronic kidney disease with heart failure and stage 1 through stage 4 chronic kidney disease, or unspecified chronic kidney disease; F11.20 Opioid dependence, uncomplicated; E11.52 Type 2 diabetes mellitus with diabetic peripheral angiopathy with gangrene; F03.90 Unspecified dementia, unspecified severity, without behavioral disturbance, psychotic disturbance, mood disturbance, and anxiety; Y95 Nosocomial condition; I50.9 Heart failure, unspecified; M10.9 Gout, unspecified; F32.9 Major depressive disorder, single episode, unspecified; F29 Unspecified psychosis not due to a substance or known physiological condition; E11.22 Type 2 diabetes mellitus with diabetic chronic kidney disease; N18.9 Chronic kidney disease, unspecified; G47.33 Obstructive sleep apnea (adult) (pediatric); R41.0 Disorientation, unspecified; E11.65 Type 2 diabetes mellitus with hyperglycemia; I25.10 Atherosclerotic heart disease of native coronary artery without angina pectoris; L30.9 Dermatitis, unspecified; E86.0 Dehydration; L03.011 Cellulitis of right finger; E03.9 Hypothyroidism, unspecified; D64.9 Anemia, unspecified; Z85.72 Personal history of non-Hodgkin lymphomas; Z87.442 Personal history of urinary calculi; Z86.11 Personal history of tuberculosis; Z95.5 Presence of coronary angioplasty implant and graft; Z88.6 Allergy status to analgesic agent; Z88.8 Allergy status to other drugs, medicaments and biological substances
CPT/HCPCS: 36415; 36600; 70450; 71010; 80048; 80061; 80074; 80301; 80320; 81001; 82140; 82164; 82550; 82553; 82803; 82962; 83036; 83735; 83880; 84436; 84439; 84443; 84479; 84480; 84481; 84484; 85025; 85027; 85610; 85730; 87040; 87075; 87076; 87086; 87116; 87186; 88302; 88311; 93005; 94660; 94760; 96372; 96374; 96375; A6250; G0479; G0480; G8978-GP; G8979-GP; G8980-GP; J0696; J1170; J1200; J1630; J1644; J1815; J1956; J2060; J2405; J2543; J2704; J2930; J2997; J3010; J3486; J7030; J7040; Q9967